=== PATIENT | female | born 1945 | race Caucasian/White ===

== ENCOUNTER 2016-10-21 12:34 | Outpatient (CLI) | payer MEDICARE, BC | END 2016-10-21 12:35 | disposition home or self-care (01) | DX: Z09 Encounter for follow-up examination after completed treatment for conditions other than malignant neoplasm (principal); E11.9 Type 2 diabetes mellitus without complications ==

== ENCOUNTER 2016-10-30 14:06 | Outpatient (CLI) | payer MEDICARE, BC | END 2016-10-30 14:07 | disposition home or self-care (01) | DX: J11.1 Influenza due to unidentified influenza virus with other respiratory manifestations (principal) ==

== ENCOUNTER 2017-06-11 12:51 | Outpatient (CLI) | payer MEDICARE, BC ==
[2017-06-11 13:12] LABS: CREATININE 1.7 mg/dL (0.4-1.0)
[2017-06-11] MEDS ORDERED: IOPAMIDOL-300 100 ML VIAL IVP ONE (15:05)
[2017-06-11] MEDS ORDERED: IOPAMIDOL-300 50 ML VIAL PO ONE (15:05)
--- NOTE | 2017-06-12 10:44 | CT Report ---
CT ABDOMEN AND PELVIS WITH CONTRAST: 06/11/2017 CLINICAL INDICATION: Bilateral labial swelling, question pelvic mass. TECHNIQUE: Axial CT images of the abdomen and pelvis were obtained with 100 mL Isovue-300 intravenou sly as well as oral contrast. In accordance with CT protocol optimization, one or more of the following dose reduction techniques w ere utilized for this exam: automated exposure control, adjustment of mA and/or KV based on patient size, or use of iterative reconstructive technique. COMPARISON: 08/29/2011 FINDINGS: IV contrast was administered inadvertently in this patient with renal dysfunction. The of fice and the patient were contacted regarding this. Limited evaluation of the lung bases demonstrates minimal atelectasis. Abdomen: The liver, kidneys, and pancreas appear unremarkable. There is a stable nodule in the left adrenal gland, likely representing an adenoma. The spleen demonstrates small hemangiomas. The gall bladder is not dilated. No bowel dilatation, free gas, or free fluid is present. There is a paraumb ilical hernia present, containing fat, with the neck measuring 1.5 cm. No free gas, free fluid, or a bdominal adenopathy is seen. Pelvis: Previously seen pelvic cyst has resolved. No pelvic mass, free fluid, or adenopathy is pres ent. Postoperative changes of hysterectomy are present. Osseous structures demonstrate degenerative changes. IMPRESSION: NO EVIDENCE OF A PELVIC MASS OR ADENOPATHY. JOB #: [id number] EXT JOB #:[id number]
== END 2017-06-11 12:52 | disposition home or self-care (01) ==
LOC: LAB 12:51
PROVIDERS: ATTEND Surgery
DX: K42.9 Umbilical hernia without obstruction or gangrene (principal); E27.9 Disorder of adrenal gland, unspecified; D18.09 Hemangioma of other sites
CPT/HCPCS: 36415; 74177; 82565; Q9967

== ENCOUNTER 2017-08-16 10:50 | Outpatient (CLI) | payer MEDICARE, BC ==
[2017-08-16 11:04] LABS: BASOPHILS # (AUTO) 0.1 10^3/uL (0.0-0.1); BASOPHILS % (AUTO) 1.4 %; EOSINOPHILS # (AUTO) 0.4 10^3/uL (0.0-0.7); EOSINOPHILS % (AUTO) 4.2 %; HCT - HEMATOCRIT 39.4 % (37.0-47.0); HGB - HEMOGLOBIN 13.1 g/dL (12.0-16.0); LYMPHOCYTES # (AUTO) 2.5 10^3/uL (1.5-3.5); MEAN CORPUSCULAR HEMOGLOBIN 28.8 pg (27.0-31.0); MEAN CORPUSCULAR HGB CONC 33.3 g/dL (32.0-36.0); MEAN CORPUSCULAR VOLUME 86.4 fL (81.0-99.0); MEAN PLATELET VOLUME 9.8 fL (7.9-10.8); MONOCYTES # (AUTO) 0.6 10^3/uL (0.0-1.0); MONOCYTES % (AUTO) 6.4 %; NEUTROPHILS # (AUTO) 5.6 10^3/uL (1.5-6.6); NUCLEATED RED BLOOD CELLS AUTO 0.1 /100WBC; RED BLOOD COUNT 4.56 10^6/uL (4.20-5.40); RED CELL DISTRIBUTION WIDTH 13.9 % (12.0-15.0); UNCORRECTED WHITE BLOOD COUNT 9.2 x10^3/uL; WHITE BLOOD COUNT 9.2 x10^3/uL (4.8-10.8)
[2017-08-16 11:13] LABS: BILIRUBIN,TOTAL 0.5 mg/dL (0.2-1.0); CALCIUM 9.2 mg/dL (8.5-10.3); CREATININE 1.2 mg/dL (0.4-1.0); POTASSIUM 4.6 mmol/L (3.5-5.0); TOTAL PROTEIN 7.5 g/dL (6.7-8.2)
--- NOTE | 2017-08-16 22:39 | XRAY Report ---
EXAM: CHEST RADIOGRAPHY EXAM DATE: 08/16/2017 11:06 AM. CLINICAL HISTORY: PREOPERATIVE EXAMINATION. COMPARISON: 07/14/2016. TECHNIQUE: 2 views. FINDINGS: Lungs/Pleura: No focal opacities evident with exception of minimal left midlung atelectasis. No pleur al effusion. No pneumothorax. Normal volumes. Mediastinum: Heart and mediastinal contours are unremarkable. Other: None. IMPRESSION: Negative 2-view chest radiography. [facility] Referring Provider Line: [phone] SITE ID: [id number]
[2017-08-18] MEDS ORDERED: INSULIN REGULAR HUMAN 100 UNIT/1 ML 10 ML MDV ONE (08:33)
== END 2017-08-16 11:05 ==
LOC: DI 10:50
PROVIDERS: ATTEND Physician Assistant Medical
DX: Z01.818 Encounter for other preprocedural examination (principal)
CPT/HCPCS: 36415; 71020; 80053; 85025

== ENCOUNTER 2017-08-18 06:03 | Day surgery (SDC) | payer MEDICARE, BC ==
[2017-08-18] MEDS ORDERED: LACTATED RINGERS 1,000 ML IV ONE ×2 (07:00→09:41)
[2017-08-18] MEDS ORDERED: SCOPOLAMINE PATCH TOP ONE (07:20)
[2017-08-18] MEDS ORDERED: INSULIN REGULAR HUMAN 100 UNIT/1 ML 10 ML MDV ONE (07:21)
[2017-08-18] MEDS ORDERED: NEOSTIGMINE 1 MG/1 ML 10 ML MDV IVP ONE (08:00)
[2017-08-18] MEDS ORDERED: GLYCOPYRROLATE 1 MG/5 ML VIAL IVP ONE (08:00)
[2017-08-18] MEDS ORDERED: CLINDAMYCIN IV 900 MG/50 ML IV ONE (08:00)
[2017-08-18] MEDS ORDERED: ONDANSETRON 4 MG/2 ML VIAL IVP ONE (08:00)
[2017-08-18] MEDS ORDERED: MIDAZOLAM 2 MG/2 ML VIAL IVP ONE (08:00)
[2017-08-18] MEDS ORDERED: LIDOCAINE-MPF 2% 5 ML VIAL IM ONE (08:00)
[2017-08-18] MEDS ORDERED: METOCLOPRAMIDE 10 MG/2 ML VIAL IVP ONE (08:00)
[2017-08-18] MEDS ORDERED: ROCURONIUM 50 MG/5 ML VIAL IVP ONE (08:00)
[2017-08-18] MEDS ORDERED: ePHEDrine 50 MG/ML VIAL IVP ONE (08:00)
[2017-08-18] MEDS ORDERED: fentaNYL 100 MCG/2 ML VIAL IVP ONE (08:00)
[2017-08-18] MEDS ORDERED: BUPIVACAINE 0.5% PF 30 ML VIAL INFIL ONE ×2 (08:12)
--- NOTE | 2017-08-18 09:09 | OPERATIVE REPORT ---
Operative Report - General Procedure Date: 08/18/17 Planned Procedure: Periumbilical/ventral herniorrhaphy with mesh Pre-Op Diagnosis: Periumbilical/ventral hernia Procedure Performed: Periumbilical/ventral herniorrhaphy with mesh Post Op Diagnosis: Periumbilical/ventral hernia - Procedure Note Primary Surgeon: Jermaine Ledbetter MD Anesthesia Provider: Yue Hancock Anesthesia Technique: General ET tube, Local (30 mL 1/2% Marcaine) IV Fluids (mL): 600 Estimated Blood Loss (mL): 5 Complications: None. - Other Other Information/Narrative: OPERATIVE DESCRIPTION/REPORT: After verbal and written informed consent was obtained detailing the risks of infection, bleeding requiring transfusion with its risks, nerve injury, and , and after I met with the patient confirming the surgery and the site of the surgery, the patient was brought to the operative suite and placed supine on the operating table. Great care was taken to avoid pressure points to prevent pressure necrosis or nerve injury. Monitoring devices were applied along with TEDs and pneumatic compressive stockings (to prevent DVT). The patient received preoperative antibiotics for surgical prophylaxis. Yue Hancock sedated and anethetized the patient for the entire procedure. The patient was prepped and draped in the usual sterile manner. With the patient draped my initials were clearly visible. A "time in" then confirmed that the patient was identified with 3 identifiers (name, date and medical record number), the history and physical was in the chart, the signed consent confirming the procedure was in the chart, the patient was in the correct position, the aforementioned prophylactic measures were in place or given, we had the correct personnel and equipment to complete the procedure and that anesthesia, surgery and nursing were given an opportunity to express any concerns. With the agreement of everyone in the room, we proceeded with the operation. A transverse incision was made overlying the mass and dissection was carried down to the hernia sac using a combination of Metzenbaum scissors, scalpel, and Bovie electrocautery. The sac was cleared of overlying adherent tissue, and the fascial defect was delineated. The fascia was cleared of any adherent tissue for a distance 1.5 cm from the defect. The sac was resected using primarily Bovie electrocautery. The defect was closed using a Ventralex ST hernia patch (Ref #[id number], Lot #[id number], used by date 2019-03-15). This 8 cm in diameter patch was selected even though it was slightly oversized for the fascial defect due to the patient's obesity, diabetes, and cigarette smoking all contributing to a higher than average chance of recurrence. This was inserted into the abdomen and deployed. The straps were cut to fit and used to secure the mesh superiorly and inferiorly using 2-0 PDS. The fascia was then closed over this again using 2-0 PDS in an interrupted fashion. The surrounding fascia was injected using half percent Marcaine for long-term pain control. The subcutaneous tissues were copiously irrigated, and then closed using an interrupted 2-0 Vicryl. Meticulous hemostasis was obtained using Bovie electrocautery. The skin incision was approximated with a running 4-0 Monocryl. The prep was washed off and benzoin and Steri-Strips were applied. At this point a time out was performed that confirmed that all the counts were correct, the procedure that was performed, the blood loss, the IV fluids administered, and the patients condition. Having tolerated the procedure well, the patient was subsequently extubated and taken to recovery room in good and stable condition.
[2017-08-18 10:19] VITALS: BP 136/72
== END 2017-08-18 06:04 | disposition home or self-care (01) ==
LOC: SDS 06:03
PROVIDERS: ATTEND Surgery
PROC: 0WUF0JZ Supplement Abdominal Wall with Synthetic Substitute, Open Approach (ICD-10-PCS; principal; 2017-08-18 07:30)
DX: K43.9 Ventral hernia without obstruction or gangrene (principal); E11.9 Type 2 diabetes mellitus without complications; F17.210 Nicotine dependence, cigarettes, uncomplicated; E78.5 Hyperlipidemia, unspecified; Z79.4 Long term (current) use of insulin; Z79.82 Long term (current) use of aspirin; E66.9 Obesity, unspecified; Z68.41 Body mass index [BMI] 40.0-44.9, adult
CPT/HCPCS: 49560; 49568; C1781; J1815; J3490; J7120

== ENCOUNTER 2017-11-20 11:23 | Outpatient (CLI) | payer MEDICARE, OTHER ==
[2017-11-20 17:48] LABS: BASOPHILS # (AUTO) 0.1 10^3/uL (0.0-0.1); BASOPHILS % (AUTO) 1.3 %; EOSINOPHILS # (AUTO) 0.4 10^3/uL (0.0-0.7); EOSINOPHILS % (AUTO) 4.6 %; LYMPHOCYTES # (AUTO) 1.9 10^3/uL (1.5-3.5); MEAN CORPUSCULAR HEMOGLOBIN 28.9 pg (27.0-31.0); MEAN CORPUSCULAR HGB CONC 32.5 g/dL (32.0-36.0); MEAN CORPUSCULAR VOLUME 88.9 fL (81.0-99.0); MEAN PLATELET VOLUME 10.7 fL (7.9-10.8); MONOCYTES # (AUTO) 0.6 10^3/uL (0.0-1.0); NEUTROPHILS # (AUTO) 5.4 10^3/uL (1.5-6.6); NEUTROPHILS % (AUTO) 64.1 %; PLT - PLATELET COUNT 301 10^3/uL (130-450); RED BLOOD COUNT 4.48 10^6/uL (4.20-5.40); RED CELL DISTRIBUTION WIDTH 14.1 % (12.0-15.0); WHITE BLOOD COUNT 8.4 x10^3/uL (4.8-10.8)
[2017-11-20 18:24] LABS: ALBUMIN 3.9 g/dL (3.2-5.5); ALBUMIN/GLOBULIN RATIO 1.1 (1.0-2.2); ALKALINE PHOSPHATASE 80 IU/L (42-121); ALT ALANINE AMINOTRANSFERASE 14 IU/L (10-60); AST ASPARTATE AMINOTRANSFERASE 17 IU/L (10-42); BILIRUBIN,TOTAL 0.5 mg/dL (0.2-1.0); BUN - BLOOD UREA NITROGEN 29 mg/dL (6-20); CALCIUM 9.1 mg/dL (8.5-10.3); CARBON DIOXIDE - CO2 24 mmol/L (21-32); CHLORIDE 100 mmol/L (101-111); CHOL/HDL RATIO 6.2 (<4.4); CHOLESTEROL 328 mg/dL; CREATININE 1.2 mg/dL (0.4-1.0); GFR - MDRD 44 (>89); GLUCOSE 293 mg/dL (70-100); HDL CHOLESTEROL 53 mg/dL; LDL CHOLESTEROL,CALCULATED 235 mg/dL; LDL/HDL RATIO 4.4 (<4.4); SODIUM 133 mmol/L (135-145); TOTAL PROTEIN 7.5 g/dL (6.7-8.2); VLDL CHOLESTEROL 40 mg/dL
[2017-11-20 19:32] LABS: HB2 TOTAL 13.8 g/dL; HEMOGLOBIN A1C 1.48 g/dL
== END 2017-11-20 11:24 | disposition home or self-care (01) ==
LOC: LAB.F 11:23
PROVIDERS: ATTEND Physician Assistant Medical
DX: E78.5 Hyperlipidemia, unspecified (principal); E11.51 Type 2 diabetes mellitus with diabetic peripheral angiopathy without gangrene; E03.9 Hypothyroidism, unspecified
CPT/HCPCS: 36415; 80053; 80061; 83036; 83721; 84443; 85025

== ENCOUNTER 2017-12-31 12:26 | Outpatient (CLI) | payer MEDICARE, OTHER | END 2017-12-31 12:27 | disposition EMS.NT | LOC: EMS 12:26 | PROVIDERS: ATTEND Surgery | DX: R55 Syncope and collapse (principal); R73.09 Other abnormal glucose ==

== ENCOUNTER 2018-02-01 11:28 | Outpatient (CLI) | payer MEDICARE, OTHER ==
[2018-02-01 19:40] LABS: HB2 TOTAL 12.9 g/dL; HEMOGLOBIN A1C 0.93 g/dL; HEMOGLOBIN A1C % 8.7 % (4.6-6.2)
== END 2018-02-01 11:29 | disposition home or self-care (01) ==
LOC: LAB.F 11:28
PROVIDERS: ATTEND Nurse Practitioner Family
DX: E11.9 Type 2 diabetes mellitus without complications (principal)
CPT/HCPCS: 36415; 83036

== ENCOUNTER 2018-08-19 09:46 | Outpatient (CLI) | payer MEDICARE, OTHER ==
[2018-08-19 17:49] LABS: BASOPHILS # (AUTO) 0.1 10^3/uL (0.0-0.1); BASOPHILS % (AUTO) 1.3 %; EOSINOPHILS # (AUTO) 0.5 10^3/uL (0.0-0.7); EOSINOPHILS % (AUTO) 5.7 %; HGB - HEMOGLOBIN 13.7 g/dL (12.0-16.0); LYMPHOCYTES # (AUTO) 2.5 10^3/uL (1.5-3.5); LYMPHOCYTES % (AUTO) 27.8 %; MEAN CORPUSCULAR HEMOGLOBIN 29.6 pg (27.0-31.0); MEAN CORPUSCULAR HGB CONC 32.8 g/dL (32.0-36.0); MEAN CORPUSCULAR VOLUME 90.2 fL (81.0-99.0); MEAN PLATELET VOLUME 10.7 fL (7.9-10.8); MONOCYTES # (AUTO) 0.6 10^3/uL (0.0-1.0); MONOCYTES % (AUTO) 6.6 %; NEUTROPHILS # (AUTO) 5.2 10^3/uL (1.5-6.6); NEUTROPHILS % (AUTO) 58.6 %; PLT - PLATELET COUNT 258 10^3/uL (130-450); RED BLOOD COUNT 4.62 10^6/uL (4.20-5.40); RED CELL DISTRIBUTION WIDTH 14.1 % (12.0-15.0); WHITE BLOOD COUNT 8.9 x10^3/uL (4.8-10.8)
[2018-08-19 18:29] LABS: ALBUMIN 3.6 g/dL (3.2-5.5); ALKALINE PHOSPHATASE 85 IU/L (42-121); ALT ALANINE AMINOTRANSFERASE 14 IU/L (10-60); AST ASPARTATE AMINOTRANSFERASE 15 IU/L (10-42); BILIRUBIN,TOTAL 0.7 mg/dL (0.2-1.0); BUN - BLOOD UREA NITROGEN 36 mg/dL (6-20); CALCIUM 9.1 mg/dL (8.5-10.3); CARBON DIOXIDE - CO2 28 mmol/L (21-32); CHLORIDE 99 mmol/L (101-111); CHOL/HDL RATIO 7.2 (<4.4); CHOLESTEROL 376 mg/dL; CREATININE 1.5 mg/dL (0.4-1.0); GFR - MDRD 34 (>89); GLUCOSE 317 mg/dL (70-100); HDL CHOLESTEROL 52 mg/dL; LDL CHOLESTEROL,CALCULATED 253 mg/dL; LDL/HDL RATIO 4.9 (<4.4); SODIUM 135 mmol/L (135-145); TOTAL PROTEIN 7.1 g/dL (6.7-8.2); VLDL CHOLESTEROL 71 mg/dL
[2018-08-19 19:28] LABS: HB2 TOTAL 14.1 g/dL; HEMOGLOBIN A1C 1.53 g/dL; HEMOGLOBIN A1C % 12.1 % (4.6-6.2)
== END 2018-08-19 09:47 | disposition home or self-care (01) ==
LOC: LAB.F 09:46
PROVIDERS: ATTEND Physician Assistant Medical
DX: I10 Essential (primary) hypertension (principal); E78.5 Hyperlipidemia, unspecified; E11.40 Type 2 diabetes mellitus with diabetic neuropathy, unspecified
CPT/HCPCS: 36415; 80053; 80061; 82043; 83036; 83721; 85025

== ENCOUNTER 2018-12-19 00:32 | Outpatient (CLI) | payer MEDICARE, OTHER | END 2018-12-19 00:33 | disposition critical access hospital (66) | LOC: EMS 00:32 | PROVIDERS: ATTEND Surgery | DX: R41.0 Disorientation, unspecified (principal) | CPT/HCPCS: A0425; A0429 ==

== ENCOUNTER 2018-12-19 01:02 | Emergency (ER) | payer MEDICARE, OTHER ==
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
[2018-12-19 02:22] LABS: BASOPHILS # (AUTO) 0.1 10^3/uL (0.0-0.1); BASOPHILS % (AUTO) 1.6 %; EOSINOPHILS # (AUTO) 0.3 10^3/uL (0.0-0.7); EOSINOPHILS % (AUTO) 3.7 %; LYMPHOCYTES # (AUTO) 2.3 10^3/uL (1.5-3.5); LYMPHOCYTES % (AUTO) 24.4 %; MEAN CORPUSCULAR HEMOGLOBIN 30.2 pg (27.0-31.0); MEAN CORPUSCULAR HGB CONC 33.8 g/dL (32.0-36.0); MEAN CORPUSCULAR VOLUME 89.4 fL (81.0-99.0); MEAN PLATELET VOLUME 10.2 fL (7.9-10.8); MONOCYTES # (AUTO) 0.7 10^3/uL (0.0-1.0); MONOCYTES % (AUTO) 7.3 %; NEUTROPHILS # (AUTO) 5.9 10^3/uL (1.5-6.6); PLT - PLATELET COUNT 265 10^3/uL (130-450); RED CELL DISTRIBUTION WIDTH 14.2 % (12.0-15.0); WHITE BLOOD COUNT 9.3 x10^3/uL (4.8-10.8)
[2018-12-19 02:44] LABS: BILIRUBIN,URINE NEGATIVE (NEGATIVE); GLUCOSE, URINE (UA) NEGATIVE (NEGATIVE); KETONES,URINE (UA) NEGATIVE (NEGATIVE); LEUKOCYTE ESTERASE, URINE NEGATIVE (NEGATIVE); NITRITE,URINE NEGATIVE (NEGATIVE); OCCULT BLOOD,URINE NEGATIVE (NEGATIVE); PROTEIN,URINE 100 mg/dL (NEGATIVE); UROBILINOGEN,URINE 0.2 (NORMAL) E.U./dL (NORMAL)
[2018-12-19 02:45] LABS: ALBUMIN 3.5 g/dL (3.2-5.5); ALBUMIN/GLOBULIN RATIO 0.9 (1.0-2.2); BILIRUBIN,TOTAL 0.6 mg/dL (0.2-1.0); CALCIUM 8.9 mg/dL (8.5-10.3); CREATININE 1.7 mg/dL (0.4-1.0); TOTAL PROTEIN 7.2 g/dL (6.7-8.2)
[2018-12-19 02:55] LABS: CLARITY,URINE CLEAR (CLEAR)
[2018-12-19 02:56] LABS: BACTERIA,URINE Few /HPF (None Seen); RBC,URINE 0-5 /HPF (0-5); SQUAMOUS EPITHELIAL CELL,UR MOD Squamous (<= Few)
--- NOTE | 2018-12-19 02:57 | CT Report ---
Reason: confusion short term memory loss Procedure Date: 12/19/2018 Accession Number: [id number] / [id number] Procedure: CT - HEAD WO CPT Code: FULL RESULT: EXAM: CT HEAD EXAM DATE: 12/19/2018 02:48 AM. CLINICAL HISTORY: Confusion, short term memory loss. COMPARISON: None. TECHNIQUE: Multiaxial CT images were obtained from the foramen magnum to the vertex. Reformats: Sagittal and coronal. IV contrast: None. In accordance with CT protocol optimization, one or more of the following dose reduction techniques were utilized for this exam: automated exposure control, adjustment of mA and/or KV based on patient size, or use of iterative reconstructive technique. FINDINGS: Parenchyma: No intraparenchymal hemorrhage. No evidence of mass, midline shift, or CT findings of infarction. Elkins-white differentiation is distinct. Moderate nonspecific white matter change, likely small vessel ischemia. Extraaxial Spaces: Normal for age. No subdural or epidural collections identified. Ventricles: Normal in size and position. Sinuses and Orbits: Imaged paranasal sinuses, orbits, and mastoids show no significant abnormality. Bilateral lens replacement surgery. Bones: No evidence of fracture or calvarial defect. Other: None. IMPRESSION: No acute or focal intracranial abnormality. [facility]
[2018-12-19] MEDS ORDERED: SODIUM CHLORIDE 0.9% 1,000 ML IV ONE (03:23)
[2018-12-19 05:13] LABS: BILIRUBIN,URINE NEGATIVE (NEGATIVE); GLUCOSE, URINE (UA) NEGATIVE (NEGATIVE); KETONES,URINE (UA) NEGATIVE (NEGATIVE); LEUKOCYTE ESTERASE, URINE TRACE (NEGATIVE); NITRITE,URINE NEGATIVE (NEGATIVE); OCCULT BLOOD,URINE NEGATIVE (NEGATIVE); PROTEIN,URINE 100 mg/dL (NEGATIVE); UROBILINOGEN,URINE 0.2 (NORMAL) E.U./dL (NORMAL)
[2018-12-19 05:22] LABS: CLARITY,URINE CLEAR (CLEAR)
[2018-12-19 05:23] LABS: BACTERIA,URINE Few /HPF (None Seen); RBC,URINE 0-5 /HPF (0-5); SQUAMOUS EPITHELIAL CELL,UR FEW Squamous (<= Few)
[2018-12-19] MEDS ORDERED: ACETAMINOPHEN 325 MG TABLET PO STA (05:37)
[2018-12-19] MEDS ORDERED: cefTRIAXone 1 GM in SODIUM CHLORIDE 0.9% MINIBAG 100 ML IV STA (06:54)
[2018-12-19 10:02] VITALS: BP 180/84
== END 2018-12-19 10:01 | disposition home or self-care (01) ==
LOC: EDUNIT# → ED 01:02
DX: E86.0 Dehydration (principal); N30.00 Acute cystitis without hematuria; F03.90 Unspecified dementia, unspecified severity, without behavioral disturbance, psychotic disturbance, mood disturbance, and anxiety; I11.0 Hypertensive heart disease with heart failure; I50.9 Heart failure, unspecified; E11.9 Type 2 diabetes mellitus without complications; Z79.4 Long term (current) use of insulin; Z79.82 Long term (current) use of aspirin
CPT/HCPCS: 36415; 70450; 80053; 81001; 83605; 83690; 84484; 85025; 87040; 87086; 96361; 96365; 99284; A9270; 81003

== ENCOUNTER 2018-12-24 09:31 | Outpatient (CLI) | payer MEDICARE, OTHER ==
[2018-12-24 18:30] LABS: CHOLESTEROL 315 mg/dL; HDL CHOLESTEROL 45 mg/dL; LDL CHOLESTEROL,CALCULATED 212 mg/dL; LDL/HDL RATIO 4.7 (<4.4); VLDL CHOLESTEROL 58 mg/dL
== END 2018-12-24 09:32 | disposition home or self-care (01) ==
LOC: LAB.F 09:31
PROVIDERS: ATTEND Psychiatry & Neurology Neurology
DX: I63.9 Cerebral infarction, unspecified (principal)
CPT/HCPCS: 36415; 80061; 83721

== ENCOUNTER 2018-12-25 12:30 | Outpatient (CLI) | payer MEDICARE, OTHER | END 2018-12-25 12:31 | disposition home or self-care (01) | LOC: DI 12:30 | PROVIDERS: ATTEND Psychiatry & Neurology Neurology | DX: I63.9 Cerebral infarction, unspecified (principal) | CPT/HCPCS: 93306 ==

== ENCOUNTER 2019-01-10 09:53 | Outpatient (CLI) | payer MEDICARE, OTHER | END 2019-01-10 09:54 | disposition home or self-care (01) | LOC: NS 09:53 | PROVIDERS: ATTEND Physician Assistant Medical | DX: Z71.3 Dietary counseling and surveillance (principal); E78.5 Hyperlipidemia, unspecified; I50.9 Heart failure, unspecified; E11.22 Type 2 diabetes mellitus with diabetic chronic kidney disease; N18.4 Chronic kidney disease, stage 4 (severe); E11.40 Type 2 diabetes mellitus with diabetic neuropathy, unspecified | CPT/HCPCS: 97802 ==

== ENCOUNTER 2019-01-24 11:05 | Outpatient (CLI) | payer MEDICARE, OTHER | END 2019-01-24 11:06 | disposition home or self-care (01) | LOC: NS 11:05 | PROVIDERS: ATTEND Physician Assistant Medical | DX: Z71.3 Dietary counseling and surveillance (principal); E11.22 Type 2 diabetes mellitus with diabetic chronic kidney disease; N18.4 Chronic kidney disease, stage 4 (severe); E78.2 Mixed hyperlipidemia; E66.01 Morbid (severe) obesity due to excess calories; I50.9 Heart failure, unspecified; E11.40 Type 2 diabetes mellitus with diabetic neuropathy, unspecified; Z68.41 Body mass index [BMI] 40.0-44.9, adult | CPT/HCPCS: 97803 ==

== ENCOUNTER 2019-02-16 08:59 | Outpatient (CLI) | payer MEDICARE, OTHER ==
[2019-02-16 10:30] LABS: HB2 TOTAL 13.2 g/dL
[2019-02-16 11:05] LABS: ALBUMIN 3.8 g/dL (3.2-5.5); ALBUMIN/GLOBULIN RATIO 1.2 (1.0-2.2); ALKALINE PHOSPHATASE 67 IU/L (42-121); ALT ALANINE AMINOTRANSFERASE 24 IU/L (10-60); AST ASPARTATE AMINOTRANSFERASE 25 IU/L (10-42); BILIRUBIN,TOTAL 0.5 mg/dL (0.2-1.0); BUN - BLOOD UREA NITROGEN 57 mg/dL (6-20); CALCIUM 9.3 mg/dL (8.5-10.3); CARBON DIOXIDE - CO2 22 mmol/L (21-32); CHLORIDE 107 mmol/L (101-111); CHOLESTEROL 245 mg/dL; CREATININE 1.5 mg/dL (0.4-1.0); GFR - MDRD 34 (>89); GLUCOSE 119 mg/dL (70-100); HDL CHOLESTEROL 35 mg/dL; LDL CHOLESTEROL,CALCULATED 171 mg/dL; LDL/HDL RATIO 4.9 (<4.4); SODIUM 138 mmol/L (135-145); VLDL CHOLESTEROL 39 mg/dL
[2019-02-16 15:50] LABS: HEMOGLOBIN A1C 0.78 g/dL; HEMOGLOBIN A1C % 7.6 % (4.6-6.2)
== END 2019-02-16 09:00 | disposition home or self-care (01) ==
LOC: LAB.F 08:59
PROVIDERS: ATTEND Internal Medicine
DX: E78.5 Hyperlipidemia, unspecified (principal); E11.40 Type 2 diabetes mellitus with diabetic neuropathy, unspecified; E03.9 Hypothyroidism, unspecified
CPT/HCPCS: 36415; 80053; 80061; 83036; 83721; 84443

== ENCOUNTER 2019-02-21 12:58 | Outpatient (CLI) | payer MEDICARE, OTHER | END 2019-02-21 12:59 | disposition home or self-care (01) | LOC: SC 12:58 | PROVIDERS: ATTEND Internal Medicine Pulmonary Disease | DX: G47.33 Obstructive sleep apnea (adult) (pediatric) (principal); E66.01 Morbid (severe) obesity due to excess calories; Z68.41 Body mass index [BMI] 40.0-44.9, adult | CPT/HCPCS: 99203; G0463; 99212 ==

== ENCOUNTER 2019-03-19 19:31 | Outpatient (CLI) | payer MEDICARE, OTHER | END 2019-03-19 19:32 | disposition home or self-care (01) | LOC: SC 19:31 | PROVIDERS: ATTEND Internal Medicine Pulmonary Disease | DX: G47.33 Obstructive sleep apnea (adult) (pediatric) (principal); G47.61 Periodic limb movement disorder | CPT/HCPCS: 95810 ==

== ENCOUNTER 2019-03-21 10:51 | Outpatient (CLI) | payer MEDICARE, OTHER | END 2019-03-21 10:52 | disposition home or self-care (01) | LOC: NS 10:51 | PROVIDERS: ATTEND Physician Assistant Medical | DX: Z71.3 Dietary counseling and surveillance (principal); E11.22 Type 2 diabetes mellitus with diabetic chronic kidney disease; N18.4 Chronic kidney disease, stage 4 (severe); E78.2 Mixed hyperlipidemia; E66.01 Morbid (severe) obesity due to excess calories; E11.40 Type 2 diabetes mellitus with diabetic neuropathy, unspecified; I50.9 Heart failure, unspecified; Z68.41 Body mass index [BMI] 40.0-44.9, adult | CPT/HCPCS: 97803 ==

== ENCOUNTER 2019-03-31 02:52 | Outpatient (CLI) | payer MEDICARE, OTHER, MEDICAID | END 2019-03-31 02:53 | disposition critical access hospital (66) | LOC: EMS 02:52 | PROVIDERS: ATTEND Surgery | DX: M25.532 Pain in left wrist (principal) | CPT/HCPCS: A0425; A0429 ==

== ENCOUNTER 2019-03-31 03:21 | Emergency (ER) | payer MEDICARE, OTHER, MEDICAID ==
--- NOTE | 2019-03-31 04:09 | ED Physician Documentation ---
PD HPI UPPER EXT INJURY - Stated complaint Stated Complaint: WRIST PAIN - Chief complaint Chief Complaint: Ext Problem - History obtained from History obtained from: Patient - History of Present Illness Location: Left, Wrist Type of injury: Blunt / blow Where injury occurred: Other (Pul) Timing - onset: How many days ago (2) Timing - duration: Days (2) Timing - details: Abrupt onset Pain level now: 10 Improved by: Nothing Worsened by: Moving Associated symptoms: Weakness, Swelling. No: Numbness, Tingling Similar symptoms before: Has not had sx before Recently seen: Not recently seen - Additonal information Additional information: This is a 73-year-old woman who hit her wrap left wrist on the railing getting out of the pool 2 days ago. The pain is been getting increasingly more severe in that wrist since then shooting stabbing type pain particularly if she moves the wrist. She says the pain is been so severe she has not been able to sleep. She is tried ibuprofen 400 mg last dose was approximately 7 hours prior to presentation. She tried wearing a splint and icing it but nothing seems to be helping. Patient had a stroke about a month ago and says that her right arm still hurts from falling at that time and now it has flared up even more because she is left-handed and is having to rely more on the right arm since she injured the left wrist. She is been a little bit nauseous but has not been vomiting. She lives at home with her . Review of Systems Musculoskeletal: reports: Extremity pain, Joint pain Neurologic: reports: Other (Poor memory from her stroke). denies: Numbness PD PAST MEDICAL HISTORY - Past Medical History Cardiovascular: Congestive heart failure, Hypertension, High cholesterol, Murmur Respiratory: Asthma, Pneumonia, Shortness of breath, Sleep apnea Neuro: Migraines, Other Endocrine/Autoimmune: Type 2 diabetes, HyPOthyroidism, Other GI: GERD, Hepatitis, Other : Incontinence, Frequency HEENT: Chronic vision loss, Chronic hearing loss Psych: None Musculoskeletal: Osteoarthritis, Chronic back pain, Other Derm: None - Past Surgical History Ortho: Hip replacement, Knee replacement, Carpal Tunnel surgery /FRUIT P[employer]ER: Dilation and currettage, Tubal ligation, Hysterectomy, Oophrectomy - Present Medications Home Medications: Ambulatory Orders Medication Instructions Recorded Confirmed Albuterol Sulf [Ventolin Hfa 1 - 2 puffs INH Q4HR PRN 08/14/17 05/03/18 Inhaler] Aspirin [Adult Low Dose Aspirin EC] 81 mg PO DAILY 08/14/17 05/03/18 EPINEPHrine [Epipen 2-Justin] 0.3 mg IM ONCE PRN 08/14/17 05/03/18 Fluticasone Propionate [Flovent 50 mcg IH DAILY 08/14/17 05/03/18 Diskus] Insulin Glargine [Lantus Solostar] 45 unit SQ DAILY 08/14/17 05/03/18 Insulin NPH Human Isophane 1 - 6 units SQ AC PRN 08/14/17 05/03/18 [Humulin N] Levothyroxine Sodium 150 mcg PO DAILY 08/14/17 05/03/18 Omeprazole 20 mg PO BID 08/14/17 05/03/18 Ropinirole HCl 0.75 mg PO DAILY PM 08/14/17 05/03/18 diphenhydrAMINE [Benadryl] 25 mg PO BID 08/14/17 05/03/18 Chlorthalidone 25 mg PO DAILY 02/26/18 05/03/18 Losartan Potassium 100 mg PO DAILY 02/26/18 05/03/18 Metoprolol Succinate [Toprol Xl] 50 mg PO BID 02/26/18 05/03/18 Sertraline HCl 25 mg PO DAILY 02/26/18 05/03/18 Ciprofloxacin HCl [Cipro] 500 mg PO BID #10 tablet 12/19/18 Oxycodone HCl/Acetaminophen 1 each PO Q6H PRN #10 tablet 03/31/19 [Percocet 5-325 mg Tablet] - Allergies Allergies/Adverse Reactions: Allergies Allergy/AdvReac Type Severity Reaction Status Date / Time atorvastatin Allergy Cramps Verified 03/31/19 04:19 bee venom protein (honey bee) Allergy Unknown Verified 03/31/19 04:19 cefuroxime [From Ceftin] Allergy Unknown Verified 03/31/19 04:19 codeine Allergy Nausea Verified 03/31/19 04:19 hydrocodone [From Vicodin] Allergy Nausea Verified 03/31/19 04:19 Influenza Virus Vaccines Allergy Unknown Verified 03/31/19 04:19 lisinopril Allergy Respiratory Verified 03/31/19 04:19 mushroom Allergy Anaphylaxis Verified 03/31/19 04:19 nitroglycerin Allergy Headache Verified 03/31/19 04:19 propoxyphene Allergy Unknown Verified 03/31/19 04:19 [From Rosemary-N] tramadol Allergy Headache Verified 03/31/19 04:19 - Social History Does the pt smoke?: No Smoking Status: Never smoker PD ED PE NORMAL - Vitals Vital signs reviewed: Yes - General General: Alert and oriented X 3, No acute distress, Well developed/nourished - HEENT HEENT: Atraumatic, Moist mucous membranes - Respiratory Respiratory: No respiratory distress - Derm Derm: Normal color, Warm and dry, No rash - Extremities Extremities: Other (The left wrist has edema just distal to the ulnar styloid. There is a mild amount of varus in this area and its exquisitely tender. I cannot tell if there is a joint effusion or not because of the pain. She has more pain with movement of the wrist as well as palpation into the dorsal aspect of the left forearm.Sensation is intact to light touch in her fingers. She is able to make a fist and open the hand but is very painful to extend the fingers and abduct the pinky. She is a 2+ radial pulse and sensation is intact light touch throughout the hand.) Results - Vitals Vitals: Vital Signs - 24 hr 03/31/19 03:30 Temperature 36.8 C Heart Rate 70 Respiratory 17 Rate Blood Pressure 210/85 H O2 Saturation 96 Oxygen O2 Source Room air - Rads (name of study) L wrist Radiology: EMP read contemporaneously (There is significant [place] degenerative changes and a calcific lucency proximal to the pisiform. Is well-corticated so does not appear to be a acute fracture however this is exactly where she is tender.), See rad report PD MEDICAL DECISION MAKING - ED course Complexity details: d/w patient ED course: The x-ray does not elucidate a clear acute fracture however she does have a lot of degenerative changes. Her physical exam is consistent with either tendinitis or reactive arthritis. She has been taking an anti-inflammatory at home without specific relief. Minute change her anti-inflammatory to naproxen and will provide a prescription for a few hydrocodone tablets In place her in a Velcro cock-up splint for comfort. She should follow-up with her primary care provider for further evaluation if the pain persists. Recommend ice. Departure - Departure Disposition: 01 Home, Self Care Clinical Impression: Tendinitis Condition: Good Instructions: ED Tendinitis Calcific Follow-Up: Genaro Espitia MD [Primary Care Provider] - Prescriptions: Oxycodone HCl/Acetaminophen [Percocet 5-325 mg Tablet] 1 each PO Q6H PRN #10 tablet PRN Reason: pain
[2019-03-31] MEDS ORDERED: HYDROcod/ACETAM 5/325 MG TABLET PO STA (04:12)
[2019-03-31] MEDS ORDERED: ONDANSETRON ODT 4 MG TABLET TL STA (04:13)
--- NOTE | 2019-03-31 04:28 | XRAY Report ---
Reason: injury Procedure Date: 03/31/2019 Accession Number: [id number] / [id number] Procedure: XR - Wrist 4 View LT CPT Code: FULL RESULT: EXAM: LEFT WRIST RADIOGRAPHY EXAM DATE: 03/31/2019 04:14 AM. CLINICAL HISTORY: Injury to the left wrist with pain. COMPARISON: None. TECHNIQUE: 4 views. FINDINGS: Bones: No definite acute wrist fracture seen. Small ossification distal to the ulnar styloid is questionable for an avulsion fracture off the triquetrum or pisiform. Small calcifications about the carpus may be related to degenerative changes. Joints: Advanced degenerative changes at the radial aspect of the carpus and first carpometacarpal joint. No subluxations. Soft Tissues: Normal. No soft tissue swelling. IMPRESSION: 1. No definite left wrist fracture or dislocation. Small ossification distal to the ulnar styloid is questionable for an avulsion fracture off the triquetrum or pisiform given history of point tenderness in the region. 2. Advanced degenerative changes about the radial aspect of the carpus and first carpometacarpal joint. RADIA
[2019-03-31] MEDS ORDERED: LOPERAMIDE 2 MG CAPSULE PO STA (04:49)
[2019-03-31] MEDS ORDERED: oxyCODONE 5 MG TABLET PO STA (04:50)
[2019-03-31 06:09] VITALS: BP 200/80
== END 2019-03-31 06:31 | disposition home or self-care (01) ==
LOC: EDUNIT# → ED 03:21
DX: M77.9 Enthesopathy, unspecified (principal); M19.032 Primary osteoarthritis, left wrist; I10 Essential (primary) hypertension; E11.42 Type 2 diabetes mellitus with diabetic polyneuropathy; Z79.4 Long term (current) use of insulin; Z79.82 Long term (current) use of aspirin; E03.9 Hypothyroidism, unspecified
CPT/HCPCS: 36415; 73110; 80053; 84443; 99283; A9270; Q0162; 81599; 83036

== ENCOUNTER 2019-03-31 14:18 | Outpatient (CLI) | payer MEDICARE, OTHER, MEDICAID ==
[2019-03-31 17:38] LABS: ALBUMIN 4.3 g/dL (3.2-5.5); ALBUMIN/GLOBULIN RATIO 1.2 (1.0-2.2); BILIRUBIN,TOTAL 0.5 mg/dL (0.2-1.0); CALCIUM 9.5 mg/dL (8.5-10.3); CREATININE 1.9 mg/dL (0.4-1.0)
[2019-04-01 19:16] LABS: HB2 TOTAL 13.3 g/dL; HEMOGLOBIN A1C 0.74 g/dL; HEMOGLOBIN A1C % 7.2 % (4.6-6.2)
== END 2019-03-31 14:19 | disposition home or self-care (01) ==
LOC: LAB.F 14:18
PROVIDERS: ATTEND Internal Medicine
DX: E11.42 Type 2 diabetes mellitus with diabetic polyneuropathy (principal); E03.9 Hypothyroidism, unspecified
CPT/HCPCS: 36415; 80053; 81599; 83036; 84443

== ENCOUNTER 2019-04-04 13:07 | Outpatient (CLI) | payer MEDICARE, OTHER | END 2019-04-04 13:08 | disposition home or self-care (01) | LOC: SC 13:07 | PROVIDERS: ATTEND Internal Medicine Pulmonary Disease | DX: G47.33 Obstructive sleep apnea (adult) (pediatric) (principal) | CPT/HCPCS: 99213; G0463; 99212 ==

== ENCOUNTER 2019-04-11 13:19 | Outpatient (CLI) | payer MEDICARE, OTHER | END 2019-04-11 13:20 | disposition critical access hospital (66) | LOC: EMS 13:19 | PROVIDERS: ATTEND Surgery | DX: R20.2 Paresthesia of skin (principal) | CPT/HCPCS: A0425; A0429 ==

== ENCOUNTER 2019-04-11 13:49 | Observation (INO) | payer MEDICARE, OTHER, MEDICAID ==
[2019-04-11 14:13] LABS: BILIRUBIN,URINE NEGATIVE (NEGATIVE); GLUCOSE, URINE (UA) NEGATIVE (NEGATIVE); KETONES,URINE (UA) NEGATIVE (NEGATIVE); LEUKOCYTE ESTERASE, URINE NEGATIVE (NEGATIVE); NITRITE,URINE NEGATIVE (NEGATIVE); OCCULT BLOOD,URINE NEGATIVE (NEGATIVE); PH,URINE 5.5 PH (5.0-7.5); PROTEIN,URINE 100 mg/dL (NEGATIVE); UROBILINOGEN,URINE 0.2 (NORMAL) E.U./dL (NORMAL)
[2019-04-11 14:14] LABS: CLARITY,URINE CLEAR (CLEAR)
[2019-04-11 14:26] LABS: RBC,URINE None Seen /HPF (0-5); SQUAMOUS EPITHELIAL CELL,UR MOD Squamous (<= Few)
[2019-04-11 14:27] LABS: BACTERIA,URINE Rare /HPF (None Seen)
--- NOTE | 2019-04-11 14:29 | CT Report ---
Reason: L arm and L leg numbness Procedure Date: 04/11/2019 Accession Number: [id number] / [id number] Procedure: CT - Head W/O Stroke Protocol CPT Code: FULL RESULT: EXAM: CT HEAD EXAM DATE: 04/11/2019 02:18 PM. CLINICAL HISTORY: L arm and L leg numbness. COMPARISON: HEAD W/O 12/19/2018 2:37 AM. TECHNIQUE: Multiaxial CT images were obtained from the foramen magnum to the vertex. Reformats: Sagittal and coronal. IV contrast: None. In accordance with CT protocol optimization, one or more of the following dose reduction techniques were utilized for this exam: automated exposure control, adjustment of mA and/or KV based on patient size, or use of iterative reconstructive technique. FINDINGS: Parenchyma: No intraparenchymal hemorrhage. No evidence of mass, midline shift, or CT findings of acute infarction. Elkins-white differentiation is distinct. Diffuse chronic microangiopathic white matter changes. Extraaxial Spaces: Normal for age. No subdural or epidural collections. Ventricles: The ventricles and cortical sulci are enlarged, consistent with age-related tissue loss. Sinuses and orbits: Imaged paranasal sinuses, orbits, and mastoids show no significant abnormality. Bones: Unremarkable. Other: None. IMPRESSION: Generalized age-related cortical atrophic changes without evidence of acute intracranial abnormality. RADIA The critical test notification system was initiated by Dr. Lew Everett at 02:24 PM on 04/11/2019. The above critical test findings were discussed with Serafin Covington by Dr. Lew Everett at 02:28 PM on 04/11/2019.
--- NOTE | 2019-04-11 14:34 | ED Physician Documentation ---
PD HPI FOCAL NEURO - Stated complaint Stated Complaint: TINGLING L ARM L LEG - Chief complaint Chief Complaint: Neuro - History obtained from History obtained from: Patient, Family, EMS - History of Present Illness Timing - onset: How many hours ago (2) Timing - duration: Hours (2) Timing - details: Gradual onset Severity of deficit: Mild Weakness: No: Face, Arm, Hand, Leg, Foot, Right, Left Numbness: Arm, Hand, Leg, Foot, Left. No: Face, Right Associated symptoms: No: Headache, Nausea / vomiting, Seizure, Syncope, Fall, Head injury, Chest pain, Neck pain, Back pain, Fever Baseline status: positive: A&OX3, ambulatory, indep - Additional information Additional information: 73-year-old female with a stroke 4 months ago with similar symptoms although she had weakness on the left side at that time as well. Symptoms occurred this morning approximately 2 hours prior to arrival. Has also had dysuria. No fevers. Does have low back pain. 2-3 out of 10. Symptoms seem to be improving now. Review of Systems Ten Systems: 10 systems reviewed and negative Constitutional: denies: Fever, Chills Ears: denies: Ear pain Nose: denies: Rhinorrhea / runny nose, Congestion Cardiac: denies: Chest pain / pressure Respiratory: denies: Cough GI: denies: Nausea, Vomiting, Diarrhea : denies: Dysuria Skin: denies: Rash Musculoskeletal: denies: Neck pain, Back pain Neurologic: denies: Confused, Altered mental status, Headache, Head injury PD PAST MEDICAL HISTORY - Past Medical History Cardiovascular: Congestive heart failure, Hypertension, High cholesterol, Murmur Respiratory: Asthma, Pneumonia, Shortness of breath, Sleep apnea Neuro: Migraines, Other Endocrine/Autoimmune: Type 2 diabetes, HyPOthyroidism, Other GI: GERD, Hepatitis, Other : Incontinence, Frequency HEENT: Chronic vision loss, Chronic hearing loss Psych: None Musculoskeletal: Osteoarthritis, Chronic back pain, Other Derm: None - Past Surgical History Ortho: Hip replacement, Knee replacement, Carpal Tunnel surgery /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, Tubal ligation, Hysterectomy, Oophrectomy - Present Medications Home Medications: Ambulatory Orders Medication Instructions Recorded Confirmed Albuterol Sulf [Ventolin Hfa 1 - 2 puffs INH Q4HR PRN 08/14/17 04/11/19 Inhaler] Aspirin [Adult Low Dose Aspirin EC] 81 mg PO DAILY 08/14/17 04/11/19 EPINEPHrine [Epipen 2-Justin] 0.3 mg IM ONCE PRN 08/14/17 04/11/19 Fluticasone Propionate [Flovent 50 mcg IH DAILY 08/14/17 04/11/19 Diskus] Insulin Glargine [Lantus Solostar] 45 unit SQ DAILY 08/14/17 04/11/19 Insulin NPH Human Isophane 1 - 6 units SQ AC PRN 08/14/17 04/11/19 [Humulin N] Omeprazole 20 mg PO BID 08/14/17 04/11/19 Ropinirole HCl 0.75 mg PO QPM 08/14/17 04/11/19 diphenhydrAMINE [Benadryl] 25 mg PO BID 08/14/17 04/11/19 Losartan Potassium 100 mg PO DAILY 02/26/18 04/11/19 Sertraline HCl 25 mg PO DAILY 02/26/18 04/11/19 Chlorthalidone 50 mg PO DAILY 04/11/19 04/11/19 Clopidogrel Bisulfate [Clopidogrel] 75 mg PO DAILY 04/11/19 04/11/19 Levothyroxine Sodium 175 mcg PO QDAC 04/11/19 04/11/19 Metoprolol Succinate 200 mg PO BID 04/11/19 04/11/19 cloNIDine HCl [Clonidine HCl] 0.1 mg PO BID 04/11/19 04/11/19 - Allergies Allergies/Adverse Reactions: Allergies Allergy/AdvReac Type Severity Reaction Status Date / Time atorvastatin Allergy Cramps Verified 04/11/19 13:55 bee venom protein (honey bee) Allergy Unknown Verified 04/11/19 13:55 cefuroxime [From Ceftin] Allergy Unknown Verified 04/11/19 13:55 codeine Allergy Nausea Verified 04/11/19 13:55 hydrocodone [From Vicodin] Allergy Nausea Verified 04/11/19 13:55 Influenza Virus Vaccines Allergy Unknown Verified 04/11/19 13:55 lisinopril Allergy Respiratory Verified 04/11/19 13:55 mushroom Allergy Anaphylaxis Verified 04/11/19 13:55 nitroglycerin Allergy Headache Verified 04/11/19 13:55 propoxyphene Allergy Unknown Verified 04/11/19 13:55 [From Darvocet-N] tramadol Allergy Headache Verified 04/11/19 13:55 - Social History Does the pt smoke?: No Smoking Status: Never smoker Does the pt drink ETOH?: No Does the pt have substance abuse?: No - Immunizations Immunizations are current?: Yes - POLST Patient has POLST: No PD ED PE NORMAL - Vitals Vital signs reviewed: Yes - General General: Alert and oriented X 3, No acute distress, Well developed/nourished - HEENT HEENT: Atraumatic, PERRL, Ears normal, Moist mucous membranes - Neck Neck: Supple, no meningeal sign - Cardiac Cardiac: RRR, Strong equal pulses - Respiratory Respiratory: No respiratory distress, Clear bilaterally - Abdomen Abdomen: Soft, Non tender, Non distended - Derm Derm: Warm and dry, No rash - Extremities Extremities: No calf tenderness / cord - Neuro Neuro: Alert and oriented X 3, personnel monitor 2-12 intact, No motor deficit, Normal speech, Other (Mild decreased sensation over the left arm and left leg.) Eye Opening: Spontaneous Motor: Obeys Commands Verbal: Oriented GCS Score: 15 - Psych Psych: Normal mood, Normal affect NIHSS - Time Time: 14:10 - Level of Consciousness Level of consciousness: (0) Alert, Keenly responsive LOC Questions: (0) Answers both Q's correct LOC Commands: (0) Performs both correctly - Gaze Best Gaze: (0) Normal - Visual Visual: (0) No loss - Facial Palsy Facial Palsy: (0) Normal, symmetrical movement - Motor Arms (both separate) Motor Arm (right): (0) No drift Motor Arm (left): (0) No drift - Motor Legs (both separate) Motor Leg (right): (0) No drift Motor Leg (left): (0) No drift - Limb Ataxia Limb Ataxia: (0) Absent - Sensory Sensory: (1) [id number] loss - Best Language Best Language: (0) No aphasia - Dysarthria Dysarthria: (0) Normal - Extinction and Inattention (formally neg Extinction and inattention: (0) No abnormality - Total Score/Results Total Score/Result: 1 Results - Vitals Vitals: Vital Signs - 24 hr 04/11/19 04/11/19 04/11/19 13:50 14:43 16:06 Temperature 36.7 C Heart Rate 50 L 48 L 49 L Respiratory 16 22 17 Rate Blood Pressure 189/68 H 173/64 H 162/58 H O2 Saturation 96 96 95 Oxygen O2 Source Room air - EKG (time done) 1422 Rate: Rate (enter#) (46) Rhythm: NSR [place]: Normal Intervals: Normal [place] QRS: Normal Ischemia: Normal ST segments, Q waves (III, aVF) - Labs Labs: Laboratory Tests 04/11/19 04/11/19 04/11/19 11:02 14:35 14:35 WBC 8.5 RBC 3.81 L Hgb 11.5 L Hct 36.2 L MCV 95.0 MCH 30.2 MCHC 31.8 L RDW 13.3 Plt Count 299 MPV 11.6 H Neut # (Auto) 5.9 Lymph # (Auto) 1.7 [place] # (Auto) 0.6 Eos # (Auto) 0.3 Baso # (Auto) 0.1 Absolute Nucleated RBC 0.00 Nucleated RBC % 0.0 PT INR APTT Sodium 142 Potassium 4.8 Chloride 109 Carbon Dioxide 23 Anion Gap 10.0 BUN 47 H Creatinine 1.5 H Estimated GFR (MDRD) 34 L Glucose 135 H Glycated Hemoglobin Estim Average Glucose Calcium 9.3 Phosphorus 3.3 Magnesium 1.8 Total Bilirubin 0.6 AST 19 ALT 19 Alkaline Phosphatase 68 Total Protein 7.3 Albumin 3.8 Globulin 3.5 Albumin/Globulin Ratio 1.1 Lipase 43 Urine Color YELLOW Urine Clarity CLEAR Urine pH 5.5 Ur Specific [place] 1.025 Urine Protein 100 H Urine Glucose (UA) NEGATIVE Urine Ketones NEGATIVE Urine Occult Blood NEGATIVE Urine Nitrite NEGATIVE Urine Bilirubin NEGATIVE Urine Urobilinogen 0.2 (NORMAL) Ur Leukocyte Esterase NEGATIVE Urine RBC None Seen Urine WBC 0-3 Ur Squamous Epith Cells MOD Squamous H Urine Bacteria Rare Ur Microscopic Review INDICATED Urine Culture Comments NOT INDICATED 04/11/19 04/11/19 14:35 14:35 WBC RBC Hgb Hct MCV MCH MCHC RDW Plt Count MPV Neut # (Auto) Lymph # (Auto) [place] # (Auto) Eos # (Auto) Baso # (Auto) Absolute Nucleated RBC Nucleated RBC % PT 11.4 INR 1.0 APTT 33.9 H Sodium Potassium Chloride Carbon Dioxide Anion Gap BUN Creatinine Estimated GFR (MDRD) Glucose Glycated Hemoglobin 7.3 H Estim Average Glucose 163 H Calcium Phosphorus Magnesium Total Bilirubin AST ALT Alkaline Phosphatase Total Protein Albumin Globulin Albumin/Globulin Ratio Lipase Urine Color Urine Clarity Urine pH Ur Specific [place] Urine Protein Urine Glucose (UA) Urine Ketones Urine Occult Blood Urine Nitrite Urine Bilirubin Urine Urobilinogen Ur Leukocyte Esterase Urine RBC Urine WBC Ur Squamous Epith Cells Urine Bacteria Ur Microscopic Review Urine Culture Comments - Rads (name of study) Head CT Radiology: Prelim report reviewed, EMP read contemporaneously, See rad report (No acute abnormality) PD MEDICAL DECISION MAKING - ED course Complexity details: reviewed results, re-evaluated patient, considered differential, d/w patient, d/w family, d/w 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 Her symptoms are improving but not yet fully resolved. This is the second such episode in 4 months. Did not have an MRI or any evaluation of her carotid arteries done at the last episode. Given her recurrent symptoms, will place in observation for further work-up. She will also need serial neurological exams. Not a TPA candidate at this time. Discussed the case with Dr. Recio, hospitalist who accepts. This document was made in part using voice recognition software. While efforts are made to proofread this document, sound alike and grammatical errors may occur. Patient also treated for UTI. Departure - Departure Disposition: ED Place in Observation Clinical Impression: Stroke-like symptoms UTI (urinary tract infection) Qualifiers: Urinary tract infection type: acute cystitis Hematuria presence: without hematuria Qualified Code(s): N30.00 - Acute cystitis without hematuria Condition: Stable Discharge Date/Time: 04/11/19 17:09
[2019-04-11 14:41] LABS: BASOPHILS # (AUTO) 0.1 10^3/uL (0.0-0.1); BASOPHILS % (AUTO) 1.1 %; EOSINOPHILS # (AUTO) 0.3 10^3/uL (0.0-0.7); EOSINOPHILS % (AUTO) 3.3 %; HGB - HEMOGLOBIN 11.5 g/dL (12.0-16.0); LYMPHOCYTES # (AUTO) 1.7 10^3/uL (1.5-3.5); LYMPHOCYTES % (AUTO) 20.3 %; MEAN CORPUSCULAR HEMOGLOBIN 30.2 pg (27.0-31.0); MEAN CORPUSCULAR HGB CONC 31.8 g/dL (32.0-36.0); MEAN PLATELET VOLUME 11.6 fL (7.9-10.8); MONOCYTES # (AUTO) 0.6 10^3/uL (0.0-1.0); MONOCYTES % (AUTO) 6.4 %; NEUTROPHILS # (AUTO) 5.9 10^3/uL (1.5-6.6); NEUTROPHILS % (AUTO) 68.7 %; PLT - PLATELET COUNT 299 10^3/uL (130-450); RED BLOOD COUNT 3.81 10^6/uL (4.20-5.40); RED CELL DISTRIBUTION WIDTH 13.3 % (12.0-15.0); WHITE BLOOD COUNT 8.5 x10^3/uL (4.8-10.8)
[2019-04-11 14:56] LABS: ALBUMIN 3.8 g/dL (3.2-5.5); ALBUMIN/GLOBULIN RATIO 1.1 (1.0-2.2); BILIRUBIN,TOTAL 0.6 mg/dL (0.2-1.0); CALCIUM 9.3 mg/dL (8.5-10.3); CREATININE 1.5 mg/dL (0.4-1.0); MAGNESIUM 1.8 mg/dL (1.7-2.8); PHOSPHORUS 3.3 mg/dL (2.5-4.6); TOTAL PROTEIN 7.3 g/dL (6.7-8.2)
[2019-04-11 14:58] LABS: PT - PROTHROMBIN TIME 11.4 secs (9.9-12.6)
[2019-04-11 15:05] LABS: PARTIAL THROMBOPLASTIN TIME 33.9 secs (24.9-33.3)
[2019-04-11] MEDS ORDERED: ASPIRIN CHEW 81 MG TABLET PO STA (15:46)
[2019-04-11] MEDS ORDERED: SULFAMETH/TRIMETH DS 800/160 MG TABLET PO STA (15:46)
[2019-04-11] MEDS ORDERED: ONDANSETRON ODT 4 MG TABLET TL PRN (16:26)
[2019-04-11] MEDS ORDERED: SODIUM CHLORIDE FLUSH 0.9% 10 ML SYRINGE IVP PRN (16:26)
[2019-04-11] MEDS ORDERED: ACETAMINOPHEN 325 MG TABLET PO PRN (16:26)
--- NOTE | 2019-04-11 20:28 | HISTORY & PHYSICAL EXAMINATION ---
Chief Complaint - Chief Complaint Chief Complaint: left lower extremity numbness and tingling History of Present Illness - Admitted From [facility]:: [facility] - History Obtained From Records Reviewed: yes History obtained from: patient - History of Present Illness HPI Comment/Other: Patient seen on 04/11/19 at 20:00pm Patient is a 73 y/o female who presented to the ED with complain of left lower extremity numbness and tingling . She noticed it when she woke up from sleep. She reports still experiencing some numbness on that side. She reports a history of a previous CVA 3 months ago with left sided weakness. The numbness she felt t hen has improve with only a slight residual left in her left hand. She denies vision change, slurred speech or facial droop. She reports headaches daily since previous stroke. She experiences dizziness if she moves her head too fast. There is no significant difficulty swallowing. She denies chest pain, VIVIAN, abd pain, nausea/vomiting, fever or chills. There is no lower extremity edema. The rest of her history is unremarkable. She is being admitted for a CVA vs TIA work up. History - Past Medical History Cardiovascular: reports: Congestive heart failure, Hypertension, High cholesterol, Murmur Respiratory: reports: Asthma, Pneumonia, Shortness of breath, Sleep apnea Neuro: reports: CVA, Migraines, Other Endocrine/Autoimmune: reports: Type 2 diabetes, HyPOthyroidism, Other GI: reports: GERD, Hepatitis, Other : reports: Incontinence, Frequency HEENT: reports: Chronic vision loss, Chronic hearing loss Psych: reports: None Musculoskeletal: reports: Osteoarthritis, Chronic back pain, Other Derm: reports: None MRSA Hx?: No - Past Surgical History Ortho: reports: Hip replacement, Knee replacement, Carpal Tunnel surgery /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 daughter 2: CVA at age 20. Thought to be due to control and smoking. sister 1: breast cancer, uetrine and ovarian cancer. sister 2: colon cancer Living arrangement: At home Social History Notes: Denies alcohol, tobacco or illicit drug use. - POLST Patient has POLST: No POLST Status: Full Code Meds/Allgy - Home Medications Home Medications: Ambulatory Orders Medication Instructions Recorded Confirmed Albuterol Sulf [Ventolin Hfa 1 - 2 puffs INH Q4HR PRN 08/14/17 04/11/19 Inhaler] Aspirin [Adult Low Dose Aspirin EC] 81 mg PO DAILY 08/14/17 04/11/19 EPINEPHrine [Epipen 2-Justin] 0.3 mg IM ONCE PRN 08/14/17 04/11/19 Fluticasone Propionate [Flovent 50 mcg IH DAILY 08/14/17 04/11/19 Diskus] Insulin Glargine [Lantus Solostar] 45 unit SQ DAILY 08/14/17 04/11/19 Insulin NPH Human Isophane 1 - 6 units SQ AC PRN 08/14/17 04/11/19 [Humulin N] Omeprazole 20 mg PO BID 08/14/17 04/11/19 Ropinirole HCl 0.75 mg PO QPM 08/14/17 04/11/19 diphenhydrAMINE [Benadryl] 25 mg PO BID 08/14/17 04/11/19 Losartan Potassium 100 mg PO DAILY 02/26/18 04/11/19 Sertraline HCl 25 mg PO DAILY 02/26/18 04/11/19 Chlorthalidone 50 mg PO DAILY 04/11/19 04/11/19 Clopidogrel Bisulfate [Clopidogrel] 75 mg PO DAILY 04/11/19 04/11/19 Levothyroxine Sodium 175 mcg PO QDAC 04/11/19 04/11/19 Metoprolol Succinate 200 mg PO BID 04/11/19 04/11/19 cloNIDine HCl [Clonidine HCl] 0.1 mg PO BID 04/11/19 04/11/19 - Allergies Allergies/Adverse Reactions: Allergies Allergy/AdvReac Type Severity Reaction Status Date / Time atorvastatin Allergy Cramps Verified 04/11/19 13:55 bee venom protein (honey bee) Allergy Unknown Verified 04/11/19 13:55 cefuroxime [From Ceftin] Allergy Unknown Verified 04/11/19 13:55 codeine Allergy Nausea Verified 04/11/19 13:55 hydrocodone [From Vicodin] Allergy Nausea Verified 04/11/19 13:55 Influenza Virus Vaccines Allergy Unknown Verified 04/11/19 13:55 lisinopril Allergy Respiratory Verified 04/11/19 13:55 mushroom Allergy Anaphylaxis Verified 04/11/19 13:55 nitroglycerin Allergy Headache Verified 04/11/19 13:55 propoxyphene Allergy Unknown Verified 04/11/19 13:55 [From Gabriel] tramadol Allergy Headache Verified 04/11/19 13:55 Review of Systems - Constitutional Constitutional: denies: Fatigue, Fever, Chills - Eyes Eyes: denies: Pain, Blurred vision, Vision loss, Dipolpia - Ears, Nose & Throat Ears, Nose & Throat: denies: Vertigo, Sore throat, Hoarseness - Cardiovascular Cariovascular: reports: Irregular heart rate, Exertional dyspnea. denies: Chest pain, Edema, Lightheadedness, Syncope - Respiratory Respiratory: denies: Cough, Wheezing, Hemoptysis, Orthopnea - Gastrointestinal Gastrointestinal: reports: Reflux/heartburn. denies: Abdominal pain, Abdominal distention, Constipation, Diarrhea, Black stools, Nausea, Vomiting, Coffee grounds emesis - Genitourinary Genitourinary: denies: Dysuria, Frequency, Urgency, Incontinence - Musculoskeletal Musculoskeletal: denies: Muscle pain, Back pain, Limited range of motion - Integumentary Integumentary: denies: Rash, Pruritis, Lesions, Lumps, Acne - Neurological Neurological: reports: Headache, Dizziness, Numbness, Pre-existing deficit (left hand numbness). denies: Incoordination, Slurred speech - Psychiatric Psychiatric: reports: Depression. denies: Anxiety - Endocrine Endocrine: denies: Polyuria, Polydypsia - Hematologic/Lymphatic Hematologic/Lymphatic: denies: Anemia, Bruising, Petechiae Prior Level of Functionality: Patient is independent of activities of daily living. 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 negative: No lid inflammation, Conjunctivae nml, No scleral icterus ENT: positive: ENT inspection nml, No signs of dehydration Neck: positive: Nml inspection, No JVD, Trachea midline Respiratory: positive: Chest non-tender, No respiratory distress, Breath sounds nml. negative: Wheezes, Rales, Rhonchi Cardiovascular: positive: Irregularly irregular, Bradycardia, Systolic murmur Abdomen: positive: Non-tender, No organomegaly, No distention. negative: Guarding, Rebound Back: positive: Nml inspection Skin: positive: Color nml, No rash, Warm, Dry Extremities: positive: Non-tender, Nml appearance, No pedal edema Neurologic/Psychiatric: positive: Oriented x3, CN's nml (2-12), Motor nml, Mood/affect nml. negative: Facial droop, Slurred/abnml speech Conclusion/Plan - Problem List (1) Stroke-like symptoms Conclusion/Plan: ? TIA vs CVA Neuro checks qshift MRI brain, 2D echo, carotid duplex ordered Lipid panel, HgA1C pending Patient of plavix and aspirin (2) Type II diabetes mellitus Conclusion/Plan: On lantus 40 units subq qnoon Low dose SSI Accu checks qACHS HgA1C pending Qualifiers: Diabetes mellitus medical terminologist insulin use: with medical terminologist use (3) Hyperlipidemia Conclusion/Plan: Patient has a rash with atorvastatin Just started taking ?red rice yeast extract (4) Hypertension Conclusion/Plan: On metoprolol, chlorthalidone, clonidine and losartan (5) Hypothyroidism Conclusion/Plan: On synthroid (6) CHF (congestive heart failure) Conclusion/Plan: Unclear diagnosis or stage Currently no clinical symptoms Not on lasix. Will verify ejection fraction with 2D echo. On metoprolol and losartan (7) Restless leg syndrome Conclusion/Plan: On ropinirole (8) Depression Conclusion/Plan: On zoloft (9) GERD (gastroesophageal reflux disease) Conclusion/Plan: Will order protonix - Lab Results Fish Bones: 04/11/19 14:35 04/11/19 14:35 Core Measures - Anticipated LOS I expect patient to be DC'd or transferred within 96 hours.: Yes - DVT/VTE - Prophylaxis VTE/DVT Device ordered at admit?: Yes - AMI - Statin at Admit Aspirin Prescribed on Admit: Yes
[2019-04-11 20:55] LABS: HB2 TOTAL 11.8 g/dL; HEMOGLOBIN A1C 0.67 g/dL; HEMOGLOBIN A1C % 7.3 % (4.6-6.2)
[2019-04-11] MEDS ORDERED: rOPINIRole 0.25 MG TABLET PO SCH (21:00)
[2019-04-11] MEDS: METOPROLOL SUCCINATE 50 MG TABLET PO SCH (21:01)
[2019-04-11] MEDS: cloNIDine 0.1 MG TABLET PO SCH (21:01)
[2019-04-11] MEDS: INSULIN ASPART 300 UNIT/3 ML PEN SUBQ SCH (21:02)
[2019-04-11] MEDS: diphenhydrAMINE 25 MG CAPSULE PO SCH (21:03)
[2019-04-11] MEDS: SODIUM CHLORIDE FLUSH 0.9% 10 ML SYRINGE IVP SCH (23:36)
--- NOTE | 2019-04-12 02:41 | Ultrasound Report ---
Reason: CVA work up Procedure Date: 04/12/2019 Accession Number: [id number] / [id number] Procedure: US - Carotid Doppler Complete CPT Code: FULL RESULT: EXAM: BILATERAL CAROTID AND VERTEBRAL ARTERY DUPLEX DOPPLER ULTRASOUND: EXAM DATE: 04/12/2019 12:29 AM CLINICAL HISTORY: CVA workup. COMPARISON: None. TECHNIQUE: Grayscale imaging, color Doppler, and duplex spectral Doppler were used to evaluate the carotid and vertebral arteries bilaterally. Static images were obtained. FINDINGS: Images are severely degraded due to body habitus, tortuous vessels, constant motion, short neck, and shadowing plaque. Irregular calcified carotid plaque is seen bilaterally, left worse than right. Normal antegrade flow is present in bilateral vertebral arteries. VELOCITIES (cm/sec): Right CCA mid: PSV 82 cm/sec CCA dist: PSV 58.1 cm/sec ICA prox: PSV 64.7 cm/sec, EDV 40.6 cm/sec ICA mid: PSV 70.2 cm/sec, EDV 16.9 cm/sec ICA dist: PSV 91.1 cm/sec, EDV 1.8 cm/sec ECA: PSV 48 cm/sec Vert: PSV 16.7 cm/sec ICA/CCA: 1.1 Left CCA mid: PSV 64.9 cm/sec CCA dist: PSV 49.6 cm/sec ICA prox: PSV 85 cm/sec, EDV 25 cm/sec ICA mid: PSV 62.6 cm/sec, EDV 13.7 cm/sec ICA dist: PSV 59.2 cm/sec, EDV 14.1 cm/sec ECA: PSV 89 cm/sec Vert: PSV 68 cm/sec ICA/CCA: 1.3 ICA diameter stenosis: Right: <50% by velocity and <70% by NASCET criteria. Left: <50% by velocity and <70% by NASCET criteria. IMPRESSION: 1. There is calcified bilateral carotid artery plaquing, left worse than right. 2. In the right carotid artery there are no elevated carotid artery velocities to suggest hemodynamically significant stenosis. 3. In the left carotid artery there are no elevated carotid artery velocities to suggest hemodynamically significant stenosis. 4. Normal antegrade flow is present in bilateral vertebral arteries. General Recommendations: Stenosis =50% ICA - Follow-up ultrasound 6-12 months Stenosis <50% ICA - High Risk Patient with plaque - Follow-up ultrasound 1-2 years Normal Study but High Risk Patient - Follow-up ultrasound 3-5 years Management recommendations and diagnostic criteria are based on current IAC endorsed standards in Carotid Artery Stenosis: Grayscale and Doppler Ultrasound Diagnosis. Validated velocity measurements with angiographic measurements and velocity criteria are extrapolated from diameter data as defined by the Society of Radiologists in Ultrasound Consensus Conference Radiology 2003; 229;340-346. RADIA
[2019-04-12 05:35] LABS: CHOLESTEROL 215 mg/dL; HDL CHOLESTEROL 43 mg/dL; LDL CHOLESTEROL,CALCULATED 137 mg/dL; LDL/HDL RATIO 3.2 (<4.4); VLDL CHOLESTEROL 35 mg/dL
[2019-04-12] MEDS ORDERED: LEVOTHYROXINE 75 MCG TABLET PO SCH (07:00)
[2019-04-12] MEDS ORDERED: PANTOPRAZOLE 40 MG TABLET PO SCH (07:00)
[2019-04-12] MEDS ORDERED: LEVOTHYROXINE 100 MCG TABLET PO SCH (07:00)
--- NOTE | 2019-04-12 08:49 | MRI Report ---
Reason: CVA w/o. left upper ext numbness and tingling Procedure Date: 04/12/2019 Accession Number: [id number] / [id number] Procedure: MRI - Brain W/O CPT Code: FULL RESULT: EXAM: MRI BRAIN WITHOUT CONTRAST EXAM DATE: 04/12/2019 07:47 AM. CLINICAL HISTORY: Left upper extremity numbness and paresthesias COMPARISON: CT head without contrast 04/11/2019,. TECHNIQUE: Multiplanar, multisequence T1-weighted and fluid-sensitive MR sequences of the brain were performed. Sequences optimized for routine evaluation. Other: None. IV Contrast: None. FINDINGS: Scattered T2 hyperintensities are seen in the subcortical frontal and parietal white matter. Symmetric ill-defined T2 hyperintensity seen in the peritrigonal periventricular white matter bilaterally. A focal area of cortical and subcortical T2 hyperintensities seen in the medial right occipital lobe (image 9 series 701). There is widening of the adjacent sulci, compatible with focal volume loss, most suspicious for chronic PEDIATRIC MEDICAL ASSISTANT infarct. Diffusion-weighted sequence demonstrates no evidence for acute infarct or focal abnormalities. There is moderate diffuse cerebral volume loss. Major intracranial flow voids appear preserved. Craniocervical junction and visualized upper cervical cord appear unremarkable. Gradient echo sequence demonstrates no focal abnormalities. Orbits, paranasal sinuses, mastoid air cells, pituitary and cavernous sinus appear unremarkable. IMPRESSION: 1. No acute infarct, intracranial hemorrhage, midline shift or hydrocephalus. 2. Focal encephalomalacia in the inferior right occipital lobe, most compatible with chronic right PEDIATRIC MEDICAL ASSISTANT distribution infarct. 3. Scattered T2 hyperintensities in the anterior subcortical and posterior periventricular white matter, nonspecific but most commonly represents chronic microvascular angiopathy. RADIA
[2019-04-12 08:59] VITALS: BP 154/77
[2019-04-12] MEDS: INSULIN ASPART 300 UNIT/3 ML PEN SUBQ SCH ×2 (08:59→11:34)
[2019-04-12] MEDS ORDERED: LOSARTAN 50 MG TABLET PO SCH (09:00)
[2019-04-12] MEDS ORDERED: CLOPIDOGREL 75 MG TABLET PO SCH (09:00)
[2019-04-12] MEDS ORDERED: SERTRALINE 25 MG TABLET PO SCH (09:00)
[2019-04-12] MEDS: METOPROLOL SUCCINATE 50 MG TABLET PO SCH (09:00)
[2019-04-12] MEDS ORDERED: CHLORTHALIDONE 25 MG TABLET PO SCH (09:00)
[2019-04-12] MEDS ORDERED: ASPIRIN EC 81 MG TABLET PO SCH (09:00)
[2019-04-12] MEDS ORDERED: POLYETHYLENE GLYCOL 3350 17 GM PACKET PO SCH (09:00)
[2019-04-12] MEDS ORDERED: INSULIN GLARGINE 300 UNIT/3 ML PEN SUBQ SCH ×2 (09:00→12:00)
[2019-04-12] MEDS: cloNIDine 0.1 MG TABLET PO SCH (09:01)
[2019-04-12] MEDS: SODIUM CHLORIDE FLUSH 0.9% 10 ML SYRINGE IVP SCH (09:02)
[2019-04-12] MEDS: diphenhydrAMINE 25 MG CAPSULE PO SCH (09:02)
--- NOTE | 2019-04-12 13:39 | Discharge Plan ---
Discharge Plan Problem Reviewed?: Yes Disposition: Home, Self Care Condition: Stable Prescriptions: Simvastatin 10 mg PO DAILY #30 tablet Diet: Diabetic Activity Restrictions: Activity as Tolerated Shower Restrictions: No Driving Restrictions: Yes Health Concerns: You have a chronic finding of a right brain stroke resulting in left body wea kness. This time you had worsening numbness and tingling of your arm and leg on the left side. You were worried about another stroke. Plan of Treatment: While here you had an echocardiogram to make sure you did not have aortic stenosis, a repeat scan of the head for another stroke, an MRI of the head for further evaluation of a stroke, and a carotid ultrasound to look for blockages in the arteries of your neck. All of these do not show any reversible treatable causes. You do have the old stroke in the right back of brain. You have been started on aspirin again. You are to take an aspirin and Plavix for the next 30 days until you see your neurologist. Your neurologist may call to change her medications. We have also started you on a cholesterol pill. Atorvastatin 10 causes you leg cramps. So we have started you on simvastatin. Please get blood work for lipid panel and liver enzymes in 4 weeks. Care Goals: Reduce your risk of stroke which means making sure your glycosylated hemoglobin is less than 7%, total cholesterol less than 140, and an LDL as close to 70 as possible. Blood pressure also needs to be managed so that it is below 140/90. Exercise 3-5 times a week.See your neurologist in the next 2 to 3 weeks. See your primary care provider in the next 1 to 2 weeks. Assessment: At this time no evidence of a new stroke. No Smoking: If you smoke, Please STOP! Call for help. Follow-up with: Genaro Espitia MD [Primary Care Provider] -
--- NOTE | 2019-04-18 04:05 | DISCHARGE SUMMARY ---
Physician: Tracy Recio MD DATE OF ADMISSION: 04/11/2019 DATE OF DISCHARGE: 04/12/2019 DISCHARGE DIAGNOSES 1. Stroke-like symptoms. 2. 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 3. Type 2 diabetes mellitus, with complications, with long-term use of insulin. 4. Hyperlipidemia. 5. Hypertension. 6. Hypothyroidism. 7. History of congestive heart failure. 8. Restless leg syndrome. 9. Major depressive disorder. 10. Gastroesophageal reflux disease. MEDICATIONS AT DISCHARGE 1. Albuterol inhaler. 2. EpiPen. 3. Flovent inhaler. 4. Aspirin 81 mg a day. 5. Chlorthalidone 50 mg a day. 6. Clonidine 0.1 mg b.i.d. 7. Plavix 75 mg a day for the next month. 8. Benadryl 25 mg p.o. b.i.d. 9. Lantus 45 units daily. 10. Levothyroxine 175 mcg daily. 11. Losartan 100 mg daily. 12. Metoprolol succinate 200 mg b.i.d. 13. Omeprazole 20 mg daily. 14. Ropinirole 0.75 mg daily. 15. Sertraline 25 mg daily. 16. Simvastatin 10 mg daily. 17. NPH insulin 1-6 units subcutaneous a.c. p.r.n. Unknown why she is on NPH on admission. Asking for request to change to regular insulin or NovoLog s hort-acting insulin. PRINCIPAL PROCEDURES 1. Echocardiogram with normal right ventricle and left ventricle. Ejection fraction on left side wa s 60% to 65%. Negative for atrial shunt. No valvular heart disease. No diastolic dysfunction. She does have moderate atrial enlargement. She has mild aortic stenosis with peak mean pressure gradien t of 19/11 mmHg and the aortic valve area by continuity equation is 1.71 cm2. RVSP at rest is [address] 2[address] Head [address] with generalized age-related cortical atrophic changes without acute evidence of intracra nial abnormality. 3. Carotid Doppler study negative. 4. Brain MRI with no acute infarct, intracranial hemorrhage or midline shift. Focal encephalomalaci a in the inferior right occipital lobe compatible with chronic right STORE ADMINISTRATOR distribution infarct. Scatt ered T2 hyperintensities in the anterior subcortical and posterior ventricular white matter, nonspeci fic, but most commonly representing chronic microvascular angiopathy. HOSPITAL COURSE: This 73-year-old female had a stroke 3 months ago and it affected the left side of her body with numbness, weakness, and residual of left face and hand. A lot of this has improved, an d she is left with mainly a residual on the left hand. She denies vision change, slurred speech, or facial droop. She has been having headaches since her previous stroke. Dizziness if she moves too f ast. She woke up from sleep today complaining of left lower extremity numbness and tingling. She wa s brought to the hospital by her daughter, where she was found to be afebrile, bradycardic in the 40s , and blood pressure 189/68. She had an irregularly irregular heart rate with a systolic murmur, popeye ar lungs, and a normal neurological exam. She was oriented, had normal motor function and no facial droop, no slurred speech Hospital course was that of possible TIA or another stroke. Those resolved. MRI, CT of head, 2D ech o as above, and she was identified as having mild aortic stenosis. Her type 2 diabetes mellitus was treated with Lantus and sliding scale short-acting insulin. It is unclear why she is on NPH, per her reconciliation. Glycosylated hemoglobin of 7.3%. She has chronic kidney insufficiency with a GFR o f 34 and creatinine of 1.5. Triglycerides and cholesterol were checked, fasting. She is 173 triglyc erides, 215 cholesterol, LDL 137, HDL 43. ALLERGIES: SHE STATES SHE IS ALLERGIC TO ATORVASTATIN, IT MAKES HER MUSCLES CRAMP. It is written that she has rashes, but she states that it was just mainly muscle cramps. I did talk her into doing aspirin and Plavix as combined therapy for the next 30 days. Then, needs to be seen t o see if Plavix should stop or aspirin should stop. This is in a woman who has already had a stroke. She is also amenable to doing simvastatin, since it is less lipophilic. She needed to be reassured that if she did not like the simvastatin, she could stop it at her discretion. She is discharged in stable condition. Her daughter is helping take care of her. PHYSICAL EXAMINATION VITAL SIGNS: Temperature is 36.6, pulse is 75, blood pressure 154/77, 18, and 97% on room air. GENERAL: She is an alert, slightly anxious, short statured, severely overweight, elderly female. Mi ldly deaf, but alert and oriented. Able to get up from the bed to her chair, and able to get up from her chair to the bathroom and ambulate without assistance. NEUROLOGIC: There is no facial droop and she is alert and oriented. LUNGS: Clear to auscultation and percussion. PMI is normally placed. She has a systolic ejection m urmur. ABDOMEN: Negative, other than a large pannus. EXTREMITIES: No edema. She is hard of hearing. I have asked her to follow up with her primary care provider, Dr. Espitia, in the next 1-2 weeks. Ag ain, double therapy with aspirin and Plavix, and to consider going off Plavix or aspirin in a month, to try and continue the statin to reduce her risk of recurrent stroke. TD: 04/17/2019 21:04
== END 2019-04-12 14:10 | disposition home or self-care (01) ==
LOC: ED 13:49 → OBS 16:26
PROVIDERS: ADMIT Internal Medicine; ATTEND Specialist
DX: R20.2 Paresthesia of skin (principal); R20.0 Anesthesia of skin; N30.00 Acute cystitis without hematuria; I69.334 Monoplegia of upper limb following cerebral infarction affecting left non-dominant side; I35.0 Nonrheumatic aortic (valve) stenosis; I13.0 Hypertensive heart and chronic kidney disease with heart failure and stage 1 through stage 4 chronic kidney disease, or unspecified chronic kidney disease; I50.9 Heart failure, unspecified; E11.22 Type 2 diabetes mellitus with diabetic chronic kidney disease; N18.9 Chronic kidney disease, unspecified; E78.5 Hyperlipidemia, unspecified; E03.9 Hypothyroidism, unspecified; G25.81 Restless legs syndrome; F32.9 Major depressive disorder, single episode, unspecified; K21.9 Gastro-esophageal reflux disease without esophagitis; J45.909 Unspecified asthma, uncomplicated; G47.30 Sleep apnea, unspecified; G43.909 Migraine, unspecified, not intractable, without status migrainosus; Z79.51 Long term (current) use of inhaled steroids; Z88.8 Allergy status to other drugs, medicaments and biological substances; Z79.4 Long term (current) use of insulin; Z79.899 Other long term (current) drug therapy; Z79.82 Long term (current) use of aspirin; Z79.02 Long term (current) use of antithrombotics/antiplatelets
CPT/HCPCS: 36415; 70450; 70551; 80053; 80061; 81001; 83036; 83690; 83735; 84100; 85025; 85610; 85730; 93005; 93306; 93880; 99285; A9270; G0378; J1815; Q0162; 81003; 83721; 87086

== ENCOUNTER 2019-06-21 11:31 | Outpatient (CLI) | payer MEDICARE, OTHER, MEDICAID ==
[2019-06-21 18:49] LABS: HGB - HEMOGLOBIN 11.2 g/dL (12.0-16.0); MEAN CORPUSCULAR HEMOGLOBIN 30.7 pg (27.0-31.0); MEAN CORPUSCULAR HGB CONC 31.9 g/dL (32.0-36.0); MEAN CORPUSCULAR VOLUME 96.2 fL (81.0-99.0); MEAN PLATELET VOLUME 11.9 fL (7.9-10.8); RED BLOOD COUNT 3.65 10^6/uL (4.20-5.40); RED CELL DISTRIBUTION WIDTH 13.2 % (12.0-15.0); WHITE BLOOD COUNT 9.7 x10^3/uL (4.8-10.8)
[2019-06-21 18:57] LABS: ALBUMIN 3.7 g/dL (3.2-5.5); ALKALINE PHOSPHATASE 76 IU/L (42-121); ALT ALANINE AMINOTRANSFERASE 16 IU/L (10-60); AST ASPARTATE AMINOTRANSFERASE 13 IU/L (10-42); BILIRUBIN,TOTAL 0.5 mg/dL (0.2-1.0); BUN - BLOOD UREA NITROGEN 54 mg/dL (6-20); CALCIUM 9.4 mg/dL (8.5-10.3); CARBON DIOXIDE - CO2 24 mmol/L (21-32); CHLORIDE 112 mmol/L (101-111); CHOL/HDL RATIO 4.8 (<4.4); CHOLESTEROL 221 mg/dL; CREATININE 1.5 mg/dL (0.4-1.0); GFR - MDRD 34 (>89); GLUCOSE 123 mg/dL (70-100); HDL CHOLESTEROL 46 mg/dL; LDL CHOLESTEROL,CALCULATED 153 mg/dL; LDL/HDL RATIO 3.3 (<4.4); SODIUM 141 mmol/L (135-145); TOTAL PROTEIN 7.5 g/dL (6.7-8.2); VLDL CHOLESTEROL 22 mg/dL
[2019-06-21 19:35] LABS: HB2 TOTAL 11.4 g/dL; HEMOGLOBIN A1C 0.62 g/dL; HEMOGLOBIN A1C % 7.1 % (4.6-6.2)
== END 2019-06-21 11:32 | disposition home or self-care (01) ==
LOC: LAB.S 11:31
PROVIDERS: ATTEND Internal Medicine
DX: E03.9 Hypothyroidism, unspecified (principal); E78.5 Hyperlipidemia, unspecified; E11.22 Type 2 diabetes mellitus with diabetic chronic kidney disease; N18.4 Chronic kidney disease, stage 4 (severe); E11.40 Type 2 diabetes mellitus with diabetic neuropathy, unspecified
CPT/HCPCS: 36415; 80053; 80061; 83036; 83721; 84443; 85027

== ENCOUNTER 2019-06-28 13:42 | Outpatient (CLI) | payer MEDICARE, OTHER, MEDICAID ==
[2019-06-28 15:06] VITALS: BP 156/70
--- NOTE | 2019-06-28 15:06 | SLEEP CARE CONSULTATION ---
Information from patient questionnaire entered by Yue Fernandes. I have reviewed and concur with the information entered by Yue Fernandes. This document represents the service I personally performed and the decisions made by me, Jennyfer Martinez, RN, MSN, CLIENT RELATION SPECIALIST. History of Present Illness Previous diagnosis: Mild, Obstructive Sleep Apnea-Hypopnea Syndrome, Complex Sleep Apnea-Hypopnea Syndrome AHI: 8.0 Reason for CPAP/BiPAP follow up: first compliance after device update Accompanied by: daughter in law Bruna Wang Equipment type: CPAP Equipment obtained from: [email or web address] Mask style: Full face Backup mask available: Yes (nasal mask) Last cushion change: not since set up CPAP Compliance Data - Data Reviewed with Patient Average duration of nightly device use: 6.7 Compliance rate %: 70 Current pressure setting (cmH2O): 5-10 Humidity setting: auto Heated hose setting: auto Average residual AHI: 3.2 Subjective Missed days of use due to: reports: illness Patient concerns: reports: mask leak noise (0-2 times a night and adjusts mask ), nasal congestion (chronic post nasal drainage), dry mouth, nose, throat (dry throat all the time with or without CPAP. ), epistaxis (scant amount of blood on tissue since blood thinner. ). denies: aerophagia, mask discomfort, air blowing in eyes, condensation in mask/hose Observed to snore while using device: No (but does wake to snorting. ) Current pressure setting perceived as: comfortable On therapy, patient: reports: more rested overall (however has insomnia and takes hours to get sleep and wakes at irregular hours. ) Initial [place] Sleepiness Scale score: 8 Current [place] Sleepiness Scale score: 6 Allergies and Home Medications Known drug allergies: Yes Home medication list reviewed: Yes Allergy and home medication list: Medication Name (generic/name brand) Strength & Dosage Levothyroxine 150mcg tab one daily Metoprolol 200mg tab one twice daily Losartan Potassium 100mg tab one daily Chlorthalidone 50mg tab one daily Sertraline HCL (Zoloft) 25mg tab one daily Clonodine 0.1mg tab two daily Ropinirole HCL (Requip) 0.25mg tab three daily at bedtime Clopidogrel (Plavix) 75mg tab one amaya Tylenol Tab two twice daily Red Yeast Rice 600mg cap two with every meal Allergy List Darvocet Vicodin Codeine Ceftin Nitroglycerin Lisinopril Tramadol HCL Mushrooms Bee Stings Flu Vaccine Review of Systems Review of systems same as previous: Yes Physical Exam Blood Pressure: 156/70 Cuff size: long Heart Rate: 50 O2 Saturation: 97 Height: 5 ft 2.25 in Weight (kg): 238 lb 9.6 oz Body Mass Index: 43.2 BMI Classification: Class 3 Impression and Plan 1. Obstructive Sleep Apnea-Hypopnea Syndrome, mild, with good treatment compliance and good apnea control. On CPAP therapy, the patient has better sleep quality and is more rested overall. However she has intermittent insomnia as addressed below. For her waking to snorting, I will adjust her autoCPAP pressure to median / 95th percentile range of [id number]. She is advised to contact me if it does not resolve snorting or if uncomfortable. She does not use humidity but has found the plate warm so I showed her how to turn off the humidity and adjust the heated hose for comfort of air. However, then she reported she has dry throat nightly with scant blood noted on morning tissue after blowing nose. Thus she was advised to resume using water in the humidity and how to adjust for comfort and relief of symptoms . I also gave her a sample of saline nasal spray to use prior to CPAP to clear nose and wash off adhering allergens to reduce her post nasal drainage. In addition, I gave her samples of [place] Ease nasal cream to use 4 times a day for 7-10 days to reduce incidence of nasal dryness and epitaxis. She is also advised to update her mask cushion regularly for mask fit and comfort. For her cramps and restless leg symptoms affecting her ability to sleep, she has had labs drawn and sees her doctor next week. Patient's apnea severity and rationale for treatment to reduce apnea, improve sleep quality and reduce cardiovascular and cerebrovascular events was reviewed. I also reviewed the benefit of consistent device use of CPAP for hypertension, cerebrovascular disease, depression/anxiety . Patient advised to use her CPAP with all sleep including naps which she was not doing, for maximum benefit of treatment. 2. Insomnia, with difficulty initiating sleep. 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 She was informed how her irregular wake time contributes to her inability to fall asleep at night. I also explained how the body needs to be awake about 15-16 hours before it is usuall ready to sleep. Thus she is advised to pick a regular wake time that works with her life schedule and keep it consistent. If unable to fall asleep at night she is to leave room until sleepy and then return to bed. A sleep diary can be done for further evaluation if continued insomnia. * * Change CPAP pressure to 9-20 cmH2O * update mask cushion * restart humidity * saline nasal spray * mil[place] ease nasal cream * regulate sleep wake time * use CPAP with naps and all sleep. * Follow up with PCP for leg cramps / lab work and adjustment of RLS medication. * Notify me if snoring with mask or feeling that the pressure is too much or too little * Attempt to lose weight * Return for follow up in 3 months, or sooner if concerns arise I spent 100% of this 45 minute visit face to face with the patient with greater than 50% of this was spent time counseling the patient and coordination of care. Extra time repeating questions and answers due to patient hearing deficit.
== END 2019-06-28 13:43 | disposition home or self-care (01) ==
LOC: SC 13:42
PROVIDERS: ATTEND Nurse Practitioner Family
DX: G47.33 Obstructive sleep apnea (adult) (pediatric) (principal); G47.00 Insomnia, unspecified
CPT/HCPCS: 99215; G0463; 99212

== ENCOUNTER 2019-08-26 13:56 | Outpatient (CLI) | payer MEDICARE, OTHER | END 2019-08-26 13:57 | disposition home or self-care (01) | LOC: LAB.S 13:56 | PROVIDERS: ATTEND Internal Medicine | DX: E03.9 Hypothyroidism, unspecified (principal) | CPT/HCPCS: 36415; 84443 ==

== ENCOUNTER 2019-12-13 14:57 | Outpatient (CLI) | payer MEDICARE, OTHER ==
[2019-12-13 15:45] VITALS: BP 120/60
--- NOTE | 2019-12-13 15:45 | SLEEP CARE CONSULTATION ---
Information from patient questionnaire entered by Magali Leblanc. I have reviewed and concur with the information entered by Magali Leblanc. This document represents the service I personally performed and the decisions made by me, Jennyfer Martinez, RN, MSN, ROBOTICS APPLICATION ENGINEER. History of Present Illness Previous diagnosis: Mild, Obstructive Sleep Apnea-Hypopnea Syndrome AHI: 8.0 Reason for follow up: other (5 month with pressure change) Accompanied by: daughter in law Ela Wang Equipment type: CPAP Equipment obtained from: [employer] Mask style: Full face Backup mask available: Yes Last cushion change: 1-2 months ago Prior sleep studies: Yes CPAP Compliance Data - Data Reviewed with Patient Average duration of nightly device use: 5 h 35 minutes Compliance rate %: 10 Current pressure setting (cmH2O): 9-10 Humidity setting: off Average residual AHI: 10.4 (2.8 AHI last 30 days) Central apnea: 0.6 Obstructive apnea: 0.5 Hypopnea: 8.5 Average large leak: 1.9 liters per minute Subjective Patient concerns: reports: nasal congestion (intermttently ), dry mouth, nose, throat (mild intermittently), other (headache daily in evening , sometimes afternoon, mild 2-3 of 10 pain scale and generally occipital ). denies: aerophagia, mask discomfort, air blowing in eyes, mask leak noise, condensation in mask/hose, epistaxis Observed to snore while using device: No (single sleeps alone) Current pressure setting perceived as: comfortable On therapy, patient: reports: more rested overall Initial [place] Sleepiness Scale score: 8 Current [place] Sleepiness Scale score: 8 Allergies and Home Medications Known drug allergies: Yes (see list ) Home medication list reviewed: Yes Allergy and home medication list: Medication Name (generic/name brand) Strength & Dosage Levothyroxine 150mcg tab one daily Metoprolol 200mg tab one twice daily Losartan Potassium 100mg tab one daily Chlorthalidone 50mg tab one daily Sertraline HCL (Zoloft) 25mg tab one daily Clonodine 0.1mg tab two daily Ropinirole HCL (Requip) 0.25mg tab three daily at bedtime Clopidogrel (Plavix) 75mg tab one amaya Tylenol Tab two twice daily Red Yeast Rice 600mg cap two with every meal Allergy List Darvocet Vicodin Codeine Ceftin Nitroglycerin Lisinopril Tramadol HCL Mushrooms Bee Stings Flu Vaccine Review of Systems Review of systems same as previous: Yes Physical Exam Blood Pressure: 120/60 Cuff size: long Heart Rate: 51 O2 Saturation: 95 Height: 5 ft 2 in Weight: 230 lb Weight change since last visit: lost 8 pounds Body Mass Index: 42.0 BMI Classification: Morbidly Obese Impression and Plan 1. Obstructive Sleep Apnea-Hypopnea Syndrome, mild, with poor treatment compliance and slightly elevated residual AHI noted when increase in mask leaks for the 90 day average but no elevation of residual AHI the past month. On CPAP therapy, the patient is more rested overall. Patient compliance has fallen since last seen. She states she forgets to put mask on. She was advised to put mask on her pillow to remind her as suggested by daughter in law. I also showed her how she could track her use on the sample CPAP. In addition, there is a phone santana which her daughter in law will check out to see if will assist patient as a reminder. For mild intermittent oral dryness, she wa advised how she could use an oral dryness product such as Biotene or Smart mouth oral rinse. She reports she prefers water tp drink. It was then noted that she is not using water in the reservoir and so advised to restart the humidity with rationale discussed. Patient is also encouraged to use CPAP with all sleep including naps to maximize benefit of treatment. Patient's apnea severity and rationale for treatment to reduce apnea, improve sleep quality and reduce cardiovascular and cerebrovascular events was reviewed. I also reviewed the benefit of consistent device use of CPAP for hypertension, cerebrovascular disease, depression/anxiety. I also praised her weight loss and informed her how significant weight loss could reduce her apnea risk and pressure requirements. Symptoms to report for CPAP pressure adjustment discussed. 2. Mild occipital headache, 2-3 range of 10 pain scale, daily. Mostly in evening and sometimes afternoon for past few months. Patient advised to follow up with PCP for further evaluation. 3. Insomnia, that appears to be due to her irregular sleep schedule. Patient counseled how her irregular sleep schedule contributes to insomnia. She is advised to pick the best time to wake up for her life schedule and set alarm. Naps should be restricted to one hour and before 3 pm. Patient will consider. * Continue CPAP pressure at 9-10 cmH2O * Use CPAP with all sleep. * Regulate sleep schedule * Notify me if snoring with mask or feeling that the pressure is too much or too little * Continue to lose weight * Call this office if any problems using CPAP * Return for follow up in 2 months , or sooner if concerns arise Time Spent with Patient (minutes): 32 I spent 100% of this visit face to face with the patient with greater than 50% of this was spent time counseling the patient and coordination of care.
== END 2019-12-13 14:58 | disposition home or self-care (01) ==
LOC: SC 14:57
PROVIDERS: ATTEND Nurse Practitioner Family
DX: G47.33 Obstructive sleep apnea (adult) (pediatric) (principal); E66.01 Morbid (severe) obesity due to excess calories; Z68.41 Body mass index [BMI] 40.0-44.9, adult; R51 Headache; G47.00 Insomnia, unspecified
CPT/HCPCS: 99214; G0463; 99212

== ENCOUNTER 2020-05-31 12:37 | Outpatient (CLI) | payer MEDICARE, OTHER ==
[2020-05-31] MEDS ORDERED: GADOBUTROL 7.5 MMOL/7.5 ML VIAL ONE (13:24)
--- NOTE | 2020-05-31 15:04 | MRI Report ---
PROCEDURE: Brain W/WO INDICATIONS: MIGRAINES, HX OF CVA CONTRAST: IV CONTRAST: Gadavist ml: 7.5 TECHNIQUE: Noncontrast axial T1 spin echo, axial T2 fast spin echo, sagittal and axial FLAIR, coronal T2 fast sp in echo, axial gradient echo, axial diffusion and ADC through the brain. After the administration of contrast, axial and coronal T1 spin echo with fat saturation through the brain. COMPARISON: Prior brain MRI 04/12/2019. Correlation is also made with prior head CT 04/11/2019 FINDINGS: Image quality: Diagnostic, with note made of motion artifact. CSF spaces: Basal cisterns are patent. No extra-axial fluid collections. Ventricles are normal in size and shape. Brain: No midline shift. No intracranial bleeds or masses. No abnormal intracranial enhancement. There is cerebral volume loss for age. There is periventricular white matter chronic small vessel is chemic change. The brainstem appears normal. Diffusion-weighted images demonstrate no definite acut e ischemic insults. Focal volume loss and encephalomalacia can again be seen involving the medial asp ect of the right occipital lobe inferiorly, as on series 601 image 10. Normal intravascular flow void s are present. Skull and face: Calvarial marrow is normal in signal. Orbits appear normal. Incidental note is ma de of bilateral lens replacements. Sinuses: Sinuses and mastoids appear clear. IMPRESSION: Remote right occipital lobe infarction again seen. A cause of headache cannot be seen on these images. No findings of acute or subacute infarction are seen. No masses or abnormal enhancement can be seen. Age-appropriate brain parenchymal volume loss and chronic small vessel ischemic change can be seen. Reviewed by: Bobby Caraballo MD on 05/31/2020 2:03 PM AKCHARLES Approved by: Bobby Caraballo MD on 05/31/2020 2:03 PM AKCHARLES Station ID: [id number]
== END 2020-05-31 12:38 | disposition home or self-care (01) ==
LOC: DI 12:37
PROVIDERS: ATTEND Nurse Practitioner Family
DX: G43.909 Migraine, unspecified, not intractable, without status migrainosus (principal); Z86.73 Personal history of transient ischemic attack (TIA), and cerebral infarction without residual deficits
CPT/HCPCS: 70553; A9585

== ENCOUNTER 2020-06-09 03:26 | Outpatient (CLI) | payer MEDICARE, OTHER | END 2020-06-09 03:27 | disposition critical access hospital (66) | LOC: EMS 03:26 | PROVIDERS: ATTEND Surgery | DX: R51 Headache (principal); R20.0 Anesthesia of skin; R03.0 Elevated blood-pressure reading, without diagnosis of hypertension; R73.09 Other abnormal glucose | CPT/HCPCS: A0425; A0427 ==

== ENCOUNTER 2020-06-09 03:57 | Emergency (ER) | payer MEDICARE, OTHER ==
--- NOTE | 2020-06-09 04:16 | ED Physician Documentation ---
History of Present Illness - Stated complaint Stated Complaint: HIGH BLOOD PRESSURE - Chief complaint Chief Complaint: Cardiac - History obtained from History obtained from: Patient, EMS - History of Present Illness Timing: Today Pain level max: 0 Pain level now: 0 - Additonal information Additional information: BIBA. patient says she had generalized, bilateral weakness earlier today that resolved. at that time she was worried her symptoms might be related to previous stroke, but subsequently she noted her blood pressure was significantly elevated and thus comes to ED for this concern. she says she recently received refill of her clonidine but despite having it has not yet resumed taking this medication. she denies any weakness, numbness, or other symptoms at this time Review of Systems Constitutional: reports: Reviewed and negative Eyes: reports: Loss of vision (lef eye, lateral field (chronic due to CVA)) Cardiac: reports: Reviewed and negative Respiratory: reports: Reviewed and negative GI: reports: Reviewed and negative : denies: Dysuria, Frequency Musculoskeletal: reports: Reviewed and negative Neurologic: reports: Reviewed and negative, Other (short-term memory loss due to previous CVA) PD PAST MEDICAL HISTORY - Past Medical History Past Medical History: Yes Cardiovascular: Congestive heart failure, Hypertension, High cholesterol, Murmur Respiratory: Asthma, Pneumonia, Shortness of breath, Sleep apnea Neuro: CVA, Migraines, Other Endocrine/Autoimmune: Type 2 diabetes, HyPOthyroidism, Other GI: GERD, Hepatitis, Other : Incontinence, Frequency HEENT: Chronic vision loss, Chronic hearing loss Psych: None Musculoskeletal: Osteoarthritis, Chronic back pain, Other Derm: None - Past Surgical History Past Surgical History: Yes Ortho: Hip replacement, Knee replacement, 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: Dilation and currettage, Tubal ligation, Hysterectomy, Oophrectomy - Present Medications Home Medications: Ambulatory Orders Medication Instructions Recorded Confirmed Albuterol Sulf [Ventolin Hfa 1 - 2 puffs INH Q4HR PRN 08/14/17 04/11/19 Inhaler] Aspirin [Adult Low Dose Aspirin EC] 81 mg PO DAILY 08/14/17 04/11/19 EPINEPHrine [Epipen 2-Justin] 0.3 mg IM ONCE PRN 08/14/17 04/11/19 Fluticasone Propionate [Flovent 50 mcg IH DAILY 08/14/17 04/11/19 Diskus] Insulin Glargine [Lantus Solostar] 45 unit SQ DAILY 08/14/17 04/11/19 Insulin NPH Human Isophane 1 - 6 units SQ AC PRN 08/14/17 04/11/19 [Humulin N] Omeprazole 20 mg PO BID 08/14/17 04/11/19 Ropinirole HCl 0.75 mg PO QPM 08/14/17 04/11/19 diphenhydrAMINE [Benadryl] 25 mg PO BID 08/14/17 04/11/19 Losartan Potassium 100 mg PO DAILY 02/26/18 04/11/19 Sertraline HCl 25 mg PO DAILY 02/26/18 04/11/19 Chlorthalidone 50 mg PO DAILY 04/11/19 04/11/19 Clopidogrel Bisulfate [Clopidogrel] 75 mg PO DAILY 04/11/19 04/11/19 Levothyroxine Sodium 175 mcg PO QDAC 04/11/19 04/11/19 Metoprolol Succinate 200 mg PO BID 04/11/19 04/11/19 cloNIDine HCL [Clonidine HCl] 0.1 mg PO BID 04/11/19 04/11/19 Simvastatin 10 mg PO DAILY #30 tablet 04/12/19 - Allergies Allergies/Adverse Reactions: Allergies Allergy/AdvReac Type Severity Reaction Status Date / Time atorvastatin Allergy Cramps Verified 06/09/20 04:03 bee venom protein (honey bee) Allergy Unknown Verified 06/09/20 04:03 cefuroxime [From Ceftin] Allergy Unknown Verified 06/09/20 04:03 codeine Allergy Nausea Verified 06/09/20 04:03 hydrocodone [From Vicodin] Allergy Nausea Verified 06/09/20 04:03 Influenza Virus Vaccines Allergy Unknown Verified 06/09/20 04:03 lisinopril Allergy Respiratory Verified 06/09/20 04:03 mushroom Allergy Anaphylaxis Verified 06/09/20 04:03 nitroglycerin Allergy Headache Verified 06/09/20 04:03 propoxyphene Allergy Unknown Verified 06/09/20 04:03 [From Darvocet-N] tramadol Allergy Headache Verified 06/09/20 04:03 - Social History Does the pt smoke?: No Smoking Status: Never smoker Does the pt drink ETOH?: No Does the pt have substance abuse?: No - Immunizations Immunizations are current?: Yes - POLST Patient has POLST: No POLST Status: Full Code PD ED PE NORMAL - Vitals Vital signs reviewed: Yes - General General: Alert and oriented X 3, No acute distress, Well developed/nourished - HEENT HEENT: PERRL, EOMI, Moist mucous membranes - Neck Neck: Supple, no meningeal sign - Cardiac Cardiac: RRR, No murmur, No gallop, No rub - Respiratory Respiratory: No respiratory distress, Clear bilaterally - Abdomen Abdomen: Soft, Non tender - Back Back: No CVA TTP - Extremities Extremities: No edema - Neuro Neuro: Alert and oriented X 3, informatics application analyst 2-12 intact, No motor deficit, No sensory deficit, Normal speech Results - Vitals Vitals: Vital Signs - 24 hr 06/09/20 06/09/20 06/09/20 04:03 04:08 05:51 Temperature 36.5 C 36.5 C Heart Rate 80 80 80 Respiratory 16 16 16 Rate Blood Pressure 232/86 H 232/86 H 172/97 H O2 Saturation 98 98 98 06/09/20 06/09/20 07:30 10:34 Temperature 36.4 C L Heart Rate 76 80 Respiratory 18 16 Rate Blood Pressure 136/65 H 132/74 H O2 Saturation 97 98 Oxygen O2 Source Room air - EKG (time done) No standard instances Rate: Rate (enter#) (76) Rhythm: NSR [place]: Normal Intervals: Normal [place] QRS: Normal Ischemia: Normal ST segments - Labs Labs: Laboratory Tests 06/09/20 06/09/20 06/09/20 04:23 04:45 04:45 WBC Cancelled RBC Cancelled Hgb Cancelled Hct Cancelled MCV Cancelled MCH Cancelled MCHC Cancelled RDW Cancelled Plt Count Cancelled MPV Cancelled Neut # (Auto) Cancelled Lymph # (Auto) Cancelled Haines # (Auto) Cancelled Eos # (Auto) Cancelled Baso # (Auto) Cancelled Absolute Nucleated RBC Cancelled Nucleated RBC % Cancelled Manual Slide Review Cancelled WBC Morphology Cancelled Platelet Estimate Cancelled Platelet Morphology Cancelled RBC Morph Micro Appear Cancelled Sodium 131 L Potassium 4.4 Chloride 99 L Carbon Dioxide 20 L Anion Gap 12.0 BUN 56 H Creatinine 2.2 H Estimated GFR (MDRD) 22 L Glucose 375 H Calcium 9.0 Total Bilirubin 0.5 AST 17 ALT 15 Alkaline Phosphatase 76 Troponin I High Sens 56.1 H* Total Protein 7.3 Albumin 3.8 Globulin 3.5 Albumin/Globulin Ratio 1.1 Lipase 127 H Urine Color Urine Clarity Urine pH Ur Specific [place] Urine Protein Urine Glucose (UA) Urine Ketones Urine Occult Blood Urine Nitrite Urine Bilirubin Urine Urobilinogen Ur Leukocyte Esterase Urine RBC Urine WBC Ur Squamous Epith Cells Urine Bacteria Urine Mucus Urine Culture Comments Slides for Path Review Cancelled 06/09/20 06/09/20 04:45 05:15 WBC 8.3 RBC 4.11 L Hgb 12.4 Hct 36.6 L MCV 89.1 MCH 30.2 MCHC 33.9 RDW 13.2 Plt Count 231 MPV 12.2 H Neut # (Auto) 5.3 Lymph # (Auto) 1.7 Haines # (Auto) 0.8 Eos # (Auto) 0.3 Baso # (Auto) 0.1 Absolute Nucleated RBC 0.00 Nucleated RBC % 0.0 Manual Slide Review WBC Morphology Platelet Estimate Platelet Morphology RBC Morph Micro Appear Sodium Potassium Chloride Carbon Dioxide Anion Gap BUN Creatinine Estimated GFR (MDRD) Glucose Calcium Total Bilirubin AST ALT Alkaline Phosphatase Troponin I High Sens Total Protein Albumin Globulin Albumin/Globulin Ratio Lipase Urine Color YELLOW Urine Clarity CLEAR Urine pH 5.0 Ur Specific [place] 1.025 Urine Protein 100 H Urine Glucose (UA) >=1000 H Urine Ketones NEGATIVE Urine Occult Blood TRACE-INTA Urine Nitrite NEGATIVE Urine Bilirubin NEGATIVE Urine Urobilinogen 0.2 (NORMAL) Ur Leukocyte Esterase NEGATIVE Urine RBC 0-5 Urine WBC 0-3 Ur Squamous Epith Cells MOD Squamous H Urine Bacteria Rare Urine Mucus Few Strands Urine Culture Comments NOT INDICATED Slides for Path Review - Rads (name of study) chest xray Radiology: Prelim report reviewed, See rad report PD MEDICAL DECISION MAKING - ED course Complexity details: reviewed results, re-evaluated patient, considered differential, d/w patient Departure - Departure Disposition: 01 Home, Self Care Clinical Impression: Hypertension, Hyperglycemia Condition: Good Instructions: ED Hyperglycemia Diabetic, ED HTN Established Follow-Up: Ady Smith MD [Primary Care Provider] - Within 1 week Discharge Date/Time: 06/09/20 10:37
[2020-06-09 04:50] LABS: BASOPHILS # (AUTO) 0.1 10^3/uL (0.0-0.1); BASOPHILS % (AUTO) 1.2 %; EOSINOPHILS # (AUTO) 0.3 10^3/uL (0.0-0.7); EOSINOPHILS % (AUTO) 4.1 %; HGB - HEMOGLOBIN 12.4 g/dL (12.0-16.0); LYMPHOCYTES # (AUTO) 1.7 10^3/uL (1.5-3.5); LYMPHOCYTES % (AUTO) 20.7 %; MEAN CORPUSCULAR HEMOGLOBIN 30.2 pg (27.0-31.0); MEAN CORPUSCULAR HGB CONC 33.9 g/dL (32.0-36.0); MEAN CORPUSCULAR VOLUME 89.1 fL (81.0-99.0); MEAN PLATELET VOLUME 12.2 fL (7.9-10.8); MONOCYTES # (AUTO) 0.8 10^3/uL (0.0-1.0); MONOCYTES % (AUTO) 9.1 %; NEUTROPHILS # (AUTO) 5.3 10^3/uL (1.5-6.6); NEUTROPHILS % (AUTO) 64.5 %; PLT - PLATELET COUNT 231 10^3/uL (130-450); RED BLOOD COUNT 4.11 10^6/uL (4.20-5.40); RED CELL DISTRIBUTION WIDTH 13.2 % (12.0-15.0); WHITE BLOOD COUNT 8.3 x10^3/uL (4.8-10.8)
[2020-06-09] MEDS ORDERED: cloNIDine 0.1 MG TABLET PO STA (04:51)
[2020-06-09 05:03] LABS: ALBUMIN 3.8 g/dL (3.2-5.5); ALBUMIN/GLOBULIN RATIO 1.1 (1.0-2.2); BILIRUBIN,TOTAL 0.5 mg/dL (0.2-1.0); CREATININE 2.2 mg/dL (0.4-1.0); TOTAL PROTEIN 7.3 g/dL (6.7-8.2)
[2020-06-09 05:22] LABS: BILIRUBIN,URINE NEGATIVE (NEGATIVE); GLUCOSE, URINE (UA) >=1000 mg/dL (NEGATIVE); KETONES,URINE (UA) NEGATIVE (NEGATIVE); LEUKOCYTE ESTERASE, URINE NEGATIVE (NEGATIVE); NITRITE,URINE NEGATIVE (NEGATIVE); OCCULT BLOOD,URINE TRACE-INTA (NEGATIVE); PROTEIN,URINE 100 mg/dL (NEGATIVE); UROBILINOGEN,URINE 0.2 (NORMAL) E.U./dL (NORMAL)
[2020-06-09 05:23] LABS: CLARITY,URINE CLEAR (CLEAR)
[2020-06-09 05:29] LABS: BACTERIA,URINE Rare /HPF (None Seen); MUCUS,URINE Few Strands; RBC,URINE 0-5 /HPF (0-5); SQUAMOUS EPITHELIAL CELL,UR MOD Squamous (<= Few)
[2020-06-09] MEDS ORDERED: INSULIN REGULAR HUMAN 100 UNIT/1 ML 10 ML MDV IVP STA (06:32)
[2020-06-09] MEDS ORDERED: SODIUM CHLORIDE 0.9% 500 ML IV STA (06:32)
[2020-06-09] MEDS ORDERED: rOPINIRole 0.25 MG TABLET PO STA (06:50)
--- NOTE | 2020-06-09 10:04 | XRAY Report ---
PROCEDURE: Chest 1 View X-Ray INDICATIONS: Chest pain TECHNIQUE: One view of the chest was acquired. COMPARISON: 09/16/2017, 07/14/2016 09/01/2014 FINDINGS: Surgical changes and devices: None. Lungs and pleura: No pleural effusions or pneumothorax. Lungs are clear. Mediastinum: Mediastinal contours appear normal. Heart size is at the upper limits of normal for po rtable technique. Bones and chest wall: No suspicious bony lesions. Age-appropriate degenerative changes are seen. Overlying soft tissues appear unremarkable. IMPRESSION: No significant portable chest abnormality is seen for age. Note: No significant discrepancy from the preliminary report. Reviewed by: Bobby Caraballo MD on 06/09/2020 9:03 AM VALENTIN Approved by: Bobby Caraballo MD on 06/09/2020 9:03 AM VALENTIN Station ID: [id number]
[2020-06-09 10:37] VITALS: BP 132/74
[2020-06-09] MEDS ORDERED: rOPINIRole 0.25 MG TABLET PO SCH (21:00)
== END 2020-06-09 10:37 | disposition home or self-care (01) ==
LOC: EDUNIT# → ED 03:57
DX: I10 Essential (primary) hypertension (principal); E11.65 Type 2 diabetes mellitus with hyperglycemia; Z79.4 Long term (current) use of insulin; I69.398 Other sequelae of cerebral infarction; I69.311 Memory deficit following cerebral infarction; H53.8 Other visual disturbances; Z79.82 Long term (current) use of aspirin
CPT/HCPCS: 36415; 71045; 80053; 81001; 83690; 84484; 85025; 93005; 96360; 96361; 99284; A9270; J1815; 87086

== ENCOUNTER 2020-10-24 10:58 | Outpatient (CLI) | payer MEDICARE, OTHER, MEDICAID ==
--- OUTSIDE RECORDS SUMMARY | 2020-10-31 00:54 | EXTERNAL MEDICAL SUMMARY RPT | Continuity of Care Document ---
: Demographics Phone Unavailable Preferred Language Nepali Marital Status Unknown Oriental Orthodox Affiliation Unknown Race Unknown Ethnic Group Unknown Author Organization [place] Address [address] [place] [address] Phone Care Team Providers Name Role Phone FLY, SRINIVASAN Unavailable Unavailable FACP, Genaro Espitia MD, A, Unavailable Unavaila ble Registrar, Camille Cleveland, Patient Unavailable Unav ailable Problems date description facility 2020-10-24 13:01 TYPE 2 DIABETES MELLITUS [facility] WITHOUT COMPLICATIONS 2020-10-24 13:01 OBESITY, UNSPECIFIED [facility] Med ical Center 2020-10-24 13:01 CERVICALGIA [facility] 2020-10-24 13:01 DISP FX OF SECOND METATARSAL [facility] BONE, LEFT FOOT, INIT 2020-10-24 13:01 FALL (ON) (FROM) UNSPECIFIED [facility] STAIRS AND STEPS, INI 2020-10-24 [address] IN UNSP NON-INSTITUT [facility] (PRIVATE) RESIDENC 2020-10-24 13:01 DETENTION (CURRENT) USE OF [facility] INSULIN 2020-10-24 13:01 DEPENDENCE ON WHEELCHAIR [facility] 2020-10-29 00:00:00 Health-related behavior [facility] [place] 2020-10-29 00:00:00 Tobacco use and exposure [facility] [place] 2020-10-29 00:00:00 Exercise [facility] 2020-10-29 00:00:00 Never smoker [facility] 2020-10-29 00:00:00 [facility] 2020-10-29 00:00:00 Tobacco smoking status NHIS [facility] 2020-10-29 00:00:00 Total score? [facility] [place] [facility] Allergies date description facility CODEINE [facility] Influenza Virus Vaccines [facility] lisinopril [facility] nitroglycerin [facility] codeine [facility] hydrocodone [facility] propoxyphene [facility] cefuroxime [facility] tramadol [facility] atorvastatin [facility] bee venom protein (honey bee) [facility] mushroom [facility] NO KNOWN ALLERGIES [facility] AMOXICILLIN [facility] ACETAMINOPHEN-CODEINE [facility] Influenza Virus Vaccines [facility] [place] lisinopril [facility] nitroglycerin [facility] codeine [facility] hydrocodone [facility] propoxyphene [facility] cefuroxime [facility] tramadol [facility] atorvastatin [facility] bee venom protein (honey bee) [facility] mushroom [facility] Social History date description facility 2020-10-29 00:00:00 [facility] Social History date description facility 2020-10-29 00:00:00 [facility] date description facility [phone]
== END 2020-10-24 10:59 ==
LOC: EMS 10:58
PROVIDERS: ATTEND Surgery
DX: M79.672 Pain in left foot (principal)

== ENCOUNTER 2020-10-24 13:01 | Emergency (ER) | payer MEDICARE, OTHER, MEDICAID ==
--- NOTE | 2020-10-24 13:28 | ED Physician Documentation ---
History of Present Illness - Stated complaint Stated Complaint: GLF-LT FOOT PX - Chief complaint Chief Complaint: Trauma Ext - History obtained from History obtained from: Patient - Additonal information Additional information: 74-year-old female presents the emergency department after ground-level fall this morning. She was descending 2 steps when her slippers caused her to lose footing she fell forward striking her head on a cabinet. She did not lose consciousness but reports that she saw stars. She reports distal left foot pain neck pain and a mild headache. She is not confused or altered. She does have a history of previous CVA 2 years ago for which she does have residual mild left- sided weakness. She is typically able to walk at this time without a walker however. She takes Plavix but is not on any novel anticoagulation or Coumadin. Review of Systems Constitutional: denies: Fever, Chills Eyes: reports: Reviewed and negative Ears: reports: Reviewed and negative Nose: reports: Reviewed and negative Throat: reports: Reviewed and negative Cardiac: denies: Chest pain / pressure, Palpitations Respiratory: denies: Dyspnea, Cough GI: denies: Abdominal Pain, Nausea, Vomiting : reports: Reviewed and negative Musculoskeletal: reports: Neck pain Neurologic: reports: Focal weakness (baselien left arm and left leg), Numbness (baseline left arm), Headache, Head injury (abrasion left forehead). denies: Syncope, Seizure, LOC Psychiatric: reports: Reviewed and negative PD PAST MEDICAL HISTORY - Past Medical History Cardiovascular: Congestive heart failure, Hypertension, High cholesterol, Murmur Respiratory: Asthma, Pneumonia, Shortness of breath, Sleep apnea Neuro: CVA, Migraines, Other Endocrine/Autoimmune: Type 2 diabetes, HyPOthyroidism, Other GI: GERD, Hepatitis, Other : Incontinence, Frequency HEENT: Chronic vision loss, Chronic hearing loss Psych: None Musculoskeletal: Osteoarthritis, Chronic back pain, Other Derm: None - Past Surgical History Past Surgical History: Yes Ortho: Hip replacement, Knee replacement, 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, Tubal ligation, Hysterectomy, Oophrectomy - Present Medications Home Medications: Ambulatory Orders Medication Instructions Recorded Confirmed Albuterol Sulf [Ventolin Hfa 1 - 2 puffs INH Q4HR PRN 08/14/17 10/24/20 Inhaler] Aspirin [Adult Low Dose Aspirin EC] 81 mg PO DAILY 08/14/17 10/24/20 EPINEPHrine [Epipen 2-Justin] 0.3 mg IM ONCE PRN 08/14/17 10/24/20 Fluticasone Propionate [Flovent 50 mcg IH DAILY 08/14/17 04/11/19 Diskus] Insulin Glargine [Lantus Solostar] 45 unit SQ DAILY 08/14/17 10/24/20 Insulin NPH Human Isophane 1 - 6 units SQ AC PRN 08/14/17 04/11/19 [Humulin N] Omeprazole 20 mg PO BID 08/14/17 10/24/20 Ropinirole HCl 0.75 mg PO QPM 08/14/17 10/24/20 diphenhydrAMINE [Benadryl] 25 mg PO BID 08/14/17 10/24/20 Losartan Potassium 100 mg PO DAILY 02/26/18 10/24/20 Sertraline HCl 25 mg PO DAILY PM 02/26/18 10/24/20 Chlorthalidone 50 mg PO DAILY 04/11/19 10/24/20 Clopidogrel Bisulfate [Clopidogrel] 75 mg PO DAILY PM 04/11/19 10/24/20 Levothyroxine Sodium 175 mcg PO QDAC 04/11/19 10/24/20 Metoprolol Succinate 200 mg PO BID 04/11/19 10/24/20 cloNIDine HCL [Clonidine HCl] 0.2 mg PO DAILY PM 04/11/19 04/11/19 Acetaminophen [Acetaminophen Extra 500 mg PO BID 10/24/20 10/24/20 Strength] Atorvastatin Calcium [Lipitor] 80 mg PO DAILY PM 10/24/20 10/24/20 Bethanechol [Urecholine] 25 mg PO DAILY PM 10/24/20 10/24/20 - Allergies Allergies/Adverse Reactions: Allergies Allergy/AdvReac Type Severity Reaction Status Date / Time atorvastatin Allergy Cramps Verified 10/24/20 13:04 bee venom protein (honey bee) Allergy Unknown Verified 10/24/20 13:04 cefuroxime [From Ceftin] Allergy Unknown Verified 10/24/20 13:04 codeine Allergy Nausea Verified 10/24/20 13:04 hydrocodone [From Vicodin] Allergy Nausea Verified 10/24/20 13:04 Influenza Virus Vaccines Allergy Unknown Verified 10/24/20 13:04 lisinopril Allergy Respiratory Verified 10/24/20 13:04 mushroom Allergy Anaphylaxis Verified 10/24/20 13:04 nitroglycerin Allergy Headache Verified 10/24/20 13:04 propoxyphene Allergy Unknown Verified 10/24/20 13:04 [From Darvocet-N] tramadol Allergy Headache Verified 10/24/20 13:04 - Social History Does the pt smoke?: No Smoking Status: Never smoker Does the pt drink ETOH?: No Does the pt have substance abuse?: No - Immunizations Immunizations are current?: Yes - POLST Patient has POLST: No POLST Status: Full Code PD ED PE EXPANDED - General General: Alert, No acute distress, Other (obese; in wheel chair) - Neck Neck: Supple w/out meningeal sx, Bony TTP (Lower midline cervical tenderness palpation. Mild pain with axial loading). No: Adenopathy, No tenderness - Cardiac Cardiac: Regular Rate, Regular Rhythm, Radial strong equal, Pedal strong equal, Cap refill < 2 sec - Respiratory Respiratory: Clear to ausultation rachael. No: Distress, Labored - Abdomen Abdomen: Normal Bowel sounds. No: Tender to palpation - Extremities Extremities: Tenderness, Left foot (tenderness dorsum left foot with ecchymosis. no deformity. 2+ DP pulse. dififculty bearing weight). No: Deformity - Neuro Neuro: Alert and Oriented X 3, Normal motor, Normal Speech, CNII-XII intact, Normal speech. No: Normal Sensation (baselien numbness left arm unchanged since stoke 2019) - GCS Eye Opening: Spontaneous Motor: Obeys Commands Verbal: Oriented Total: 15 Results - Vitals Vitals: Vital Signs - 24 hr 10/24/20 10/24/20 13:04 14:17 Temperature 36.4 C L 36.7 C Heart Rate 72 75 Respiratory 20 18 Rate Blood Pressure 250/91 H 226/104 H O2 Saturation 98 98 Oxygen O2 Source Room air - Rads (name of study) left fooot Radiology: Final report received, Other CT head Radiology: Final report received (Mild microvascular atherosclerotic change in the deep white matter of each hemisphere. No hemorrhage is found. No calvarial trauma is identified.) CT neck Radiology: Final report received (No fracture or traumatic subluxation is seen. Moderately severe mid cervical degenerative disc disease.) PD MEDICAL DECISION MAKING - ED course Complexity details: reviewed results, re-evaluated patient, considered diff erential, d/w patient ED course: 74-year-old female presents emergency department for evaluation of left foot pain headache and neck pain after ground-level fall this afternoon when her slippers caught under her and she fell down 2 steps. X-ray of the foot shows a fracture at the base of the second metatarsal. Does not appear to be a Lisfranc injury. However given her history of previous CVA with left-sided deficits crutches and nonweightbearing would likely be unsafe for her. She was placed in a walking boot and given a walker to aid in ADLs and ambulation at home but was advised to be as nonweightbearing as possible. Images were discussed with Dr. Goyal and stated okay to be in walking boot and walker. Will see in clinic in one week CT of the head and neck Show no acute fractures or worrisome findings. Patient is noted to be moderately hypertensive here in the emergency department. She admits to not taking her blood pressure medications this a.m. She denies any chest pain or dyspnea. Departure - Departure Disposition: 01 Home, Self Care Clinical Impression: Metatarsal fracture Qualifiers: Encounter type: initial encounter Metatarsal bone: second Fracture type: closed Fracture alignment: displaced Laterality: left Qualified Code(s): S92.322A - Displaced fracture of second metatarsal bone, left foot, initial encounter for closed fracture Fall Qualifiers: Encounter type: initial encounter Qualified Code(s): W19.XXXA - Unspecified fall, initial encounter Condition: Stable Record reviewed to determine appropriate education?: Yes Instructions: ED Fx Foot Ch Follow-Up: Jonah Goyal MD [Provider Admit Priv/Credential] - Within 1 week SRINIVASAN OLIVAREZ ARNP [Primary Care Provider] - Comments: Verónica I am so sorry hydrofall today. Unfortunately the x-ray does show that the second metatarsal, a bone in your foot, is broken. Ideally we would ask that you be nonweightbearing on this foot and use crutches. However as we discussed it is not safe for you to use crutches. Therefore we have placed you in a walking boot and given you a walker to use at home. I would like you to call the orthopedics department to be seen for follow-up next week. The CT of your head and neck do not show any new or worrisome findings. You have not broken any bones. There is no bleeding or bruising of your brain. I would like you to take Tylenol at home for pain. If at any point you have worsening symptoms, high fevers, develop chest pain or shortness of breath please return immediately to the ER. Your blood pressure was very elevated today in the emergency department. This is most likely because of pain and because you did not take your morning medications. Please always take your medications as prescribed.
--- NOTE | 2020-10-24 14:05 | XRAY Report ---
PROCEDURE: Foot 3 View LT INDICATIONS: fall; distal tenderness and ecchymosis TECHNIQUE: 3 views of the foot were acquired. COMPARISON: None FINDINGS: Bones: No fractures or dislocations. No suspicious bony lesions. Degenerative osteoarthritis at th e first MTP joint is moderately air. Soft tissues: No tibiotalar joint effusion. Achilles tendon appears normal. What appears to be a s mall but sharp foreign body, possibly metallic, within the soft tissues adjacent to the distal diaphy sis of the fourth metatarsal bone can be seen, without underlying osteomyelitis. IMPRESSION: Moderately severe to severe first MTP joint degenerative osteoarthritis. Small sharply marginated for eign body in the soft tissues immediately adjacent to the distal diaphysis of the fourth metatarsal b one, possibly metallic in origin. Reviewed by: Pedro Pablo Johnson MD on 10/24/2020 2:03 PM PST Approved by: Pedro Pablo Johnson MD on 10/24/2020 2:03 PM PST Station ID: [id number]
[2020-10-24] MEDS ORDERED: cloNIDine 0.1 MG TABLET PO STA (14:14)
--- NOTE | 2020-10-24 14:41 | CT Report ---
PROCEDURE: CERVICAL SPINE WO INDICATIONS: fall; midline neck pain TECHNIQUE: Noncontrast 3 mm thick sections acquired from the skull base to the T4 level. Sagittal and coronal r eformats were then constructed. For radiation dose reduction, the following was used: automated exp osure control, adjustment of mA and/or kV according to patient size. COMPARISON: None. FINDINGS: Image quality: Excellent. Bones: No fractures or dislocations. Visualized superior ribs are intact. Degenerative disc diseas e is moderately severe at C4-5 and C5-6 and mild to moderate immediately above and below. No traumati c subluxation. Soft tissues: Prevertebral soft tissues are normal in thickness. No paravertebral hematomas. No ap ical pneumothoraces. IMPRESSION: No fracture or traumatic subluxation seen. Moderately severe mid cervical degenerative disc disease a s discussed with moderate foraminal and spinal stenosis. Reviewed by: Pedro Pablo Johnson MD on 10/24/2020 2:39 PM PST Approved by: Pedro Pablo Johnson MD on 10/24/2020 2:39 PM PST Station ID: [id number]
--- NOTE | 2020-10-24 14:42 | CT Report ---
PROCEDURE: HEAD WO INDICATIONS: GLF TECHNIQUE: Noncontrast 4.5 mm thick angled axial sections acquired from the foramen magnum to the vertex. For r adiation dose reduction, the following was used: automated exposure control, adjustment of mA and/or kV according to patient size. COMPARISON: None. FINDINGS: Image quality: Excellent. CSF spaces: Basal cisterns are patent. No extra-axial fluid collections. Ventricles are normal in size and shape. Brain: No midline shift. No intracranial masses or hemorrhage. Elkins-white matter interface is norm al. Skull and face: Calvarium and visualized facial bones are intact, without suspicious lesions. Sinuses: Visualized sinuses and mastoids are clear. IMPRESSION: Mild microvascular atherosclerotic change in the deep white matter of each hemisphere. N o hemorrhage is found, no calvarial trauma is identified. The mastoid air cells are free of opacifica tion that would indicate presence of skull base fracture. Reviewed by: Pedro Pablo Johnson MD on 10/24/2020 2:41 PM PST Approved by: Pedro Pablo Johnson MD on 10/24/2020 2:41 PM PST Station ID: [id number]
[2020-10-24 15:07] VITALS: BP 221/94
--- OUTSIDE RECORDS SUMMARY | 2020-10-31 00:46 | EXTERNAL MEDICAL SUMMARY RPT | Continuity of Care Document ---
: Demographics Phone Unavailable Preferred Language Sinhala Marital Status Unknown Confucianism Affiliation Unknown Race Unknown Ethnic Group Unknown Author Organization [facility] Address [address] [place] [address] Phone Care Team Providers Name Role Phone FLY, SRINIVASAN Unavailable Unavailable FACP, Genaro Espitia MD, A, Unavailable Unavaila ble Registrar, Camille Cleveland, Patient Unavailable Unav ailable Problems date description facility 2020-10-24 13:01 TYPE 2 DIABETES MELLITUS [facility] WITHOUT COMPLICATIONS 2020-10-24 13:01 OBESITY, UNSPECIFIED [facility] Med ical Center 2020-10-24 13:01 CERVICALGIA [facility] 2020-10-24 13:01 DISP FX OF SECOND METATARSAL [facility] BONE, LEFT FOOT, INIT 2020-10-24 13:01 FALL (ON) (FROM) UNSPECIFIED [facility] STAIRS AND STEPS, INI 2020-10-24 13:[address] IN UNSP NON-INSTITUT [facility] (PRIVATE) RESIDENC 2020-10-24 13:01 RESIDENTIAL (CURRENT) USE OF [facility] INSULIN 2020-10-24 13:01 DEPENDENCE ON WHEELCHAIR [facility] 2020-10-29 00:00:00 Health-related behavior [facility] [place] 2020-10-29 00:00:00 Tobacco use and exposure [facility] [place] 2020-10-29 00:00:00 Exercise [facility] 2020-10-29 00:00:00 Never smoker [facility] 2020-10-29 00:00:00 [facility] 2020-10-29 00:00:00 Tobacco smoking status NHIS [facility] 2020-10-29 00:00:00 Total score? [facility] [place] [facility] Allergies date description facility CODEINE [facility] Influenza Virus Vaccines [facility] lisinopril [facility] nitroglycerin [facility] codeine [facility] hydrocodone [facility] propoxyphene [facility] cefuroxime [facility] tramadol [facility] atorvastatin [facility] bee venom protein (honey bee) [facility] mushroom [facility] NO KNOWN ALLERGIES [facility] AMOXICILLIN [facility] ACETAMINOPHEN-CODEINE [facility] Influenza Virus Vaccines [facility] [place] lisin[facility] nitroglycerin [facility] codeine [facility] hydrocodone [facility] propoxyphene [facility] cefuroxime [facility] tramadol [facility] atorvastatin [facility] bee venom protein (honey bee) [facility] mushroom [facility] Social History date description facility 2020-10-29 00:00:00 [facility] Social History date description facility 2020-10-29 00:00:00 [facility] date description facility [id number]
== END 2020-10-24 15:11 | disposition home or self-care (01) ==
LOC: ED 13:01
DX: S92.322A Displaced fracture of second metatarsal bone, left foot, initial encounter for closed fracture (principal); W10.9XXA Fall (on) (from) unspecified stairs and steps, initial encounter; Y92.009 Unspecified place in unspecified non-institutional (private) residence as the place of occurrence of the external cause; M54.2 Cervicalgia; E11.9 Type 2 diabetes mellitus without complications; Z79.4 Long term (current) use of insulin; E66.9 Obesity, unspecified; Z99.3 Dependence on wheelchair
CPT/HCPCS: 70450; 72125; 73630; 99284; A9270

== ENCOUNTER 2020-11-05 13:28 | Outpatient (CLI) | payer MEDICARE, OTHER, MEDICAID ==
--- NOTE | 2020-11-05 13:41 | XRAY Report ---
PROCEDURE: Foot 3 View BILAT INDICATIONS: R AND L FOOT PX TECHNIQUE: 6 views of the foot were acquired. COMPARISON: None FINDINGS: Bones: No fractures or dislocations. Moderate to severe bilateral first MTP joint osteophytic change s are seen with joint space narrowing and prominent marginal osteophyte formation concerning for brownlee ux limitus. Osteophytic changes also noted throughout interphalangeal joints and TMT joints. Well-def ined bilateral plantar calcaneal enthesophytes are seen. No suspicious bony lesions. Soft tissues: No tibiotalar joint effusion. Achilles tendon appears normal. IMPRESSION: No fracture or dislocation. 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 Well-defined bilateral plantar calcaneal enthesophytes. Reviewed by: Scott Julian MD on 11/05/2020 1:40 PM PST Approved by: Scott Julian MD on 11/05/2020 1:40 PM PST Station ID: [id number]
== END 2020-11-05 23:59 | disposition home or self-care (01) ==
LOC: DI.N 13:28
PROVIDERS: ATTEND Orthopaedic Surgery
DX: M19.072 Primary osteoarthritis, left ankle and foot (principal); M19.071 Primary osteoarthritis, right ankle and foot; M77.32 Calcaneal spur, left foot; M77.31 Calcaneal spur, right foot

== ENCOUNTER 2021-01-08 03:35 | Outpatient (CLI) | payer MEDICARE, OTHER, MEDICAID | END 2021-01-08 03:36 | disposition EMS.NT | LOC: EMS 03:35 | DX: E16.2 Hypoglycemia, unspecified (principal) ==

== ENCOUNTER 2021-04-03 13:31 | Outpatient (CLI) | payer MEDICARE, OTHER ==
[2021-04-03 20:12] LABS: CALCIUM 8.9 mg/dL (8.5-10.3); CREATININE 2.6 mg/dL (0.4-1.0); PHOSPHORUS 3.9 mg/dL (2.5-4.6); POTASSIUM 4.4 mmol/L (3.5-5.0)
== END 2021-04-03 13:32 | disposition home or self-care (01) ==
LOC: LAB.S 13:31
PROVIDERS: ATTEND Internal Medicine Nephrology
DX: N05.9 Unspecified nephritic syndrome with unspecified morphologic changes (principal); I50.32 Chronic diastolic (congestive) heart failure; E83.30 Disorder of phosphorus metabolism, unspecified; N25.81 Secondary hyperparathyroidism of renal origin
CPT/HCPCS: 36415; 80048; 83880; 83970; 84100

== ENCOUNTER 2021-04-29 10:25 | Outpatient (CLI) | payer MEDICARE, OTHER ==
--- NOTE | 2021-04-30 11:43 | Mammography Report ---
BILATERAL DIGITAL DIAGNOSTIC MAMMOGRAM 3D/2D: 04/29/2021 CLINICAL: Diffuse right breast pain. Palpable right breast lump. Comparison is made to exams dated: 01/02/2014 mammogram and 04/20/2012 mammogram - [facility]. There are scattered fibroglandular elements in both breasts. There is a new 0.8 cm round high density mass with a circumscribed margin in the left breast at 11 o' clock anterior depth 6 cm from the nipple. No other significant masses, calcifications, or other findings are seen in either breast. Specifical ly, no finding to correspond to the patient's 9:00 pain and palpable abnormality. IMPRESSION: INCOMPLETE: NEEDS ADDITIONAL IMAGING EVALUATION The new 0.8 cm round high density mass in the left breast is indeterminate. An ultrasound is recomme nded. There is no abnormality seen in the right breast to correspond with the palpable abnormality and pain at 9 o'clock. Ultrasound is recommended for full evaluation of this area. This was performed immedi ately following this exam. This exam was interpreted at Station ID: [id number]. NOTE: For mammograms, a report in lay terms will be sent to the patient. Approximately 15% of breast malignancies will not be visualized mammographically. In the management of a palpable breast mass, a negative mammogram must not discourage biopsy of a clinically suspicious lesion. Electronically Signed By: Mandy barnes/:04/29/2021 12:44:01 ACR BI-RADS Category 0: Incomplete 3340F PARENCHYMAL PATTERN: (A) - The breast(s) demonstrate(s) scattered fibroglandular densities. BI-RADS CATEGORY: (0) - 0 Ultrasound [id number] Immediate follow-up LATERALITY: (B)
--- NOTE | 2021-04-30 11:43 | Ultrasound Report ---
LIMITED ULTRASOUND OF RIGHT BREAST: 04/29/2021 CLINICAL: Palpable right breast lump. Comparison is made to exams dated: 04/29/2021 mammogram, 01/02/2014 mammogram, and 04/20/2012 mammogram - [facility]. Real-time ultrasound of the right breast 9 o'clock region was performed. Elkins scale images of the re al-time examination were reviewed. No significant abnormalities were seen sonographically in the right breast. Specifically, no finding to correspond to the patient's pain or palpable abnormality. IMPRESSION: NEGATIVE There is no sonographic evidence of malignancy in the right breast or suspicious finding at the area of palpable abnormality . Return to annual mammogram screening schedule is recommended for the right breast. Findings and recommendations were conveyed to the patient at time of exam. This exam was interpreted at Station ID: [id number]. Electronically Signed By: Mandy barnes/:04/29/2021 14:59:48 Ultrasound BI-RADS: 1 Negative BI-RADS CATEGORY: (1) - 1 RECOMMENDATION: (ANNUAL) - Recommend routine annual screening mammography. [id number] return to screening LATERALITY: (B)
--- NOTE | 2021-04-30 11:43 | Ultrasound Report ---
LIMITED ULTRASOUND OF LEFT BREAST: 04/29/2021 CLINICAL: Patient returns today to evaluate an asymmetry in the left breast. Comparison is made to exams dated: 04/29/2021 mammogram, 01/02/2014 mammogram, and 04/20/2012 mammogram - [facility]. Color flow and real-time ultrasound of the left breast 9-10 o'clock region were performed. Elkins sca le images of the real-time examination were reviewed. There is a 0.7 cm x 0.6 cm x 0.6 cm round mass with a spiculated margin in the left breast at 10 o'cl ock posterior depth 7 cm from the nipple. This round mass is hypoechoic. This correlates with mammo graphy findings. Color flow imaging demonstrates that there is increased vascularity. IMPRESSION: SUSPICIOUS OF MALIGNANCY The 0.7 cm x 0.6 cm x 0.6 cm round mass in the left breast is suspicious of malignancy. An ultrasoun d guided biopsy is recommended. Findings and recommendations were discussed with the patient by Dr. Reagan Cooper at the time of exam. This exam was interpreted at Station ID: [id number]. Electronically Signed By: Mandy barnes/:04/29/2021 14:58:13 Ultrasound BI-RADS: 4 Suspicious for malignancy BI-RADS CATEGORY: (4) - 4 None [id number] Immediate follow-up LATERALITY: ()
== END 2021-04-29 10:26 | disposition home or self-care (01) ==
LOC: DI 10:25
PROVIDERS: ATTEND Nurse Practitioner Family
DX: N63.22 Unspecified lump in the left breast, upper inner quadrant (principal); N64.4 Mastodynia

== ENCOUNTER 2021-09-09 15:52 | Outpatient (CLI) | payer MEDICARE, OTHER ==
--- NOTE | 2021-09-09 16:18 | XRAY Report ---
PROCEDURE: Chest 2 View X-Ray INDICATIONS: DYSPNEA ON EXERTION TECHNIQUE: 2 view(s) of the chest. COMPARISON: June 09, 2020. FINDINGS: SUPPORT DEVICES: None. LUNGS/PLEURA: No focal consolidation, pleural effusion or space-occupying pneumothorax. Redemonstrate d atelectasis/scarring in the left midlung zone. MEDIASTINUM: Enlargement of cardiac silhouette, suggesting cardiomegaly or pericardial effusion. BONES/SOFT TISSUES: No acute abnormality. IMPRESSION: 1.No acute cardiopulmonary abnormality. Reviewed by: Omar Brizuela MD on 09/09/2021 4:17 PM [facility] Approved by: Omar Brizuela MD on 09/09/2021 4:17 PM [facility] Station ID: [id number]
== END 2021-09-09 15:53 | disposition home or self-care (01) ==
LOC: DI.S 15:52
PROVIDERS: ATTEND Nurse Practitioner Family
DX: R06.09 Other forms of dyspnea (principal)

== ENCOUNTER 2021-09-26 08:56 | Outpatient (CLI) | payer MEDICARE, OTHER | END 2021-09-26 08:57 | disposition home or self-care (01) | LOC: DI 08:56 | PROVIDERS: ATTEND Nurse Practitioner Family | DX: I48.91 Unspecified atrial fibrillation (principal); I35.0 Nonrheumatic aortic (valve) stenosis; I05.0 Rheumatic mitral stenosis | CPT/HCPCS: 93306 ==

== ENCOUNTER 2021-10-09 09:30 | Outpatient (CLI) | payer MEDICARE, OTHER | END 2021-10-09 09:31 | disposition critical access hospital (66) | LOC: EMS 09:30 | DX: E16.2 Hypoglycemia, unspecified (principal) | CPT/HCPCS: A0425; A0427 ==

== ENCOUNTER 2021-10-09 10:01 | Emergency (ER) | payer MEDICARE, OTHER ==
--- NOTE | 2021-10-09 10:21 | ED Physician Documentation ---
History of Present Illness - Stated complaint Stated Complaint: LOW BLOOD SUGAR - Chief complaint Chief Complaint: General - History obtained from History obtained from: Patient, EMS - History of Present Illness Timing: Today - Additonal information Additional information: 75-year-old diabetic female who is on insulin went into see her doctor this morning about her Coumadin and when she got back home she became unresponsive and diaphoretic was found to have a low blood sugar medics were called they found her blood sugar to be 31 on arrival they were able to get her some sugar into her which did not bring it up adequately in the administered dextrose. The patient presents to the emergency department today confused. She states that she does not have a good memory and defers to her daughter in law. We will contact her [id number]. 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 : Incontinence, Frequency HEENT: Chronic vision loss, Chronic hearing loss Psych: None Musculoskeletal: Osteoarthritis, Chronic back pain, Other Derm: None - Past Surgical History Past Surgical History: Yes Ortho: Hip replacement, Knee replacement, Carpal Tunnel surgery /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 TEACHER: Dilation and currettage, Tubal ligation, Hysterectomy, Oophrectomy - Present Medications Home Medications: Ambulatory Orders Medication Instructions Recorded Confirmed Albuterol Sulf [Ventolin Hfa 1 - 2 puffs INH Q4HR PRN 08/14/17 02/28/21 Inhaler] Aspirin [Adult Low Dose Aspirin EC] 81 mg PO DAILY 08/14/17 02/28/21 EPINEPHrine [Epipen 2-Justin] 0.3 mg IM ONCE PRN 08/14/17 02/28/21 Fluticasone Propionate [Flovent 50 mcg IH DAILY 08/14/17 02/28/21 Diskus] Insulin Glargine [Lantus Solostar] 35 unit SQ DAILY 08/14/17 03/01/21 Omeprazole 20 mg PO BID 08/14/17 02/28/21 Ropinirole HCl 0.75 mg PO QPM 08/14/17 02/28/21 diphenhydrAMINE [Benadryl] 25 mg PO BID PRN 08/14/17 02/28/21 Losartan Potassium 100 mg PO DAILY 02/26/18 02/28/21 Sertraline HCl 25 mg PO DAILY PM 02/26/18 02/28/21 Chlorthalidone 50 mg PO DAILY 04/11/19 02/28/21 Clopidogrel Bisulfate [Clopidogrel] 75 mg PO DAILY PM 04/11/19 02/28/21 Levothyroxine Sodium 175 mcg PO QDAC 04/11/19 02/28/21 Metoprolol Succinate 200 mg PO BID 04/11/19 02/28/21 cloNIDine HCL [Clonidine HCl] 0.2 mg PO DAILY PM 04/11/19 02/28/21 Acetaminophen [Acetaminophen Extra 500 mg PO BID 10/24/20 02/28/21 Strength] Atorvastatin Calcium [Lipitor] 80 mg PO DAILY PM 10/24/20 02/28/21 Bethanechol [Urecholine] 25 mg PO BID 10/24/20 02/28/21 Furosemide [Lasix] 20 mg PO DAILY 02/28/21 02/28/21 Insulin Aspart [NovoLOG] 5 unit SUBQ TIDWM 02/28/21 02/28/21 - Allergies Allergies/Adverse Reactions: Allergies Allergy/AdvReac Type Severity Reaction Status Date / Time atorvastatin Allergy Cramps Verified 10/09/21 10:11 bee venom protein (honey bee) Allergy Unknown Verified 10/09/21 10:11 cefuroxime [From Ceftin] Allergy Unknown Verified 10/09/21 10:11 codeine Allergy Nausea Verified 10/09/21 10:11 hydrocodone [From Vicodin] Allergy Nausea Verified 10/09/21 10:11 Influenza Virus Vaccines Allergy Unknown Verified 10/09/21 10:11 lisinopril Allergy Respiratory Verified 10/09/21 10:11 mushroom Allergy Anaphylaxis Verified 10/09/21 10:11 nitroglycerin Allergy Headache Verified 10/09/21 10:11 propoxyphene Allergy Unknown Verified 10/09/21 10:11 [From Darvocet-N] tramadol Allergy Headache Verified 10/09/21 10:11 - Social History Does the pt smoke?: No Smoking Status: Never smoker Does the pt drink ETOH?: No Does the pt have substance abuse?: No - Immunizations Immunizations are current?: Yes - POLST Patient has POLST: No POLST Status: Full Code PD ED PE NORMAL - Vitals Vital signs reviewed: Yes (tachy and hypertensive ) - General General: No acute distress, Well developed/nourished, Other (oriented X2) - HEENT HEENT: Atraumatic, PERRL, EOMI - Neck Neck: Supple, no meningeal sign - Cardiac Cardiac: No murmur, Other (tachy to 100) - Respiratory Respiratory: No respiratory distress, Clear bilaterally - Abdomen Abdomen: Soft, Non tender - Back Back: No CVA TTP, No spinal TTP - Derm Derm: Normal color, Warm and dry, No rash - Extremities Extremities: No deformity, No edema - Neuro 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, No motor deficit, No sensory deficit, Normal speech Eye Opening: Spontaneous Motor: Obeys Commands Verbal: Confused GCS Score: 14 - Psych Psych: Normal mood, Normal affect Results - Vitals Vitals: Vital Signs - 24 hr 10/09/21 10/09/21 10/09/21 10:08 10:30 11:30 Temperature 36.1 C L Heart Rate 122 H 89 98 Respiratory 20 14 18 Rate Blood Pressure 132/86 H 113/88 H 118/74 O2 Saturation 93 93 97 10/09/21 10/09/21 12:00 13:00 Temperature Heart Rate 95 98 Respiratory 17 19 Rate Blood Pressure 109/91 H 114/77 O2 Saturation 96 96 Oxygen O2 Source Room air - EKG (time done) 1023 Rate: Rate (enter#) (106) Rhythm: Atrial fibrillation Intervals: Prolonged QT Ischemia: Non specific changes Compare to prior EKG: Changed from prior EKG (SPT 06-09-2020 the rhythm has changed to afib and the rate is faster. ) Computer interpretation: Agree with computer - Labs Labs: Laboratory Tests 10/09/21 10/09/21 10/09/21 10:21 10:21 10:21 WBC 13.3 H RBC 3.98 L Hgb 11.5 L Hct 36.2 L MCV 91.0 MCH 28.9 MCHC 31.8 L RDW 13.8 Plt Count 267 MPV 11.4 H Neut # (Auto) 10.3 H Lymph # (Auto) 1.6 [place] # (Auto) 0.8 Eos # (Auto) 0.4 Baso # (Auto) 0.2 H Absolute Nucleated RBC 0.00 Nucleated RBC % 0.0 PT INR Sodium 138 Potassium 3.5 Chloride 104 Carbon Dioxide 21 Anion Gap 13.0 BUN 53 H Creatinine 2.4 H Estimated GFR (MDRD) 20 L Glucose 170 H Calcium 9.1 Total Bilirubin 0.8 AST 24 ALT 25 Alkaline Phosphatase 97 Troponin I High Sens 17.5 H* Total Protein 7.3 Albumin 3.8 Globulin 3.5 Albumin/Globulin Ratio 1.1 Lipase 50 10/09/21 11:22 WBC RBC Hgb Hct MCV MCH MCHC RDW Plt Count MPV Neut # (Auto) Lymph # (Auto) [place] # (Auto) Eos # (Auto) Baso # (Auto) Absolute Nucleated RBC Nucleated RBC % PT 17.7 H INR 1.6 H Sodium Potassium Chloride Carbon Dioxide Anion Gap BUN Creatinine Estimated GFR (MDRD) Glucose Calcium Total Bilirubin AST ALT Alkaline Phosphatase Troponin I High Sens Total Protein Albumin Globulin Albumin/Globulin Ratio Lipase Procedures - IVC sono (time) 1106 Bedside IVC sono: IVC measures (cm) (1.71), Euvolemia PD MEDICAL DECISION MAKING - ED course Complexity details: reviewed results, re-evaluated patient, considered differential, d/w patient, d/w family ED course: 75 y/o female with an episode of LOC related to hyoglycemia is found to be euvolemic on interrogation of the IVC. Saline is not administered. Departure - Departure Disposition: 01 Home, Self Care Clinical Impression: Hypoglycemia Instructions: ED Diabetes Hypoglycemia Insulin React Follow-Up: SRINIVASAN OLIVAREZ ARNP [Primary Care Provider] - Discharge Date/Time: 10/09/21 13:27
[2021-10-09 10:26] LABS: BASOPHILS # (AUTO) 0.2 10^3/uL (0.0-0.1); BASOPHILS % (AUTO) 1.2 %; EOSINOPHILS # (AUTO) 0.4 10^3/uL (0.0-0.7); EOSINOPHILS % (AUTO) 3.3 %; HCT - HEMATOCRIT 36.2 % (37.0-47.0); HGB - HEMOGLOBIN 11.5 g/dL (12.0-16.0); LYMPHOCYTES # (AUTO) 1.6 10^3/uL (1.5-3.5); LYMPHOCYTES % (AUTO) 11.9 %; MEAN CORPUSCULAR HEMOGLOBIN 28.9 pg (27.0-31.0); MEAN CORPUSCULAR HGB CONC 31.8 g/dL (32.0-36.0); MEAN PLATELET VOLUME 11.4 fL (7.9-10.8); MONOCYTES # (AUTO) 0.8 10^3/uL (0.0-1.0); MONOCYTES % (AUTO) 5.8 %; NEUTROPHILS # (AUTO) 10.3 10^3/uL (1.5-6.6); NEUTROPHILS % (AUTO) 77.5 %; PLT - PLATELET COUNT 267 10^3/uL (130-450); RED BLOOD COUNT 3.98 10^6/uL (4.20-5.40); RED CELL DISTRIBUTION WIDTH 13.8 % (12.0-15.0); WHITE BLOOD COUNT 13.3 x10^3/uL (4.8-10.8)
[2021-10-09 10:39] LABS: ALBUMIN 3.8 g/dL (3.2-5.5); ALBUMIN/GLOBULIN RATIO 1.1 (1.0-2.2); BILIRUBIN,TOTAL 0.8 mg/dL (0.2-1.0); CALCIUM 9.1 mg/dL (8.5-10.3); CREATININE 2.4 mg/dL (0.4-1.0); POTASSIUM 3.5 mmol/L (3.5-5.0); TOTAL PROTEIN 7.3 g/dL (6.7-8.2)
[2021-10-09 11:33] LABS: INR 1.6 (0.8-1.2); PT - PROTHROMBIN TIME 17.7 secs (9.9-12.6)
[2021-10-09 13:28] VITALS: BP 114/77
== END 2021-10-09 13:27 | disposition home or self-care (01) ==
LOC: ED 10:01
DX: E11.649 Type 2 diabetes mellitus with hypoglycemia without coma (principal); Z79.4 Long term (current) use of insulin; I11.0 Hypertensive heart disease with heart failure; I50.9 Heart failure, unspecified; Z79.01 Long term (current) use of anticoagulants
CPT/HCPCS: 36415; 80053; 83690; 84484; 85025; 85610; 93005; 99284

== ENCOUNTER 2021-10-26 16:04 | Emergency (ER) | payer MEDICARE, OTHER, MEDICAID ==
[2021-10-26 16:18] VITALS: BP 126/76
[2021-10-26] MEDS ORDERED: FUROSEMIDE 40 MG/4 ML VIAL IVP STA (16:31)
[2021-10-26 16:49] LABS: BASOPHILS # (AUTO) 0.1 10^3/uL (0.0-0.1); BASOPHILS % (AUTO) 1.2 %; EOSINOPHILS # (AUTO) 0.3 10^3/uL (0.0-0.7); EOSINOPHILS % (AUTO) 2.8 %; HCT - HEMATOCRIT 35.5 % (37.0-47.0); HGB - HEMOGLOBIN 11.8 g/dL (12.0-16.0); LYMPHOCYTES # (AUTO) 1.3 10^3/uL (1.5-3.5); LYMPHOCYTES % (AUTO) 13.1 %; MEAN CORPUSCULAR HEMOGLOBIN 29.1 pg (27.0-31.0); MEAN CORPUSCULAR HGB CONC 33.2 g/dL (32.0-36.0); MEAN CORPUSCULAR VOLUME 87.4 fL (81.0-99.0); MONOCYTES # (AUTO) 0.6 10^3/uL (0.0-1.0); NEUTROPHILS # (AUTO) 7.8 10^3/uL (1.5-6.6); NEUTROPHILS % (AUTO) 76.4 %; PLT - PLATELET COUNT 263 10^3/uL (130-450); RED BLOOD COUNT 4.06 10^6/uL (4.20-5.40); WHITE BLOOD COUNT 10.2 x10^3/uL (4.8-10.8)
--- NOTE | 2021-10-26 16:56 | ED Physician Documentation ---
History of Present Illness - Stated complaint Stated Complaint: SOA,SWELLING IN LEGS - Chief complaint Chief Complaint: Resp - History obtained from History obtained from: Patient - History of Present Illness Pain level max: 0 Pain level now: 0 - Additonal information Additional information: 75-year-old female presents to the emergency department after being referred by the walk-in clinic. History of congestive heart failure. She states increased swelling to the bilateral lower extremities. Recently started on torsemide, 20 mg at night. No fevers. No chills. No coughing. Occasionally feels short of breath. She does feel more short of breath with walking than usual. No chest pain. Does not use oxygen at home. Review of Systems Constitutional: denies: Fever, Chills Nose: denies: Rhinorrhea / runny nose, Congestion Cardiac: denies: Chest pain / pressure, Palpitations GI: denies: Vomiting, Diarrhea : denies: Dysuria Skin: denies: Rash Musculoskeletal: denies: Neck pain, Back pain Neurologic: denies: Headache PD PAST MEDICAL HISTORY - Past Medical History Cardiovascular: Congestive heart failure, Hypertension, High cholesterol, Murmur Respiratory: Asthma, Pneumonia, Shortness of breath, Sleep apnea Neuro: CVA, Migraines, Other Endocrine/Autoimmune: Type 2 diabetes, HyPOthyroidism, Other GI: GERD, Hepatitis, Other 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 : Incontinence, Frequency HEENT: Chronic vision loss, Chronic hearing loss Psych: None Musculoskeletal: Osteoarthritis, Chronic back pain, Other Derm: None - Past Surgical History Past Surgical History: Yes Ortho: Hip replacement, Knee replacement, Carpal Tunnel surgery /INCINERATOR OPERATOR: Dilation and currettage, Tubal ligation, Hysterectomy, Oophrectomy - Present Medications Home Medications: Ambulatory Orders Medication Instructions Recorded Confirmed Albuterol Sulf [Ventolin Hfa 1 - 2 puffs INH Q4HR PRN 08/14/17 02/28/21 Inhaler] EPINEPHrine [Epipen 2-Justin] 0.3 mg IM ONCE PRN 08/14/17 10/26/21 Fluticasone Propionate [Flovent 50 mcg IH DAILY 08/14/17 10/26/21 Diskus] Insulin Glargine [Lantus Solostar] 45 unit SQ DAILY 08/14/17 10/26/21 Omeprazole 20 mg PO BID 08/14/17 10/26/21 Ropinirole HCl 0.75 mg PO QPM 08/14/17 10/26/21 diphenhydrAMINE [Benadryl] 25 mg PO BID PRN 08/14/17 10/26/21 Losartan Potassium 100 mg PO DAILY 02/26/18 10/26/21 Sertraline HCl 50 mg PO DAILY PM 02/26/18 10/26/21 Levothyroxine Sodium 150 mcg PO QDAC 04/11/19 10/26/21 cloNIDine HCL [Clonidine HCl] 0.2 mg PO DAILY PM 04/11/19 10/26/21 Acetaminophen [Acetaminophen Extra 500 mg PO BID 10/24/20 10/26/21 Strength] Atorvastatin Calcium [Lipitor] 80 mg PO DAILY PM 10/24/20 10/26/21 Bethanechol [Urecholine] 25 mg PO BID 10/24/20 10/26/21 Furosemide [Lasix] 20 mg PO DAILY #7 tablet 10/26/21 - Allergies Allergies/Adverse Reactions: Allergies Allergy/AdvReac Type Severity Reaction Status Date / Time atorvastatin Allergy Cramps Verified 10/26/21 16:19 bee venom protein (honey bee) Allergy Unknown Verified 10/26/21 16:19 cefuroxime [From Ceftin] Allergy Unknown Verified 10/26/21 16:19 codeine Allergy Nausea Verified 10/26/21 16:19 hydrocodone [From Vicodin] Allergy Nausea Verified 10/26/21 16:19 Influenza Virus Vaccines Allergy Unknown Verified 10/26/21 16:19 lisinopril Allergy Respiratory Verified 10/26/21 16:19 mushroom Allergy Anaphylaxis Verified 10/26/21 16:19 nitroglycerin Allergy Headache Verified 10/26/21 16:19 propoxyphene Allergy Unknown Verified 10/26/21 16:19 [From Darvocet-N] tramadol Allergy Headache Verified 10/26/21 16:19 - Social History Does the pt smoke?: No Smoking Status: Never smoker Does the pt drink ETOH?: No Does the pt have substance abuse?: No - Immunizations Immunizations are current?: Yes - POLST Patient has POLST: No POLST Status: Full Code PD ED PE NORMAL - Vitals Vital signs reviewed: Yes - General General: Alert and oriented X 3, No acute distress - HEENT HEENT: Moist mucous membranes - Neck Neck: Supple, no meningeal sign - Cardiac Cardiac: RRR, Strong equal pulses - Respiratory Respiratory: No respiratory distress, Clear bilaterally - Abdomen Abdomen: Soft, Non tender, Non distended - Derm Derm: Warm and dry - Extremities Extremities: Other (1+ bilateral lower extremity pitting edema.) - Neuro Neuro: Alert and oriented X 3 Results - Vitals Vitals: Vital Signs - 24 hr 10/26/21 16:14 Temperature 36.7 C Heart Rate 128 H Respiratory 22 Rate Blood Pressure 126/76 O2 Saturation 95 Oxygen O2 Source Room air - EKG (time done) 1637 Rate: Rate (enter#) (91) Rhythm: Atrial fibrillation Martin: Normal Intervals: Normal OH QRS: Normal Ischemia: Q waves (III), Non specific changes - Labs Labs: Laboratory Tests 10/26/21 10/26/21 10/26/21 16:41 16:41 16:41 WBC 10.2 RBC 4.06 L Hgb 11.8 L Hct 35.5 L MCV 87.4 MCH 29.1 MCHC 33.2 RDW 14.0 Plt Count 263 MPV 12.0 H Neut # (Auto) 7.8 H Lymph # (Auto) 1.3 L [place] # (Auto) 0.6 Eos # (Auto) 0.3 Baso # (Auto) 0.1 Absolute Nucleated RBC 0.00 Nucleated RBC % 0.0 Sodium 135 Potassium 4.3 Chloride 102 Carbon Dioxide 21 Anion Gap 12.0 BUN 67 H Creatinine 2.7 H Estimated GFR (MDRD) 17 L Glucose 263 H Calcium 9.3 Total Bilirubin 0.8 AST 18 ALT 20 Alkaline Phosphatase 104 B-Natriuretic Peptide 735 H Total Protein 7.8 Albumin 4.1 Globulin 3.7 Albumin/Globulin Ratio 1.1 - Rads (name of study) cxr Radiology: Final report received, EMP read contemporaneously, See rad report (Cardiomegaly with mild pulmonary vascular congestion. ) PD MEDICAL DECISION MAKING - ED course Complexity details: reviewed results, considered differential, d/w patient ED course: 75-year-old female with a history of congestive heart failure, increasing swel ling. We will place on Lasix for home. Given extra dose of IV Lasix here. No pulmonary edema. No hypoxia. No respiratory distress. Patient is well- appearing, nontoxic. Afebrile. Patient counseled regarding signs and symptoms for which I believe and urgent re-evaluation would be necessary. Patient with good understanding of and agreement to plan and is comfortable going home at this time This document was made in part using voice recognition software. While efforts are made to proofread this document, sound alike and grammatical errors may occur. Departure - Departure Disposition: 01 Home, Self Care Clinical Impression: Congestive heart failure Qualifiers: Heart failure type: unspecified Heart failure chronicity: acute on chronic Qualified Code(s): I50.9 - Heart failure, unspecified Condition: Good Instructions: ED CHF General Follow-Up: SRINIVASAN OLIVAREZ ARNP [Primary Care Provider] - Within 1 week Prescriptions: Furosemide [Lasix] 20 mg PO DAILY #7 tablet Comments: We will increase your Lasix by 20 mg daily for the next week. This should help to get the extra fluid off of your body. Please monitor your salt intake as well. Continue your current medications at home, though I would move the torsemide to the morning. I would also take the Lasix in the morning. Return if you worsen. Your prescription was sent to [facility] pharmacy. Discharge Date/Time: 10/26/21 17:53
[2021-10-26 17:02] LABS: ALBUMIN 4.1 g/dL (3.2-5.5); ALBUMIN/GLOBULIN RATIO 1.1 (1.0-2.2); BILIRUBIN,TOTAL 0.8 mg/dL (0.2-1.0); CALCIUM 9.3 mg/dL (8.5-10.3); CREATININE 2.7 mg/dL (0.4-1.0); POTASSIUM 4.3 mmol/L (3.5-5.0); TOTAL PROTEIN 7.8 g/dL (6.7-8.2)
--- NOTE | 2021-10-26 17:03 | XRAY Report ---
PROCEDURE: Chest 1 View X-Ray INDICATIONS: chest pain TECHNIQUE: One view of the chest was acquired. COMPARISON: 09/09/2020 oh FINDINGS: Surgical changes and devices: None. Lungs and pleura: No pleural effusions or pneumothorax. No focal consolidation. Pulmonary vasculatur e congestion. Mediastinum: Mediastinal contours appear normal. Heart size is enlarged, unchanged. Bones and chest wall: No suspicious bony lesions. Overlying soft tissues appear unremarkable. IMPRESSION: Cardiomegaly with mild pulmonary vascular congestion. Reviewed by: Mauricio Epperson DO on 10/26/2021 4:02 PM [facility] Approved by: Mauricio Epperson DO on 10/26/2021 4:02 PM [facility] Station ID: [id number]
== END 2021-10-26 17:53 | disposition home or self-care (01) ==
LOC: ED 16:04
DX: I11.0 Hypertensive heart disease with heart failure (principal); I50.9 Heart failure, unspecified; E11.9 Type 2 diabetes mellitus without complications; Z79.4 Long term (current) use of insulin; I48.91 Unspecified atrial fibrillation
CPT/HCPCS: 36415; 80053; 83880; 85025; 93005; 96374; 99284

== ENCOUNTER 2021-12-01 12:45 | Outpatient (CLI) | payer MEDICARE, OTHER, MEDICAID | END 2021-12-01 23:59 | disposition home or self-care (01) | LOC: LAB.S 12:45 | PROVIDERS: ATTEND Physician Assistant Medical | DX: L72.3 Sebaceous cyst (principal) | CPT/HCPCS: 87070; 87205 ==

== ENCOUNTER 2022-01-03 12:23 | Outpatient (CLI) | payer MEDICARE, OTHER, MEDICAID ==
[2022-01-03 15:24] LABS: BASOPHILS # (AUTO) 0.1 10^3/uL (0.0-0.1); BASOPHILS % (AUTO) 0.8 %; EOSINOPHILS # (AUTO) 0.3 10^3/uL (0.0-0.7); EOSINOPHILS % (AUTO) 3.1 %; HCT - HEMATOCRIT 35.1 % (37.0-47.0); HGB - HEMOGLOBIN 11.3 g/dL (12.0-16.0); LYMPHOCYTES # (AUTO) 1.8 10^3/uL (1.5-3.5); LYMPHOCYTES % (AUTO) 15.7 %; MEAN CORPUSCULAR HEMOGLOBIN 28.2 pg (27.0-31.0); MEAN CORPUSCULAR HGB CONC 32.2 g/dL (32.0-36.0); MEAN CORPUSCULAR VOLUME 87.5 fL (81.0-99.0); MEAN PLATELET VOLUME 12.3 fL (7.9-10.8); MONOCYTES # (AUTO) 0.7 10^3/uL (0.0-1.0); NEUTROPHILS # (AUTO) 8.2 10^3/uL (1.5-6.6); NEUTROPHILS % (AUTO) 73.9 %; PLT - PLATELET COUNT 243 10^3/uL (130-450); RED BLOOD COUNT 4.01 10^6/uL (4.20-5.40); RED CELL DISTRIBUTION WIDTH 15.9 % (12.0-15.0); WHITE BLOOD COUNT 11.1 x10^3/uL (4.8-10.8)
[2022-01-03 16:20] LABS: INR 1.4 (0.8-1.2); PT - PROTHROMBIN TIME 15.3 secs (9.9-12.6)
[2022-01-03 17:08] LABS: ALBUMIN 3.6 g/dL (3.2-5.5); ALBUMIN/GLOBULIN RATIO 1.1 (1.0-2.2); BILIRUBIN,TOTAL 0.5 mg/dL (0.2-1.0); CALCIUM 9.2 mg/dL (8.5-10.3); POTASSIUM 5.1 mmol/L (3.5-5.0)
== END 2022-01-03 12:24 | disposition home or self-care (01) ==
LOC: LAB.S 12:23
PROVIDERS: ATTEND Internal Medicine Cardiovascular Disease
DX: I10 Essential (primary) hypertension (principal)
CPT/HCPCS: 36415; 80053; 82728; 85025; 85610

== ENCOUNTER 2022-01-10 07:25 | Outpatient (CLI) | payer MEDICARE, OTHER, MEDICAID | END 2022-01-10 07:26 | disposition EMS.NT | LOC: EMS 07:25 | DX: R51.9 Headache, unspecified (principal) ==

== ENCOUNTER 2022-02-04 11:39 | Outpatient (CLI) | payer MEDICARE, OTHER, MEDICAID ==
[2022-02-04 14:37] LABS: CALCIUM 9.5 mg/dL (8.5-10.3); CREATININE 2.2 mg/dL (0.4-1.0); POTASSIUM 4.5 mmol/L (3.5-5.0)
[2022-02-04 14:46] LABS: BASOPHILS # (AUTO) 0.1 10^3/uL (0.0-0.1); BASOPHILS % (AUTO) 0.7 %; EOSINOPHILS # (AUTO) 0.5 10^3/uL (0.0-0.7); EOSINOPHILS % (AUTO) 3.7 %; HCT - HEMATOCRIT 35.2 % (37.0-47.0); HGB - HEMOGLOBIN 11.2 g/dL (12.0-16.0); LYMPHOCYTES # (AUTO) 1.9 10^3/uL (1.5-3.5); LYMPHOCYTES % (AUTO) 14.3 %; MEAN CORPUSCULAR HEMOGLOBIN 27.8 pg (27.0-31.0); MEAN CORPUSCULAR HGB CONC 31.8 g/dL (32.0-36.0); MEAN CORPUSCULAR VOLUME 87.3 fL (81.0-99.0); MEAN PLATELET VOLUME 11.3 fL (7.9-10.8); MONOCYTES # (AUTO) 0.8 10^3/uL (0.0-1.0); MONOCYTES % (AUTO) 5.7 %; NEUTROPHILS # (AUTO) 9.8 10^3/uL (1.5-6.6); NEUTROPHILS % (AUTO) 74.8 %; PLT - PLATELET COUNT 340 10^3/uL (130-450); RED BLOOD COUNT 4.03 10^6/uL (4.20-5.40); RED CELL DISTRIBUTION WIDTH 16.7 % (12.0-15.0); WHITE BLOOD COUNT 13.1 x10^3/uL (4.8-10.8)
== END 2022-02-04 11:40 | disposition home or self-care (01) ==
LOC: LAB.S 11:39
PROVIDERS: ATTEND Emergency Medicine
DX: I50.9 Heart failure, unspecified (principal); N18.4 Chronic kidney disease, stage 4 (severe)
CPT/HCPCS: 36415; 80048; 83880; 85025

== ENCOUNTER 2022-02-10 09:22 | Outpatient (CLI) | payer MEDICARE, OTHER, MEDICAID ==
--- NOTE | 2022-02-10 17:41 | XRAY Report ---
PROCEDURE: Ankle 3 View LT INDICATIONS: ANKLE FRACTURE TECHNIQUE: 3 views of the ankle were acquired. COMPARISON: Foot x-ray 11/05/2020. FINDINGS: Bones: There is a small cortical step-off in the lateral malleolus suspicious for a minimally displac ed fracture. Ankle mortise is normally aligned. No suspicious bony lesions. Soft tissues: There is periarticular soft tissue swelling. No tibiotalar joint effusion. Achilles t endon appears normal. IMPRESSION: 1. Suspected minimally displaced fracture of the lateral malleolus. A repeat study may be performed i n 7-10 days for further evaluation. Reviewed by: Damion Duong MD on 02/10/2022 5:40 PM PDT Approved by: Damion Duong MD on 02/10/2022 5:40 PM PDT Station ID: [id number]
== END 2022-02-10 23:59 | disposition home or self-care (01) ==
LOC: DI.WOS 09:22
PROVIDERS: ATTEND Physician Assistant
DX: M25.572 Pain in left ankle and joints of left foot (principal); R93.6 Abnormal findings on diagnostic imaging of limbs

== ENCOUNTER 2022-02-22 11:15 | Outpatient (CLI) | payer MEDICARE, OTHER, MEDICAID ==
[2022-02-22 16:55] LABS: BILIRUBIN,URINE NEGATIVE (NEGATIVE); CLARITY,URINE SL. CLOUDY (CLEAR); GLUCOSE, URINE (UA) NEGATIVE (NEGATIVE); KETONES,URINE (UA) NEGATIVE (NEGATIVE); LEUKOCYTE ESTERASE, URINE SMALL (NEGATIVE); NITRITE,URINE NEGATIVE (NEGATIVE); OCCULT BLOOD,URINE NEGATIVE (NEGATIVE); PROTEIN,URINE TRACE mg/dL (NEGATIVE); UROBILINOGEN,URINE 0.2 (NORMAL) E.U./dL (NORMAL)
[2022-02-22 17:39] LABS: AMORPHOUS SEDIMENT,UR Rare /LPF; BACTERIA,URINE Many /HPF (None Seen); RBC,URINE 0-5 /HPF (0-5); SQUAMOUS EPITHELIAL CELL,UR FEW Squamous (<= Few); WBC CLUMPS,URINE PRESENT
== END 2022-02-22 23:59 | disposition home or self-care (01) ==
LOC: LAB.S 11:15
PROVIDERS: ATTEND Physician Assistant Medical
DX: R30.0 Dysuria (principal)
CPT/HCPCS: 81001; 87077; 87086; 87181

== ENCOUNTER 2022-03-04 09:45 | Outpatient (CLI) | payer MEDICARE, OTHER, MEDICAID ==
--- NOTE | 2022-03-04 16:08 | XRAY Report ---
PROCEDURE: Ankle 3 View LT INDICATIONS: ANKLE FX TECHNIQUE: 3 views of the ankle were acquired. COMPARISON: 02/10/2022 FINDINGS: Bones: Redemonstration of small cortical step-off deformity involving the lateral malleolus. This is not significantly changed. No reactive changes of subacute fracture healing identified. Specifically, no significant decrease in conspicuity of this finding. No periosteal reaction. No callus formation. Remainder of the visualized osseous structures appear intact and of stable alignment. Ankle mortise is normally aligned. No suspicious bony lesions. Small plantar calcaneal enthesophyte. Soft tissues: No tibiotalar joint effusion. Achilles tendon appears normal. Mild persistent but de creased lateral malleolar soft tissue swelling. IMPRESSION: Stable radiographic appearance of small cortical step-off deformity overlying the latera l malleolus without reactive changes of subacute fracture healing. Findings may represent a chronic f inding. Recommend correlation with clinical exam for persistent symptoms in this region. No evidence for periosteal reaction or callus formation. Remainder of the visualized osseous structures appear intact. Small plantar calcaneal enthesophyte. If there is continued clinical concern for pathology or occult fracture, consider follow-up imaging w ith advanced imaging (CT, MRI, bone scan) if symptoms persist. Reviewed by: Rosales Guerrero MD on 03/04/2022 4:06 PM PDT Approved by: Rosales Guerrero MD on 03/04/2022 4:06 PM PDT Station ID: [id number]
== END 2022-03-04 23:59 | disposition home or self-care (01) ==
LOC: DI.WOS 09:45
PROVIDERS: ATTEND Physician Assistant
DX: S82.65XA Nondisplaced fracture of lateral malleolus of left fibula, initial encounter for closed fracture (principal); M77.32 Calcaneal spur, left foot

== ENCOUNTER 2022-05-20 10:44 | Outpatient (CLI) | payer MEDICARE, OTHER, MEDICAID ==
[2022-05-20 15:26] LABS: THYROID STIMULATING HORMONE 7.42 uIU/mL (0.34-5.60)
[2022-05-20 16:00] LABS: FREE T4 (FREE THYROXINE) 0.85 ng/dL (0.58-1.64)
== END 2022-05-20 10:45 | disposition home or self-care (01) ==
LOC: LAB.S 10:44
PROVIDERS: ATTEND Nurse Practitioner Family
DX: E03.9 Hypothyroidism, unspecified (principal)
CPT/HCPCS: 36415; 84439; 84443

== ENCOUNTER 2022-12-15 08:00 | Outpatient (CLI) | payer MEDICARE, OTHER, MEDICAID ==
--- NOTE | 2022-12-16 09:38 | XRAY Report ---
PROCEDURE: Foot 3 View RT INDICATIONS: Right foot pain TECHNIQUE: Three views of the foot were acquired. COMPARISON: 11/05/2020 FINDINGS: Severe 1st MTP osteoarthritis with complete loss of joint space along with flattening of the articula r surfaces as well as subchondral sclerosis and subchondral cystic change. Bulky marginal osteophytes on the medial and lateral aspects of joints. Less pronounced overall moderate degenerative changes a t the 1st TMT. Soft tissue swelling along the medial forefoot and midfoot centered on the 1st MTP. No fracture or dislocation identified. 3rd through 5th hammertoe deformities. IMPRESSION: Severe 1st MTP and moderate 1st CMC osteoarthritis. Reviewed by: Reagan Cooper MD on 12/16/2022 9:37 AM PST Approved by: Reagan Cooper MD on 12/16/2022 9:37 AM PST Station ID: [id number]
== END 2022-12-15 23:59 | disposition home or self-care (01) ==
LOC: DI.S 08:00
PROVIDERS: ATTEND Physician Assistant
DX: M19.071 Primary osteoarthritis, right ankle and foot (principal)

== ENCOUNTER 2023-01-01 10:07 | Outpatient (CLI) | payer MEDICARE, OTHER, MEDICAID | END 2023-01-01 23:59 | disposition critical access hospital (66) | LOC: EMS 10:07 | DX: R06.02 Shortness of breath (principal); R11.2 Nausea with vomiting, unspecified; R50.9 Fever, unspecified; R10.9 Unspecified abdominal pain; M79.10 Myalgia, unspecified site; Z20.822 Contact with and (suspected) exposure to COVID-19 | CPT/HCPCS: A0425; A0427 ==

== ENCOUNTER 2023-01-01 10:37 | Emergency (ER) | payer MEDICARE, OTHER, MEDICAID ==
--- OUTSIDE RECORDS SUMMARY | 2023-01-01 11:09 | EXTERNAL MEDICAL SUMMARY RPT | Continuity of Care Document ---
:1945 Author Organization [facility] Address [address] [place] [address] Phone Care Team Providers Name Role Phone Unavailable Unavailable Unavailable Jasper Fajardo Pa-C Unavailable Unavailable Allergies No information. Encounters No information. Functional Status No information. Immunizations No information. Medications date description facility 2022-12-15 00:00 apixaban [facility] 2022-12-16 00:00 apixaban [facility] 2022-12-15 00:00 apixaban [facility] 2022-12-16 00:00 apixaban [facility] 2022-12-15 00:00 bethanechol chloride [facility] 2022-12-16 00:00 bethanechol chloride [facility] 2022-12-15 00:00 apixaban [facility] 2022-12-16 00:00 apixaban [facility] 2022-12-15 00:00 apixaban [facility] 2022-12-16 00:00 apixaban [facility] 2022-12-15 00:00 apixaban [facility] 2022-12-16 00:00 apixaban [facility] 2022-12-15 00:00 apixaban [facility] 2022-12-16 00:00 apixaban [facility] 2022-12-15 00:00 digoxin [facility] 2022-12-16 00:00 digoxin [facility] 2022-12-15 00:00 atorvastatin [facility] 2022-12-16 00:00 atorvastatin [facility] 2022-12-15 00:00 bethanechol chloride [facility] 2022-12-16 00:00 bethanechol chloride [facility] 2022-12-15 00:00 digoxin [facility] 2022-12-16 00:00 digoxin [facility] 2022-12-15 00:00 [facility]an [facility]inate [facility] 2022-12-16 00:00 sum[facility]riptan succinate [facility] 2022-12-15 00:00 diltiazem hcl [facility] 2022-12-16 00:00 diltiazem hcl [facility] 2022-12-15 00:00 atorvastatin [facility] 2022-12-16 00:00 atorvastatin [facility] 2022-12-15 00:00 atorvastatin [facility] 2022-12-16 00:00 atorvastatin [facility] 2022-12-15 00:00 sum[facility]riptan succinate [facility] 2022-12-16 00:00 sumatriptan succinate [facility] 2022-12-15 00:00 diltiazem hcl [facility] 2022-12-16 00:00 diltiazem hcl [facility] 2022-12-15 00:00 atorvastatin [facility] 2022-12-16 00:00 atorvastatin [facility] 2022-12-15 00:00 bethanechol chloride [facility] 2022-12-16 00:00 bethanechol chloride [facility] 2022-12-15 00:00 digoxin [facility] 2022-12-16 00:00 digoxin [facility] 2022-12-15 00:00 atorvastatin [facility] 2022-12-16 00:00 atorvastatin [facility] 2022-12-15 00:00 sumatriptan succinate [facility] 2022-12-16 00:00 sumatriptan succinate [facility] 2022-12-15 00:00 atorvastatin [facility] 2022-12-16 00:00 atorvastatin [facility] 2022-12-15 00:00 atorvastatin [facility] 2022-12-16 00:00 atorvastatin [facility] 2022-12-15 00:00 digoxin [facility] 2022-12-16 00:00 digoxin [facility] [place] 2022-12-15 00:00 atorvastatin [facility] 2022-12-16 00:00 atorvastatin [facility] 2022-12-15 00:00 sumatriptan succinate [facility] 2022-12-16 00:00 sumatriptan succinate [facility] 2022-12-15 00:00 diltiazem hcl [facility] 2022-12-16 00:00 diltiazem hcl [facility] [place] 2022-12-15 00:00 diltiazem hcl [facility] [place] 2022-12-16 00:00 diltiazem hcl [facility] [place] 2022-12-15 00:00 apixaban [facility] [place] 2022-12-16 00:00 apixaban [facility] [place] 2022-12-15 00:00 apixaban [facility] [place] 2022-12-16 00:00 apixaban [facility] [place] 2022-12-15 00:00 bethanechol chloride [facility] [place] 2022-12-16 00:00 bethanechol chloride [facility] [place] Problems date description facility 2022-12-15 00:00 Asthma [facility] [place] 2022-12-15 00:00 Multinodular goiter [facility] [place] [place] 2022-12-15 00:00 Unspecified hypothyroidism [facility] [place] 2022-12-15 00:00 Diabetes mellitus without mention of [facility]k-[facility] & complication, type II or unspecified [facility] type, not stated as uncontrolled 2022-12-15 00:00 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, type II or Ancillary Ser vices [facility] unspecified type, not stated as uncontrolled 2022-12-15 00:00 Diabetes mellitus with peripheral [facility] & circulatory disorders, type II or [facility] unspecified type, not stated as uncontrolled 2022-12-15 00:00 Diabetes mellitus with other Walk-In Cl [facility] Care & specified manifestations, type II or Anc [facility] unspecified type, not stated as uncontrolled 2022-12-15 00:00 Other and unspecified [facility] hyperlipidemia [facility] [place] 2022-12-15 00:00 Restless legs [facility] [place] 2022-12-15 00:00 Restless legs syndrome (RLS) Walk-In [facility] 2022-12-15 00:00 Migraine, unspecified, without [facility] & mention of intractable migraine, Ancilla [facility] [place] without mention of status migrainosus 2022-12-15 00:00 Seasonal allergic rhinitis Walk-In [facility] 2022-12-15 00:00 Migraine [facility] 2022-12-15 00:00 Hypertensive disorder [facility] [place] 2022-12-15 00:00 Benign essential hypertension [facility] 2022-12-15 00:00 Hypothyroidism [facility] [place] 2022-12-15 00:00 Obesity [facility] 2022-12-15 00:00 Diabetic peripheral neuropathy [facility] [place] 2022-12-15 00:00 Type II diabetes mellitus [facility] Clin [facility] & uncontrolled [facility] [place] [facility] 2022-12-15 00:00 Type 2 diabetes mellitus well [facility] & controlled [facility] [place] 2022-12-15 00:00 Allergic rhinitis due to pollen Walk-I n [facility] [place] 2022-12-15 00:00 Foot pain [facility] [place] 2022-12-15 00:00 Asthma, unspecified Walk-In Clinic [facility] [place] 2022-12-15 00:00 Hyperlipidemia [facility] [place] 2022-12-15 00:00 Pain in limb [facility] [place] 2022-12-15 00:00 Hypothyroidism, unspecified [facility] 2022-12-15 00:00 Nontoxic multinodular goiter Walk-In [facility] 2022-12-15 00:00 Type 2 diabetes mellitus with Walk-In Clinic [facility] Care & diabetic neuropathy, unspecified [facility]illa [facility] [place] 2022-12-15 00:00 Type 2 diabetes mellitus with [facility]In [facility] & diabetic peripheral angiopathy [facility] without gangrene 2022-12-15 00:00 Type 2 diabetes mellitus with [facility]In [facility] Care & hyperglycemia [facility] 2022-12-15 00:00 Type 2 diabetes mellitus without Walk- In [facility] & complications [facility] 2022-12-15 00:00 Obesity, unspecified [facility]In [facility] 2022-12-15 00:00 Restless legs syndrome [facility] 2022-12-15 00:00 Migraine, unspecified, not [facility] & intractable, without status Ancillary Se rvices [facility] migrainosus 2022-12-15 00:00 Essential (primary) hypertension [facility]- [facility] 2022-12-15 00:00 Other seasonal allergic rhinitis [facility] [place] 2022-12-15 00:00 Unspecified asthma, uncomplicated [facility] 2022-12-15 00:00 Pain in right foot [facility] [place] 2022-12-16 00:00 Asthma [facility] 2022-12-16 00:00 Multinodular goiter [facility] 2022-12-16 00:00 Unspecified hypothyroidism [facility] 2022-12-16 00:00 Diabetes mellitus without mention of [facility]k-In Clinic Primary Care & complication, type II or unspecified [facility] type, not stated as uncontrolled 2022-12-16 00:00 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, type II or Ancillary Ser vices [facility] unspecified type, not stated as uncontrolled 2022-12-16 00:00 Diabetes mellitus with peripheral [facility] Care & circulatory disorders, type II or [facility] unspecified type, not stated as uncontrolled 2022-12-16 00:00 Diabetes mellitus with other Walk-In Cl in Primary Care & specified manifestations, type II or Anc [facility] unspecified type, not stated as uncontrolled 2022-12-16 00:00 Other and unspecified Walk-In [facility] & hyperlipidemia [facility] [place] 2022-12-16 00:00 Restless legs [facility] [place] 2022-12-16 00:00 Restless legs syndrome (RLS) Walk-In [facility] [place] 2022-12-16 00:00 Migraine, unspecified, without [facility] Care & mention of intractable migraine, Ancilla [facility] Services [facility] without mention of status migrainosus 2022-12-16 00:00 Seasonal allergic rhinitis Walk-In [facility] [place] [facility] 2022-12-16 00:00 Migraine [facility] [place] 2022-12-16 00:00 Hypertensive disorder [facility] [place] [facility] 2022-12-16 00:00 Benign essential hypertension [facility] [place] [facility] 2022-12-16 00:00 Hypothyroidism [facility] [place] 2022-12-16 00:00 Obesity [facility] [place] [facility] 2022-12-16 00:00 Diabetic peripheral neuropathy [facility] [place] 2022-12-16 00:00 Type II diabetes mellitus [facility] Clin [facility] Care & uncontrolled [facility] [facility] 2022-12-16 00:00 Type 2 diabetes mellitus well [facility] & controlled [facility] [place] [facility] 2022-12-16 00:00 Allergic rhinitis due to pollen [facility] 2022-12-16 00:00 Asthma, unspecified Walk-In Clinic [facility] [place] [facility] 2022-12-16 00:00 Hyperlipidemia [facility] [place] [facility] 2022-12-16 00:00 Hypothyroidism, unspecified [facility] [place] 2022-12-16 00:00 Nontoxic multinodular goiter Walk-In [facility] [place] 2022-12-16 00:00 Type 2 diabetes mellitus with Walk-In [facility] Primary Care & diabetic neuropathy, unspecified Ancilla [facility] 2022-12-16 00:00 Type 2 diabetes mellitus with [facility]In [facility] Primary Care & diabetic peripheral angiopathy [facility] without gangrene 2022-12-16 00:00 Type 2 diabetes mellitus with [facility] & hyperglycemia [facility] [place] 2022-12-16 00:00 Type 2 diabetes mellitus without [facility]- [facility] & complications [facility] [place] 2022-12-16 00:00 Obesity, unspecified [facility] [place] [facility] 2022-12-16 00:00 Restless legs syndrome [facility] [facility] 2022-12-16 00:00 Migraine, unspecified, not [facility] Care & intractable, without status Ancillary Se rvices [facility] migrainosus 2022-12-16 00:00 Essential (primary) hypertension [facility] [place] 2022-12-16 00:00 Other seasonal allergic rhinitis [facility] [place] 2022-12-16 00:00 Unspecified asthma, uncomplicated [facility] Procedures date description facility 2022-12-15 00:00 Visit Code Hold [facility] [place] 2022-12-15 00:00 XR FOOT COMPLETE MIN 3 VIEW [facility] Results/Labs No information. Social History date description facility 2022-12-15 00:00 Never smoker [facility] Vital Signs date measurement value units 2022-12-15 00:00 BMI 40.75 kg/m2 2022-12-15 00:00 BP_diastolic 102 mmHg 2022-12-15 00:00 BP_systolic 152 mmHg 2022-12-15 00:00 heart_rate 61 /min 2022-12-15 00:00 height_metric 157.48 cm 2022-12-15 00:00 height_standard 62 in 2022-12-15 00:00 respiration_rate 20 /min 2022-12-15 00:00 temperature_metric 36.39 C 2022-12-15 00:00 temperature_standard 97.5 F 2022-12-15 00:00 weight_metric 100.7 kg 2022-12-15 00:00 weight_standard 222 lb
--- NOTE | 2023-01-01 11:39 | XRAY Report ---
PROCEDURE: Chest 1 View X-Ray INDICATIONS: chest pain TECHNIQUE: One view of the chest was acquired. COMPARISON: 10/26/2021 FINDINGS: Surgical changes and devices: None. Lungs and pleura: Mild diffuse lung disease, without dense consolidation or pleural effusion. Mediastinum: Moderate cardiomegaly. Bones and chest wall: No suspicious bony lesions. Overlying soft tissues appear unremarkable. IMPRESSION: Moderate cardiomegaly. Mild diffuse interstitial lung disease and perihilar opacities, possibly relat ed to edema. No dense consolidation or drainable effusion. Consider future imaging surveillance to as sess for resolution. Reviewed by: Arnaud Burnette MD on 01/01/2023 11:38 AM PDT Approved by: Arnaud Burnette MD on 01/01/2023 11:38 AM PDT Station ID: [id number]
[2023-01-01 11:49] LABS: BILIRUBIN,URINE NEGATIVE (NEGATIVE); GLUCOSE, URINE (UA) 100 mg/dL (NEGATIVE); KETONES,URINE (UA) NEGATIVE (NEGATIVE); LEUKOCYTE ESTERASE, URINE NEGATIVE (NEGATIVE); NITRITE,URINE NEGATIVE (NEGATIVE); OCCULT BLOOD,URINE TRACE-INTA (NEGATIVE); PROTEIN,URINE >=300 mg/dL (NEGATIVE); UROBILINOGEN,URINE 0.2 (NORMAL) E.U./dL (NORMAL)
--- NOTE | 2023-01-01 11:50 | ED Physician Documentation ---
History of Present Illness - Stated complaint Stated Complaint: SOA - Chief complaint Chief Complaint: Resp - History obtained from History obtained from: Patient - Additonal information Additional information: Patient is a 77-year-old female with a history of atrial fibrillation, on Eliquis presenting for evaluation of nausea and vomiting since last night. Patient reports eating a frozen shrimp cocktail and approximately an hour later started feeling sick to her stomach and having episodes of dry heaving. She reported feeling chills overnight. During the time she felt associated shortness of breath. She reports having a chronic cough related to chronic postnasal drainage which is unchanged.She was still feeling unwell this morning so called 911. EMS administered 4 mg of IV Zofran and patient reports that symptoms have significantly improved and she no longer feels nauseous. She also reports her breathing feels normal. She has not taken her morning medications. Her daughter has recently been ill with COVID but has had minimal contact with patient including only dropping off things at her doorstep. Patient reports having a televisit with her PCP yesterday to go over her medications. She is normally compliant with her medications. She denies chest pain, diarrhea, blood in stools or emesis, abdominal pain, dysuria, headache. Review of Systems Constitutional: reports: Chills Cardiac: denies: Chest pain / pressure Respiratory: denies: Dyspnea GI: reports: Nausea, Vomiting. denies: Abdominal Pain, Diarrhea : denies: Dysuria Musculoskeletal: denies: Back pain Neurologic: denies: Headache PD PAST MEDICAL HISTORY - Past Medical History Cardiovascular: Congestive heart failure, Hypertension, High cholesterol, Murmur Respiratory: Asthma, Pneumonia, Shortness of breath, Sleep apnea Neuro: CVA, Migraines, Other Endocrine/Autoimmune: Type 2 diabetes, HyPOthyroidism, Other GI: GERD, Hepatitis, Other WIND TECHNICIAN: None : Incontinence, Frequency HEENT: Chronic vision loss, Chronic hearing loss Psych: None Musculoskeletal: Osteoarthritis, Chronic back pain, Other Derm: None - Past Surgical History Past Surgical History: Yes Ortho: Hip replacement, Knee replacement, Carpal Tunnel surgery /WIND TECHNICIAN: Dilation and currettage, Tubal ligation, Hysterectomy, Oophrectomy - Present Medications Home Medications: Ambulatory Orders Medication Instructions Recorded Confirmed Albuterol Sulf [Ventolin Hfa 1 - 2 puffs INH Q4HR PRN 08/14/17 02/28/21 Inhaler] EPINEPHrine [Epipen 2-Justin] 0.3 mg IM ONCE PRN 08/14/17 10/26/21 Fluticasone Propionate [Flovent 50 mcg IH DAILY 08/14/17 10/26/21 Diskus] Insulin Glargine [Lantus Solostar] 45 unit SQ DAILY 08/14/17 10/26/21 Omeprazole 20 mg PO BID 08/14/17 10/26/21 Ropinirole HCl 0.75 mg PO QPM 08/14/17 10/26/21 diphenhydrAMINE [Benadryl] 25 mg PO BID PRN 08/14/17 10/26/21 Losartan Potassium 100 mg PO DAILY 02/26/18 10/26/21 Sertraline HCl 50 mg PO DAILY PM 02/26/18 10/26/21 Levothyroxine Sodium 150 mcg PO QDAC 04/11/19 10/26/21 cloNIDine HCL [Clonidine HCl] 0.2 mg PO DAILY PM 04/11/19 10/26/21 Acetaminophen [Acetaminophen Extra 500 mg PO BID 10/24/20 10/26/21 Strength] Atorvastatin Calcium [Lipitor] 80 mg PO DAILY PM 10/24/20 10/26/21 Bethanechol [Urecholine] 25 mg PO BID 10/24/20 10/26/21 Furosemide [Lasix] 20 mg PO DAILY #7 tablet 10/26/21 - Allergies Allergies/Adverse Reactions: Allergies Allergy/AdvReac Type Severity Reaction Status Date / Time atorvastatin Allergy Cramps Verified 10/26/21 16:19 bee venom protein (honey bee) Allergy Unknown Verified 10/26/21 16:19 cefuroxime [From Ceftin] Allergy Unknown Verified 10/26/21 16:19 codeine Allergy Nausea Verified 10/26/21 16:19 hydrocodone [From Vicodin] Allergy Nausea Verified 10/26/21 16:19 Influenza Virus Vaccines Allergy Unknown Verified 10/26/21 16:19 lisinopril Allergy Respiratory Verified 10/26/21 16:19 mushroom Allergy Anaphylaxis Verified 10/26/21 16:19 nitroglycerin Allergy Headache Verified 10/26/21 16:19 propoxyphene Allergy Unknown Verified 10/26/21 16:19 [From Darvocet-N] tramadol Allergy Headache Verified 10/26/21 16:19 - Social History Does the pt smoke?: No Smoking Status: Never smoker Does the pt drink ETOH?: No Does the pt have substance abuse?: No - Immunizations Immunizations are current?: Yes - POLST Patient has POLST: No POLST Status: Full Code PD ED PE NORMAL - General General: Alert and oriented X 3, No acute distress, Well developed/nourished - HEENT HEENT: Atraumatic - Neck Neck: Supple, no meningeal sign - Cardiac Cardiac: Other (Irregularly irregular, slightly tachycardic in the low 100s) - Respiratory Respiratory: No respiratory distress, Clear bilaterally - Abdomen Abdomen: Normal bowel sounds, Soft, Non distended, Other (Epigastric and right upper quadrant tenderness to palpation, No mass, no hernia) - Derm Derm: Warm and dry - Extremities Extremities: Other (Mild pitting lower extremity edema bilaterally). No: No calf tenderness / cord - Neuro Neuro: Alert and oriented X 3, No motor deficit, Normal speech Results - Vitals Vitals: Vital Signs - 24 hr 01/01/23 01/01/23 01/01/23 11:11 13:19 15:00 Temperature 36.9 C Heart Rate 101 H 117 H 105 H Respiratory 25 H 18 20 Rate Blood Pressure 157/106 H 107/89 H 147/62 H O2 Saturation 96 99 90 L If not protocol : Oxygen Flow, liters/minute 01/01/23 01/01/23 01/01/23 17:00 19:00 21:00 Temperature Heart Rate 106 H 101 H 100 Respiratory 20 16 20 Rate Blood Pressure 111/88 H 157/99 H 143/96 H O2 Saturation 98 97 90 L If not protocol 8 8 4 : Oxygen Flow, liters/minute 01/01/23 23:00 Temperature Heart Rate 97 Respiratory 20 Rate Blood Pressure 138/97 H O2 Saturation 92 If not protocol 4 : Oxygen Flow, liters/minute Oxygen O2 Source Patient supplied BIPAP - EKG (time done) 1145 EKG releavant findings:: EKG personally interpreted by author of this note. Relevant findings are: Rate 108, atrial fibrillation, no STEMI, No ST depressions Rhythm: Atrial fibrillation Intervals: No: Prolonged QT Ischemia: No: ST elevation c/w ischemia, ST depression - Labs Labs: Laboratory Tests 01/01/23 01/01/23 01/01/23 11:09 11:53 11:53 WBC 20.5 H RBC 4.20 Hgb 11.8 L Hct 37.8 MCV 90.0 MCH 28.1 MCHC 31.2 L RDW 16.2 H Plt Count 248 MPV 11.7 H Neut # (Auto) 19.7 H Lymph # (Auto) 0.2 L Dougherty # (Auto) 0.5 Eos # (Auto) 0.0 Baso # (Auto) 0.1 Absolute Nucleated RBC 0.00 Nucleated RBC % 0.0 Manual Slide Review Indicated Platelet Estimate NORMAL (130-450,000) Platelet Morphology NORMAL APPEARANCE RBC Morph Micro Appear NORMAL APPEARANCE Sodium 143 Potassium 4.2 Chloride 113 H Carbon Dioxide 22 Anion Gap 8.0 BUN 46 H Creatinine 2.2 H Estimated GFR (MDRD) 22 L Glucose 174 H Lactic Acid Calcium 9.1 Total Bilirubin 3.0 H AST 425 H ALT 180 H Alkaline Phosphatase 304 H B-Natriuretic Peptide Total Protein 6.8 Albumin 3.2 Globulin 3.6 Albumin/Globulin Ratio 0.9 L Lipase 50 Urine Color YELLOW Urine Clarity CLEAR Urine pH 6.0 Ur Specific [place] 1.025 Urine Protein >=300 H Urine Glucose (UA) 100 H Urine Ketones NEGATIVE Urine Occult Blood TRACE-INTA Urine Nitrite NEGATIVE Urine Bilirubin NEGATIVE Urine Urobilinogen 0.2 (NORMAL) Ur Leukocyte Esterase NEGATIVE Urine RBC 0-5 Urine WBC 0-3 Ur Squamous Epith Cells FEW Squamous Urine Bacteria Rare Ur Microscopic Review INDICATED Urine Culture Comments NOT INDICATED SARS-CoV-2 (PCR) 01/01/23 01/01/23 01/01/23 11:53 11:53 13:14 WBC RBC Hgb Hct MCV MCH MCHC RDW Plt Count MPV Neut # (Auto) Lymph # (Auto) Dougherty # (Auto) Eos # (Auto) Baso # (Auto) Absolute Nucleated RBC Nucleated RBC % Manual Slide Review Platelet Estimate Platelet Morphology RBC Morph Micro Appear Sodium Potassium Chloride Carbon Dioxide Anion Gap BUN Creatinine Estimated GFR (MDRD) Glucose Lactic Acid 1.1 Calcium Total Bilirubin AST ALT Alkaline Phosphatase B-Natriuretic Peptide 898 H Total Protein Albumin Globulin Albumin/Globulin Ratio Lipase Urine Color Urine Clarity Urine pH Ur Specific [place] Urine Protein Urine Glucose (UA) Urine Ketones Urine Occult Blood Urine Nitrite Urine Bilirubin Urine Urobilinogen Ur Leukocyte Esterase Urine RBC Urine WBC Ur Squamous Epith Cells Urine Bacteria Ur Microscopic Review Urine Culture Comments SARS-CoV-2 (PCR) NOT DETECTED PD Medical Decision Making - ED course Complexity details: reviewed results, re-evaluated patient, d/w patient ED course: Patient is a 77-year-old female presenting for evaluation of nausea and vomiting and upper abdominal pain since last night. She initially had reported feeling some shortness of breath while she was feeling nauseous but that has since res olved.EMS had reported that she was hypoxic but she has been stable on room air here and is actually laying mostly reclined in the stretcher without any labored breathing or hypoxia. Labs reviewed and significant for leukocytosis with WBC of 20,000. She additionally has elevated bilirubin of 3.0 and elevated LFTs. Patient has baseline CKD with usual creatinine of 2.0 and is mildly elevated today. Her chest x-ray which I reviewed demonstrates cardiomegaly, Focal consolidation or large pleural effusion. CT scan is reviewed which I also evaluated - There is mild to moderate bilateral perinephric stranding And small bilateral pleural effusions. An ultrasound was also obtained Of the right upper quadrant With focal gallbladder wall thickening and small stones versus sludge concerning for acute cholecystitis.Given her elevated bilirubin and LFTs I am concerned if there is an obstruction. We do not have capabilities for an ERCP. I have discussed this with the patient and will initiate transfer process.Patient has an allergy to cephalosporins, therefore I have ordered Cipro and Flagyl. I have updated the patient's daughter.[facility] contacted and patient has been placed on available wait list. We have also reached out to [facility] to help arrange for transfer as there is no accepting facility yet at this time.Scheduled antibiotics have been ordered. Patient is on a small amount of maintenance fluids.She will be boarding overnight in the emergency department pending transfer. Pt will be signed out to oncoming physician. Departure - Departure Disposition: 02 Transfer Acute Care Hosp Clinical Impression: Calculous cholecystitis with obstruction
[2023-01-01 11:51] LABS: CLARITY,URINE CLEAR (CLEAR)
[2023-01-01 11:55] LABS: BACTERIA,URINE Rare /HPF (None Seen); RBC,URINE 0-5 /HPF (0-5); SQUAMOUS EPITHELIAL CELL,UR FEW Squamous (<= Few); WBC,URINE 0-3 /HPF (0-5)
[2023-01-01 11:57] LABS: BASOPHILS # (AUTO) 0.1 10^3/uL (0.0-0.1); BASOPHILS % (AUTO) 0.3 %; HCT - HEMATOCRIT 37.8 % (37.0-47.0); HGB - HEMOGLOBIN 11.8 g/dL (12.0-16.0); LYMPHOCYTES # (AUTO) 0.2 10^3/uL (1.5-3.5); LYMPHOCYTES % (AUTO) 0.9 %; MEAN CORPUSCULAR HEMOGLOBIN 28.1 pg (27.0-31.0); MEAN CORPUSCULAR HGB CONC 31.2 g/dL (32.0-36.0); MEAN PLATELET VOLUME 11.7 fL (7.9-10.8); MONOCYTES # (AUTO) 0.5 10^3/uL (0.0-1.0); MONOCYTES % (AUTO) 2.2 %; NEUTROPHILS # (AUTO) 19.7 10^3/uL (1.5-6.6); NEUTROPHILS % (AUTO) 96.3 %; PLT - PLATELET COUNT 248 10^3/uL (130-450); RED CELL DISTRIBUTION WIDTH 16.2 % (12.0-15.0); WHITE BLOOD COUNT 20.5 x10^3/uL (4.8-10.8)
[2023-01-01 11:58] LABS: SLIDE REVIEW? Indicated
[2023-01-01 12:15] LABS: ALBUMIN 3.2 g/dL (3.2-5.5); ALBUMIN/GLOBULIN RATIO 0.9 (1.0-2.2); CALCIUM 9.1 mg/dL (8.5-10.3); CREATININE 2.2 mg/dL (0.4-1.0); POTASSIUM 4.2 mmol/L (3.5-5.0); TOTAL PROTEIN 6.8 g/dL (6.7-8.2)
[2023-01-01 12:30] LABS: PLATELET ESTIMATE, MANUAL NORMAL (130-450,000) (NORMAL); PLATELET MORPHOLOGY NORMAL APPEARANCE (NORMAL); RBC MORPHOLOGY (MULTIPLE) NORMAL APPEARANCE (NORMAL)
--- NOTE | 2023-01-01 12:46 | CT Report ---
PROCEDURE: ABDOMEN/PELVIS WO INDICATIONS: upper abd pain/vomiting TECHNIQUE: Noncontrast 5 mm thick sections acquired from the diaphragms to the symphysis. 5 mm coronal and sagi ttal reformats were then performed. For radiation dose reduction, the following was used: automated exposure control, adjustment of mA and/or kV according to patient size. COMPARISON: None FINDINGS: Image quality: Good Lower chest: Partially seen small bilateral pleural effusions and bibasilar opacities and atelectasis . Cardiomegaly, mitral annular and coronary calcifications. Solid organs: Not well evaluated without intravenous contrast. The liver is unremarkable. There is ch olelithiasis. No pathologic dilation of the biliary tree or pancreatic duct. There is more focal atro phy of the pancreatic head, with some calcifications, which may be due to prior inflammation. There a re also small duodenal diverticula. No splenomegaly. Multiple adrenal nodules, compatible with myelol ipoma and lipid rich adenomas. Bilateral mild to moderate perinephric fat stranding. No hydronephrosis. Vessels and lymph nodes: No abdominal aortic aneurysm. There are atherosclerotic calcifications of th e aorta and its branches. No pathologic adenopathy by size criteria. Prominent upper abdominal lymph nodes, for example around the portacaval region, are present, indeterminate and possibly reactive. Bowel and peritoneum: No evidence of small bowel obstruction. No drainable ascites is identified. Body wall: Ill-defined fat stranding and edema in the anterior body wall. Pelvis: Not well evaluated due to metallic artifact. Bones: Bilateral hip arthroplasties, causing extensive metallic artifact in the pelvis. Degenerative changes. No acute or suspicious osseous abnormality. IMPRESSION: Bibasilar atelectasis and pulmonary consolidation with small bilateral pleural effusions. Consider fu ture imaging surveillance to assess for resolution. These could be infectious/inflammatory. Mild to moderate bilateral perinephric stranding without hydronephrosis. Please correlate with urinal ysis. Multiple other nonspecific findings as above. No small bowel obstruction. Please note the pelvis is not well evaluated due to metallic artifact. This is a limited noncontrast CT. Reviewed by: Arnaud Burnette MD on 01/01/2023 12:45 PM PDT Approved by: Arnaud Burnette MD on 01/01/2023 12:45 PM PDT Station ID: [id number]
[2023-01-01] MEDS ORDERED: MORPHINE 2 MG/ML CARPUJECT IVP STA (13:08)
[2023-01-01] MEDS ORDERED: SODIUM CHLORIDE 0.9% 500 ML IV STA (13:09)
[2023-01-01] MEDS ORDERED: ONDANSETRON 4 MG/2 ML VIAL IVP STA (13:59)
--- NOTE | 2023-01-01 14:25 | Ultrasound Report ---
PROCEDURE: Abdomen Limited INDICATIONS: RUQ/ elevated bili and LFTs TECHNIQUE: Real-time scanning was performed of the abdominal and retroperitoneal organs, with image documentatio n. COMPARISON: None. FINDINGS: Liver: Liver is normal in size and homogeneous in echotexture. Gallbladder: Focal gallbladder wall thickening, with wall striation. Gallbladder sludge versus small stones. Biliary ducts: Intrahepatic bile ducts are non-dilated. Extrahepatic bile duct caliber measures 4 m m. Normal is 6-7 mm or less in diameter, or 10 mm or less post-cholecystectomy. Pancreas: Visualized portions of the pancreas are sonographically normal. Right kidney: Increased cortical echogenicity. Right kidney measures 10.5 cm cm long. No hydronephro sis or nephrolithiasis. No solid masses. Aorta: Visualized aorta is normal in caliber at less than 3 cm. IVC: Intrahepatic inferior vena cava is patent. Miscellaneous: No free abdominal fluid. IMPRESSION: 1.Focal gallbladder wall thickening with wall striation. There are small stones versus sludge. Findin gs are suggestive of acute cholecystitis. 2.Increased right renal parenchymal echogenicity, suggestive of chronic parenchymal disease. Reviewed by: Henry Dasilva on 01/01/2023 2:23 PM PDT Approved by: Henry Dasilva on 01/01/2023 2:23 PM PDT Station ID: [id number]
[2023-01-01] MEDS: metroNIDAZOLE 500 MG/100 ML 500 MG/100 ML BAG IV SCH ×2 (14:35→22:59)
[2023-01-01] MEDS: CIPROFLOXACIN 400 MG/200 ML 400 MG/200 ML BAG IV SCH ×2 (14:36→21:25)
[2023-01-01] MEDS ORDERED: SODIUM CHLORIDE 0.9% 1,000 ML IV STA ×2 (21:36)
[2023-01-02] MEDS: diltiaZEM INJ 5 MG/ML VIAL IVP PRN ×3 (03:19→16:23)
--- NOTE | 2023-01-02 03:38 | ED Physician Documentation ---
ED Addendum - Addendum Addendum: 01/02/23 03:36 Patient received a signout from outgoing physician, please see their do cumentation for further detail. In short patient 77-year-old female with cholecystitis with concern for choledocholithiasis. RemainOvernight in atrial fibrillation with some worsening of tachycardia was given dose of Cardizem.Additionally had some brief episodes of hypoxia consistent with her known history of sleep apnea. Overall continues to maintain adequate oxygen saturations on her home CPAP. Additionally a day ordered for ondansetron for nausea control. Her blood cultures are positive for gram- negativeBacilli. She is currently on ciprofloxacin and Flagyl. MRCP has been ordered for the a.m. She continues to board here pending bed availability at a facility with the appropriate capabilities for ERCP. 01/02/23 03:38 01/02/23 03:39
[2023-01-02 05:19] LABS: BASOPHILS % (AUTO) 0.2 %; EOSINOPHILS % (AUTO) 0.1 %; HCT - HEMATOCRIT 34.9 % (37.0-47.0); HGB - HEMOGLOBIN 10.7 g/dL (12.0-16.0); LYMPHOCYTES # (AUTO) 0.4 10^3/uL (1.5-3.5); LYMPHOCYTES % (AUTO) 2.2 %; MEAN CORPUSCULAR HEMOGLOBIN 28.2 pg (27.0-31.0); MEAN CORPUSCULAR HGB CONC 30.7 g/dL (32.0-36.0); MEAN CORPUSCULAR VOLUME 92.1 fL (81.0-99.0); MEAN PLATELET VOLUME 11.6 fL (7.9-10.8); MONOCYTES # (AUTO) 0.6 10^3/uL (0.0-1.0); MONOCYTES % (AUTO) 3.2 %; NEUTROPHILS # (AUTO) 17.2 10^3/uL (1.5-6.6); NEUTROPHILS % (AUTO) 93.9 %; PLT - PLATELET COUNT 204 10^3/uL (130-450); RED BLOOD COUNT 3.79 10^6/uL (4.20-5.40); RED CELL DISTRIBUTION WIDTH 16.6 % (12.0-15.0); WHITE BLOOD COUNT 18.3 x10^3/uL (4.8-10.8)
[2023-01-02 05:35] LABS: ALBUMIN 2.9 g/dL (3.2-5.5); BILIRUBIN,DIRECT 2.7 mg/dL (0.1-0.5); BILIRUBIN,TOTAL 3.7 mg/dL (0.2-1.0); CALCIUM 8.5 mg/dL (8.5-10.3); CREATININE 2.4 mg/dL (0.4-1.0); POTASSIUM 4.3 mmol/L (3.5-5.0); TOTAL PROTEIN 6.3 g/dL (6.7-8.2)
[2023-01-02] MEDS: metroNIDAZOLE 500 MG/100 ML 500 MG/100 ML BAG IV SCH ×3 (07:21→22:41)
[2023-01-02] MEDS ORDERED: MORPHINE 2 MG/ML CARPUJECT IVP STA ×4 (09:02→21:47)
[2023-01-02] MEDS: CIPROFLOXACIN 400 MG/200 ML 400 MG/200 ML BAG IV SCH ×2 (09:26→20:42)
--- NOTE | 2023-01-02 11:48 | ED Physician Documentation ---
ED Addendum - Addendum Addendum: 01/02/23 11:47 I checked in with the patient. She says she was having some mild abdominal cramping pain and did request some mild more medicine. She appears well otherwise. No fever or vomiting. We are hoping to get an MRCP for her today. emergency veterinary technician says likely around noon. At that point would be able to decide if she has a ductal obstruction. If not then looks like cholecystitis with cholangitis. We would likely be able to take care of that here at our facility. Would need to check with surgery. If she does have a ductal obstruction then obviously would need to still work on the transfer idea.
--- NOTE | 2023-01-02 12:27 | MRI Report ---
PROCEDURE: MRCP WO INDICATIONS: biliary obstruction CONTRAST: None TECHNIQUE: Coronal ultra fast SE through the abdomen, axial 2-D spoiled GE in- and [id number], and breath-hold T2 FSE with fat saturation through the biliary system and pancreas. Oblique coronal and axial thin- slice ultra fast SE, radial thick-slab ultra fast SE centered on the extrahepatic bile ducts. COMPARISON: CT 01/01/2023 FINDINGS: Image quality: Suboptimal due to motion artifact. Pancreas and biliary system: Cholelithiasis. Diffuse thickening of the gallbladder wall. No dilation of the biliary tree. Other solid organs: Clinically significant hepatic steatosis (16% calculated). Approximately 10 T2 in termediate splenic lesions, largest measuring 3.2 cm (5/15). 2.2 cm left adrenal nodule with signal d ropout on the out of phase sequence, most consistent with a benign adrenal adenoma. 2.1 cm right adre nal adenoma based on Hounsfield units criteria on comparison CT. No complex renal cystic lesions whic h require follow-up. Nodes and vessels: No retroperitoneal or mesenteric adenopathy by size criteria. Aorta and inferior vena cava are normal in size. Bowel and peritoneum: Unenhanced bowel loops are normal in caliber. Trace free fluid. Lung bases: Small right and trace left pleural effusions. Bones and soft tissues: No ventral hernias. Bone marrow is of normal overall signal. Anasarca. IMPRESSION: 1.Suboptimal evaluation due to motion artifact. 2.Cholelithiasis without evidence of biliary obstruction or acute cholecystitis. 3.Evidence of third spacing of fluids, with diffuse gallbladder wall thickening, trace ascites, anasa rca and effusions. 4.Approximately 10 splenic lesions, largest measuring 3.2 cm. Findings may indicate metastatic diseas e, lymphoma, sarcoidosis, granulomatous disease or less likely multiple hemangiomas. Reviewed by: Henry Dasilva on 01/02/2023 12:26 PM PDT Approved by: Henry Dasilva on 01/02/2023 12:26 PM PDT Station ID: [id number]
[2023-01-02] MEDS: ONDANSETRON 4 MG/2 ML VIAL IVP PRN ×2 (14:27→20:42)
[2023-01-02 18:22] LABS: BASOPHILS # (AUTO) 0.1 10^3/uL (0.0-0.1); BASOPHILS % (AUTO) 0.4 %; EOSINOPHILS # (AUTO) 0.1 10^3/uL (0.0-0.7); EOSINOPHILS % (AUTO) 0.4 %; LYMPHOCYTES # (AUTO) 0.4 10^3/uL (1.5-3.5); MEAN CORPUSCULAR HEMOGLOBIN 28.2 pg (27.0-31.0); MEAN CORPUSCULAR HGB CONC 29.7 g/dL (32.0-36.0); MEAN CORPUSCULAR VOLUME 94.9 fL (81.0-99.0); MEAN PLATELET VOLUME 11.9 fL (7.9-10.8); MONOCYTES # (AUTO) 0.4 10^3/uL (0.0-1.0); MONOCYTES % (AUTO) 3.2 %; NEUTROPHILS # (AUTO) 12.7 10^3/uL (1.5-6.6); NEUTROPHILS % (AUTO) 92.7 %; PLT - PLATELET COUNT 185 10^3/uL (130-450); RED CELL DISTRIBUTION WIDTH 16.9 % (12.0-15.0); WHITE BLOOD COUNT 13.7 x10^3/uL (4.8-10.8)
[2023-01-02 18:28] LABS: INR 1.5 (0.8-1.2); PT - PROTHROMBIN TIME 16.3 secs (9.9-12.6)
[2023-01-02 18:36] LABS: PARTIAL THROMBOPLASTIN TIME 45.9 secs (24.9-33.3)
--- NOTE | 2023-01-02 18:39 | CONSULTATION NOTE ---
Referring Provider Name of Referring Provider:: Dr. Jermaine Snow Consult Date: 01/02/23 Chief Complaint - Chief Complaint Chief Complaint: Abdominal pain History of Present Illness - History Obtained From Records Reviewed: Yes History obtained from: Chart and Dr. Snow Exam Limitations: Patient's somnolence - History of Present Illness HPI Comment/Other: This 77 year old female is known to me as I repaired her ventral hernia with an oversized piece of mesh due to concerns that I had regarding her obesity, diabetes and continued smoking back in 2017. I used an 8 cm piece of mesh. She now presented to our ED with abdominal pain but primarily nausea and vomiting after eating shrimp. She has noted persistent symptoms despite some antiemetics. When I see her now she is quite somnolent in Room 9 at [facility] ED. History - Past Medical History Cardiovascular: reports: Congestive heart failure, Hypertension, High cholesterol, Atrial fibrillation, Murmur Respiratory: reports: Asthma, Pneumonia, Shortness of breath, Sleep apnea Neuro: reports: CVA, Migraines, Other Endocrine/Autoimmune: reports: Type 2 diabetes, HyPOthyroidism, Other GI: reports: GERD, Hepatitis, Other NITRIC ACID PLANT OPERATOR: reports: None : reports: Incontinence, Frequency HEENT: reports: Chronic vision loss, Chronic hearing loss Psych: reports: None Musculoskeletal: reports: Osteoarthritis, Chronic back pain, Other Derm: reports: None MRSA Hx?: No - Past Surgical History Ortho: reports: Hip replacement, Knee replacement, Carpal Tunnel surgery /NITRIC ACID PLANT OPERATOR: reports: Dilation and currettage, Tubal ligation, Hysterectomy, Oophrectomy - Family & Social History Family History Comment/Other: father: CVA, [place], [place]. daughter 2: CVA at age 20. Thought to be due to control and smoking. sister 1: breast cancer, uetrine and ovarian cancer. sister 2: colon cancer Social History Notes: Denies alcohol, tobacco or illicit drug use. - POLST Patient has POLST: No POLST Status: Full Code Meds/Allgy - Home Medications Home Medications: Ambulatory Orders Medication Instructions Recorded Confirmed EPINEPHrine [Epipen 2-Justin] 0.3 mg IM ONCE PRN 08/14/17 10/26/21 Insulin Glargine [Lantus Solostar] 45 unit SQ DAILY 08/14/17 01/02/23 Sertraline HCl 50 mg PO QPM 02/26/18 01/02/23 Levothyroxine Sodium 125 mcg PO QDAC 04/11/19 01/02/23 cloNIDine HCL [Clonidine HCl] 0.2 mg PO QPM 04/11/19 01/02/23 Bethanechol [Urecholine] 25 mg PO BID 10/24/20 01/02/23 Apixaban [Eliquis] 2.5 mg PO BID 01/02/23 01/02/23 Atorvastatin [Lipitor] 20 mg PO QPM 01/02/23 01/02/23 Digoxin [Lanoxin] 125 mcg 01/02/23 Metoprolol Succinate [Toprol Xl] 200 mg PO BID 01/02/23 01/02/23 dilTIAZem HCL [Diltiazem 24Hr ER 120 mg PO BID 01/02/23 01/02/23 (Xr)] glipiZIDE [Glipizide] 10 mg PO BID 01/02/23 01/02/23 - Allergies Allergies/Adverse Reactions: Allergies Allergy/AdvReac Type Severity Reaction Status Date / Time atorvastatin Allergy Cramps Verified 10/26/21 16:19 bee venom protein (honey bee) Allergy Unknown Verified 10/26/21 16:19 cefuroxime [From Ceftin] Allergy Unknown Verified 10/26/21 16:19 codeine Allergy Nausea Verified 10/26/21 16:19 hydrocodone [From Vicodin] Allergy Nausea Verified 10/26/21 16:19 Influenza Virus Vaccines Allergy Unknown Verified 10/26/21 16:19 lisinopril Allergy Respiratory Verified 10/26/21 16:19 mushroom Allergy Anaphylaxis Verified 10/26/21 16:19 nitroglycerin Allergy Headache Verified 10/26/21 16:19 propoxyphene Allergy Unknown Verified 10/26/21 16:19 [From Darvocet-N] tramadol Allergy Headache Verified 10/26/21 16:19 Review of Systems - Other Findings Other Findings: I did not perform a ROS due to her somnolence. Exam - Vital Signs Reviewed Vital Signs: Yes Vital Signs: Vital Signs x48h Pulse Resp BP Pulse Ox O2 Flow Rate 01/02/23 18:00 109 H 16 149/101 H 99 2 01/02/23 16:38 97 12 130/100 H 95 2 01/02/23 15:00 108 H 16 134/96 H 96 2 01/02/23 12:00 113 H 16 145/111 H 100 2 - Physical Exam General Appearance: positive: No acute distress, Other (Primarily sleeping.) Respiratory: positive: Chest non-tender, No respiratory distress, Breath sounds nml Cardiovascular: positive: Regular rate & rhythm, Systolic murmur, Other Abdomen: positive: Nml bowel sounds, Tenderness Neurologic/Psychiatric: positive: Oriented x3, Motor nml, Sensation nml, Mood/affect nml (Poor memory.) Conclusion/Plan - Lab Results Lab results reviewed: Yes Fish Bones: 01/02/23 18:15 01/02/23 18:15 - Other Other Results/Comments: This patient likely need to have a cholecystectomy but review of her chart shows that she is diabetic, hypertensive, obese, renal insufficiency, dyspnea with moderate exertion, with a history of CHF (last ECHO EF=35%) and afib with occasional tachycardia, and with her previous surgeries it makes the likelihood of an open cholecystectomy much higher. She is taking Eliquis and optimally should be off Eliquis for 60 hours prior to surgery. Running her information through [facility] her surgical risk is 43.5% of a serious complication with a 54.9% risk of any complication. There is a 9.4% risk of return to OR with a 30.7% risk of and 85.7% risk of discharge to nursing or rehab facility. Additionally her average hospitalization days exceeds 28 (mindful of the fact that we are a [facility]) I have run this information by our anesthetists who do not believe that it is appropriate to perform this operation at this hospital with our lack of resourc es. I do not disagree - I believe that this operation at a tertiary care center has the very real ability to improve the outcome (although, in all honesty, not radically). In short it is inappropriate to perform this surgery at our institution - the way the referral system is set up is for these more complex, risky cases to be transferred to centers of excellence who have the diagnostic and therapeutic resources to better handle them. I appreciate the opportunity to be involved in this patient's care.
[2023-01-02 18:41] LABS: ALBUMIN 3.1 g/dL (3.2-5.5); ALBUMIN/GLOBULIN RATIO 0.9 (1.0-2.2); ALKALINE PHOSPHATASE 244 IU/L (42-121); ALT ALANINE AMINOTRANSFERASE 148 IU/L (10-60); AST ASPARTATE AMINOTRANSFERASE 141 IU/L (10-42); BILIRUBIN,TOTAL 3.6 mg/dL (0.2-1.0); BUN - BLOOD UREA NITROGEN 49 mg/dL (6-20); CALCIUM 8.4 mg/dL (8.5-10.3); CARBON DIOXIDE - CO2 22 mmol/L (21-32); CHLORIDE 112 mmol/L (101-111); CREATININE 2.6 mg/dL (0.4-1.0); GFR - MDRD 18 (>89); GLUCOSE 114 mg/dL (70-100); LIPASE 28 U/L (22-51); POTASSIUM 4.4 mmol/L (3.5-5.0); SODIUM 141 mmol/L (135-145); TOTAL PROTEIN 6.7 g/dL (6.7-8.2)
[2023-01-02 18:53] LABS: DIGOXIN < 0.2 ng/mL
[2023-01-02] MEDS ORDERED: diltiaZEM INJ 5 MG/ML VIAL IVP STA (20:20)
--- NOTE | 2023-01-02 20:22 | ED Physician Documentation ---
ED Addendum - Addendum Addendum: 01/02/23 20:21 Patient has been evaluated by her surgeon, Dr. Ledbetter. Patient has a complex medical history and He feels would be too complicated For our [facility] and better served at a tertiary care center. We will continue to work on transfer to an outside hospital. Patient was accepted for transfer to [facility] Departure - Departure Disposition: 02 Transfer Acute Care Hosp Clinical Impression: Calculous cholecystitis with obstruction, Bacteremia, Atrial fibrillation Condition: Serious Discharge Date/Time: 01/02/23 22:58
[2023-01-02] MEDS ORDERED: ONDANSETRON 4 MG/2 ML VIAL IVP STA (21:47)
[2023-01-02 22:24] VITALS: BP 133/71
== END 2023-01-02 22:58 | disposition short-term general hospital (02) ==
LOC: EDUNIT# → ED 10:37
DX: K80.01 Calculus of gallbladder with acute cholecystitis with obstruction (principal); N28.9 Disorder of kidney and ureter, unspecified; R78.81 Bacteremia; I48.91 Unspecified atrial fibrillation; E11.9 Type 2 diabetes mellitus without complications; Z79.4 Long term (current) use of insulin; R00.0 Tachycardia, unspecified; I11.0 Hypertensive heart disease with heart failure; I50.9 Heart failure, unspecified; Z79.01 Long term (current) use of anticoagulants; Z20.822 Contact with and (suspected) exposure to COVID-19
CPT/HCPCS: 36415; 80048; 80053; 80076; 80162; 81001; 81003; 83605; 83690; 83880; 85025; 85610; 85730; 87040; 87086; 87150; 87181; 93005; 96365; 96366; 96375; 96376; 99285

== ENCOUNTER 2023-01-02 22:54 | Outpatient (CLI) | payer MEDICARE, OTHER, MEDICAID | END 2023-01-02 22:55 | disposition short-term general hospital (02) | LOC: EMS 22:54 | PROVIDERS: ATTEND Emergency Medicine | DX: K81.9 Cholecystitis, unspecified (principal); R78.81 Bacteremia; I48.91 Unspecified atrial fibrillation; Z79.01 Long term (current) use of anticoagulants | CPT/HCPCS: A0425; A0428 ==

== ENCOUNTER 2023-01-18 11:00 | Outpatient (CLI) | payer MEDICARE, OTHER, MEDICAID | END 2023-01-18 21:31 | disposition critical access hospital (66) | LOC: EMS 11:00 | DX: R53.1 Weakness (principal); E11.65 Type 2 diabetes mellitus with hyperglycemia | CPT/HCPCS: A0425; A0429 ==

== ENCOUNTER 2023-01-18 11:30 | Emergency (ER) | payer MEDICARE, OTHER, MEDICAID ==
[2023-01-18] MEDS ORDERED: SODIUM CHLORIDE 0.9% 500 ML IV STA (11:35)
--- NOTE | 2023-01-18 11:40 | ED Physician Documentation ---
History of Present Illness - Stated complaint Stated Complaint: FALL - Additonal information Additional information: This is a 77-year-old female with an extensive past medical history As listed below including atrial fibrillation, CHF with EF of 35%, hypertension, obesity who presents via EMS after several sitdown falls at home today. Patient states that her right knee gave way because of her arthritis and she sat down on the floor and this occurred a few different times. Patient has not sustained any injuries in these falls and simply has been sat down on the ground, has not hit her head or sustain any extremity or pelvis/hip injuries. She Denies any dizziness, chest pain or dyspnea prior to the falls, no focal weakness, she states that her legs simply gives out from under her and that is not an uncommon occurrence. According to EMS, they checked her blood sugar and it was in the 500s and a review of her home glucometer reveals it has been in the 500s for several days. The patient is on antibiotics as well as steroids for cholecystitis and gout respectively, And it sounds as though the steroids will be completed today. Notably, Patient was recently transferred from our hospital to [facility] due to acute cholecystitis. She also reportedly developed moe teremia. She was monitored there on antibiotics for several days and she states that she subsequently passed some gallstones and her symptoms rapidly improved therefore they are treating only with antibiotics and given her surgical risks are not planning to undergo surgery at this time. She did not require a cholecystostomy tube. She was also placed on some pancreatic enzymes according to his son. She feels substantially better than before, is tolerating some p.o., only has mild right upper quadrant tenderness And nauseaat times but not as substantial as before. She does have some Soft stools, no vomiting. She has not had a fever or chills, no chest pain or difficulty breathing, no other abdominal pain, no urinary symptoms. Review of Systems Constitutional: reports: Reviewed and negative Eyes: reports: Reviewed and negative Ears: reports: Reviewed and negative Nose: reports: Reviewed and negative Throat: reports: Reviewed and negative Cardiac: reports: Reviewed and negative Respiratory: reports: Reviewed and negative GI: reports: Reviewed and negative : reports: Reviewed and negative Skin: reports: Reviewed and negative Musculoskeletal: reports: Reviewed and negative Neurologic: reports: Other (Recurrent falls) Psychiatric: reports: Reviewed and negative Endocrine: reports: Reviewed and negative PD PAST MEDICAL HISTORY - Past Medical History Past Medical History: Yes Cardiovascular: Congestive heart failure, Hypertension, High cholesterol, Atrial fibrillation, Murmur Respiratory: Asthma, Pneumonia, Shortness of breath, Sleep apnea Neuro: CVA, Migraines, Other Endocrine/Autoimmune: Type 2 diabetes, HyPOthyroidism, Other GI: GERD, Hepatitis, Other BONDING EQUIPMENT OPERATOR: None : Incontinence, Frequency HEENT: Chronic vision loss, Chronic hearing loss Psych: None Musculoskeletal: Osteoarthritis, Chronic back pain, Other Derm: None - Past Surgical History Past Surgical History: Yes Ortho: Hip replacement, Knee replacement, Carpal Tunnel surgery /BONDING EQUIPMENT OPERATOR: Dilation and currettage, Tubal ligation, Hysterectomy, Oophrectomy - Present Medications Home Medications: Ambulatory Orders Medication Instructions Recorded Confirmed EPINEPHrine [Epipen 2-Justin] 0.3 mg IM ONCE PRN 08/14/17 10/26/21 Insulin Glargine [Lantus Solostar] 45 unit SQ DAILY 08/14/17 01/02/23 Sertraline HCl 50 mg PO QPM 02/26/18 01/02/23 Levothyroxine Sodium 125 mcg PO QDAC 04/11/19 01/02/23 cloNIDine HCL [Clonidine HCl] 0.2 mg PO QPM 04/11/19 01/02/23 Bethanechol [Urecholine] 25 mg PO BID 10/24/20 01/02/23 Apixaban [Eliquis] 2.5 mg PO BID 01/02/23 01/02/23 Atorvastatin [Lipitor] 20 mg PO QPM 01/02/23 01/02/23 Digoxin [Lanoxin] 125 mcg 01/02/23 Metoprolol Succinate [Toprol Xl] 200 mg PO BID 01/02/23 01/02/23 dilTIAZem HCL [Diltiazem 24Hr ER 120 mg PO BID 01/02/23 01/02/23 (Xr)] glipiZIDE [Glipizide] 10 mg PO BID 01/02/23 01/02/23 - Allergies Allergies/Adverse Reactions: Allergies Allergy/AdvReac Type Severity Reaction Status Date / Time atorvastatin Allergy Cramps Verified 10/26/21 16:19 bee venom protein (honey bee) Allergy Unknown Verified 10/26/21 16:19 cefuroxime [From Ceftin] Allergy Unknown Verified 10/26/21 16:19 codeine Allergy Nausea Verified 10/26/21 16:19 hydrocodone [From Vicodin] Allergy Nausea Verified 10/26/21 16:19 Influenza Virus Vaccines Allergy Unknown Verified 10/26/21 16:19 lisinopril Allergy Respiratory Verified 10/26/21 16:19 mushroom Allergy Anaphylaxis Verified 10/26/21 16:19 nitroglycerin Allergy Headache Verified 10/26/21 16:19 propoxyphene Allergy Unknown Verified 10/26/21 16:19 [From Darvocet-N] tramadol Allergy Headache Verified 10/26/21 16:19 - Social History Does the pt smoke?: No Smoking Status: Never smoker Does the pt drink ETOH?: No Does the pt have substance abuse?: No - Immunizations Immunizations are current?: Yes - POLST Patient has POLST: No POLST Status: Full Code PD ED PE NORMAL - Vitals Vital signs reviewed: Yes - General General: Alert and oriented X 3, No acute distress, Well developed/nourished - HEENT HEENT: Atraumatic, PERRL, EOMI, Moist mucous membranes, Pharynx benign - Neck Neck: Supple, no meningeal sign, No JVD - Cardiac Cardiac: No murmur, No gallop, No rub, Other (Irregularly irregular) - Respiratory Respiratory: No respiratory distress, Clear bilaterally - Abdomen Abdomen: Normal bowel sounds, Soft, Non tender, Non distended, Other (No right upper quadrant tenderness or guarding) - Back Back: No CVA TTP, No spinal TTP - Derm Derm: Normal color, Warm and dry, No rash - Extremities Extremities: No deformity, No tenderness to palpate, Normal ROM s pain, No edema, No calf tenderness / cord - Neuro Neuro: Alert and oriented X 3, acoustic warfare analyst 2-12 intact, No motor deficit, No sensory deficit, Normal speech Eye Opening: Spontaneous Motor: Obeys Commands Verbal: Oriented GCS Score: 15 - Psych Psych: Normal mood, Normal affect Results - Vitals Vitals: Vital Signs - 24 hr 01/18/23 01/18/23 01/18/23 11:31 12:57 15:26 Temperature 36.6 C 36.5 C Heart Rate 84 73 80 Respiratory 16 16 17 Rate Blood Pressure 152/100 H 141/104 H 136/98 H O2 Saturation 98 96 94 Oxygen O2 Source Room air - Labs Labs: Laboratory Tests 01/18/23 01/18/2301/18/23 11:53 11:53 11:53 WBC 9.0 RBC 3.96 L Hgb 11.0 L Hct 33.7 L MCV 85.1 MCH 27.8 MCHC 32.6 RDW 14.7 Plt Count 301 MPV 12.0 H Neut # (Auto) 6.9 H Lymph # (Auto) 1.3 L Stark # (Auto) 0.6 Eos # (Auto) 0.0 Baso # (Auto) 0.1 Absolute Nucleated RBC 0.00 Nucleated RBC % 0.0 PT 15.2 H INR 1.4 H VBG pH VBG pCO2 VBG pO2 VBG HCO3 VBG Total CO2 VBG O2 Saturation VBG Base Excess Sodium 132 L Potassium 4.3 Chloride 99 L Carbon Dioxide 23 Anion Gap 10.0 BUN 82 H* Creatinine 2.8 H Estimated GFR (MDRD) 16 L Glucose 463 H Lactic Acid Calcium 8.9 Total Bilirubin 0.7 AST 24 ALT 37 Alkaline Phosphatase 221 H Total Protein 6.8 Albumin 3.1 L Globulin 3.7 Albumin/Globulin Ratio 0.8 L Lipase 194 H Urine Color Urine Clarity Urine pH Ur Specific [place] Urine Protein Urine Glucose (UA) Urine Ketones Urine Occult Blood Urine Nitrite Urine Bilirubin Urine Urobilinogen Ur Leukocyte Esterase Urine RBC Urine WBC Ur Epithelial Cells Ur Squamous Epith Cells Urine Bacteria Ur Microscopic Review Urine Culture Comments Serum Ketones NEGATIVE 01/18/23 01/18/23 01/18/23 11:53 11:53 12:54 WBC RBC Hgb Hct MCV MCH MCHC RDW Plt Count MPV Neut # (Auto) Lymph # (Auto) Stark # (Auto) Eos # (Auto) Baso # (Auto) Absolute Nucleated RBC Nucleated RBC % PT INR VBG pH 7.308 L VBG pCO2 42.6 VBG pO2 33.3 VBG HCO3 20.9 L VBG Total CO2 22.2 L VBG O2 Saturation 60.9 VBG Base Excess -5.2 L Sodium Potassium Chloride Carbon Dioxide Anion Gap BUN Creatinine Estimated GFR (MDRD) Glucose Lactic Acid 1.2 Calcium Total Bilirubin AST ALT Alkaline Phosphatase Total Protein Albumin Globulin Albumin/Globulin Ratio Lipase Urine Color LIGHT YELLOW Urine Clarity CLEAR Urine pH 5.5 Ur Specific [place] 1.020 Urine Protein 100 H Urine Glucose (UA) 500 H Urine Ketones NEGATIVE Urine Occult Blood NEGATIVE Urine Nitrite NEGATIVE Urine Bilirubin NEGATIVE Urine Urobilinogen 0.2 (NORMAL) Ur Leukocyte Esterase NEGATIVE Urine RBC None Seen Urine WBC 0-3 Ur Epithelial Cells RARE Transitional Ur Squamous Epith Cells FEW Squamous Urine Bacteria Few Ur Microscopic Review INDICATED Urine Culture Comments NOT INDICATED Serum Ketones - Rads (name of study) No standard instances Relevant Findings:: Final report received, Other (Reviewed prior CT abdomen pelvis as well as MRCP) PD Medical Decision Making - ED course Complexity details: reviewed old records, reviewed results, re-evaluated patient, considered differential, d/w patient ED course: This is a 77-year-old female who presents after a couple of falls that occurred today when patient's knees gave out on her and she sat on the floor. She denies any injuries in his falls, did not hit her head and no loss of consciousness. She is on Eliquis but given lack of injury, and not hitting her head, CT head was not done. She denies any dizziness or prodromal symptoms prior to the fall. On arrival here her blood sugar was elevated therefore we did obtain labs for her hyperglycemia. She is not in DKA but is noted to be dehydrated with a BUN up to 82 and her creatinine is slightly above her baseline at 2.8. Her GFR is down slightly to 16. She was Given a total of 1 L of IV fluids. Her glucose was 436. She received 4 units of IV insulin with improvement to the 300s. Her lipase is also mildly elevated in the 194. Her LFTs had improved from prior. Her CBC is stable, she has no leukocytosis. Given her recent gallbladder issues and her mildly elevated lipase, I did elect to get a CT abdomen pelvis today, noncontrast given patient's renal function, and it does show ongoing possible stones or sludge in the gallbladder with possible acute cholecystitis. Patient had similar evaluation recently and was transferred To [facility] and is currently on antibiotics and no plans to undergo cholecystectomy or cholecystostomy according to patient and her son who states that they were told at [facility] that she does not have acute cholecystitis despite our findings on evaluation here. As the patient does not have new GI symptoms, I do think it stable for discharge home at this time but will need close outpatient follow-up given her gallbladder findings on exam today and mild elevation in her lipase. She was advised that if she were to develop increasing right Upper quadrant pain, vomiting, fever or other new concerns to return to the ER. Encouraged her to monitor her blood glucose closely and to stay well-hydrated, primarily with water, especially over the next few days. I did also discussed these instructions with her son who is power of divorce attorney and discussed return precautions in detail. Departure - Departure Disposition: 01 Home, Self Care Clinical Impression: Ground-level fall, Hyperglycemia, Dehydration, mild Condition: Good Instructions: ED Dehydration Comments: Verónica presented after a fall at home. She did not sustain any injuries in the fall and states that her arthritic knees gave out on her. We did notice however that her blood sugar was elevated and she appeared dehydrated on her lab work. She has been given IV fluids and a small dose of insulin here as well as some nausea medication. I did repeat her abdominal CT given her recent gallbladder issues. Her gallbladder does still show irritation on our CT scan however she has had this on the last couple of images and it does not appear changed. She does not have other signs of acute gallbladder issue however if she continues to have right upper quadrant pain, or she develops a fever, vomiting or other new concerns, please return to the ER. She should be encouraged to drink plenty of oral fluids, primarily water, to stay well- hydrated. Please schedule a follow-up with her primary doctor in the next week for a follow-up on her recent hospitalization Discharge Date/Time: 01/18/23 16:29
[2023-01-18 12:00] LABS: BASOPHILS # (AUTO) 0.1 10^3/uL (0.0-0.1); BASOPHILS % (AUTO) 0.6 %; EOSINOPHILS % (AUTO) 0.3 %; HCT - HEMATOCRIT 33.7 % (37.0-47.0); LYMPHOCYTES # (AUTO) 1.3 10^3/uL (1.5-3.5); LYMPHOCYTES % (AUTO) 14.6 %; MEAN CORPUSCULAR HEMOGLOBIN 27.8 pg (27.0-31.0); MEAN CORPUSCULAR HGB CONC 32.6 g/dL (32.0-36.0); MEAN CORPUSCULAR VOLUME 85.1 fL (81.0-99.0); MONOCYTES # (AUTO) 0.6 10^3/uL (0.0-1.0); MONOCYTES % (AUTO) 7.1 %; NEUTROPHILS # (AUTO) 6.9 10^3/uL (1.5-6.6); NEUTROPHILS % (AUTO) 77.1 %; PLT - PLATELET COUNT 301 10^3/uL (130-450); RED BLOOD COUNT 3.96 10^6/uL (4.20-5.40); RED CELL DISTRIBUTION WIDTH 14.7 % (12.0-15.0)
[2023-01-18 12:06] LABS: INR 1.4 (0.8-1.2); PT - PROTHROMBIN TIME 15.2 secs (9.9-12.6); VBG BASE EXCESS -5.2 mmol/L (-2 - +2); VBG HCO3 20.9 mmol/L (23-28); VBG OXYGEN SATURATION 60.9 % (60-80); VBG PCO2 42.6 mmHg (41-51); VBG PH 7.308 (7.31-7.41); VBG PO2 33.3 mmHg (25-47); VBG TOTAL CO2 22.2 mmol/L (24-29)
[2023-01-18 12:07] LABS: KETONES, SERUM (ACETEST) NEGATIVE (NEGATIVE)
--- OUTSIDE RECORDS SUMMARY | 2023-01-18 12:15 | EXTERNAL MEDICAL SUMMARY RPT | Continuity of Care Document ---
:1945 Author Organization [facility] Address [address] [place] [address] Phone Care Team Providers Name Role Phone Unavailable Unavailable Unavailable Lauro Loyd, Oscar Unavailable Unavailable Scotty Salmon, Japser Unavailable Unavailable Allergies No information. Encounters No information. Functional Status No information. Immunizations No information. Medications date description facility 2022-12-15 00:00 apixaban [facility] 2022-12-16 00:00 apixaban [facility] 2023-01-14 00:00 apixaban [facility] 2022-12-15 00:00 apixaban [facility] 2022-12-16 00:00 apixaban [facility] 2023-01-14 00:00 apixaban [facility] 2023-01-13 00:00 prednisone [facility] 2022-12-15 00:00 bethanechol chloride [facility] 2022-12-16 00:00 bethanechol chloride [facility] 2023-01-14 00:00 bethanechol chloride [facility] 2023-01-14 00:00 aspirin [facility] 2023-01-14 00:00 hydralazine [facility] 2023-01-14 00:00 isosorbide dinitrate [facility] 2022-12-15 00:00 apixaban [facility] 2022-12-16 00:00 apixaban [facility] 2023-01-14 00:00 apixaban [facility] 2022-12-15 00:00 apixaban [facility] 2022-12-16 00:00 apixaban [facility] 2023-01-14 00:00 apixaban [facility] 2023-01-14 00:00 [id number] [facility] 2022-12-15 00:00 apixaban [facility] 2022-12-16 00:00 apixaban [facility] 2023-01-14 00:00 apixaban [facility] 2023-01-13 00:00 prednisone [facility] 2022-12-15 00:00 apixaban [facility] 2022-12-16 00:00 apixaban [facility] 2023-01-14 00:00 apixaban [facility] 2023-01-14 00:00 [id number] [facility] 2022-12-15 00:00 digoxin [facility] 2022-12-16 00:00 digoxin [facility] 2023-01-14 00:00 digoxin [facility] 2023-01-14 00:00 aspirin [facility] 2023-01-13 00:00 prednisone [facility] 2022-12-15 00:00 atorvastatin Walk[facility] 2022-12-16 00:00 atorvastatin Walk[facility] 2023-01-14 00:00 atorvastatin Walk[facility] 2022-12-15 00:00 bethanechol chloride Walk[facility]In [facility] 2022-12-16 00:00 bethanechol chloride Walk[facility] 2023-01-14 00:00 bethanechol chloride [facility] 2022-12-15 00:00 digoxin [facility] 2022-12-16 00:00 [facility]-14 00:00 [facility]oxin [facility] 2023-01-13 00:00 prednisone Walk-In Clinic [facility] 2022-12-15 00:00 sumatriptan succinate [facility] 2022-12-16 00:00 sumatriptan succinate Walk-In Clinic [facility] 2023-01-14 00:00 sumatriptan succinate Walk[facility]In [facility] 2023-01-14 00:00 isosorbide dinitrate Walk-In Clinic [facility] 2022-12-15 00:00 diltiazem hcl [facility] 2022-12-16 00:00 diltiazem hcl [facility] 2023-01-14 00:00 diltiazem hcl Walk[facility] 2023-01-14 00:00 hydralazine [facility] 2023-01-14 00:00 isosorbide dinitrate Walk-In Clinic [facility] 2022-12-15 00:00 atorvastatin Walk-In Clinic [facility] 2022-12-16 00:00 atorvastatin Walk-In Clinic [facility] 2023-01-14 00:00 atorvastatin Walk-In Clinic [facility] 2022-12-15 00:00 atorvastatin Walk-In Clinic [facility] 2022-12-16 00:00 atorvastatin Walk-In Clinic [facility] 2023-01-14 00:00 atorvastatin Walk-In Clinic [facility] 2022-12-15 00:00 sumatriptan succinate Walk-In Clinic [facility] 2022-12-16 00:00 sumatriptan succinate Walk[facility]In Clinic [facility] 2023-01-14 00:00 sumatriptan succinate Walk[facility]In [facility] 2022-12-15 00:00 diltiazem hcl Walk-In Clinic [facility] 2022-12-16 00:00 diltiazem hcl Walk-In Clinic [facility] 2023-01-14 00:00 diltiazem hcl Walk-In Clinic [facility] 2022-12-15 00:00 atorvastatin Walk-In Clinic [facility] 2022-12-16 00:00 atorvastatin Walk-In Clinic [facility] 2023-01-14 00:00 atorvastatin Walk-In Clinic [facility] 2023-01-14 00:00 isosorbide dinitrate Walk-In Clinic [facility] 2023-01-14 00:00 hydralazine Walk-In Clinic [facility] 2023-01-14 00:00 [id number] Walk[facility]In [facility] 2022-12-15 00:00 bethanechol chloride Walk-In [facility] 2022-12-16 00:00 bethanechol chloride Walk[facility] 2023-01-14 00:00 bethanechol chloride Walk-In [facility] 2022-12-15 00:00 digoxin Walk-In Clinic [facility] 2022-12-16 00:00 digoxin Walk[facility] 2023-01-14 00:00 digoxin [facility] 2022-12-15 00:00 atorvastatin Walk-In [facility] 2022-12-16 00:00 atorvastatin Walk-[facility] 2023-01-14 00:00 atorvastatin Walk[facility] 2023-01-14 00:00 [id number] Walk[facility]In [facility] 2022-12-15 00:00 sumatriptan succinate [facility] 2022-12-16 00:00 sumatriptan succinate [facility] 2023-01-14 00:00 sumatriptan succinate [facility] 2022-12-15 00:00 atorvastatin Walk[facility] 2022-12-16 00:00 atorvastatin Walk[facility] 2023-01-14 00:00 atorvastatin Walk-[facility] 2022-12-15 00:00 atorvastatin Walk-[facility] 2022-12-16 00:00 atorvastatin Walk[facility] 2023-01-14 00:00 atorvastatin Walk[facility] 2023-01-14 00:00 aspirin Walk[facility] 2022-12-15 00:00 digoxin [facility] 2022-12-16 00:00 digoxin [facility] 2023-01-14 00:00 digoxin [facility] 2022-12-15 00:00 atorvastatin Walk-In [facility] 2022-12-16 00:00 atorvastatin Walk-In [facility] 2023-01-14 00:00 atorvastatin Walk-In [facility] 2022-12-15 00:00 sumatriptan succinate Walk-In [facility] 2022-12-16 00:00 sumatriptan succinate Walk[facility] 2023-01-14 00:00 sumatriptan succinate Walk-In [facility] 2022-12-15 00:00 diltiazem hcl Walk[facility] 2022-12-16 00:00 diltiazem hcl Walk[facility] 2023-01-14 00:00 diltiazem hcl Walk[facility] 2022-12-15 00:00 diltiazem hcl Walk[facility] 2022-12-16 00:00 diltiazem hcl Walk[facility] 2023-01-14 00:00 diltiazem hcl Walk[facility] 2022-12-15 00:00 apixaban Walk[facility]In [facility] 2022-12-16 00:00 apixaban Walk[facility] 2023-01-14 00:00 apixaban Walk[facility] 2022-12-15 00:00 apixaban Walk-In [facility] 2022-12-16 00:00 apixaban Walk[facility] 2023-01-14 00:00 apixaban Walk-In [facility] 2022-12-15 00:00 bethanechol chloride Walk-In Clinic Pr [facility] 2022-12-16 00:00 bethanechol chloride Walk-In [facility] 2023-01-14 00:00 bethanechol chloride Walk-In [facility] 2023-01-14 00:00 hydralazine Walk[facility] Problems date description facility 2022-12-15 00:00 Asthma Walk[facility] 2022-12-15 00:00 Multinodular goiter [facility] [place] 2022-12-15 00:00 Unspecified hypothyroidism Walk-In Cli [facility] 2022-12-15 00:00 Diabetes mellitus without mention of [...] rim[facility] Care & hyperlipidemia [facility] [place] 2022-12-15 00:00 Restless legs Walk-In [facility] [place] 2022-12-15 00:00 Restless legs syndrome (RLS) Walk-In [facility] Primary Care & Ancillary Services [facility] 2022-12-15 00:00 Migraine, unspecified, without Walk-In Clinic Primary Care & mention of intractable migraine, Ancilla ry Services [facility] without mention of status migrainosus 2022-12-15 00:00 Seasonal allergic rhinitis Walk-In [facility] 2022-12-15 00:00 Migraine Walk-In [facility] 2022-12-15 00:00 Hypertensive disorder Walk-In Clinic P [facility] 2022-12-15 00:00 Benign essential hypertension Walk[facility] [place] 2022-12-15 00:00 Hypothyroidism Walk[facility]In [facility] 2022-12-15 00:00 Obesity Walk-In [facility] 2022-12-15 00:00 Diabetic peripheral neuropathy Walk[facility]In [facility] 2022-12-15 00:00 Type II diabetes mellitus Walk-In Clin ic Primary Care & uncontrolled [facility] Services [facility] [...] lin 2022-12-15 00:00 Asthma, unspecified [facility] 2022-12-15 [...] lin 2022-12-15 00:00 Nontoxic multinodular goiter Walk-In [facility] 2022-12-15 00:00 Type 2 diabetes mellitus with Walk-In Clinic Primary Care & diabetic neuropathy, unspecified Ancilla [facility] 2022-12-15 00:00 Type 2 diabetes mellitus with Walk-In Clinic Primary Care & diabetic peripheral angiopathy [facility] without gangrene 2022-12-15 00:00 Type 2 diabetes mellitus with Walk-In Clinic [facility] & hyperglycemia [facility] 2022-12-15 00:00 Type 2 diabetes mellitus without Walk- In Clinic [facility] & complications [facility] 2022-12-15 00:00 Obesity, unspecified Walk-In Clinic Pr [facility] 2022-12-15 00:00 Restless legs syndrome Walk-In [facility] 2022-12-15 00:00 Migraine, unspecified, not Walk-In Cli [facility] Care & intractable, without status Ancillary Se rvices [facility] migrainosus 2022-12-15 00:00 Essential (primary) hypertension Walk- In [facility] 2022-12-15 00:00 Other seasonal allergic rhinitis Walk- In [facility] 2022-12-15 00:00 Unspecified asthma, uncomplicated Walk -[facility] 2022-12-15 00:00 Pain in right foot Walk-In [facility] 2022-12-15 00:00 Pain in right foot Walk-In [facility] 2022-12-16 00:00 Asthma Walk-In [facility] 2022-12-16 00:00 Multinodular goiter [facility] 2022-12-16 00:00 Unspecified hypothyroidism Walk-[facility] 2022-12-16 00:00 Diabetes mellitus without mention of [...] 2022-12-16 00:00 Restless legs syndrome (RLS) Walk-In [facility] 2022-12-16 00:00 Migraine, unspecified, without Walk-In Clinic Primary Care & mention of intractable migraine, Ancilla ry Services [facility] without mention of status migrainosus 2022-12-16 00:00 Seasonal allergic rhinitis [facility] 2022-12-16 00:00 Migraine Walk-In [facility] 2022-12-16 00:00 Hypertensive disorder Walk-In Clinic P [facility] 2022-12-16 00:00 Benign essential hypertension Walk-In [facility] 2022-12-16 00:00 Hypothyroidism Walk-In [facility] 2022-12-16 00:00 Obesity Walk-In Clinic Prim [...] lin 2022-12-16 00:00 Asthma, unspecified Walk-In Clinic [facility] Care & [facility] 2022-12-16 00:00 Hyperlipidemia Walk-In [facility] 2022-12-16 00:00 Hypothyroidism, unspecified Walk-In Cl in [facility] 2022-12-16 00:00 Nontoxic multinodular goiter Walk-In [facility] Primary [facility] 2022-12-16 00:00 Type 2 diabetes mellitus with Walk-In Clinic Primary Care & diabetic neuropathy, unspecified Ancilla [facility] Services [facility] 2022-12-16 00:00 Type 2 diabetes mellitus with Walk-In Clinic Primary Care & diabetic peripheral angiopathy [facility] without gangrene 2022-12-16 00:00 Type 2 diabetes mellitus with Walk-In Clinic Primary Care & hyperglycemia [facility] 2022-12-16 00:00 Type 2 diabetes mellitus without Walk- In Clinic Primary Care & complications Ancillary Services [facility] 2022-12-16 00:00 Obesity, unspecified Walk-In Clinic Pr [facility] Care & Ancillary Services [facility] 2022-12-16 00:00 Restless legs syndrome Walk-In Clinic Primary Care & Ancillary Services [facility] 2022-12-16 00:00 Migraine, unspecified, not Walk-In Cli [facility] Primary Care & intractable, without status Ancillary Se rvajay [place] migrainosus 2022-12-16 00:00 Essential (primary) hypertension Walk- In Clinic Primary Care & Ancillary Services [facility] 2022-12-16 00:00 Other seasonal allergic rhinitis Walk- In Clinic Primary Care & Anc[facility] Services [facility] 2022-12-16 00:00 Unspecified asthma, uncomplicated Walk -In Clinic Primary [facility] Services [facility] 2023-01-13 00:00 Clostridium difficile diarrhea Walk-In Clinic Primary Care & Ancillary Services [facility] 2023-01-13 00:00 Diarrhea Walk-In Clinic [facility] 2023-01-13 00:00 Gout Walk-In Clinic [facility] 2023-01-13 00:00 Enterocolitis due to Clostridium Walk- In Clinic Primary Care & difficile, not specified as Ancillary Se rvices [facility] recurrent 2023-01-13 00:00 Gout, unspecified Walk-In Clinic [facility] 2023-01-13 00:00 Diarrhea, unspecified Walk-In Clinic P [facility] 2023-01-14 00:00 Asthma Walk-In Clinic [facility] 2023-01-14 00:00 Multinodular goiter Walk-In [facility] 2023-01-14 00:00 Unspecified hypothyroidism Walk-In Cli [facility] & [facility] Services [facility] 2023-01-14 00:00 Diabetes mellitus without mention of Wa lk-In Clinic Primary Care & complication, type II or unspecified Anc illary Services [facility] type, not stated as uncontrolled 2023-01-14 00:00 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, type II or Ancillary Ser vices [facility] unspecified type, not stated as uncontrolled 2023-01-14 00:00 Diabetes mellitus with peripheral Walk- In Clinic Primary Care & circulatory disorders, type II or Ancill [facility] Services [facility] unspecified type, not stated as uncontrolled 2023-01-14 00:00 Diabetes mellitus with other Walk-In Cl inic Primary Care & specified manifestations, type II or Anc illary Services [facility] unspecified type, not stated as uncontrolled 2023-01-14 00:00 Other and unspecified Walk-In Clinic P [facility] Care & hyperlipidemia [facility] 2023-01-14 00:00 Restless legs Walk-In [facility] 2023-01-14 00:00 Restless legs syndrome (RLS) Walk-In [facility] Primary Care & [facility] 2023-01-14 00:00 Migraine, unspecified, without Walk-In Clinic Primary Care & mention of intractable migraine, Ancilla ry Services [facility] without mention of status migrainosus 2023-01-14 00:00 Seasonal allergic rhinitis Walk-In [facility] 2023-01-14 00:00 Migraine Walk-In [facility] 2023-01-14 00:00 Hypertensive disorder Walk-In Clinic P [facility] 2023-01-14 00:00 Benign essential hypertension Walk-In [facility] 2023-01-14 00:00 Hypothyroidism Walk-In [facility] 2023-01-14 00:00 Obesity Walk-In Clinic [facility] 2023-01-14 00:00 Diabetic peripheral neuropathy Walk-In [facility] 2023-01-14 00:00 Type II diabetes mellitus Walk-In Clin ic Primary Care & uncontrolled [facility] 2023-01-14 00:00 Type 2 diabetes mellitus well Walk-In Clinic Primary Care & controlled [facility] 2023-01-14 00:00 Allergic rhinitis due to pollen Walk-I n Clinic [facility] 2023-01-14 00:00 Asthma, unspecified Walk-In Clinic [facility] Care & [facility] Services [facility] 2023-01-14 00:00 Hyperlipidemia Walk-In Clinic [facility] Services [facility] 2023-01-14 00:00 Hypothyroidism, unspecified Walk-In Cl in Primary Care & Ancillary Services [facility] 2023-01-14 00:00 Nontoxic multinodular goiter Walk-In [facility] Primary Care & Ancillary Services [facility] 2023-01-14 00:00 Type 2 diabetes mellitus with Walk-In Clinic Primary Care & diabetic neuropathy, unspecified Ancilla ry Services [facility] 2023-01-14 00:00 Type 2 diabetes mellitus with Walk-In Clinic Primary Care & diabetic peripheral angiopathy Ancillary Services [facility] without gangrene 2023-01-14 00:00 Type 2 diabetes mellitus with Walk-In Clinic Primary Care & hyperglycemia Ancillary Services [facility] 2023-01-14 00:00 Type 2 diabetes mellitus without Walk- In Clinic Primary Care & complications Ancillary Services [facility] 2023-01-14 00:00 Obesity, unspecified Walk-In Clinic Pr imary Care & Ancillary Services [facility] 2023-01-14 00:00 Restless legs syndrome Walk-In Clinic Primary Care & Ancillary Services [facility] 2023-01-14 00:00 Migraine, unspecified, not Walk-In Cli [facility] Primary Care & intractable, without status Ancillary Se rvices [facility] migrainosus 2023-01-14 00:00 Essential (primary) hypertension Walk- In Clinic Primary Care & Ancillary Services [facility] 2023-01-14 00:00 Other seasonal allergic rhinitis Walk- In Clinic Primary Care & Ancillary Services [facility] 2023-01-14 00:00 Unspecified asthma, uncomplicated Walk -In [facility] Procedures date description facility 2022-12-15 00:00 Visit Code Hold Walk-In [facility] 2022-12-15 00:00 Visit Code Hold Walk-In [facility] [place] 2023-01-13 00:00 Visit Code Hold Walk-In [facility] 2022-12-15 00:00 XR FOOT COMPLETE MIN 3 VIEW Walk-In Cl in Primary Care & Ancillary Services [facility] 2022-12-15 00:00 XR FOOT COMPLETE MIN 3 VIEW Walk-In Cl in Primary Care & Ancillary Services [facility] Results/Labs No information. Social History date description facility 2022-12-15 00:00 Never smoker Walk-In Clinic [facility] 2022-12-15 00:00 Never smoker Walk-In [facility] Services [facility] 2023-01-13 00:00 Never smoker Walk-In [facility] & [facility] Vital Signs date measurement value units 2022-12-15 00:00 BMI 40.75 kg/m2 2022-12-15 00:00 BP_diastolic 102 mmHg 2022-12-15 00:00 BP_systolic 152 mmHg 2022-12-15 00:00 heart_rate 61 /min 2022-12-15 00:00 height_metric 157.48 cm 2022-12-15 00:00 height_standard 62 in 2022-12-15 00:00 respiration_rate 20 /min 2022-12-15 00:00 temperature_metric 36.39 C 2022-12-15 00:00 temperature_standard 97.5 F 2022-12-15 00:00 weight_metric 100.7 kg 2022-12-15 00:00 weight_standard 222 lb 2023-01-13 00:00 BMI 40.75 kg/m2 2023-01-13 00:00 BP_diastolic 64 mmHg 2023-01-13 00:00 BP_systolic 114 mmHg 2023-01-13 00:00 heart_rate 102 /min 2023-01-13 00:00 height_metric 157.48 cm 2023-01-13 00:00 height_standard 62 in 2023-01-13 00:00 respiration_rate 16 /min 2023-01-13 00:00 weight_metric 100.7 kg 2023-01-13 00:00 weight_standard 222 lb
[2023-01-18 12:18] LABS: ALBUMIN 3.1 g/dL (3.2-5.5); ALBUMIN/GLOBULIN RATIO 0.8 (1.0-2.2); ALKALINE PHOSPHATASE 221 IU/L (42-121); ALT ALANINE AMINOTRANSFERASE 37 IU/L (10-60); AST ASPARTATE AMINOTRANSFERASE 24 IU/L (10-42); BILIRUBIN,TOTAL 0.7 mg/dL (0.2-1.0); CALCIUM 8.9 mg/dL (8.5-10.3); CARBON DIOXIDE - CO2 23 mmol/L (21-32); CHLORIDE 99 mmol/L (101-111); CREATININE 2.8 mg/dL (0.4-1.0); GFR - MDRD 16 (>89); GLUCOSE 463 mg/dL (70-100); LIPASE 194 U/L (22-51); POTASSIUM 4.3 mmol/L (3.5-5.0); SODIUM 132 mmol/L (135-145); TOTAL PROTEIN 6.8 g/dL (6.7-8.2)
[2023-01-18 12:21] LABS: BUN - BLOOD UREA NITROGEN 82 mg/dL (6-20)
[2023-01-18] MEDS ORDERED: INSULIN REGULAR HUMAN 100 UNIT/1 ML 10 ML MDV IVP STA (12:24)
[2023-01-18 13:03] LABS: BILIRUBIN,URINE NEGATIVE (NEGATIVE); GLUCOSE, URINE (UA) 500 mg/dL (NEGATIVE); KETONES,URINE (UA) NEGATIVE (NEGATIVE); LEUKOCYTE ESTERASE, URINE NEGATIVE (NEGATIVE); NITRITE,URINE NEGATIVE (NEGATIVE); OCCULT BLOOD,URINE NEGATIVE (NEGATIVE); PH,URINE 5.5 PH (5.0-7.5); PROTEIN,URINE 100 mg/dL (NEGATIVE); UROBILINOGEN,URINE 0.2 (NORMAL) E.U./dL (NORMAL)
[2023-01-18 13:04] LABS: CLARITY,URINE CLEAR (CLEAR)
[2023-01-18 13:16] LABS: BACTERIA,URINE Few /HPF (None Seen); EPITHELIAL CELLS,UR RARE Transitional /HPF (<= Few); RBC,URINE None Seen /HPF (0-5); SQUAMOUS EPITHELIAL CELL,UR FEW Squamous (<= Few); WBC,URINE 0-3 /HPF (0-5)
--- NOTE | 2023-01-18 14:31 | CT Report ---
PROCEDURE: ABDOMEN/PELVIS WO INDICATIONS: RUQ pain, elevated lipase TECHNIQUE: Noncontrast 5 mm thick sections acquired from the diaphragms to the symphysis. 5 mm coronal and sagi ttal reformats were then performed. For radiation dose reduction, the following was used: automated exposure control, adjustment of mA and/or kV according to patient size. COMPARISON: 01/01/2023. Correlation is also made with MRCP, 01/02/2023. Correlation is also made with ultrasound, 01/01/2023. FINDINGS: Image quality: There is artifact associated with the metallic hardware. Lung bases and heart: Unremarkable. Liver: Unremarkable. Gallbladder and biliary tree: There are likely layering gallstones. Mild pericholecystic fluid can be seen. Spleen: Unremarkable. Pancreas: Unremarkable. Adrenals: Unremarkable. Kidneys and ureters: Unremarkable. Bowel and peritoneum: No bowel distension. Mild right upper quadrant free fluid can be seen. Lymph no evan: No central or retroperitoneal adenopathy. Vessels: Unremarkable. PELVIS Reproductive organs: This patient is status post hysterectomy. No adnexal masses can be seen. Bladder: Unremarkable. Lymph nodes: Unremarkable. Bones: No aggressive osseous abnormality. Bilateral hip arthroplasty hardware is seen. Age-appropriat e degenerative changes are seen. Other: There is a fat-containing right inguinal hernia present. IMPRESSION: Abnormal gallbladder, with layering stones and pericholecystic fluid. A mild degree of free fluid can be seen within the right upper quadrant of the abdomen. Concern is raised for cholecystitis. Additional findings: Hysterectomy Right fat-containing inguinal hernia Bilateral hip arthroplasty hardware. Reviewed by: Bobby Caraballo MD on 01/18/2023 1:30 PM AKDT Approved by: Bobby Caraballo MD on 01/18/2023 1:30 PM AKDT Station ID: [id number]
[2023-01-18] MEDS ORDERED: ONDANSETRON 4 MG/2 ML VIAL IVP STA (14:47)
[2023-01-18 15:26] VITALS: BP 136/98
== END 2023-01-18 16:29 | disposition home or self-care (01) ==
LOC: EDUNIT# → ED 11:30
DX: Z04.3 Encounter for examination and observation following other accident (principal); W19.XXXA Unspecified fall, initial encounter; Z91.81 History of falling; E11.65 Type 2 diabetes mellitus with hyperglycemia; I11.0 Hypertensive heart disease with heart failure; I50.9 Heart failure, unspecified; E78.00 Pure hypercholesterolemia, unspecified; I48.91 Unspecified atrial fibrillation; E03.9 Hypothyroidism, unspecified; Z79.01 Long term (current) use of anticoagulants; Z79.84 Long term (current) use of oral hypoglycemic drugs; Z86.73 Personal history of transient ischemic attack (TIA), and cerebral infarction without residual deficits; Z79.4 Long term (current) use of insulin
CPT/HCPCS: 36415; 74176; 80053; 81001; 82009; 82803; 83605; 83690; 85025; 85610; 96361; 96374; 99284; J1815; 81003; 87086

== ENCOUNTER 2023-02-03 13:40 | Outpatient (CLI) | payer MEDICARE, OTHER, MEDICAID ==
--- NOTE | 2023-02-03 15:33 | MRI Report ---
PROCEDURE: MRCP WO INDICATIONS: LESION OF SPLEEN CONTRAST: None TECHNIQUE: Coronal ultra fast SE through the abdomen, axial 2-D spoiled GE in- and [id number], and breath-hold T2 FSE with fat saturation through the biliary system and pancreas. Oblique coronal and axial thin- slice ultra fast SE, radial thick-slab ultra fast SE centered on the extrahepatic bile ducts. COMPARISON: MR 01/02/2023 FINDINGS: Image quality: Excellent. Pancreas and biliary system: Cholelithiasis. Decreased thickening of the gallbladder wall, now nondis tended. Stable pancreatic cystic lesion in the head measuring 8 mm. Other solid organs: Clinically significant hepatic steatosis. Stable size and appearance of the great er than 10 T2 intermediate lesions throughout the spleen. Examples include: -Stable 2.7 cm mass, lateral (09/01). -Stable 2.5 cm mass, anterior (08/30). Nodes and vessels: No retroperitoneal or mesenteric adenopathy by size criteria. Aorta and inferior vena cava are normal in size. Bowel and peritoneum: Unenhanced bowel loops are normal in caliber. No free fluid. Lung bases: Small right effusion. Bones and soft tissues: No ventral hernias. Bone marrow is of normal overall signal. IMPRESSION: Stable splenic lesions. Six-month follow-up with contrast is indicated. Cholelithiasis. Resolved gallbladder wall thickening. Reviewed by: Henry Dasilva on 02/03/2023 3:32 PM PDT Approved by: Henry Dasilva on 02/03/2023 3:32 PM PDT Station ID: [id number]
== END 2023-02-03 13:41 | disposition home or self-care (01) ==
LOC: DI 13:40
PROVIDERS: ATTEND Nurse Practitioner Family
DX: D73.89 Other diseases of spleen (principal); K80.20 Calculus of gallbladder without cholecystitis without obstruction

== ENCOUNTER 2023-02-09 08:00 | Outpatient (CLI) | payer MEDICARE, OTHER, MEDICAID ==
[2023-02-09 19:58] LABS: BASOPHILS # (AUTO) 0.1 10^3/uL (0.0-0.1); BASOPHILS % (AUTO) 0.5 %; EOSINOPHILS # (AUTO) 2.2 10^3/uL (0.0-0.7); EOSINOPHILS % (AUTO) 22.5 %; HCT - HEMATOCRIT 35.8 % (37.0-47.0); HGB - HEMOGLOBIN 11.4 g/dL (12.0-16.0); LYMPHOCYTES # (AUTO) 1.2 10^3/uL (1.5-3.5); MEAN CORPUSCULAR HEMOGLOBIN 28.2 pg (27.0-31.0); MEAN CORPUSCULAR HGB CONC 31.8 g/dL (32.0-36.0); MEAN CORPUSCULAR VOLUME 88.6 fL (81.0-99.0); MEAN PLATELET VOLUME 12.1 fL (7.9-10.8); MONOCYTES # (AUTO) 0.7 10^3/uL (0.0-1.0); MONOCYTES % (AUTO) 7.7 %; NEUTROPHILS # (AUTO) 5.5 10^3/uL (1.5-6.6); NEUTROPHILS % (AUTO) 56.7 %; PLT - PLATELET COUNT 214 10^3/uL (130-450); RED BLOOD COUNT 4.04 10^6/uL (4.20-5.40); RED CELL DISTRIBUTION WIDTH 16.2 % (12.0-15.0); WHITE BLOOD COUNT 9.7 x10^3/uL (4.8-10.8)
[2023-02-09 20:01] LABS: SLIDE REVIEW? Indicated
[2023-02-09 20:03] LABS: ALBUMIN 3.1 g/dL (3.2-5.5); ALBUMIN/GLOBULIN RATIO 0.9 (1.0-2.2); BILIRUBIN,TOTAL 0.8 mg/dL (0.2-1.0); CALCIUM 8.9 mg/dL (8.5-10.3); CREATININE 2.2 mg/dL (0.4-1.0); POTASSIUM 3.5 mmol/L (3.5-5.0); TOTAL PROTEIN 6.7 g/dL (6.7-8.2)
[2023-02-09 20:58] LABS: PLATELET MORPHOLOGY NORMAL APPEARANCE (NORMAL); RBC MORPHOLOGY (MULTIPLE) NORMAL APPEARANCE (NORMAL)
[2023-02-09 20:59] LABS: DIFFERENTIAL COMMENT MANUAL=AUTO DIFF; PLATELET ESTIMATE, MANUAL NORMAL (130-450,000) (NORMAL)
== END 2023-02-09 23:59 | disposition home or self-care (01) ==
LOC: LAB.S 08:00
PROVIDERS: ATTEND Registered Nurse
DX: R19.7 Diarrhea, unspecified (principal)
CPT/HCPCS: 36415; 80053; 85025

== ENCOUNTER 2023-02-10 12:39 | Emergency (ER) | payer MEDICARE, OTHER, MEDICAID ==
[2023-02-10 13:16] LABS: BILIRUBIN,URINE NEGATIVE (NEGATIVE); CLARITY,URINE CLEAR (CLEAR); GLUCOSE, URINE (UA) NEGATIVE (NEGATIVE); KETONES,URINE (UA) NEGATIVE (NEGATIVE); LEUKOCYTE ESTERASE, URINE NEGATIVE (NEGATIVE); NITRITE,URINE NEGATIVE (NEGATIVE); OCCULT BLOOD,URINE NEGATIVE (NEGATIVE); PROTEIN,URINE >=300 mg/dL (NEGATIVE); UROBILINOGEN,URINE 0.2 (NORMAL) E.U./dL (NORMAL)
[2023-02-10 13:20] LABS: BACTERIA,URINE Few /HPF (None Seen); RBC,URINE 0-5 /HPF (0-5); SQUAMOUS EPITHELIAL CELL,UR MOD Squamous (<= Few); WBC,URINE 0-3 /HPF (0-5)
[2023-02-10 13:36] LABS: BASOPHILS % (AUTO) 0.7 %; EOSINOPHILS % (AUTO) 21.5 %; HCT - HEMATOCRIT 36.6 % (37.0-47.0); HGB - HEMOGLOBIN 11.7 g/dL (12.0-16.0); LYMPHOCYTES % (AUTO) 11.1 %; MEAN CORPUSCULAR VOLUME 87.6 fL (81.0-99.0); MEAN PLATELET VOLUME 11.7 fL (7.9-10.8); MONOCYTES % (AUTO) 6.1 %; NEUTROPHILS % (AUTO) 60.2 %; PLT - PLATELET COUNT 229 10^3/uL (130-450); RED BLOOD COUNT 4.18 10^6/uL (4.20-5.40); RED CELL DISTRIBUTION WIDTH 16.1 % (12.0-15.0); WHITE BLOOD COUNT 9.9 x10^3/uL (4.8-10.8)
[2023-02-10 13:38] LABS: SLIDE REVIEW? Indicated
[2023-02-10 13:40] LABS: ABNORMAL LYMPHS % (MANUAL) 0 %
[2023-02-10 13:48] LABS: ALBUMIN 3.2 g/dL (3.2-5.5); ALBUMIN/GLOBULIN RATIO 0.9 (1.0-2.2); BILIRUBIN,TOTAL 0.7 mg/dL (0.2-1.0); CALCIUM 8.7 mg/dL (8.5-10.3); CREATININE 2.2 mg/dL (0.4-1.0); POTASSIUM 3.5 mmol/L (3.5-5.0); TOTAL PROTEIN 6.8 g/dL (6.7-8.2)
--- NOTE | 2023-02-10 13:50 | ED Physician Documentation ---
PD HPI ABD PAIN - Stated complaint Stated Complaint: LOWER ABD PX,DIARRHEA - Chief complaint Chief Complaint: Abd Pain - History obtained from History obtained from: Patient - History of Present Illness Timing - onset: How many weeks ago (6) Timing - duration: Weeks (6) Timing - details: Intermittant (several times daily with attempted PO intkae.) Quality: Cramping, Aching, Pain Location: RUQ Radiation: No: Chest, Lower back Improved by: No: Eating, Position Worsened by: Eating Associated symptoms: Nausea, Diarrhea (for past 2-3 weeks). No: Fever, Vomiting Similar symptoms before: Diagnosis (had biliary obstruction and cholecystitis 6 weeks ago and xferred to [facility]. Caregiver states the patient "passed a stone" and things improved, and surgery was deferred due to comorbidities.) Recently seen: Admitted Review of Systems Constitutional: denies: Fever Cardiac: reports: Pedal edema. denies: Chest pain / pressure, Calf pain Respiratory: reports: Dyspnea (chronic with mild activity due to CHF.). denies: Cough GI: reports: Abdominal Pain, Nausea, Diarrhea. denies: Abdominal Swelling, Vomiting, Constipation, Bloody / black stool PD PAST MEDICAL HISTORY - Past Medical History Cardiovascular: Congestive heart failure, Hypertension, High cholesterol, Atrial fibrillation, Murmur Respiratory: Asthma, Pneumonia, Shortness of breath, Sleep apnea Neuro: CVA, Migraines, Other Endocrine/Autoimmune: Type 2 diabetes, HyPOthyroidism, Other GI: GERD, Hepatitis, Other COMMODITIES REQUIREMENTS ANALYST: None : Incontinence, Frequency HEENT: Chronic vision loss, Chronic hearing loss Psych: None Musculoskeletal: Osteoarthritis, Chronic back pain, Other Derm: None - Past Surgical History Past Surgical History: Yes Ortho: Hip replacement, Knee replacement, Carpal Tunnel surgery /COMMODITIES REQUIREMENTS ANALYST: Dilation and currettage, Tubal ligation, Hysterectomy, Oophrectomy - Present Medications Home Medications: Ambulatory Orders Medication Instructions Recorded Confirmed EPINEPHrine [Epipen 2-Justin] 0.3 mg IM ONCE PRN 08/14/17 10/26/21 Insulin Glargine [Lantus Solostar] 45 unit SQ DAILY 08/14/17 01/02/23 Sertraline HCl 50 mg PO QPM 02/26/18 01/02/23 Levothyroxine Sodium 125 mcg PO QDAC 04/11/19 01/02/23 cloNIDine HCL [Clonidine HCl] 0.2 mg PO QPM 04/11/19 01/02/23 Bethanechol [Urecholine] 25 mg PO BID 10/24/20 01/02/23 Apixaban [Eliquis] 2.5 mg PO BID 01/02/23 01/02/23 Atorvastatin [Lipitor] 20 mg PO QPM 01/02/23 01/02/23 Digoxin [Lanoxin] 125 mcg 01/02/23 Metoprolol Succinate [Toprol Xl] 200 mg PO BID 01/02/23 01/02/23 dilTIAZem HCL [Diltiazem 24Hr ER 120 mg PO BID 01/02/23 01/02/23 (Xr)] glipiZIDE [Glipizide] 10 mg PO BID 01/02/23 01/02/23 Hyoscyamine [Levsin] 0.125 mg SL AC PRN #20 tablet 02/10/23 Ondansetron Odt [Zofran] 4 mg TL Q6H PRN #10 tablet 02/10/23 Sucralfate [Carafate] 1 gm PO ACHS #28 tablet 02/10/23 Vancomycin [Vancocin] 125 mg PO QID 10 Days #40 cap 02/10/23 - Allergies Allergies/Adverse Reactions: Allergies Allergy/AdvReac Type Severity Reaction Status Date / Time atorvastatin Allergy Cramps Verified 02/10/23 12:52 bee venom protein (honey bee) Allergy Unknown Verified 02/10/23 12:52 cefuroxime [From Ceftin] Allergy Unknown Verified 02/10/23 12:52 codeine Allergy Nausea Verified 02/10/23 12:52 hydrocodone [From Vicodin] Allergy Nausea Verified 02/10/23 12:52 Influenza Virus Vaccines Allergy Unknown Verified 02/10/23 12:52 lisinopril Allergy Respiratory Verified 02/10/23 12:52 mushroom Allergy Anaphylaxis Verified 02/10/23 12:52 nitroglycerin Allergy Headache Verified 02/10/23 12:52 propoxyphene Allergy Unknown Verified 02/10/23 12:52 [From Darvocet-N] tramadol Allergy Headache Verified 02/10/23 12:52 - Social History Does the pt smoke?: No Smoking Status: Never smoker Does the pt drink ETOH?: No Does the pt have substance abuse?: No - Immunizations Immunizations are current?: Yes - POLST Patient has POLST: No POLST Status: Full Code PD ED PE NORMAL - Vitals Vital signs reviewed: Yes - General General: Alert and oriented X 3, Well developed/nourished - HEENT HEENT: Atraumatic, PERRL (nonicteric) - Neck Neck: Supple, no meningeal sign, No adenopathy - Cardiac Cardiac: No: RRR (irregular but rate controlled at just over 100.) - Respiratory Respiratory: No respiratory distress. No: Clear bilaterally (mostly clear with just mild basilar fine crackles both sides. ) - Abdomen Abdomen: Normal bowel sounds, Soft, No organomegaly, Other (RUQ tender to palpation and mildly to percussion. No rebound. No referred tenderness. Lower abd not tender. ) - Female Female : Deferred - Rectal Rectal: Deferred - Back Back: No CVA TTP - Derm Derm: Normal color, Warm and dry - Extremities Extremities: No calf tenderness / cord, Other (1+ edema both lower legs. ) Results - Vitals Vitals: Vital Signs - 24 hr 02/10/23 02/10/23 02/10/23 12:45 14:05 16:30 Temperature 36.5 C Heart Rate 109 H 94 81 Respiratory 16 12 Rate Blood Pressure 118/68 112/85 H 109/73 O2 Saturation 98 95 92 Oxygen O2 Source Room air - Labs Labs: Laboratory Tests 02/10/23 02/10/23 02/10/23 13:04 13:06 13:30 WBC 9.9 RBC 4.18 L Hgb 11.7 L Hct 36.6 L MCV 87.6 MCH 28.0 MCHC 32.0 RDW 16.1 H Plt Count 229 MPV 11.7 H Neut # (Auto) Not Reportable Lymph # (Auto) Not Reportable [place] # (Auto) Not Reportable Eos # (Auto) Not Reportable Baso # (Auto) Not Reportable Absolute Nucleated RBC Not Reportable Total Counted 100 Band Neuts % (Manual) 1 Reactive Lymphs % (Man) 7 Abnorm Lymph % (Manual) 0 Nucleated RBC % Not Reportable Neutrophils # (Manual) 5.7 Lymphocytes # (Manual) 1.5 Monocytes # (Manual) 0.6 Eosinophils # (Manual) 2.1 H Basophils # (Manual) 0.0 Differential Comment MANUAL DIFFERENTIAL Manual Slide Review Indicated Sodium Potassium Chloride Carbon Dioxide Anion Gap BUN Creatinine Estimated GFR (MDRD) Glucose Calcium Magnesium Total Bilirubin AST ALT Alkaline Phosphatase B-Natriuretic Peptide Total Protein Albumin Globulin Albumin/Globulin Ratio Lipase Urine Color YELLOW Urine Clarity CLEAR Urine pH 6.0 Ur Specific [place] 1.025 Urine Protein >=300 H Urine Glucose (UA) NEGATIVE Urine Ketones NEGATIVE Urine Occult Blood NEGATIVE Urine Nitrite NEGATIVE Urine Bilirubin NEGATIVE Urine Urobilinogen 0.2 (NORMAL) Ur Leukocyte Esterase NEGATIVE Urine RBC 0-5 Urine WBC 0-3 Ur Squamous Epith Cells MOD Squamous H Urine Bacteria Few Ur Microscopic Review INDICATED Urine Culture Comments NOT INDICATED Stl C. diff Tox B Gene POSITIVE A* 02/10/23 02/10/23 02/10/23 13:30 13:30 13:30 WBC RBC Hgb Hct MCV MCH MCHC RDW Plt Count MPV Neut # (Auto) Lymph # (Auto) [place] # (Auto) Eos # (Auto) Baso # (Auto) Absolute Nucleated RBC Total Counted Band Neuts % (Manual) Reactive Lymphs % (Man) Abnorm Lymph % (Manual) Nucleated RBC % Neutrophils # (Manual) Lymphocytes # (Manual) Monocytes # (Manual) Eosinophils # (Manual) Basophils # (Manual) Differential Comment Manual Slide Review Sodium 142 Potassium 3.5 Chloride 109 Carbon Dioxide 23 Anion Gap 10.0 BUN 40 H Creatinine 2.2 H Estimated GFR (MDRD) 22 L Glucose 124 H Calcium 8.7 Magnesium 1.5 L Total Bilirubin 0.7 AST 16 ALT 14 Alkaline Phosphatase 145 H B-Natriuretic Peptide 1388 H Total Protein 6.8 Albumin 3.2 Globulin 3.6 Albumin/Globulin Ratio 0.9 L Lipase 52 H Urine Color Urine Clarity Urine pH Ur Specific [place] Urine Protein Urine Glucose (UA) Urine Ketones Urine Occult Blood Urine Nitrite Urine Bilirubin Urine Urobilinogen Ur Leukocyte Esterase Urine RBC Urine WBC Ur Squamous Epith Cells Urine Bacteria Ur Microscopic Review Urine Culture Comments Stl C. diff Tox B Gene - Rads (name of study) right upper abd U/S Relevant Findings:: Prelim report reviewed, See rad report, Other (discussed with U/S tech, who states some gallstones and sludge. Wall 2 mm and CBD 5 mm, so not enlarged. No ductal objects seen. Pancreas poorly seen due to gas. ) PD Medical Decision Making - ED course Complexity details: reviewed results, considered differential (has had ongoing RUQ pain with eating. Most likely gallbladder as that was the problem 6 weeks ago, along with ductal blockage. Xfer to and was there with improvement without surgery. Concern by surgery that pt higher risk with her CHF/heart disease. Has had pains several times daily since.), d/w patient, d/w family (caregiver with her who knows patient well. ) ED course: The patient states daily pain and poor intake due to pain with oral intake. Able to do fluids though still hurts moderately. Presumed gallbladder problem. But could also consider gastritis/duodenitis. Patient is on omperazole per her med list brought with her by caregiver. Has also had now couple weeks of soft to water diarrhea without blood/melena. Some cramping lower pains at times. Here in ED, we obtained the discharge summary from (after couple of hours time) and got LFTs/lipase to eval for function of those, and U/S upper abd to eval if acute cholecystitis. U/S showed gallstones and sludge but no wall thickening and 5 cm CBD (so normal range). I also reviewed an MRCP she had a week ago that showed gallstones, stable liver lesions. She did give stool sample to test for c diff/culture. Her labs show chronic renal failure with creatinine 2.2 and is in chronic range/baseline for her. BNP is elevated c/w CHF but her lung sounds are actuallly fairly clear and mild leg edema only. I talked with Srinivasan Fox, her PCP and discussed findings/symptoms. Providers issue has been getting patient and family decision makers/POA to meet together for clear determination of extent of treatment wanted. IE whether to advocate surgery in lieu of her CHF/CRF/etc. Will add Carafate and levsin for possible gastritis and also more likely biliary spasm. After talking with PCP, I then also got the stool study back positive for C.Diff. Will add oral Vanco and I don't think this changes other plans. It would be nice though if some of her upper abd symptoms relate to the C.Diff, but is more likely gallbladder as was the case 6 weeks ago. Departure - Departure Disposition: 01 Home, Self Care Clinical Impression: Upper abdominal pain, Dyspepsia, Gallstones, C. difficile diarrhea Condition: Stable Record reviewed to determine appropriate education?: Yes Instructions: ED Gallstone W Biliary Colic Follow-Up: SRINIVASAN FOX ARNP [Primary Care Provider] - Prescriptions: Sucralfate [Carafate] 1 gm PO ACHS #28 tablet Hyoscyamine [Levsin] 0.125 mg SL AC PRN #20 tablet PRN Reason: Abdominal Pain Vancomycin [Vancocin] 125 mg PO QID 10 Days #40 cap Ondansetron Odt [Zofran] 4 mg TL Q6H PRN #10 tablet PRN Reason: Nausea / Vomiting Comments: For your upper abdominal pain, it likely is gallbladder spasms related to gallstones and sludge. That had been the cause with the previous episode and admission at [facility]. We can go with an antispasmodic medicine called Levsin and see if that helps reduce the pain episodes with eating. It is possible there may be some element of gastritis or duodenitis. I would continue with your omeprazole and also your pancreatic enzymes and add sacral fate 3-4 times daily to help coat the stomach. This would be mainly Before meals and bedtime. Your diarrhea is being triggered or caused by a infection called C. difficile. I prescribed vancomycin orally 4 times daily for 10 days. This route of it is not absorbed from the intestines or works only on the infection in the air and will not have an effect on kidney function etc. I sent these prescriptions to [facility] in [place]. I talked with the baltazar fox your primary care provider. She would like you to make an appointment where you and your POA/decision-makers can all be present to decide subsequent course of care with regard to consideration of gallbladder surgery etc. Discharge Date/Time: 02/10/23 17:13
--- OUTSIDE RECORDS SUMMARY | 2023-02-10 13:59 | EXTERNAL MEDICAL SUMMARY RPT | Continuity of Care Document ---
:1945 Author Organization [facility] Address [address] [place] [address] Phone Care Team Providers Name Role Phone Unavailable Unavailable Unavailable Oscar Restrepo Md Unavailable Unavailable Lili Aguilera Robert Unavailable Unavailable Jasper Fajardo Pa-C Unavailable Unavailable Jake Patient Registrar, Iona Unavailable Unava ilable Emily, Provider Unavailable Unavailable Allergies No information. Encounters No information. Functional Status No information. Immunizations No information. Medications date description facility 2022-12-15 00:00 apixaban [facility] 2022-12-16 00:00 apixaban [facility] 2023-01-14 00:00 apixaban [facility] 2023-01-18 00:00 apixaban [facility] 2023-01-26 00:00 apixaban [facility] 2023-01-27 00:00 apixaban [facility] 2023-02-09 00:00 apixaban [facility] 2023-02-10 00:00 apixaban [facility] 2022-12-15 00:00 apixaban [facility] 2022-12-16 00:00 apixaban [facility] 2023-01-14 00:00 apixaban [facility] 2023-01-18 00:00 apixaban [facility] 2023-01-26 00:00 apixaban [facility] 2023-01-27 00:00 apixaban [facility] 2023-02-09 00:00 apixaban [facility] 2023-02-10 00:00 apixaban [facility] 2023-02-09 00:00 oxycodone [facility] 2023-01-18 00:00 bethanechol chloride [facility] 2023-01-26 00:00 bethanechol chloride [facility] 2023-01-27 00:00 bethanechol chloride [facility] 2023-02-09 00:00 bethanechol chloride [facility] 2023-02-10 00:00 bethanechol chloride [facility] 2023-01-14 00:00 aspirin [facility] 2023-01-18 00:00 aspirin [facility] 2023-01-26 00:00 aspirin [facility] 2023-01-27 00:00 aspirin [facility] 2023-02-09 00:00 aspirin [facility] 2023-02-10 00:00 aspirin [facility] 2023-01-14 00:00 hydralazine [facility] 2023-01-18 00:00 hydralazine [facility] 2023-01-26 00:00 hydralazine [facility] 2023-01-27 00:00 hydralazine [facility] 2023-02-09 00:00 hydralazine [facility] 2023-02-10 00:00 hydralazine [facility] 2023-02-09 00:00 oxycodone [facility] 2023-01-14 00:00 isosorbide dinitrate [facility] 2023-01-18 00:00 isosorbide dinitrate [facility] 2023-01-26 00:00 isosorbide dinitrate [facility] 2023-01-27 00:00 isosorbide dinitrate [facility] 2023-02-09 00:00 isosorbide dinitrate [facility] 2023-02-10 00:00 isosorbide dinitrate [facility] 2022-12-15 00:00 apixaban [facility] 2022-12-16 00:00 apixaban [facility] 2023-01-14 00:00 apixaban [facility] 2023-01-18 00:00 apixaban [facility] 2023-01-26 00:00 apixaban [facility] 2023-01-27 00:00 apixaban [facility] 2023-02-09 00:00 apixaban [facility] 2023-02-10 00:00 apixaban [facility] 2022-12-15 00:00 apixaban [facility] 2022-12-16 00:00 apixaban [facility] 2023-01-14 00:00 apixaban [facility] 2023-01-18 00:00 apixaban [facility] 2023-01-26 00:00 apixaban [facility] 2023-01-27 00:00 apixaban [facility] 2023-02-09 00:00 apixaban [facility] 2023-02-10 00:00 apixaban [facility] 2023-01-14 00:00 hynvcx-jvrllnsx-qivgfjw [facility] 2023-01-18 00:00 gnxeva-ecwmachg-yjoagsw [facility] 2023-01-26 00:00 zsofvz-vdsncrqc-kbdiqpp [facility] 2023-01-27 00:00 rxtmdd-lcphfhzf-zobpljf [facility] 2023-02-09 00:00 vuiczy-lubgrukk-inbrmeq [facility] 2023-02-10 00:00 yqrdsb-dkqspmie-ekwfkiv [facility] 2022-12-15 00:00 apixaban [facility] 2022-12-16 00:00 apixaban [facility] 2023-01-14 00:00 apixaban [facility] 2023-01-18 00:00 apixaban [facility] 2023-01-26 00:00 apixaban [facility] 2023-01-27 00:00 apixaban [facility] 2023-02-09 00:00 apixaban [facility] 2023-02-10 00:00 apixaban [facility] 2023-01-18 00:00 apixaban [facility] 2023-01-26 00:00 apixaban [facility] 2023-01-27 00:00 apixaban [facility] 2023-02-09 00:00 apixaban [facility] 2023-02-10 00:00 apixaban [facility] 2023-01-14 00:00 untbih-orupqbpe-jphdtic [facility] 2023-01-18 00:00 dbpqgl-ikccwdsl-bslsmya [facility] 2023-01-26 00:00 gvbpzt-mcscwjiq-zrtlyth [facility] 2023-01-27 00:00 jtwwqz-ippbuwau-ybfbujb [facility] 2023-02-09 00:00 fjhwuj-muvtrryq-fwbdaeu [facility] 2023-02-10 00:00 utmapf-xidjegti-qnzpuss [facility] 2022-12-15 00:00 digoxin [facility] 2022-12-16 00:00 digoxin [facility] 2023-01-14 00:00 digoxin [facility] 2023-01-18 00:00 digoxin [facility] 2023-01-26 00:00 digoxin [facility] 2023-01-27 00:00 digoxin [facility] 2023-02-09 00:00 digoxin [facility] 2023-02-10 00:00 digoxin [facility] 2023-01-14 00:00 aspirin [facility] 2023-01-18 00:00 aspirin [facility] 2023-01-26 00:00 aspirin [facility] 2023-01-27 00:00 aspirin [facility] 2023-02-09 00:00 aspirin [facility] 2023-02-10 00:00 aspirin [facility] 2023-01-18 00:00 atorvastatin [facility] 2023-01-26 00:00 atorvastatin [facility] 2023-01-27 00:00 atorvastatin [facility] 2023-02-09 00:00 atorvastatin [facility] 2023-02-10 00:00 atorvastatin [facility] 2022-12-15 00:00 bethanechol chloride [facility] 2022-12-16 00:00 bethanechol chloride [facility] 2023-01-14 00:00 bethanechol chloride [facility] 2023-01-18 00:00 bethanechol chloride [facility] 2023-01-26 00:00 bethanechol chloride [facility] 2023-01-27 00:00 bethanechol chloride [facility] 2023-02-09 00:00 bethanechol chloride [facility] 2023-02-10 00:00 bethanechol chloride [facility] 2023-02-09 00:00 oxycodone [facility] 2022-12-15 00:00 digoxin [facility] 2022-12-16 00:00 digoxin [facility] 2023-01-14 00:00 digoxin [facility] 2023-01-18 00:00 digoxin [facility] 2023-01-26 00:00 digoxin [facility] 2023-01-27 00:00 digoxin [facility] 2023-02-09 00:00 digoxin [facility] 2023-02-10 00:00 digoxin [facility] [...] 2022-12-16 00:00 sumatriptan succinate [facility] 2023-01-14 00:00 sumatriptan succinate [facility] 2023-01-18 00:00 sumatriptan succinate [facility] 2023-01-26 00:00 sumatriptan succinate [facility] 2023-01-27 00:00 sumatriptan succinate [facility] 2023-02-09 00:00 sumatriptan succinate [facility] 2023-02-10 00:00 sumatriptan succinate [facility] 2023-01-14 00:00 isosorbide dinitrate [facility] 2023-01-18 00:00 isosorbide dinitrate [facility] 2023-01-26 00:00 isosorbide dinitrate [facility] 2023-01-27 00:00 isosorbide dinitrate [facility] 2023-02-09 00:00 isosorbide dinitrate [facility] 2023-02-10 00:00 isosorbide dinitrate [facility] 2022-12-15 00:00 diltiazem hcl [facility] 2022-12-16 00:00 diltiazem hcl [facility] 2023-01-14 00:00 diltiazem hcl [facility] 2023-01-18 00:00 diltiazem hcl [facility] 2023-01-26 00:00 diltiazem hcl [facility] 2023-01-27 00:00 diltiazem hcl [facility] 2023-02-09 00:00 diltiazem hcl [facility] 2023-02-10 00:00 diltiazem hcl [facility] 2023-01-14 00:00 hydralazine [facility] 2023-01-18 00:00 hydralazine [facility] 2023-01-26 00:00 hydralazine [facility] 2023-01-27 00:00 hydralazine [facility] 2023-02-09 00:00 hydralazine [facility] 2023-02-10 00:00 hydralazine [facility] 2023-01-14 00:00 isosorbide dinitrate [facility] 2023-01-18 00:00 isosorbide dinitrate [facility] 2023-01-26 00:00 isosorbide dinitrate [facility] 2023-01-27 00:00 isosorbide dinitrate [facility] 2023-02-09 00:00 isosorbide dinitrate [facility] 2023-02-10 00:00 isosorbide dinitrate [facility] 2022-12-15 00:00 atorvastatin [facility] 2022-12-16 00:00 atorvastatin [facility] 2023-01-14 00:00 atorvastatin [facility] 2023-01-18 00:00 atorvastatin [facility] 2023-01-26 00:00 atorvastatin [facility] 2023-01-27 00:00 atorvastatin [facility] 2023-02-09 00:00 atorvastatin [facility] 2023-02-10 00:00 atorvastatin [facility] 2022-12-15 00:00 atorvastatin [facility] 2022-12-16 00:00 atorvastatin [facility] 2023-01-14 00:00 atorvastatin [facility] 2023-01-18 00:00 atorvastatin [facility] 2023-01-26 00:00 atorvastatin [facility] 2023-01-27 00:00 atorvastatin [facility] 2023-02-09 00:00 atorvastatin [facility] 2023-02-10 00:00 atorvastatin [facility] 2022-12-15 00:00 sumatriptan succinate [facility] 2022-12-16 00:00 sumatriptan succinate [facility] 2023-01-14 00:00 sumatriptan succinate [facility] 2023-01-18 00:00 sumatriptan succinate [facility] 2023-01-26 00:00 sumatriptan succinate [facility] 2023-01-27 00:00 sumatriptan succinate [facility] 2023-02-09 00:00 sumatriptan succinate [facility] 2023-02-10 00:00 sumatriptan succinate [facility] 2022-12-15 00:00 diltiazem hcl [facility] 2022-12-16 00:00 diltiazem hcl [facility] 2023-01-14 00:00 diltiazem hcl [facility] 2023-01-18 00:00 diltiazem hcl [facility] 2023-01-26 00:00 diltiazem hcl [facility] 2023-01-27 00:00 diltiazem hcl [facility] 2023-02-09 00:00 diltiazem hcl [facility] 2023-02-10 00:00 diltiazem hcl [facility] 2022-12-15 00:00 atorvastatin [facility] 2022-12-16 00:00 atorvastatin [facility] 2023-01-14 00:00 atorvastatin [facility] 2023-01-18 00:00 atorvastatin [facility] 2023-01-26 00:00 atorvastatin [facility] 2023-01-27 00:00 atorvastatin [facility] 2023-02-09 00:00 atorvastatin [facility] 2023-02-10 00:00 atorvastatin [facility] 2023-01-14 00:00 isosorbide dinitrate [facility] 2023-01-18 00:00 isosorbide dinitrate [facility] 2023-01-26 00:00 isosorbide dinitrate [facility] 2023-01-27 00:00 isosorbide dinitrate [facility] 2023-02-09 00:00 isosorbide dinitrate [facility] 2023-02-10 00:00 isosorbide dinitrate [facility] 2023-01-14 00:00 hydralazine [facility] 2023-01-18 00:00 hydralazine [facility] 2023-01-26 00:00 hydralazine [facility] 2023-01-27 00:00 hydralazine [facility] 2023-02-09 00:00 hydralazine [facility] 2023-02-10 00:00 hydralazine [facility] 2023-01-14 00:00 lylagu-nutpfnod-pztwpel [facility] 2023-01-18 00:00 jjvxoe-rpjwesni-ghulqjt [facility] 2023-01-26 00:00 dxtbdr-hjcxvzjh-rgcooho [facility] 2023-01-27 00:00 nyupgk-ycnsoocp-zocpplr [facility] 2023-02-09 00:00 sicyye-lrixdrlj-nbprrib [facility] 2023-02-10 00:00 ubphvs-swcqwech-yldyobs [facility] 2022-12-15 00:00 bethanechol chloride [facility] 2022-12-16 00:00 bethanechol chloride [facility] 2023-01-14 00:00 bethanechol chloride [facility] 2023-01-18 00:00 bethanechol chloride [facility] 2023-01-26 00:00 bethanechol chloride [facility] 2023-01-27 00:00 bethanechol chloride [facility] 2023-02-09 00:00 bethanechol chloride [facility] [place] 2023-02-10 00:00 bethanechol chloride [facility] 2022-12-15 00:00 digoxin [facility] 2022-12-16 00:00 digoxin [facility] 2023-01-14 00:00 digoxin [facility] 2023-01-18 00:00 digoxin [facility] 2023-01-26 00:00 digoxin [facility] 2023-01-27 00:00 digoxin [facility] 2023-02-09 00:00 digoxin [facility] 2023-02-10 00:00 digoxin [facility] 2022-12-15 00:00 atorvastatin [facility] 2022-12-16 00:00 [facility]14 [facility]:00 [facility]-01-18 00:00 [facility] 2023-01-26 00:00 [facility]atin [facility] 2023-01-27 00:00 atorvastatin [facility] 2023-02-09 00:00 [facility]atin [facility] 2023-02-10 00:00 [facility]atin [facility] 2023-01-14 00:00 quvbfl-eqanhhiu-ifkmijv [facility] 2023-01-18 00:00 wkgeub-eoxgoimu-znivrln [facility] 2023-01-26 00:00 xcspbc-dobhupcb-ostbgno [facility] 2023-01-27 00:00 ftjurx-ezxqpixc-swryioo [facility] 2023-02-09 00:00 ebxzii-jssvbifu-szpadtn [facility] 2023-02-10 00:00 inizga-cfekofvb-cafrmcq [facility] 2022-12-15 00:00 sumatriptan succinate [facility] 2022-12-16 00:00 sumatriptan succinate [facility] 2023-01-14 00:00 sumatriptan succinate [facility] 2023-01-18 00:00 sumatriptan succinate [facility] 2023-01-26 00:00 sumatriptan succinate [facility] 2023-01-27 00:00 sumatriptan succinate [facility] 2023-02-09 00:00 sumatriptan succinate [facility] 2023-02-10 00:00 sumatriptan succinate [facility] 2022-12-15 00:00 atorvastatin [facility] 2022-12-16 00:00 atorvastatin [facility] 2023-01-14 00:00 atorvastatin [facility] 2023-01-18 00:00 atorvastatin [facility] 2023-01-26 00:00 atorvastatin [facility] 2023-01-27 00:00 atorvastatin [facility] [facility] 2023-02-09 00:00 atorvastatin [facility] 2023-02-10 00:00 atorvastatin [facility] 2022-12-15 00:00 atorvastatin [facility] 2022-12-16 00:00 atorvastatin [facility] 2023-01-14 00:00 atorvastatin [facility] 2023-01-18 00:00 atorvastatin [facility] 2023-01-26 00:00 atorvastatin [facility] 2023-01-27 00:00 atorvastatin [facility] 2023-02-09 00:00 atorvastatin [facility] 2023-02-10 00:00 atorvastatin [facility] 2023-01-14 00:00 aspirin [facility] 2023-01-18 00:00 aspirin [facility] 2023-01-26 00:00 aspirin [facility] 2023-01-27 00:00 aspirin [facility] 2023-02-09 00:00 aspirin [facility] 2023-02-10 00:00 aspirin [facility] 2023-02-09 00:00 oxycodone [facility] 2022-12-15 00:00 digoxin [facility] 2022-12-16 00:00 digoxin [facility] 2023-01-14 00:00 digoxin [facility] [place] 2023-01-18 00:00 digoxin [facility] 2023-01-26 00:00 digoxin [facility] 2023-01-27 00:00 digoxin [facility] 2023-02-09 00:00 digoxin [facility] 2023-02-10 00:00 digoxin [facility] 2022-12-15 00:00 atorvastatin Walk[facility] 2022-12-16 00:00 atorvastatin [facility] 2023-01-14 00:00 atorvastatin [facility] 2023-01-18 00:00 atorvastatin [facility] 2023-01-26 00:00 atorvastatin [facility] 2023-01-27 00:00 atorvastatin [facility] 2023-02-09 00:00 atorvastatin [facility] 2023-02-10 00:00 atorvastatin Walk[facility] 2022-12-15 00:00 sumatriptan succinate Walk[facility] 2022-12-16 00:00 sumatriptan succinate Walk[facility] 2023-01-14 00:00 sumatriptan succinate Walk-In Clinic P [facility] & Anc[facility] 2023-01-18 00:00 sumatriptan succinate Walk[facility]In Clinic P [facility] 2023-01-26 00:00 sumatriptan succinate Walk-In Clinic [facility] 2023-01-27 00:00 sumatriptan succinate Walk[facility]In Clinic [facility] 2023-02-09 00:00 sumatriptan succinate Walk[facility]In Clinic [facility] 2023-02-10 00:00 sumatriptan succinate Walk[facility]In Clinic [facility] 2022-12-15 00:00 diltiazem hcl Walk[facility] 2022-12-16 00:00 diltiazem hcl [facility] 2023-01-14 00:00 diltiazem hcl Walk[facility] 2023-01-18 00:00 diltiazem hcl [facility] 2023-01-26 00:00 diltiazem hcl [facility] 2023-01-27 00:00 diltiazem hcl [facility] 2023-02-09 00:00 diltiazem hcl [facility] 2023-02-10 00:00 diltiazem hcl [facility] 2022-12-15 00:00 diltiazem hcl [facility] 2022-12-16 00:00 diltiazem hcl [facility] 2023-01-14 00:00 diltiazem hcl Walk[facility] 2023-01-18 00:00 diltiazem hcl [facility] 2023-01-26 00:00 diltiazem hcl [facility] 2023-01-27 00:00 diltiazem hcl [facility] 2023-02-09 00:00 diltiazem hcl [facility] 2023-02-10 00:00 diltiazem hcl [facility] 2022-12-15 00:00 apixaban [facility] 2022-12-16 00:00 apixaban [facility] 2023-01-14 00:00 apixaban Walk[facility] 2023-01-18 00:00 apixaban [facility] 2023-01-26 00:00 apixaban [facility] 2023-01-27 00:00 apixaban [facility] 2023-02-09 00:00 apixaban [facility] 2023-02-10 00:00 apixaban Walk[facility] 2022-12-15 00:00 apixaban [facility] 2022-12-16 00:00 apixaban [facility] 2023-01-14 00:00 apixaban [facility] 2023-01-18 00:00 apixaban [facility] 2023-01-26 00:00 apixaban [facility] 2023-01-27 00:00 apixaban [facility] 2023-02-09 00:00 apixaban [facility] 2023-02-10 00:00 apixaban [facility] 2022-12-15 00:00 bethanechol chloride Walk[facility]In [facility] 2022-12-16 00:00 bethanechol chloride Walk[facility] 2023-01-14 00:00 bethanechol chloride Walk[facility]In [facility] 2023-01-18 00:00 bethanechol chloride Walk[facility] 2023-01-26 00:00 bethanechol chloride Walk[facility]In [facility] 2023-01-27 00:00 bethanechol chloride Walk[facility] [place] 2023-02-09 00:00 bethanechol chloride Walk[facility]In [facility] 2023-02-10 00:00 bethanechol chloride [facility] [place] 2023-01-14 00:00 hydralazine Walk[facility] [place] 2023-01-18 00:00 hydralazine [facility] [place] 2023-01-26 00:00 hydralazine [facility] [place] 2023-01-27 00:00 hydralazine [facility] [place] 2023-02-09 00:00 hydralazine [facility] [place] 2023-02-10 00:00 hydralazine [facility] Problems date description facility 2022-12-15 00:00 Asthma [facility] [place] 2022-12-15 00:00 Multinodular goiter [facility] [place] 2022-12-15 00:00 Unspecified hypothyroidism [facility] [place] 2022-12-15 00:00 Diabetes mellitus without mention of [facility]k-In Clinic [facility] & complication, type II or [facility] type, not stated as uncontrolled [...] [facility] [place] 2022-12-15 00:00 Restless legs syndrome (RLS) Walk-In [facility] Primary Care & Anc[facility] Services [facility] 2022-12-15 00:00 Migraine, unspecified, without Walk-In Clinic Primary Care & mention of intractable migraine, Ancilla ry Services [facility] without mention of status migrainosus 2022-12-15 00:00 Seasonal allergic rhinitis Walk-In [facility] Primary Care & [facility] 2022-12-15 00:00 Migraine Walk[facility]In [facility] 2022-12-15 00:00 Hypertensive disorder Walk-In Clinic P [facility] 2022-12-15 00:00 Benign essential hypertension Walk-In Clinic [facility] 2022-12-15 00:00 Hypothyroidism Walk-In Clinic Prim [facility] [...] [facility] [place] 2022-12-15 00:00 Foot pain Walk-In Clinic Prim [...] lin 2022-12-15 00:00 Nontoxic multinodular goiter Walk-In [facility] Primary Care & Ancillary Services [...] & Ancillary Services [facility] 2022-12-15 00:00 Migraine, unspecified, not Walk-In Cli [facility] Primary Care & intractable, without status Ancillary Se rvices [facility] migrainosus 2022-12-15 00:00 Essential (primary) hypertension Walk- In Clinic [facility] 2022-12-15 00:00 Other seasonal allergic rhinitis Walk- [...] & [facility] 2022-12-16 00:00 Asthma Walk-In [facility] [place] 2022-12-16 00:00 Multinodular goiter Walk[facility]In [facility] 2022-12-16 00:00 Unspecified hypothyroidism Walk-In Cli [facility] 2022-12-16 00:00 Diabetes mellitus without mention of [...] P [facility] Care & hyperlipidemia Ancillary Services [facility] 2022-12-16 00:00 Restless legs Walk-In [facility] 2022-12-16 00:00 Restless legs syndrome (RLS) Walk-In [facility] Primary Care & Ancillary Services [facility] 2022-12-16 00:00 Migraine, unspecified, without Walk-In Clinic Primary Care & mention of intractable migraine, Ancilla ry Services [place] without mention of status migrainosus 2022-12-16 00:00 Seasonal allergic rhinitis Walk-In i [facility] & [facility] Services [facility] 2022-12-16 00:00 Migraine Walk-In [facility] 2022-12-16 00:00 Hypertensive disorder Walk-In Clinic P [facility] & [facility] Services [facility] 2022-12-16 00:00 Benign essential hypertension Walk-In Clinic [facility] 2022-12-16 00:00 Hypothyroidism Walk-In [facility] 2022-12-16 00:00 Obesity Walk[facility]In [facility] 2022-12-16 00:00 Diabetic peripheral neuropathy Walk-In Clinic [facility] [place] 2022-12-16 00:00 Type II diabetes mellitus Walk-In Clin Primary Care & uncontrolled [facility] 2022-12-16 00:00 Type 2 diabetes mellitus well Walk-In Clinic Primary Care & controlled Anc[facility] 2022-12-16 00:00 Allergic rhinitis due to pollen Walk-I n [facility] Primary Care & Ancillary Services [facility] 2022-12-16 00:00 Asthma, unspecified Walk-In Clinic [facility] Care & Ancillary Services [facility] 2022-12-16 00:00 Hyperlipidemia Walk-In Clinic [facility] 2022-12-16 00:00 Hypothyroidism, unspecified Walk-In Cl in Primary Care & [facility] Services [facility] 2022-12-16 00:00 Nontoxic multinodular goiter Walk-In [facility] Primary Care & Ancillary Services [...] Care & complications Ancillary Services [facility] 2022-12-16 00:00 Obesity, unspecified Walk-In Clinic Pr [...] & Ancillary Services [facility] 2022-12-16 00:00 Other seasonal allergic rhinitis Walk- In Clinic [facility] 2022-12-16 00:00 Unspecified asthma, uncomplicated Walk -In [facility] 2023-01-13 00:00 Clostridium difficile diarrhea Walk-In [facility] 2023-01-13 00:00 Clostridium difficile diarrhea Walk-In [facility] 2023-01-13 00:00 Clostridium difficile diarrhea Walk[facility]In [facility] 2023-01-13 00:00 Clostridium difficile diarrhea Walk[facility]In [facility] 2023-01-13 00:00 Diarrhea Walk[facility]In [facility] 2023-01-13 00:00 Diarrhea Walk[facility]In [facility] 2023-01-13 00:00 Diarrhea Walk-In [facility] 2023-01-13 00:00 Diarrhea Walk[facility]In [facility] 2023-01-13 00:00 Gout Walk-In [facility] 2023-01-13 00:00 Gout Walk-In [facility] Services [place] [facility] 2023-01-13 00:00 Gout Walk-In [facility] C [place] 2023-01-13 00:00 Gout Walk[facility] [place] 2023-01-13 00:00 Enterocolitis due to Clostridium Walk- In Clinic Primary Care & difficile, not specified as Ancillary Se rvices [facility] recurrent 2023-01-13 00:00 Enterocolitis due to Clostridium Walk- In Clinic Primary Care & difficile, not specified as Ancillary Se rvices [facility] recurrent 2023-01-13 00:00 Enterocolitis due to Clostridium Walk- In Clinic Primary Care & difficile, not specified as Ancillary Se rvices [facility] recurrent 2023-01-13 00:00 Enterocolitis due to Clostridium Walk- In Clinic Primary Care & difficile, not specified as Ancillary Se rvices [facility] recurrent 2023-01-13 00:00 Gout, unspecified Walk-In [facility] 2023-01-13 00:00 Gout, unspecified Walk-In [facility] 2023-01-13 00:00 Gout, unspecified Walk-In [facility] 2023-01-13 00:00 Gout, unspecified Walk-In [facility] 2023-01-13 00:00 Diarrhea, unspecified Walk-In Clinic P [facility] 2023-01-13 00:00 Diarrhea, unspecified Walk-In [facility] 2023-01-13 00:00 Diarrhea, unspecified Walk-In Clinic [facility] 2023-01-13 00:00 Diarrhea, unspecified Walk-In [facility] 2023-01-14 00:00 Asthma Walk-In [facility] [place] 2023-01-14 00:00 Multinodular goiter Walk-In [facility] 2023-01-14 00:00 Unspecified hypothyroidism Walk-In Cli [facility] 2023-01-14 00:00 Diabetes mellitus without mention of [...] 2023-01-14 00:00 Restless legs syndrome (RLS) Walk-In [facility] Primary Care & Ancillary Services [facility] 2023-01-14 00:00 Migraine, unspecified, without Walk-In Clinic Primary Care & mention of intractable migraine, Ancilla ry Services [facility] without mention of status migrainosus 2023-01-14 00:00 Seasonal allergic rhinitis Walk-In Cli [facility] Primary Care & Ancillary [...] & Ancillary Services [facility] 2023-01-14 00:00 Diabetic peripheral neuropathy Walk-In Clinic Primary Care & [facility] 2023-01-14 00:00 Type II diabetes mellitus Walk-In Clin ic Primary Care & uncontrolled Ancillary Services [facility] 2023-01-14 00:00 Type 2 diabetes mellitus well Walk-In Clinic Primary Care & controlled Anc[facility] Services [facility] 2023-01-14 00:00 Allergic rhinitis due to pollen Walk-I n Clinic Primary Care & Ancillary Services [facility] 2023-01-14 00:00 Asthma, unspecified Walk-In Clinic [facility] Care & Ancillary Services [facility] 2023-01-14 00:00 Hyperlipidemia Walk-In Clinic [facility] Anc[facility] Services [facility] 2023-01-14 00:00 Hypothyroidism, unspecified Walk-In Cl in Primary Care & Ancillary Services [facility] 2023-01-14 00:00 Nontoxic multinodular goiter Walk-In [facility] Primary Care & Ancillary Services [facility] 2023-01-14 00:00 Type 2 diabetes mellitus with Walk-In Clinic Primary Care & diabetic neuropathy, unspecified Ancilla ry Services [place] 2023-01-14 00:00 Type 2 diabetes mellitus with Walk-In Clinic Primary Care & diabetic peripheral angiopathy Ancillary Services [place] without gangrene 2023-01-14 00:00 Type 2 diabetes mellitus with Walk-In Clinic Primary Care & hyperglycemia Ancillary Services [facility] 2023-01-14 00:00 Type 2 diabetes mellitus without Walk- In Clinic Primary Care & complications Ancillary Services [facility] 2023-01-14 00:00 Obesity, unspecified Walk-In Clinic Pr [facility] Care & Ancillary Services [facility] 2023-01-14 00:00 Restless legs syndrome Walk-In Clinic Primary Care & Ancillary Services [facility] 2023-01-14 00:00 Migraine, unspecified, not Walk-In Cli [facility] Primary Care & intractable, without status Ancillary Se rvices [facility] migrainosus 2023-01-14 00:00 Essential (primary) hypertension Walk- In Clinic Primary Care & Ancillary Services [facility] 2023-01-14 00:00 Other seasonal allergic rhinitis Walk- In Clinic Primary Care & Ancillary Services [facility] 2023-01-14 00:00 Unspecified asthma, uncomplicated Walk -In Clinic Primary Care & Ancillary Services [facility] 2023-01-18 00:00 Asthma Walk-In Clinic [facility] & Anc[facility] Services [facility] 2023-01-18 00:00 Multinodular goiter Walk-In Clinic [facility] Care & Ancillary Services [facility] 2023-01-18 00:00 Unspecified hypothyroidism Walk-In Cli [facility] & Ancillary Services [place] 2023-01-18 00:00 Diabetes mellitus without mention of Wa lk-In Clinic Primary Care & complication, type II or unspecified Anc illary Services [facility] type, not stated as uncontrolled 2023-01-18 00:00 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, type II or Ancillary Ser vices [facility] unspecified type, not stated as uncontrolled 2023-01-18 00:00 Diabetes mellitus with peripheral Walk- In Clinic Primary Care & circulatory disorders, type II or Ancill [facility] unspecified type, not stated as uncontrolled 2023-01-18 00:00 Diabetes mellitus with other Walk-In Cl in Primary Care & specified manifestations, type II or Anc illary Services [facility] unspecified type, not stated as uncontrolled 2023-01-18 00:00 Other and unspecified Walk-In Clinic P [facility] Care & hyperlipidemia Anc[facility] Services [facility] 2023-01-18 00:00 Restless legs Walk-In Clinic [facility] [place] 2023-01-18 00:00 Restless legs syndrome (RLS) Walk-In [facility] Primary Care & Ancillary Services [facility] 2023-01-18 00:00 Migraine, unspecified, without Walk-In Clinic Primary Care & mention of intractable migraine, Ancilla ry Services [facility] without mention of status migrainosus 2023-01-18 00:00 Seasonal allergic rhinitis Walk-In [facility] Primary Care & Ancillary Services [facility] 2023-01-18 00:00 Migraine Walk-In Clinic [facility] 2023-01-18 00:00 Hypertensive disorder Walk-In Clinic [facility] Care & Anc[facility] Services [facility] 2023-01-18 00:00 Benign essential hypertension Walk-In Clinic Primary Care & [facility] Services [facility] 2023-01-18 00:00 Hypothyroidism Walk-In Clinic [facility] 2023-01-18 00:00 Obesity Walk-In Clinic [facility] [place] 2023-01-18 00:00 Diabetic peripheral neuropathy Walk-In Clinic Primary [facility] 2023-01-18 00:00 Type II diabetes mellitus Walk-In Clin ic Primary Care & uncontrolled Anc[facility] Services [facility] 2023-01-18 00:00 Type 2 diabetes mellitus well Walk-In Clinic Primary Care & controlled [facility] 2023-01-18 00:00 Allergic rhinitis due to pollen Walk-I n Clinic Primary Care & [facility] Services [place] 2023-01-18 00:00 Asthma, unspecified Walk-In Clinic [facility] Care & Ancillary Services [place] 2023-01-18 00:00 Hyperlipidemia Walk-In Clinic [facility] & Ancillary Services [place] 2023-01-18 00:00 Hypothyroidism, unspecified Walk-In Cl in Primary Care & [facility] Services [facility] 2023-01-18 00:00 Nontoxic multinodular goiter Walk-In [facility] Primary Care & Ancillary Services [place] 2023-01-18 00:00 Type 2 diabetes mellitus with Walk-In Clinic Primary Care & diabetic neuropathy, unspecified Ancilla ry Services [facility] 2023-01-18 00:00 Type 2 diabetes mellitus with Walk-In Clinic Primary Care & diabetic peripheral angiopathy Ancillary Services [facility] without gangrene 2023-01-18 00:00 Type 2 diabetes mellitus with Walk-In Clinic Primary Care & hyperglycemia [facility] 2023-01-18 00:00 Type 2 diabetes mellitus without Walk- In Clinic Primary Care & complications [facility] 2023-01-18 00:00 Obesity, unspecified Walk-In Clinic Pr [facility] Care & Anc[facility] Services [place] 2023-01-18 00:00 Restless legs syndrome Walk-In Clinic Primary Care & [facility] Services [facility] 2023-01-18 00:00 Migraine, unspecified, not Walk-In Cli [facility] Primary Care & intractable, without status Ancillary Se rvices [place] migrainosus 2023-01-18 00:00 Essential (primary) hypertension Walk- In Clinic Primary Care & [facility] Services [facility] 2023-01-18 00:00 Other seasonal allergic rhinitis Walk- In Clinic Primary Care & [facility] Services [facility] 2023-01-18 00:00 Unspecified asthma, uncomplicated Walk -In Clinic Primary Care & [facility] Services [facility] 2023-01-26 00:00 Asthma Walk-In Clinic [facility] & [facility] 2023-01-26 00:00 Multinodular goiter Walk-In Clinic [facility] Care & Ancillary Services [place] 2023-01-26 00:00 Unspecified hypothyroidism Walk-In [facility] & [facility] Services [facility] 2023-01-26 00:00 Diabetes mellitus without mention of Wa lk-In Clinic Primary Care & complication, type II or unspecified Anc illary Services [facility] type, not stated as uncontrolled 2023-01-26 00:00 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, type II or Ancillary Ser vices [facility] unspecified type, not stated as uncontrolled 2023-01-26 00:00 Diabetes mellitus with peripheral Walk- In Clinic Primary Care & circulatory disorders, type II or Ancill [facility] unspecified type, not stated as uncontrolled 2023-01-26 00:00 Diabetes mellitus with other Walk-In Cl in Primary Care & specified manifestations, type II or Anc illary Services [facility] unspecified type, not stated as uncontrolled 2023-01-26 00:00 Other and unspecified Walk-In Clinic P [facility] Care & hyperlipidemia [facility] Services [facility] 2023-01-26 00:00 Restless legs Walk-In Clinic [facility] & [facility] Services [facility] 2023-01-26 00:00 Restless legs syndrome (RLS) Walk-In [facility] Primary Care & Ancillary Services [facility] 2023-01-26 00:00 Migraine, unspecified, without Walk-In Clinic Primary Care & mention of intractable migraine, Ancilla ry Services [facility] without mention of status migrainosus 2023-01-26 00:00 Seasonal allergic rhinitis Walk-In i [facility] Primary Care & [facility] Services [facility] 2023-01-26 00:00 Migraine Walk-In Clinic Prim [facility] Care [facility] 2023-01-26 00:00 Hypertensive disorder [facility] 2023-01-26 00:00 Benign essential hypertension [facility] 2023-01-26 00:00 Hypothyroidism [facility] 2023-01-26 00:00 Obesity [facility] 2023-01-26 00:00 Diabetic peripheral neuropathy [facility] 2023-01-26 00:00 Type II diabetes mellitus Walk-In Clin ic Primary Care & uncontrolled [facility] 2023-01-26 00:00 Type 2 diabetes mellitus well [facility] Care & controlled [facility] 2023-01-26 00:00 Allergic rhinitis due to pollen [facility] 2023-01-26 00:00 Asthma, unspecified Walk-In Clinic [facility] 2023-01-26 00:00 Hyperlipidemia [facility] 2023-01-26 00:00 Hypothyroidism, unspecified [facility] & [facility] 2023-01-26 00:00 Nontoxic multinodular goiter Walk-In [facility] Primary Care & Ancillary Services [facility] 2023-01-26 00:00 Type 2 diabetes mellitus with Walk-In Clinic Primary Care & diabetic neuropathy, unspecified Ancilla ry Services [facility] 2023-01-26 00:00 Type 2 diabetes mellitus with [facility]In [facility] Primary Care & diabetic peripheral angiopathy Anc[facility] without gangrene 2023-01-26 00:00 Type 2 diabetes mellitus with [facility] Primary Care & hyperglycemia [facility] 2023-01-26 00:00 Type 2 diabetes mellitus without [facility]- In [facility] Primary Care & complications [facility] 2023-01-26 00:00 Obesity, unspecified [facility] 2023-01-26 00:00 Restless legs syndrome [facility] 2023-01-26 00:00 Migraine, unspecified, not [facility] Primary Care & intractable, without status Ancillary Se rvices [facility] migrainosus 2023-01-26 00:00 Essential (primary) hypertension [facility] 2023-01-26 00:00 Other seasonal allergic rhinitis [facility] 2023-01-26 00:00 Unspecified asthma, uncomplicated [facility] 2023-01-27 00:00 Asthma [facility] 2023-01-27 00:00 Multinodular goiter Walk-In Clinic [facility] 2023-01-27 00:00 Unspecified hypothyroidism [facility] 2023-01-27 00:00 Diabetes mellitus without mention of [facility] Primary Care & complication, type II or unspecified Anc illary Services [facility] type, not stated as uncontrolled 2023-01-27 00:00 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, type II or Ancillary Ser vices [facility] unspecified type, not stated as uncontrolled 2023-01-27 00:00 Diabetes mellitus with peripheral [facility]- [facility] Primary Care & circulatory disorders, type II or Ancill [facility] unspecified type, not stated as uncontrolled 2023-01-27 00:00 Diabetes mellitus with other [facility]In Cl in[facility] Primary Care & specified manifestations, type II or Anc illary Services [facility] unspecified type, not stated as uncontrolled 2023-01-27 00:00 Other and unspecified [facility] & hyperlipidemia [facility] 2023-01-27 00:00 Restless legs [facility] 2023-01-27 00:00 Restless legs syndrome (RLS) Walk-In [facility] Primary Care [facility] 2023-01-27 00:00 Migraine, unspecified, without [facility] Primary Care & mention of intractable migraine, Ancilla ry Services [facility] without mention of status migrainosus 2023-01-27 00:00 Seasonal allergic rhinitis [facility] 2023-01-27 00:00 Migraine [facility] 2023-01-27 00:00 Hypertensive disorder [facility] 2023-01-27 00:00 Benign essential hypertension [facility] 2023-01-27 00:00 Hypothyroidism [facility] 2023-01-27 00:00 Obesity [facility] 2023-01-27 00:00 Diabetic peripheral neuropathy [facility] 2023-01-27 00:00 Type II diabetes mellitus Walk[facility]In Clin ic Primary Care & uncontrolled [facility] 2023-01-27 00:00 Type 2 diabetes mellitus well [facility] Primary Care & controlled [facility] Services [facility] 2023-01-27 00:00 Allergic rhinitis due to pollen [facility] 2023-01-27 00:00 Asthma, unspecified Walk-In Clinic [facility] Care [facility] 2023-01-27 00:00 Hyperlipidemia [facility] 2023-01-27 00:00 Hypothyroidism, unspecified [facility] 2023-01-27 00:00 Nontoxic multinodular goiter Walk-In [facility] Primary Care & Ancillary Services [facility] 2023-01-27 00:00 Type 2 diabetes mellitus with [facility]In Clinic Primary Care & diabetic neuropathy, unspecified Ancilla [facility] Services [facility] 2023-01-27 00:00 Type 2 diabetes mellitus with [facility] Primary Care & diabetic peripheral angiopathy Ancillary Services [facility] without gangrene 2023-01-27 00:00 Type 2 diabetes mellitus with [facility] Primary Care & hyperglycemia [facility] 2023-01-27 00:00 Type 2 diabetes mellitus without [facility]- [facility] Primary Care & complications [facility] 2023-01-27 00:00 Obesity, unspecified [facility] 2023-01-27 00:00 Restless legs syndrome [facility] 2023-01-27 00:00 Migraine, unspecified, not [facility] Primary Care & intractable, without status Ancillary Se rvices [facility] migrainosus 2023-01-27 00:00 Essential (primary) hypertension Walk- In [facility] Primary Care & Anc[facility] Services [facility] 2023-01-27 00:00 Other seasonal allergic rhinitis [facility] Unspecified asthma, uncomplicated [facility] 2023-02-09 00:00 Asthma [facility] 2023-02-09 00:00 Multinodular goiter Walk-In Clinic [facility] Care & [facility] 2023-02-09 00:00 Unspecified hypothyroidism [facility] 2023-02-09 00:00 Diabetes mellitus without mention of [facility] Primary Care & complication, type II or unspecified Anc illary Services [facility] type, not stated as uncontrolled 2023-02-09 00:00 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, type II or Ancillary Ser vices [facility] unspecified type, not stated as uncontrolled 2023-02-09 00:00 Diabetes mellitus with peripheral [facility]- [facility] Primary Care & circulatory disorders, type II or Ancill [facility] unspecified type, not stated as uncontrolled 2023-02-09 00:00 Diabetes mellitus with other [facility]In Cl [facility] Primary Care & specified manifestations, type II or Anc illary Services [facility] unspecified type, not stated as uncontrolled 2023-02-09 00:00 Other and unspecified [facility] & hyperlipidemia [facility] 2023-02-09 00:00 Restless legs [facility] 2023-02-09 00:00 Restless legs syndrome (RLS) Walk-In [facility] Primary Care & [facility] 2023-02-09 00:00 Migraine, unspecified, without [facility] Primary Care & mention of intractable migraine, Ancilla ry Services [facility] without mention of status migrainosus 2023-02-09 00:00 Seasonal allergic rhinitis [facility] 2023-02-09 00:00 Migraine [facility] 2023-02-09 00:00 Hypertensive disorder [facility] 2023-02-09 00:00 Benign essential hypertension [facility] 2023-02-09 00:00 Hypothyroidism [facility] 2023-02-09 00:00 Obesity [facility] 2023-02-09 00:00 Diabetic peripheral neuropathy [facility] 2023-02-09 00:00 Type II diabetes mellitus [facility]In Clin ic Primary Care & uncontrolled [facility] 2023-02-09 00:00 Type 2 diabetes mellitus well [facility]:00 Allergic rhinitis due to pollen [facility] n [facility] Primary Care & [facility] 2023-02-09 00:00 Asthma, unspecified Walk-In Clinic [facility] Care & Ancillary Services [facility] 2023-02-09 00:00 Hyperlipidemia [facility] 2023-02-09 00:00 Abdominal pain, right upper Walk-In Cl in Primary Care & quadrant [facility] Services [facility] 2023-02-09 00:00 Hypothyroidism, unspecified [facility] in Primary Care & [facility] Services [facility] 2023-02-09 00:00 Nontoxic multinodular goiter Walk-In [facility] Primary Care & Ancillary Services [facility] 2023-02-09 00:00 Type 2 diabetes mellitus with [facility]In Clinic Primary Care & diabetic neuropathy, unspecified Ancilla ry Services [facility] 2023-02-09 00:00 Type 2 diabetes mellitus with [facility]In [facility] Primary Care & diabetic peripheral angiopathy Anc[facility] [place] without gangrene 2023-02-09 00:00 Type 2 diabetes mellitus with [facility] Primary Care & hyperglycemia [facility] 2023-02-09 00:00 Type 2 diabetes mellitus without [facility]- [facility] Primary Care & complications [facility] 2023-02-09 00:00 Obesity, unspecified [facility] 2023-02-09 00:00 Restless legs syndrome [facility] Primary [facility] 2023-02-09 00:00 Migraine, unspecified, not [facility] Primary Care & intractable, without status Ancillary Se rvices [facility] migrainosus 2023-02-09 00:00 Essential (primary) hypertension [facility]:00 Other seasonal allergic rhinitis [facility]:00 Unspecified asthma, uncomplicated [facility] 2023-02-09 00:00 Right upper quadrant pain [facility] Clin ic Primary [facility] 2023-02-10 00:00 Asthma [facility] 2023-02-10 00:00 Multinodular goiter [facility] 2023-02-10 00:00 Unspecified hypothyroidism [facility] 2023-02-10 00:00 Diabetes mellitus without mention of [facility] Primary Care & complication, type II or unspecified Anc illary Services [facility] type, not stated as uncontrolled 2023-02-10 00:00 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, type II or Ancillary Ser vices [facility] unspecified type, not stated as uncontrolled 2023-02-10 00:00 Diabetes mellitus with peripheral [facility]- [facility] Primary Care & circulatory disorders, type II or Ancill [facility] unspecified type, not stated as uncontrolled 2023-02-10 00:00 Diabetes mellitus with other [facility]In Cl in[facility] Primary Care & specified manifestations, type II or Anc illary Services [facility] unspecified type, not stated as uncontrolled 2023-02-10 00:00 Other and unspecified [facility] Care & hyperlipidemia [facility] 2023-02-10 00:00 Restless legs [facility] 2023-02-10 00:00 Restless legs syndrome (RLS) Walk-In [facility] Primary Care & [facility] Services [facility] 2023-02-10 00:00 Migraine, unspecified, without [facility] Primary Care & mention of intractable migraine, Ancilla ry Services [facility] without mention of status migrainosus 2023-02-10 00:00 Seasonal allergic rhinitis [facility] 2023-02-10 00:00 Migraine [facility] 2023-02-10 00:00 Hypertensive disorder [facility] 2023-02-10 00:00 Benign essential hypertension [facility] 2023-02-10 00:00 Hypothyroidism [facility] 2023-02-10 00:00 Obesity [facility] 2023-02-10 00:00 Diabetic peripheral neuropathy [facility] 2023-02-10 00:00 Type II diabetes mellitus [facility]In Clin ic Primary Care & uncontrolled [facility] 2023-02-10 00:00 Type 2 diabetes mellitus well [facility] Primary Care & controlled [facility] 2023-02-10 00:00 Allergic rhinitis due to pollen [facility] 2023-02-10 00:00 Asthma, unspecified [facility] 2023-02-10 00:00 Hyperlipidemia [facility] 2023-02-10 00:00 Hypothyroidism, unspecified [facility] in Primary Care [facility] 2023-02-10 00:00 Nontoxic multinodular goiter Walk-In [facility] Primary Care & [facility] Services [facility] 2023-02-10 00:00 Type 2 diabetes mellitus with [facility]In [facility] Primary Care & diabetic neuropathy, unspecified Ancilla [facility] Services [facility] 2023-02-10 00:00 Type 2 diabetes mellitus with [facility]In [facility] Primary Care & diabetic peripheral angiopathy [facility] without gangrene 2023-02-10 00:00 Type 2 diabetes mellitus with [facility] Primary Care & hyperglycemia [facility] 2023-02-10 00:00 Type 2 diabetes mellitus without [facility]- [facility] Primary Care & complications [facility] 2023-02-10 00:00 Obesity, unspecified [facility] 2023-02-10 00:00 Restless legs syndrome [facility] 2023-02-10 00:00 Migraine, unspecified, not [facility] Primary Care & intractable, without status Ancillary Se rvices [facility] migrainosus 2023-02-10 00:00 Essential (primary) hypertension [facility] 2023-02-10 00:00 Other seasonal allergic rhinitis [facility] 2023-02-10 00:00 Unspecified asthma, uncomplicated [facility] Procedures date description facility 2022-12-15 00:00 Visit Code Hold [facility] 2022-12-15 00:00 Visit Code Hold [facility] 2022-12-15 00:00 Visit Code Hold [facility] 2022-12-15 00:00 Visit Code Hold [facility] 2022-12-15 00:00 Visit Code Hold [facility] 2023-01-13 00:00 Visit Code Hold [facility] 2023-01-13 00:00 Visit Code Hold [facility] 2023-01-13 00:00 Visit Code Hold [facility] 2023-01-13 00:00 Visit Code Hold [facility] 2023-02-09 00:00 Visit Code Hold [facility] 2022-12-15 00:00 XR FOOT COMPLETE MIN 3 VIEW [facility] in [facility] 2022-12-15 00:00 XR FOOT COMPLETE MIN 3 VIEW [facility] 2022-12-15 00:00 XR FOOT COMPLETE MIN 3 VIEW [facility] Services [facility] 2022-12-15 00:00 XR FOOT COMPLETE MIN 3 VIEW [facility] 2022-12-15 00:00 XR FOOT COMPLETE MIN 3 VIEW [facility] 2023-02-09 00:00 COMPREHENSIVE METABOLIC PANEL [facility] 2023-02-09 00:00 POC URINALYSIS DIP [facility] 2023-02-09 00:00 CBC W/Diff/Plt [facility] Results/Labs test date author facility value unit interpret ation Result panel 1 (unknown) (no date) (unknown) Walk-In (no value) (units (unk nown) Clinic Primary unknown) Care & [facility] Services [facility] Result panel 2 (unknown) (no date) (unknown) Walk-In (no value) (units (unk nown) Clinic Primary unknown) Care [facility] Result panel 3 (unknown) (no date) (unknown) Walk-In (no value) (units (unk nown) Clinic Primary unknown) Care [facility] Result panel 4 (unknown) (no date) (unknown) Walk-In (no value) (units (unk nown) Clinic Primary unknown) Care [facility] Result panel 5 (unknown) (no date) (unknown) Walk-In (no value) (units (unk nown) Clinic Primary unknown) Care [facility] Result panel 6 (unknown) (no date) (unknown) Walk-In (no value) (units (unk nown) Clinic Primary unknown) Care [facility] Result panel 7 (unknown) (no date) (unknown) Walk-In (no value) (units (unk nown) Clinic Primary unknown) Care [facility] Result panel 8 (unknown) (no date) (unknown) Walk-In (no value) (units (unk nown) Clinic Primary unknown) Care [facility] Result panel 9 (unknown) (no date) (unknown) Walk-In (no value) (units (unk nown) Clinic Primary unknown) Care [facility] Result panel 10 (unknown) (no date) (unknown) Walk-In (no value) (units (unk nown) Clinic Primary unknown) Care [facility] Result panel 11 (unknown) (no date) (unknown) Walk-In (no value) (units (unk nown) Clinic Primary unknown) Care [facility] Result panel 12 (unknown) (no date) (unknown) Walk-In (no value) (units (unk nown) Clinic Primary unknown) Care [facility] Result panel 13 (unknown) (no date) (unknown) Walk-In (no value) (units (unk nown) Clinic Primary unknown) Care [facility] Result panel 14 (unknown) (no date) (unknown) Walk-In (no value) (units (unk nown) Clinic Primary unknown) Care [facility] Result panel 15 (unknown) (no date) (unknown) Walk-In (no value) (units (unk nown) Clinic Primary unknown) Care & [facility] Result panel 16 (unknown) (no date) (unknown) Walk-In (no value) (units (unk nown) Clinic Primary unknown) Care [facility] Result panel 17 (unknown) (no date) (unknown) Walk-In (no value) (units (unk nown) Clinic Primary unknown) Care [facility] Result panel 18 (unknown) (no date) (unknown) Walk-In (no value) (units (unk nown) Clinic Primary unknown) Care [facility] Result panel 19 (unknown) (no date) (unknown) Walk-In (no value) (units (unk nown) Clinic Primary unknown) Care [facility] Result panel 20 (unknown) (no date) (unknown) Walk-In (no value) (units (unk nown) Clinic Primary unknown) Care [facility] Result panel 21 (unknown) (no date) (unknown) Walk-In (no value) (units (unk nown) Clinic Primary unknown) Care & [facility] Services [facility] Result panel 22 (unknown) (no date) (unknown) Walk-In (no value) (units (unk nown) Clinic Primary unknown) Care [facility] Result panel 23 (unknown) (no date) (unknown) Walk-In (no value) (units (unk nown) Clinic Primary unknown) Care [facility] Result panel 24 (unknown) (no date) (unknown) Walk-In (no value) (units (unk nown) Clinic Primary unknown) Care [facility] Result panel 25 (unknown) (no date) (unknown) Walk-In (no value) (units (unk nown) Clinic Primary unknown) Care [facility] Result panel 26 (unknown) (no date) (unknown) Walk-In (no value) (units (unk nown) Clinic Primary unknown) Care [facility] Result panel 27 (unknown) (no date) (unknown) Walk-In (no value) (units (unk nown) Clinic Primary unknown) Care [facility] Result panel 28 (unknown) (no date) (unknown) Walk-In (no value) (units (unk nown) Clinic Primary unknown) Care [facility] Result panel 29 (unknown) (no date) (unknown) Walk-In (no value) (units (unk nown) Clinic Primary unknown) Care [facility] Result panel 30 (unknown) (no date) (unknown) Walk-In (no value) (units (unk nown) Clinic Primary unknown) Care [facility] Result panel 31 (unknown) (no date) (unknown) Walk-In (no value) (units (unk nown) Clinic Primary unknown) Care [facility] Result panel 32 (unknown) (no date) (unknown) Walk-In (no value) (units (unk nown) Clinic Primary unknown) Care [facility] Result panel 33 (unknown) (no date) (unknown) Walk-In (no value) (units (unk nown) Clinic Primary unknown) Care [facility] Result panel 34 (unknown) (no date) (unknown) Walk-In (no value) (units (unk nown) Clinic Primary unknown) Care [facility] Result panel 35 (unknown) (no date) (unknown) Walk-In (no value) (units (unk nown) Clinic Primary unknown) Care [facility] Result panel 36 (unknown) (no date) (unknown) Walk-In (no value) (units (unk nown) Clinic Primary unknown) Care [facility] Result panel 37 (unknown) (no date) (unknown) Walk-In (no value) (units (unk nown) Clinic Primary unknown) Care [facility] Result panel 38 (unknown) (no date) (unknown) Walk-In (no value) (units (unk nown) Clinic Primary unknown) Care [facility] Result panel 39 (unknown) (no date) (unknown) Walk-In (no value) (units (unk nown) Clinic Primary unknown) Care [facility] Result panel 40 (unknown) (no date) (unknown) Walk-In (no value) (units (unk nown) Clinic Primary unknown) Care [facility] Result panel 41 (unknown) (no date) (unknown) Walk-In (no value) (units (unk nown) Clinic Primary unknown) Care [facility] Result panel 42 (unknown) (no date) (unknown) Walk-In (no value) (units (unk nown) Clinic Primary unknown) Care [facility] Result panel 43 (unknown) (no date) (unknown) Walk-In (no value) (units (unk nown) Clinic Primary unknown) Care [facility] Result panel 44 (unknown) (no date) (unknown) Walk-In (no value) (units (unk nown) Clinic Primary unknown) Care [facility] Result panel 45 (unknown) (no date) (unknown) Walk-In (no value) (units (unk nown) Clinic Primary unknown) Care [facility] Result panel 46 (unknown) (no date) (unknown) Walk-In (no value) (units (unk nown) Clinic Primary unknown) Care & [facility] Result panel 47 (unknown) (no date) (unknown) [facility] (no value) [facility] Result panel 48 (unknown) (no date) (unknown) [facility] (no value) [facility] Result panel 49 (unknown) (no date) (unknown) [facility] (no value) [facility] Result panel 50 (unknown) (no date) (unknown) [facility] (no value) [facility] Result panel 51 (unknown) (no date) (unknown) [facility] (no value) [facility] Result panel 52 (unknown) (no date) (unknown) [facility] (no value) [facility] Result panel 53 (unknown) (no date) (unknown) [facility] (no value) [facility] Result panel 54 (unknown) (no date) (unknown) [facility] (no value) [facility] Result panel 55 (unknown) (no date) (unknown) [facility] (no value) [facility] Result panel 56 (unknown) (no date) (unknown) [facility] (no value) [facility] Result panel 57 (unknown) (no date) (unknown) [facility] (no value) [facility] Result panel 58 (unknown) (no date) (unknown) [facility] (no value) [facility] Result panel 59 (unknown) (no date) (unknown) [facility] (no value) [facility] Result panel 60 (unknown) (no date) (unknown) [facility] (no value) [facility] Result panel 61 (unknown) (no date) (unknown) [facility] (no value) [facility] Result panel 62 (unknown) (no date) (unknown) [facility] (no value) [facility] Result panel 63 (unknown) (no date) (unknown) [facility] (no value) [facility] Result panel 64 (unknown) (no date) (unknown) [facility] (no value) [facility] Result panel 65 (unknown) (no date) (unknown) [facility] (no value) [facility] Result panel 66 (unknown) (no date) (unknown) [facility] (no value) [facility] Result panel 67 (unknown) (no date) (unknown) [facility] (no value) [facility] Result panel 68 (unknown) (no date) (unknown) [facility] (no value) [facility] Result panel 69 (unknown) (no date) (unknown) [facility] (no value) [facility] Result panel 70 (unknown) (no date) (unknown) [facility] (no value) [facility] Result panel 71 (unknown) (no date) (unknown) [facility] (no value) [facility] Result panel 72 (unknown) (no date) (unknown) [facility] (no value) [facility] Result panel 73 (unknown) (no date) (unknown) [facility] (no value) [facility] Result panel 74 (unknown) (no date) (unknown) [facility] (no value) [facility] Result panel 75 (unknown) (no date) (unknown) [facility] (no value) [facility] Result panel 76 (unknown) (no date) (unknown) [facility] (no value) [facility] Result panel 77 (unknown) (no date) (unknown) [facility] (no value) [facility] Result panel 78 (unknown) (no date) (unknown) [facility] (no value) [facility] Result panel 79 (unknown) (no date) (unknown) [facility] (no value) [facility] Result panel 80 (unknown) (no date) (unknown) [facility] (no value) [facility] Result panel 81 (unknown) (no date) (unknown) [facility] (no value) [facility] Result panel 82 (unknown) (no date) (unknown) [facility] (no value) [facility] Result panel 83 (unknown) (no date) (unknown) [facility] (no value) [facility] Result panel 84 (unknown) (no date) (unknown) [facility] (no value) [facility] Result panel 85 (unknown) (no date) (unknown) [facility] (no value) [facility] Result panel 86 (unknown) (no date) (unknown) [facility] (no value) [facility] Result panel 87 (unknown) (no date) (unknown) [facility] (no value) [facility] Result panel 88 (unknown) (no date) (unknown) [facility] (no value) [facility] Result panel 89 (unknown) (no date) (unknown) [facility] (no value) [facility] Result panel 90 (unknown) (no date) (unknown) [facility] (no value) [facility] Result panel 91 (unknown) (no date) (unknown) [facility] (no value) [facility] Result panel 92 (unknown) (no date) (unknown) [facility] (no value) [facility] Result panel 93 (unknown) (no date) (unknown) [facility] (no value) [facility] Result panel 94 (unknown) (no date) (unknown) [facility] (no value) [facility] Result panel 95 (unknown) (no date) (unknown) [facility] (no value) [facility] Result panel 96 (unknown) (no date) (unknown) [facility] (no value) [facility] Result panel 97 (unknown) (no date) (unknown) [facility] (no value) [facility] Result panel 98 (unknown) (no date) (unknown) [facility] (no value) [facility] Result panel 99 (unknown) (no date) (unknown) [facility] (no value) [facility] Result panel 100 (unknown) (no date) (unknown) [facility] (no value) [facility] Result panel 101 (unknown) (no date) (unknown) [facility] (no value) [facility] Result panel 102 (unknown) (no date) (unknown) [facility] (no value) [facility] Result panel 103 (unknown) (no date) (unknown) [facility] (no value) [facility] Result panel 104 (unknown) (no date) (unknown) [facility] (no value) [facility] Result panel 105 (unknown) (no date) (unknown) [facility] (no value) [facility] Result panel 106 (unknown) (no date) (unknown) [facility] (no value) [facility] Result panel 107 (unknown) (no date) (unknown) [facility] (no value) [facility] Result panel 108 (unknown) (no date) (unknown) [facility] (no value) [facility] Result panel 109 (unknown) (no date) (unknown) [facility] (no value) [facility] Result panel 110 (unknown) (no date) (unknown) [facility] (no value) [facility] Result panel 111 (unknown) (no date) (unknown) [facility] (no value) [facility] Result panel 112 (unknown) (no date) (unknown) [facility] (no value) [facility] Result panel 113 (unknown) (no date) (unknown) [facility] (no value) [facility] Result panel 114 (unknown) (no date) (unknown) [facility] (no value) [facility] Result panel 115 (unknown) (no date) (unknown) [facility] (no value) [facility] Result panel 116 (unknown) (no date) (unknown) [facility] (no value) [facility] Result panel 117 (unknown) (no date) (unknown) [facility] (no value) [facility] Result panel 118 (unknown) (no date) (unknown) [facility] (no value) [facility] Result panel 119 (unknown) (no date) (unknown) [facility] (no value) [facility] Result panel 120 (unknown) (no date) (unknown) [facility] (no value) [facility] Result panel 121 (unknown) (no date) (unknown) [facility] (no value) [facility] Result panel 122 (unknown) (no date) (unknown) [facility] (no value) [facility] Result panel 123 (unknown) (no date) (unknown) [facility] (no value) [facility] Result panel 124 (unknown) (no date) (unknown) [facility] (no value) [facility] Result panel 125 (unknown) (no date) (unknown) [facility] (no value) [facility] Result panel 126 (unknown) (no date) (unknown) [facility] (no value) [facility] Result panel 127 (unknown) (no date) (unknown) [facility] (no value) [facility] Result panel 128 (unknown) (no date) (unknown) [facility] (no value) [facility] Result panel 129 (unknown) (no date) (unknown) [facility] (no value) [facility] Result panel 130 (unknown) (no date) (unknown) [facility] (no value) [facility] Result panel 131 (unknown) (no date) (unknown) [facility] (no value) [facility] Result panel 132 (unknown) (no date) (unknown) [facility] (no value) [facility] Result panel 133 (unknown) (no date) (unknown) [facility] (no value) [facility] Result panel 134 (unknown) (no date) (unknown) [facility] (no value) [facility] Result panel 135 (unknown) (no date) (unknown) [facility] (no value) [facility] Result panel 136 (unknown) (no date) (unknown) [facility] (no value) [facility] Result panel 137 (unknown) (no date) (unknown) [facility] (no value) [facility] Result panel 138 (unknown) (no date) (unknown) [facility] (no value) [facility] Result panel 139 (unknown) (no date) (unknown) [facility] (no value) [facility] Result panel 140 (unknown) (no date) (unknown) [facility] (no value) [facility] Result panel 141 (unknown) (no date) (unknown) [facility] (no value) [facility] Result panel 142 (unknown) (no date) (unknown) [facility] (no value) [facility] Result panel 143 (unknown) (no date) (unknown) [facility] (no value) [facility] Result panel 144 (unknown) (no date) (unknown) [facility] (no value) [facility] Result panel 145 (unknown) (no date) (unknown) [facility] (no value) [facility] Result panel 146 (unknown) (no date) (unknown) [facility] (no value) [facility] Result panel 147 (unknown) (no date) (unknown) [facility] (no value) [facility] Result panel 148 (unknown) (no date) (unknown) [facility] (no value) [facility] Result panel 149 (unknown) (no date) (unknown) [facility] (no value) [facility] Result panel 150 (unknown) (no date) (unknown) [facility] (no value) [facility] Result panel 151 (unknown) (no date) (unknown) [facility] (no value) [facility] Result panel 152 (unknown) (no date) (unknown) [facility] (no value) [facility] Result panel 153 (unknown) (no date) (unknown) [facility] (no value) [facility] Result panel 154 (unknown) (no date) (unknown) [facility] (no value) [facility] Result panel 155 (unknown) (no date) (unknown) [facility] (no value) [facility] Result panel 156 (unknown) (no date) (unknown) [facility] (no value) [facility] Result panel 157 (unknown) (no date) (unknown) [facility] (no value) [facility] Result panel 158 (unknown) (no date) (unknown) [facility] (no value) [facility] Result panel 159 (unknown) (no date) (unknown) [facility] (no value) [facility] Result panel 160 (unknown) (no date) (unknown) [facility] (no value) [facility] Result panel 161 (unknown) (no date) (unknown) [facility] (no value) [facility] Result panel 162 (unknown) (no date) (unknown) [facility] (no value) [facility] Result panel 163 (unknown) (no date) (unknown) [facility] (no value) [facility] Result panel 164 (unknown) (no date) (unknown) [facility] (no value) [facility] Result panel 165 (unknown) (no date) (unknown) [facility] (no value) [facility] Result panel 166 (unknown) (no date) (unknown) [facility] (no value) [facility] Result panel 167 (unknown) (no date) (unknown) [facility] (no value) [facility] Result panel 168 (unknown) (no date) (unknown) [facility] (no value) [facility] Result panel 169 (unknown) (no date) (unknown) [facility] (no value) [facility] Result panel 170 (unknown) (no date) (unknown) [facility] (no value) [facility] Result panel 171 (unknown) (no date) (unknown) [facility] (no value) [facility] Result panel 172 (unknown) (no date) (unknown) [facility] (no value) [facility] Result panel 173 (unknown) (no date) (unknown) [facility] (no value) [facility] Result panel 174 (unknown) (no date) (unknown) [facility] (no value) [facility] Result panel 175 (unknown) (no date) (unknown) [facility] (no value) [facility] Result panel 176 (unknown) (no date) (unknown) [facility] (no value) [facility] Result panel 177 (unknown) (no date) (unknown) [facility] (no value) [facility] Result panel 178 (unknown) (no date) (unknown) [facility] (no value) [facility] Result panel 179 (unknown) (no date) (unknown) [facility] (no value) [facility] Result panel 180 (unknown) (no date) (unknown) [facility] (no value) [facility] Result panel 181 (unknown) (no date) (unknown) [facility] (no value) [facility] Result panel 182 (unknown) (no date) (unknown) [facility] (no value) [facility] Result panel 183 (unknown) (no date) (unknown) [facility] (no value) [facility] Result panel 184 (unknown) (no date) (unknown) [facility] (no value) [facility] Result panel 185 (unknown) (no date) (unknown) [facility] (no value) [facility] Result panel 186 (unknown) (no date) (unknown) [facility] (no value) [facility] Result panel 187 (unknown) (no date) (unknown) [facility] (no value) [facility] Result panel 188 (unknown) (no date) (unknown) [facility] (no value) [facility] Result panel 189 (unknown) (no date) (unknown) [facility] (no value) [facility] Result panel 190 (unknown) (no date) (unknown) [facility] (no value) [facility] Result panel 191 (unknown) (no date) (unknown) [facility] (no value) [facility] Result panel 192 (unknown) (no date) (unknown) [facility] (no value) [facility] Result panel 193 (unknown) (no date) (unknown) [facility] (no value) [facility] Result panel 194 (unknown) (no date) (unknown) [facility] (no value) [facility] Result panel 195 (unknown) (no date) (unknown) [facility] (no value) [facility] Result panel 196 (unknown) (no date) (unknown) [facility] (no value) [facility] Result panel 197 (unknown) (no date) (unknown) [facility] (no value) [facility] Result panel 198 (unknown) (no date) (unknown) [facility] (no value) [facility] Result panel 199 (unknown) (no date) (unknown) [facility] (no value) [facility] Result panel 200 (unknown) (no date) (unknown) [facility] (no value) [facility] Result panel 201 (unknown) (no date) (unknown) [facility] (no value) [facility] Result panel 202 (unknown) (no date) (unknown) [facility] (no value) [facility] Result panel 203 (unknown) (no date) (unknown) [facility] (no value) [facility] Result panel 204 (unknown) (no date) (unknown) [facility] (no value) [facility] Result panel 205 (unknown) (no date) (unknown) [facility] (no value) [facility] Result panel 206 (unknown) (no date) (unknown) [facility] (no value) [facility] Result panel 207 (unknown) (no date) (unknown) [facility] (no value) [facility] Result panel 208 (unknown) (no date) (unknown) [facility] (no value) [facility] Result panel 209 (unknown) (no date) (unknown) [facility] (no value) [facility] Result panel 210 (unknown) (no date) (unknown) [facility] (no value) [facility] Result panel 211 (unknown) (no date) (unknown) [facility] (no value) [facility] Result panel 212 (unknown) (no date) (unknown) [facility] (no value) [facility] Result panel 213 (unknown) (no date) (unknown) [facility] (no value) [facility] Result panel 214 (unknown) (no date) (unknown) [facility] (no value) [facility] Result panel 215 (unknown) (no date) (unknown) [facility] (no value) [facility] Result panel 216 (unknown) (no date) (unknown) [facility] (no value) [facility] Result panel 217 (unknown) (no date) (unknown) [facility] (no value) [facility] Result panel 218 (unknown) (no date) (unknown) [facility] (no value) [facility] [facility] Result panel 219 (unknown) (no date) (unknown) [facility] (no value[facility] Result panel 220 (unknown) (no date) (unknown) [facility] (no value) [facility] Result panel 221 (unknown) (no date) (unknown) [facility] (no value) [facility] Result panel 222 (unknown) (no date) (unknown) [facility] (no value) [facility] Result panel 223 (unknown) (no date) (unknown) [facility] (no value) [facility] Result panel 224 (unknown) (no date) (unknown) [facility] (no value) [facility] Result panel 225 (unknown) (no date) (unknown) [facility] (no value) [facility] Result panel 226 (unknown) (no date) (unknown) [facility] (no value) [facility] Result panel 227 (unknown) (no date) (unknown) [facility] (no value) [facility] Result panel 228 (unknown) (no date) (unknown) [facility] (no value) [facility] Result panel 229 (unknown) (no date) (unknown) [facility] (no value) [facility] Result panel 230 (unknown) (no date) (unknown) [facility] (no value) [facility] Result panel 231 (unknown) (no date) (unknown) [facility] (no value) [facility] Result panel 232 (unknown) (no date) (unknown) [facility] (no value) [facility] Result panel 233 (unknown) (no date) (unknown) [facility] (no value) [facility] Result panel 234 (unknown) (no date) (unknown) [facility] (no value) [facility] Result panel 235 (unknown) (no date) (unknown) [facility] (no value) [facility] Result panel 236 (unknown) (no date) (unknown) [facility] (no value) [facility] Result panel 237 (unknown) (no date) (unknown) [facility] (no value) [facility] Result panel 238 (unknown) (no date) (unknown) [facility] (no value) [facility] Result panel 239 (unknown) (no date) (unknown) [facility] (no value) [facility] Result panel 240 (unknown) (no date) (unknown) [facility] (no value) [facility] Result panel 241 (unknown) (no date) (unknown) [facility] (no value) [facility] Result panel 242 (unknown) (no date) (unknown) [facility] (no value) [facility] Result panel 243 (unknown) (no date) (unknown) [facility] (no value) [facility] Result panel 244 (unknown) (no date) (unknown) [facility] (no value) [facility] Result panel 245 (unknown) (no date) (unknown) [facility] (no value) [facility] Result panel 246 (unknown) (no date) (unknown) [facility] (no value) [facility] Result panel 247 (unknown) (no date) (unknown) [facility] (no value) [facility] Result panel 248 (unknown) (no date) (unknown) [facility] (no value) [facility] Result panel 249 (unknown) (no date) (unknown) [facility] (no value) [facility] Result panel 250 (unknown) (no date) (unknown) [facility] (no value) [facility] Result panel 251 (unknown) (no date) (unknown) [facility] (no value) [facility] Result panel 252 (unknown) (no date) (unknown) [facility] (no value) [facility] Result panel 253 (unknown) (no date) (unknown) [facility] (no value) [facility] Result panel 254 (unknown) (no date) (unknown) [facility] (no value) [facility] Result panel 255 (unknown) (no date) (unknown) [facility] (no value) [facility] Result panel 256 (unknown) (no date) (unknown) [facility] (no value) [facility] Result panel 257 (unknown) (no date) (unknown) [facility] (no value) [facility] Result panel 258 (unknown) (no date) (unknown) [facility] (no value) [facility] Result panel 259 (unknown) (no date) (unknown) [facility] (no value) [facility] Result panel 260 (unknown) (no date) (unknown) [facility] (no value) [facility] Result panel 261 (unknown) (no date) (unknown) [facility] (no value) [facility] Result panel 262 (unknown) (no date) (unknown) [facility] (no value) [facility] Result panel 263 (unknown) (no date) (unknown) [facility] (no value) [facility] Result panel 264 (unknown) (no date) (unknown) [facility] (no value) [facility] Result panel 265 (unknown) (no date) (unknown) [facility] (no value) [facility] Result panel 266 (unknown) (no date) (unknown) [facility] (no value) [facility] Result panel 267 (unknown) (no date) (unknown) [facility] (no value) [facility] Result panel 268 (unknown) (no date) (unknown) [facility] (no value) [facility] Result panel 269 (unknown) (no date) (unknown) [facility] (no value) [facility] Result panel 270 (unknown) (no date) (unknown) [facility] (no value) [facility] Result panel 271 (unknown) (no date) (unknown) [facility] (no value) [facility] Result panel 272 (unknown) (no date) (unknown) [facility] (no value) [facility] Result panel 273 (unknown) (no date) (unknown) [facility] (no value) [facility] Result panel 274 (unknown) (no date) (unknown) [facility] (no value) [facility] Result panel 275 (unknown) (no date) (unknown) [facility] (no value) [facility] Result panel 276 (unknown) (no date) (unknown) [facility] (no value) [facility] Result panel 277 (unknown) (no date) (unknown) [facility] (no value) [facility] Result panel 278 (unknown) (no date) (unknown) [facility] (no value) [facility] Result panel 279 (unknown) (no date) (unknown) [facility] (no value) [facility] Result panel 280 (unknown) (no date) (unknown) [facility] (no value) [facility] Result panel 281 (unknown) (no date) (unknown) [facility] (no value) [facility] Result panel 282 (unknown) (no date) (unknown) [facility] (no value) [facility] Result panel 283 (unknown) (no date) (unknown) [facility] (no value) [facility] Result panel 284 (unknown) (no date) (unknown) [facility] (no value) [facility] Result panel 285 (unknown) (no date) (unknown) [facility] (no value) [facility] Result panel 286 (unknown) (no date) (unknown) [facility] (no value) [facility] Result panel 287 (unknown) (no date) (unknown) [facility] (no value) [facility] Result panel 288 (unknown) (no date) (unknown) [facility] (no value) [facility] Result panel 289 (unknown) (no date) (unknown) [facility] (no value) [facility] Result panel 290 (unknown) (no date) (unknown) [facility] (no value) [facility] Result panel 291 (unknown) (no date) (unknown) [facility] (no value) [facility] Result panel 292 (unknown) (no date) (unknown) [facility] (no value) [facility] Result panel 293 (unknown) (no date) (unknown) [facility] (no value) [facility] Result panel 294 (unknown) (no date) (unknown) [facility] (no value) [facility] Result panel 295 (unknown) (no date) (unknown) [facility] (no value) [facility] Result panel 296 (unknown) (no date) (unknown) [facility] (no value) [facility] Result panel 297 (unknown) (no date) (unknown) [facility] (no value) [facility] Result panel 298 (unknown) (no date) (unknown) [facility] (no value) [facility] Result panel 299 (unknown) (no date) (unknown) [facility] (no value) [facility] Result panel 300 (unknown) (no date) (unknown) [facility] (no value) [facility] Result panel 301 (unknown) (no date) (unknown) [facility] (no value) [facility] Result panel 302 (unknown) (no date) (unknown) [facility] (no value) [facility] Result panel 303 (unknown) (no date) (unknown) [facility] (no value) [facility] Result panel 304 (unknown) (no date) (unknown) [facility] (no value) [facility] Result panel 305 (unknown) (no date) (unknown) [facility] (no value) [facility] Result panel 306 (unknown) (no date) (unknown) [facility] (no value) [facility] Result panel 307 (unknown) (no date) (unknown) [facility] (no value) [facility] Result panel 308 (unknown) (no date) (unknown) [facility] (no value) [facility] Result panel 309 (unknown) (no date) (unknown) [facility] (no value) [facility] Result panel 310 (unknown) (no date) (unknown) [facility] (no value) [facility] Result panel 311 (unknown) (no date) (unknown) [facility] (no value) [facility] Result panel 312 (unknown) (no date) (unknown) [facility] (no value) [facility] Result panel 313 (unknown) (no date) (unknown) [facility] (no value) [facility] Result panel 314 (unknown) (no date) (unknown) [facility] (no value) [facility] Result panel 315 (unknown) (no date) (unknown) [facility] (no value) [facility] Result panel 316 (unknown) (no date) (unknown) [facility] (no value) [facility] Result panel 317 (unknown) (no date) (unknown) [facility] (no value) [facility] Result panel 318 (unknown) (no date) (unknown) [facility] (no value) [facility] Result panel 319 (unknown) (no date) (unknown) [facility] (no value) [facility] Result panel 320 (unknown) (no date) (unknown) [facility] (no value) [facility] Result panel 321 (unknown) (no date) (unknown) [facility] (no value) [facility] Result panel 322 (unknown) (no date) (unknown) [facility] (no value) [facility] Result panel 323 (unknown) (no date) (unknown) [facility] (no value) [facility] Result panel 324 (unknown) (no date) (unknown) [facility] (no value) [facility] Result panel 325 (unknown) (no date) (unknown) [facility] (no value) [facility] Result panel 326 (unknown) (no date) (unknown) [facility] (no value) [facility] Result panel 327 (unknown) (no date) (unknown) [facility] (no value) [facility] Result panel 328 (unknown) (no date) (unknown) [facility] (no value) [facility] Result panel 329 (unknown) (no date) (unknown) [facility] (no value) [facility] Result panel 330 (unknown) (no date) (unknown) [facility] (no value) [facility] Result panel 331 (unknown) (no date) (unknown) [facility] (no value) [facility] Result panel 332 (unknown) (no date) (unknown) [facility] (no value) [facility] Result panel 333 (unknown) (no date) (unknown) [facility] (no value) [facility] Result panel 334 (unknown) (no date) (unknown) [facility] (no value) [facility] Result panel 335 (unknown) (no date) (unknown) [facility] (no value) [facility] Result panel 336 (unknown) (no date) (unknown) [facility] (no value) [facility] Result panel 337 (unknown) (no date) (unknown) [facility] (no value) [facility] Result panel 338 (unknown) (no date) (unknown) [facility] (no value) [facility] Result panel 339 (unknown) (no date) (unknown) [facility] (no value) [facility] Result panel 340 (unknown) (no date) (unknown) [facility] (no value) [facility] Result panel 341 (unknown) (no date) (unknown) [facility] (no value) [facility] Result panel 342 (unknown) (no date) (unknown) [facility] (no value) [facility] Result panel 343 (unknown) (no date) (unknown) [facility] (no value) [facility] Result panel 344 (unknown) (no date) (unknown) [facility] (no value) [facility] Result panel 345 (unknown) (no date) (unknown) [facility] (no value) [facility] Result panel 346 (unknown) (no date) (unknown) [facility] (no value) [facility] Result panel 347 (unknown) (no date) (unknown) [facility] (no value) [facility] Result panel 348 (unknown) (no date) (unknown) [facility] (no value) [facility] Result panel 349 (unknown) (no date) (unknown) [facility] (no value) [facility] Result panel 350 (unknown) (no date) (unknown) [facility] (no value) [facility] Result panel 351 (unknown) (no date) (unknown) [facility] (no value) [facility] Result panel 352 (unknown) (no date) (unknown) [facility] (no value) [facility] Result panel 353 (unknown) (no date) (unknown) [facility] (no value) [facility] Result panel 354 (unknown) (no date) (unknown) [facility] (no value) [facility] Result panel 355 (unknown) (no date) (unknown) [facility] (no value) [facility] Result panel 356 (unknown) (no date) (unknown) [facility] (no value) [facility] Result panel 357 (unknown) (no date) (unknown) [facility] (no value) [facility] Result panel 358 (unknown) (no date) (unknown) [facility] (no value) [facility] Result panel 359 (unknown) (no date) (unknown) [facility] (no value) [facility] Result panel 360 (unknown) (no date) (unknown) [facility] (no value) [facility] Result panel 361 (unknown) (no date) (unknown) [facility] (no value) [facility] Result panel 362 (unknown) (no date) (unknown) [facility] (no value) [facility] Result panel 363 (unknown) (no date) (unknown) [facility] (no value) [facility] Result panel 364 (unknown) (no date) (unknown) [facility] (no value) [facility] Result panel 365 (unknown) (no date) (unknown) [facility] (no value) [facility] Result panel 366 (unknown) (no date) (unknown) [facility] (no value) [facility] Result panel 367 (unknown) (no date) (unknown) [facility] (no value) [facility] Result panel 368 (unknown) (no date) (unknown) [facility] (no value) [facility] Result panel 369 (unknown) (no date) (unknown) [facility] (no value) [facility] Result panel 370 (unknown) (no date) (unknown) [facility] (no value) [facility] Result panel 371 (unknown) (no date) (unknown) [facility] (no value) [facility] Result panel 372 (unknown) (no date) (unknown) [facility] (no value) [facility] Result panel 373 (unknown) (no date) (unknown) [facility] (no value) [facility] Result panel 374 (unknown) (no date) (unknown) [facility] (no value) [facility] Result panel 375 (unknown) (no date) (unknown) [facility] (no value) [facility] Result panel 376 (unknown) (no date) (unknown) [facility] (no value) [facility] Result panel 377 (unknown) (no date) (unknown) [facility] (no value) [facility] Result panel 378 (unknown) (no date) (unknown) [facility] (no value) [facility] Result panel 379 (unknown) (no date) (unknown) [facility] (no value) [facility] Result panel 380 (unknown) (no date) (unknown) [facility] (no value) [facility] Result panel 381 (unknown) (no date) (unknown) [facility] (no value) [facility] Result panel 382 (unknown) (no date) (unknown) [facility] (no value) [facility] Result panel 383 (unknown) (no date) (unknown) [facility] (no value) [facility] Result panel 384 (unknown) (no date) (unknown) [facility] (no value) [facility] Result panel 385 (unknown) (no date) (unknown) [facility] (no value) [facility] Result panel 386 (unknown) (no date) (unknown) [facility] (no value) [facility] Result panel 387 (unknown) (no date) (unknown) [facility] (no value) [facility] Result panel 388 (unknown) (no date) (unknown) [facility] (no value) [facility] Result panel 389 (unknown) (no date) (unknown) [facility] (no value) [facility] Result panel 390 (unknown) (no date) (unknown) [facility] (no value) (units ([facility] nown[facility] Primary unknown) [facility] Result panel 391 (unknown) (no date) (unknown) Walk-In (no value) (units ([facility] nown) [facility] Primary unknown) [facility] Result panel 392 (unknown) (no date) (unknown) Walk-In (no value) (units ([facility] nown) Clinic Primary unknown) [facility] Result panel 393 (unknown) (no date) (unknown) Walk-In (no value) (units ([facility] nown) Clinic Primary unknown) [facility] Result panel 394 (unknown) (no date) (unknown) Walk-In (no value) (units ([facility] nown) Clinic Primary unknown) [facility] Result panel 395 (unknown) (no date) (unknown) Walk-In (no value) (units ([facility] nown) [facility] Primary unknown) [facility] Result panel 396 (unknown) (no date) (unknown) Walk-In (no value) (units ([facility] nown) [facility] Primary unknown) [facility] Result panel 397 (unknown) (no date) (unknown) Walk-In (no value) (units ([facility] nown) [facility] Primary unknown) [facility] Result panel 398 (unknown) (no date) (unknown) Walk-In (no value) (units ([facility] nown) [facility] Primary unknown) [facility] Result panel 399 (unknown) (no date) (unknown) Walk-In (no value) (units ([facility] nown) [facility] Primary unknown) [facility] Result panel 400 (unknown) (no date) (unknown) Walk-In (no value) (units ([facility] nown) [facility] Primary unknown) [facility] Result panel 401 (unknown) (no date) (unknown) Walk-In (no value) (units ([facility] nown) [facility] Primary unknown) [facility] Result panel 402 (unknown) (no date) (unknown) Walk-In (no value) (units ([facility] nown) [facility] Primary unknown) [facility] Result panel 403 (unknown) (no date) (unknown) Walk-In (no value) (units ([facility] nown) [facility] Primary unknown) [facility] Result panel 404 (unknown) (no date) (unknown) Walk-In (no value) (units ([facility] nown) Clinic Primary unknown) [facility] Result panel 405 (unknown) (no date) (unknown) Walk-In (no value) (units ([facility] nown) Clinic Primary unknown) [facility] Result panel 406 (unknown) (no date) (unknown) Walk-In (no value) (units ([facility] nown) Clinic Primary unknown) [facility] Result panel 407 (unknown) (no date) (unknown) Walk-In (no value) (units ([facility] nown) Clinic Primary unknown) [facility] Result panel 408 (unknown) (no date) (unknown) Walk-In (no value) (units ([facility] nown) Clinic Primary unknown) [facility] Social History date description facility 2022-12-15 00:00 Never smoker Walk-In Clinic [facility] 2022-12-15 00:00 Never smoker Walk-In Clinic [facility] 2022-12-15 00:00 Never smoker Walk-In Clinic [facility] 2022-12-15 00:00 Never smoker Walk[facility] Clinic [facility] 2022-12-15 00:00 Never smoker Walk-In Clinic [facility] 2023-01-13 00:00 Never smoker Walk[facility]In [facility] 2023-01-13 00:00 Never smoker Walk-In Clinic [facility] 2023-01-13 00:00 Never smoker Walk-In Clinic [facility] 2023-01-13 00:00 Never smoker Walk-In Clinic [facility] 2023-02-09 00:00 Never smoker Walk-In Clinic [facility] Vital Signs date measurement value units 2022-12-15 [...] 100.7 kg 2023-01-13 00:00 weight_standard 222 lb 2023-02-09 00:00 BMI 40.75 kg/m2 2023-02-09 00:00 BP_diastolic 88 mmHg 2023-02-09 00:00 BP_systolic 135 mmHg 2023-02-09 00:00 heart_rate 81 /min 2023-02-09 00:00 height_metric 157.48 cm 2023-02-09 00:00 height_standard 62 in 2023-02-09 00:00 respiration_rate 16 /min 2023-02-09 00:00 temperature_metric 36.72 C 2023-02-09 00:00 temperature_standard 98.1 F 2023-02-09 00:00 weight_metric 100.7 kg 2023-02-09 00:00 weight_standard 222 lb
[2023-02-10 14:10] LABS: BAND NEUTROPHILS % (MANUAL) 1 %; DIFFERENTIAL COMMENT MANUAL DIFFERENTIAL; EOSINOPHILS # (MANUAL) 2.1 10^3/uL (0-0.7); LYMPHOCYTES # (MANUAL) 1.5 10^3/uL (1.5-3.5); LYMPHOCYTES % (MANUAL) 8 %; MONOCYTES # (MANUAL) 0.6 10^3/uL (0.0-1.0); NEUTROPHILS # (MANUAL) 5.7 10^3/uL (1.5-6.6); REACTIVE LYMPHS % (MANUAL) 7 %
[2023-02-10] MEDS ORDERED: FAMOTIDINE 20 MG/2 ML VIAL IVP STA (14:24)
[2023-02-10] MEDS ORDERED: HYDROmorphone 1 MG/ML CARPUJECT IVP STA (14:24)
[2023-02-10] MEDS ORDERED: KETOROLAC 15 MG/ML VIAL IVP STA (14:26)
--- NOTE | 2023-02-10 15:05 | XRAY Report ---
PROCEDURE: Chest 1 View X-Ray INDICATIONS: dyspnea with activity TECHNIQUE: One view of the chest was acquired. COMPARISON: 01/01/2023 FINDINGS: Surgical changes and devices: None. Lungs and pleura: No pleural effusions or pneumothorax. Lungs are clear. Mediastinum: Mediastinal contours appear normal. Cardiomegaly, possibly decreased compared to the pr evious study. Bones and chest wall: No suspicious bony lesions. Overlying soft tissues appear unremarkable. IMPRESSION: Cardiomegaly may be slightly decreased compared to the previous study. No evidence acute pulmonary pr ocess. Reviewed by: Ata Leonard MD on 02/10/2023 3:04 PM PDT Approved by: Ata Leonard MD on 02/10/2023 3:04 PM PDT Station ID: [id number]
[2023-02-10] MEDS ORDERED: MAGNESIUM SULFATE 2 GRAM 2 GM/50 ML BAG IV ONE (15:18)
--- NOTE | 2023-02-10 16:40 | Ultrasound Report ---
PROCEDURE: Abdomen Limited INDICATIONS: right upper abd pain 6 weeks, worse few days TECHNIQUE: Real-time focused scanning was performed of the abdomen, with image documentation. COMPARISONS: None. FINDINGS: Liver: Unremarkable Gallbladder: Biliary sludge and calculi noted in the gallbladder without evidence of pericholecystic fluid or gallbladder wall thickening Biliary ducts: Intrahepatic bile ducts are non-dilated. Extrahepatic bile duct caliber measures 5.2 mm. Normal is 6-7 mm or less in diameter, or 10 mm or less post-cholecystectomy. Pancreas: Visualized portions of the pancreas are sonographically normal. Right kidney: Normal in size and echotexture. Right kidney measures 10 cm long. No hydronephrosis or nephrolithiasis. No solid masses. No complex renal cystic lesions which require follow-up. Aorta: Visualized aorta is normal in caliber at less than 3 cm. IVC: Intrahepatic inferior vena cava is patent. Miscellaneous: No free abdominal fluid. IMPRESSION: Biliary sludge and calculi in the gallbladder without ultrasound evidence of acute cholecystitis Reviewed by: Luis Vizcaino MD on 02/10/2023 3:39 PM [facility] Approved by: Luis Vizcaino MD on 02/10/2023 3:39 PM AKCHARLES Station ID: [id number]
[2023-02-10 16:50] VITALS: BP 109/73
== END 2023-02-10 17:13 | disposition home or self-care (01) ==
LOC: ED 12:39
DX: A04.72 Enterocolitis due to Clostridium difficile, not specified as recurrent (principal); R10.13 Epigastric pain; R10.11 Right upper quadrant pain; I10 Essential (primary) hypertension; E11.9 Type 2 diabetes mellitus without complications; Z79.4 Long term (current) use of insulin; I48.91 Unspecified atrial fibrillation; Z79.01 Long term (current) use of anticoagulants
CPT/HCPCS: 36415; 71045; 76705; 80053; 81001; 83690; 83735; 83880; 85025; 87045; 87046; 87427; 87493; 96365; 96375; 99284; 99285; J1170; 81003; 87086

== ENCOUNTER 2023-02-16 17:27 | Outpatient (CLI) | payer MEDICARE, OTHER, MEDICAID ==
--- NOTE | 2023-02-16 15:22 | XRAY Report ---
PROCEDURE: Foot 3 View BILAT INDICATIONS: BILAT FOOT PAIN TECHNIQUE: 3 views of the foot were acquired. COMPARISON: None. FINDINGS: Bones: No fractures or dislocations. Bilateral pes planus with weightbearing is seen. Moderate to se phi bilateral feet osteoarthritic changes are noted most notably at bilateral first MTP joints with prominent dorsal marginal osteophyte formation concerning for hallux limitus. Well-defined of bilater al plantar and dorsal calcaneal enthesophytes are seen. No suspicious bony lesions. Soft tissues: No suspicious soft tissue calcifications or masses. IMPRESSION: Bilateral pes planus with weightbearing. Moderate to severe bilateral feet osteoarthritis most notabl y at bilateral first MTP joints with suggestion of hallux limitus. No fracture or dislocation. Calcan eal enthesophytes. Reviewed by: Scott Julian MD on 02/16/2023 3:20 PM PDT Approved by: Scott Julian MD on 02/16/2023 3:20 PM PDT Station ID: [id number]
== END 2023-02-16 17:28 | disposition home or self-care (01) ==
LOC: DI.WOS 17:27
PROVIDERS: ATTEND Physician Assistant Surgical
DX: M21.42 Flat foot [pes planus] (acquired), left foot (principal); M21.41 Flat foot [pes planus] (acquired), right foot; M19.072 Primary osteoarthritis, left ankle and foot; M19.071 Primary osteoarthritis, right ankle and foot; M20.22 Hallux rigidus, left foot; M20.21 Hallux rigidus, right foot; M25.775 Osteophyte, left foot; M25.774 Osteophyte, right foot

== ENCOUNTER 2023-02-23 11:32 | Outpatient (CLI) | payer MEDICARE, OTHER, MEDICAID | END 2023-02-23 11:33 | disposition critical access hospital (66) | LOC: EMS 11:32 | DX: R06.02 Shortness of breath (principal); R00.2 Palpitations | CPT/HCPCS: A0425; A0427 ==

== ENCOUNTER 2023-02-23 12:06 | Emergency (ER) | payer MEDICARE, OTHER, MEDICAID ==
[2023-02-23] MEDS ORDERED: METOPROLOL 5 MG/5 ML VIAL IVP STA (12:10)
--- NOTE | 2023-02-23 12:12 | ED Physician Documentation ---
PD HPI DYSPNEA - Stated complaint Stated Complaint: SOA - History obtained from History obtained from: Patient, EMS - Additional information Additional information: She has a history of CHF, A-fib, type 2 diabetes. She woke up this morning with palpitations, multiple skipped beats and a feeling of shortness of breath. EMS was summoned and she was found to be in rapid A-fib with rates in the 1 teens to 130s with otherwise unremarkable vital signs. She was administered albuterol and supplemental oxygen (although she was not hypoxic) and she now feels better. She did not take her morning meds. She denies chest pain or pedal edema. PD PAST MEDICAL HISTORY - Past Medical History Cardiovascular: Congestive heart failure, Hypertension, High cholesterol, Atrial fibrillation, Murmur Respiratory: Asthma, Pneumonia, Shortness of breath, Sleep apnea Neuro: CVA, Migraines, Other Endocrine/Autoimmune: Type 2 diabetes, HyPOthyroidism, Other GI: GERD, Hepatitis, Other PANTOGRAPH TRANSFERRER: None : Incontinence, Frequency HEENT: Chronic vision loss, Chronic hearing loss Psych: None Musculoskeletal: Osteoarthritis, Chronic back pain, Other Derm: None - Past Surgical History Past Surgical History: Yes Ortho: Hip replacement, Knee replacement, Carpal Tunnel surgery /PANTOGRAPH TRANSFERRER: Dilation and currettage, Tubal ligation, Hysterectomy, Oophrectomy - Present Medications Home Medications: Ambulatory Orders Medication Instructions Recorded Confirmed EPINEPHrine [Epipen 2-Justin] 0.3 mg IM ONCE PRN 08/14/17 10/26/21 Insulin Glargine [Lantus Solostar] 45 unit SQ DAILY 08/14/17 01/02/23 Sertraline HCl 50 mg PO QPM 02/26/18 01/02/23 Levothyroxine Sodium 125 mcg PO QDAC 04/11/19 01/02/23 cloNIDine HCL [Clonidine HCl] 0.2 mg PO QPM 04/11/19 01/02/23 Bethanechol [Urecholine] 25 mg PO BID 10/24/20 01/02/23 Apixaban [Eliquis] 2.5 mg PO BID 01/02/23 01/02/23 Atorvastatin [Lipitor] 20 mg PO QPM 01/02/23 01/02/23 Digoxin [Lanoxin] 125 mcg 01/02/23 Metoprolol Succinate [Toprol Xl] 200 mg PO BID 01/02/23 01/02/23 dilTIAZem HCL [Diltiazem 24Hr ER 120 mg PO BID 01/02/23 01/02/23 (Xr)] glipiZIDE [Glipizide] 10 mg PO BID 01/02/23 01/02/23 Hyoscyamine [Levsin] 0.125 mg SL AC PRN #20 tablet 02/10/23 Ondansetron Odt [Zofran] 4 mg TL Q6H PRN #10 tablet 02/10/23 Sucralfate [Carafate] 1 gm PO ACHS #28 tablet 02/10/23 Vancomycin [Vancocin] 125 mg PO QID 10 Days #40 cap 02/10/23 Furosemide [Lasix] 40 mg PO DAILY #3 tablet 02/23/23 - Allergies Allergies/Adverse Reactions: Allergies Allergy/AdvReac Type Severity Reaction Status Date / Time atorvastatin Allergy Cramps Verified 02/10/23 12:52 bee venom protein (honey bee) Allergy Unknown Verified 02/10/23 12:52 cefuroxime [From Ceftin] Allergy Unknown Verified 02/10/23 12:52 codeine Allergy Nausea Verified 02/10/23 12:52 hydrocodone [From Vicodin] Allergy Nausea Verified 02/10/23 12:52 Influenza Virus Vaccines Allergy Unknown Verified 02/10/23 12:52 lisinopril Allergy Respiratory Verified 02/10/23 12:52 mushroom Allergy Anaphylaxis Verified 02/10/23 12:52 nitroglycerin Allergy Headache Verified 02/10/23 12:52 propoxyphene Allergy Unknown Verified 02/10/23 12:52 [From Darvocet-N] tramadol Allergy Headache Verified 02/10/23 12:52 - Social History Does the pt smoke?: No Smoking Status: Never smoker Does the pt drink ETOH?: No Does the pt have substance abuse?: No - Immunizations Immunizations are current?: Yes - POLST Patient has POLST: No POLST Status: Full Code PD ED PE NORMAL - Vitals Vital signs reviewed: Yes - General General: Alert and oriented X 3, No acute distress - HEENT HEENT: PERRL, EOMI - Neck Neck: Supple, no meningeal sign, No bony TTP - Cardiac Cardiac: Other (Rapid and irregular without murmur) - Respiratory Respiratory: No respiratory distress, Other (Diminished both bases) - Abdomen Abdomen: Non tender - Extremities Extremities: No edema, No calf tenderness / cord - Neuro Neuro: Alert and oriented X 3, Normal speech Results - Vitals Vitals: Vital Signs - 24 hr 02/23/23 02/23/23 12:11 13:00 Temperature 36.6 C Heart Rate 108 H 111 H Respiratory 32 H 22 Rate Blood Pressure 139/54 H 138/97 H O2 Saturation 96 97 Oxygen O2 Source Room air - EKG (time done) 1233 EKG releavant findings:: EKG personally interpreted by author of this note. Relevant findings are: Rate: Rate (enter#) Rhythm: Atrial fibrillation [place]: Normal Intervals: Prolonged QT QRS: Normal Ischemia: Normal ST segments - Labs Labs: Laboratory Tests 02/23/23 02/23/23 02/23/23 12:19 12:19 12:19 WBC 9.9 RBC 4.12 L Hgb 11.4 L Hct 35.9 L MCV 87.1 MCH 27.7 MCHC 31.8 L RDW 16.6 H Plt Count 254 MPV 12.0 H Neut # (Auto) 7.6 H Lymph # (Auto) 1.2 L [place] # (Auto) 0.4 Eos # (Auto) 0.5 Baso # (Auto) 0.1 Absolute Nucleated RBC 0.00 Nucleated RBC % 0.0 Sodium 139 Potassium 4.6 Chloride 106 Carbon Dioxide 21 Anion Gap 12.0 BUN 59 H Creatinine 2.3 H Estimated GFR (MDRD) 21 L Glucose 285 H Calcium 9.0 Total Bilirubin 0.8 AST 24 ALT 29 Alkaline Phosphatase 193 H B-Natriuretic Peptide 1543 H Total Protein 7.1 Albumin 3.4 Globulin 3.7 Albumin/Globulin Ratio 0.9 L Lipase 69 H PD Medical Decision Making - ED course ED course: 77-year-old woman presents with rapid A-fib and shortness of breath. She has diminished breath sounds in the bases. Work-up demonstrates a hemoglobin of 11.4, a stable anemia on her CBC. CMP shows stable poor renal function and hyperglycemia. BNP elevated. After the administration of 5 mg of IV metoprolol she was rate controlled. Her chest x-ray did demonstrate some fluid overload and she will be started on diuresis with close follow-up with her primary care physician. I pondered whether or not to put her on potassium supplementation while she was being diuresed, but with her high normal baseline potassium and poor renal function elected not to and encouraged her to follow-up closely with her primary instead. Subsequent to discharge her daughter returned and stated that her mom was already on Lasix. This was not on the medication list I had access to. I advised that instead of filling the new prescription they could simply double what ever Lasix dose she was taking for the next few days. Departure - Departure Disposition: 01 Home, Self Care Clinical Impression: Atrial fibrillation Qualifiers: Atrial fibrillation type: permanent Qualified Code(s): I48.21 - Permanent atrial fibrillation CHF (congestive heart failure) Qualifiers: Heart failure type: unspecified Heart failure chronicity: acute on chronic Qualified Code(s): I50.9 - Heart failure, unspecified Condition: Good Record reviewed to determine appropriate education?: Yes Instructions: ED Paroxysmal Atrial Flutter, ED CHF General Prescriptions: Furosemide [Lasix] 40 mg PO DAILY #3 tablet Comments: You were seen today for symptoms related to rapid atrial fibrillation and some congestive heart failure. I am starting you on a diuretic. We gave you a first dose today so no needed to take anymore until tomorrow. You should follow-up with your primary care physician within the next few days for further evaluation and treatment. Can please take your regular morning meds on return home. Return if worse. Discharge Date/Time: 02/23/23 13:30
[2023-02-23 12:28] LABS: BASOPHILS # (AUTO) 0.1 10^3/uL (0.0-0.1); BASOPHILS % (AUTO) 1.3 %; EOSINOPHILS # (AUTO) 0.5 10^3/uL (0.0-0.7); EOSINOPHILS % (AUTO) 5.3 %; HCT - HEMATOCRIT 35.9 % (37.0-47.0); HGB - HEMOGLOBIN 11.4 g/dL (12.0-16.0); LYMPHOCYTES # (AUTO) 1.2 10^3/uL (1.5-3.5); LYMPHOCYTES % (AUTO) 12.3 %; MEAN CORPUSCULAR HEMOGLOBIN 27.7 pg (27.0-31.0); MEAN CORPUSCULAR HGB CONC 31.8 g/dL (32.0-36.0); MEAN CORPUSCULAR VOLUME 87.1 fL (81.0-99.0); MONOCYTES # (AUTO) 0.4 10^3/uL (0.0-1.0); MONOCYTES % (AUTO) 4.4 %; NEUTROPHILS # (AUTO) 7.6 10^3/uL (1.5-6.6); NEUTROPHILS % (AUTO) 76.4 %; PLT - PLATELET COUNT 254 10^3/uL (130-450); RED BLOOD COUNT 4.12 10^6/uL (4.20-5.40); RED CELL DISTRIBUTION WIDTH 16.6 % (12.0-15.0); WHITE BLOOD COUNT 9.9 x10^3/uL (4.8-10.8)
--- NOTE | 2023-02-23 12:30 | XRAY Report ---
PROCEDURE: Chest 1 View X-Ray INDICATIONS: dyspnea TECHNIQUE: One view of the chest was acquired. COMPARISON: None. FINDINGS: Surgical changes and devices: None. Lungs and pleura: No pleural effusions or pneumothorax. Pulmonary vascular congestion is seen, no de finite focal infiltrate. Mediastinum: Mediastinal contours appear normal. Heart size is enlarged. Bones and chest wall: No suspicious bony lesions. Overlying soft tissues appear unremarkable. IMPRESSION: Cardiomegaly and mild congestion. No definite focal infiltrate. No pleural effusion or pneumothorax. Reviewed by: Scott Julian MD on 02/23/2023 12:28 PM PDT Approved by: Scott Julian MD on 02/23/2023 12:28 PM PDT Station ID: [id number]
--- OUTSIDE RECORDS SUMMARY | 2023-02-23 12:37 | EXTERNAL MEDICAL SUMMARY RPT | Continuity of Care Document ---
Author Name Unknown Address [address] [place] [address] Phone Organization [facility] [address] [place] [address] Phone Care Team Providers Care [employer] Drawing Operator Name Role Phone Unavailable Unavailable Unavailable Raymond Salmon, Cassandra Unavailable Unavailable Lauro Loyd, Oscar Unavailable Unavailable Lili Aguilera, Oscar Unavailable Unavailbrian Fajardo Pa-C, Jasper Unavailable Unavailable Wilmer Patient Registrar, Magui Unavailable U navailable Donald Rivers,Rot, Odette Unavailable Unavaila ble Pulu Patient Registrar, Brenna Unavailable Un available Wilmer Patient Registrar, Magui Unavailable U navcarmelable Jake Patient Registrar, Iona Unavailable Unavailable Emily, Provider Unavailable Unavailable Medications date description facility 2022-12-15 00:00 [facility] 2022-12-16 00:00 [facility] 2023-01-14 00:00 [facility] 2023-01-18 00[facility]00 [facility] 2023-01-26 00:00 [facility] 2023-01-27 00[facility]00 [facility] 2023-02-09 00:00 [facility] 2023-02-10 00:00 [facility] 2023-02-12 00[facility]00 [facility] 2023-02-12 00:00 [facility] 2023-02-16 00[facility]00 [facility] 2023-02-16 00:00 [facility] 2023-02-20 00:00 [facility] 2022-12-15 00:00 [facility] 2022-12-16 00:00 [facility] 2023-01-14 00:00 [facility] 2023-01-18 00:00 [facility] 2023-01-26 00:00 [facility] 2023-01-27 00:00 [facility] 2023-02-09 00:00 [facility] 2023-02-10 00:00 [facility] 2023-02-12 00:00 [facility] 2023-02-12 00:00 [facility] 2023-02-16 00:00 [facility] 2023-02-16 00:00 [facility] 2023-02-20 00:00 [facility] 2023-02-09 00:00 [facility]ycodone [facility] 2023-02-09 00:00 oxycodone [facility] 2023-02-09 00:00 oxycodone [facility] 2023-02-09 00:00 oxycodone [facility] 2023-02-09 00:00 oxycodone [facility] 2023-02-09 00:00 [facility]ycodone [facility] 2023-01-13 00:00 prednisone [facility] 2023-01-13 00:00 [facility]nisone [facility] [place] 2023-01-13 00:00 prednisone [facility] 2023-01-13 00:00 prednisone [facility] [place] 2023-01-13 00:00 prednisone [facility] [place] 2023-01-13 00:00 prednisone [facility] 2023-01-13 00:00 prednisone [facility] [place] 2023-01-13 00:00 prednisone [facility] [place] 2023-01-13 00:00 prednisone [facility] [place] 2022-12-15 00:00 bethanechol chloride [facility] [place] 2022-12-16 00:00 bethanechol chloride [facility] [place] 2023-01-14 00:00 bethanechol chloride [facility] [place] 2023-01-18 00:00 bethanechol chloride [facility] [place] 2023-01-26 00:00 bethanechol chloride [facility] 2023-01-27 00:00 bethanechol chloride [facility] 2023-02-09 00:00 bethanechol chloride [facility] 2023-02-10 00:00 bethanechol chloride [facility] 2023-02-12 00:00 bethanechol chloride [facility] 2023-02-12 00:00 bethanechol chloride [facility] 2023-02-16 00:00 bethanechol chloride [facility] 2023-02-16 00:00 bethanechol chloride [facility] 2023-02-20 00:00 bethanechol chloride [facility] 2023-01-14 00:00 aspirin [facility] 2023-01-18 00:00 aspirin [facility] 2023-01-26 00:00 aspirin [facility] 2023-01-27 00:00 aspirin [facility] 2023-02-09 00:00 aspirin [facility] 2023-02-10 00:00 aspirin [facility] 2023-02-12 00:00 aspirin [facility] 2023-02-12 00:00 aspirin [facility] 2023-02-16 00:00 aspirin [facility] 2023-02-16 00:00 aspirin [facility] 2023-02-20 00:00 aspirin [facility] 2023-01-14 00:00 hydralazine [facility] 2023-01-18 00:00 hydralazine [facility] 2023-01-26 00:00 hydralazine [facility] 2023-01-27 00:00 hydralazine [facility] 2023-02-09 00:00 hydralazine [facility] 2023-02-10 00:00 hydralazine [facility] 2023-02-12 00:00 hydralazine [facility] 2023-02-12 00:00 hydralazine [facility] 2023-02-16 00:00 hydralazine [facility] 2023-02-16 00:00 hydralazine [facility] 2023-02-20 00:00 hydralazine [facility] [place] 2023-02-09 00:00 oxycodone [facility] [place] 2023-02-09 00:00 oxycodone [facility] [place] 2023-02-09 00:00 oxycodone [facility] [place] 2023-02-09 00:00 oxycodone [facility] [place] 2023-02-09 00:00 oxycodone [facility] [place] 2023-02-09 00:00 oxycodone [facility] [place] 2023-01-14 00:00 isosorbide dinitrate [facility] [place] 2023-01-18 00:00 isosorbide dinitrate [facility] [place] 2023-01-26 00:00 isosorbide dinitrate [facility] [place] 2023-01-27 00:00 isosorbide dinitrate [facility] [place] 2023-02-09 00:00 isosorbide dinitrate [facility] [place] 2023-02-10 00:00 isosorbide dinitrate [facility] [place] 2023-02-12 00:00 isosorbide dinitrate [facility] 2023-02-12 00:00 isosorbide dinitrate [facility] 2023-02-16 00:00 isosorbide dinitrate [facility] 2023-02-16 00:00 isosorbide dinitrate [facility] 2023-02-20 00:00 isosorbide dinitrate [facility] 2022-12-15 00:00 apixaban [facility] 2022-12-16 00:00 [facility] 2023-01-14 00:00 [facility] 2023-01-18 00:00 [facility] 2023-01-26 00:00 [facility] 2023-01-27 00:00 [facility] 2023-02-09 00:00 [facility] 2023-02-10 00:00 [facility] 2023-02-12 00:00 [facility] 2023-02-12 00:00 [facility] 2023-02-16 00:00 [facility] 2023-02-16 00:00 [facility] 2023-02-20 00:00 [facility] 2022-12-15 00:00 [facility] 2022-12-16 00:00 [facility] 2023-01-14 00:00 [facility] 2023-01-18 00:00 [facility] 2023-01-26 00:00 [facility] 2023-01-27 00:00 [facility] 2023-02-09 00:00 [facility] 2023-02-10 00:00 [facility] 2023-02-12 00:00 [facility] 2023-02-12 00:00 [facility]aban [facility] 2023-02-16 00[facility]00 [facility]aban [facility] [place] 2023-02-16 00:00 [facility]aban [facility] [place] 2023-02-20 00:00 [facility] [place] 2023-01-14 00:00 zwjgnm-zzcrxydr-bjysaac [facility] [place] 2023-01-18 00:00 oqdzpe-gqaulutg-bwbybwu [facility] [place] 2023-01-26 00:00 rzarxs-opdisktu-kovazmx [facility] [place] 2023-01-27 00:00 neuvmg-bcwvgmgz-mphexdk [facility] [place] 2023-02-09 00:00 cmkxln-byhahfju-flmlwac [facility] [place] 2023-02-10 00:00 acqdax-vrkipikp-asnelht [facility] [place] 2023-02-12 00:00 pafuun-yuujgjqs-rphxwyk [facility] [place] 2023-02-12 00:00 wsbpel-gbhxifkq-svkbsio [facility] [place] 2023-02-16 00:00 trvkql-aqcvmlko-idwuyyj [facility] [place] 2023-02-16 00:00 wpvfgf-othjggvi-brjczvs [facility] [place] 2023-02-20 00:00 qyxsdj-rqmgmqyn-gmnpnnn [facility] [place] 2022-12-15 00:00 apixaban [facility] [place] 2022-12-16 00:00 apixaban [facility] [place] 2023-01-14 00:00 apixaban [facility] [place] 2023-01-18 00:00 apixaban [facility] [place] 2023-01-26 00:00 apixaban [facility] [place] 2023-01-27 00:00 apixaban [facility] [place] 2023-02-09 00[facility]00 [facility] 2023-02-10 00:00 [facility]aban [facility] 2023-02-12 00:00 [facility]aban [facility] 2023-02-12 00:00 [facility]ixaban [facility] 2023-02-16 00:00 [facility]aban [facility] 2023-02-16 00:00 [facility]aban [facility] 2023-02-20 00:00 [facility]aban [facility] 2023-01-13 00[facility]00 prednisone [facility] 2023-01-13 00:00 prednisone [facility] 2023-01-13 00:00 prednisone [facility] 2023-01-13 00:00 prednisone [facility] 2023-01-13 00:00 prednisone [facility] 2023-01-13 00:00 prednisone [facility] 2023-01-13 00:00 prednisone [facility] 2023-01-13 00:00 prednisone [facility] 2023-01-13 00:00 prednisone [facility] 2022-12-15 00:00 [facility]ixaban [facility] 2022-12-16 00:00 [facility]aban [facility] 2023-01-14 00:00 [facility]aban [facility] 2023-01-18 00:00 [facility]aban [facility] 2023-01-26 00:00 [facility]aban [facility] 2023-01-27 00:00 [facility] 2023-02-09 00:00 [facility] 2023-02-10 00[facility]00 [facility]aban [facility] [place] 2023-02-12 00:00 apixaban [facility] [place] 2023-02-12 00:00 apixaban [facility] [place] 2023-02-16 00:00 [facility]ixaban [facility] [place] 2023-02-16 00:00 apixaban [facility] [place] 2023-02-20 00:00 [facility] [place] 2023-01-14 00:00 tsseiv-tcyqobfb-uztuidc [facility] [place] 2023-01-18 00:00 twkzlq-kpekcfzl-ujjngcy [facility] [place] 2023-01-26 00:00 qjzlai-bnebawyy-xjqxfib [facility] [place] 2023-01-27 00:00 smkkoh-njvbtafb-iicitel [facility] [place] 2023-02-09 00:00 stpqjv-lxerenim-tzuxbyh [facility] [place] 2023-02-10 00:00 crizaf-qybysfzl-lttpfkv [facility] [place] 2023-02-12 00:00 bemwwz-rwdkzcjs-azehcjt [facility] [place] 2023-02-12 00:00 pdmmqr-pxqsfxsh-odnrusg [facility] [place] 2023-02-16 00:00 zscadk-xfzuadme-mdwcrtw [facility] [place] 2023-02-16 00:00 oatyer-plgmfsvy-pucawqx [facility] [place] 2023-02-20 00:00 nuzidm-srdtwgpa-zjjwyvj [facility] [place] 2022-12-15 00:00 digoxin [facility] [place] 2022-12-16 00:00 digoxin [facility] [place] 2023-01-14 00:00 digoxin [facility] [place] 2023-01-18 00:00 digoxin [facility] [place] 2023-01-26 00:00 digoxin [facility] [place] 2023-01-27 00:00 digoxin [facility] [place] 2023-02-09 00:00 digoxin [facility] [place] 2023-02-10 00:00 digoxin [facility] [place] 2023-02-12 00:00 digoxin [facility] [place] 2023-02-12 00:00 digoxin [facility] [place] 2023-02-16 00:00 digoxin [facility] [place] 2023-02-16 00:00 digoxin [facility] [place] 2023-02-20 00:00 digoxin [facility] [place] 2023-01-14 00:00 aspirin [facility] [place] 2023-01-18 00:00 aspirin [facility] [place] 2023-01-26 00:00 aspirin [facility] [place] 2023-01-27 00:00 aspirin [facility] [place] 2023-02-09 00:00 aspirin [facility] [place] 2023-02-10 00:00 aspirin [facility] [place] 2023-02-12 00:00 aspirin [facility] [place] 2023-02-12 00:00 aspirin [facility] [place] 2023-02-16 00:00 aspirin [facility] [place] 2023-02-16 00:00 aspirin [facility] [place] 2023-02-20 00:00 aspirin [facility] 2023-01-13 00:00 prednisone [facility] 2023-01-13 00:00 prednisone [facility] 2023-01-13 00:00 prednisone [facility] 2023-01-13 00:00 prednisone [facility] [place] 2023-01-13 00:00 prednisone [facility] [place] 2023-01-13 00:00 prednisone [facility] [place] 2023-01-13 00:00 prednisone [facility] [place] 2023-01-13 00:00 prednisone [facility] [place] 2023-01-13 00:00 prednisone [facility] [place] 2022-12-15 00:00 atorvastatin [facility] [place] 2022-12-16 00:00 atorvastatin [facility] [place] 2023-01-14 00:00 atorvastatin [facility] [place] 2023-01-18 00:00 atorvastatin [facility] [place] 2023-01-26 00:00 atorvastatin [facility] [place] 2023-01-27 00:00 atorvastatin [facility] [place] 2023-02-09 00:00 atorvastatin [facility] [place] 2023-02-10 00:00 atorvastatin [facility] [place] 2023-02-12 00:00 atorvastatin [facility] [place] 2023-02-12 00:00 atorvastatin [facility] [place] 2023-02-16 00:00 atorvastatin [facility] [place] 2023-02-16 00:00 atorvastatin [facility] [place] 2023-02-20 00:00 atorvastatin [facility] [place] 2022-12-15 00:00 bethanechol chloride [facility] [place] 2022-12-16 00:00 bethanechol chloride [facility] [place] 2023-01-14 00:00 bethanechol chloride [facility] 2023-01-18 00:00 bethanechol chloride [facility] 2023-01-26 00:00 bethanechol chloride [facility] 2023-01-27 00:00 bethanechol chloride [facility] 2023-02-09 00:00 bethanechol chloride [facility] [place] 2023-02-10 00:00 bethanechol chloride [facility] 2023-02-12 00:00 bethanechol chloride [facility] 2023-02-12 00:00 bethanechol chloride [facility] 2023-02-16 00:00 bethanechol chloride [facility] 2023-02-16 00:00 bethanechol chloride [facility] 2023-02-20 00:00 bethanechol chloride [facility] [place] 2023-02-09 00:00 oxycodone [facility] [place] 2023-02-09 00:00 oxycodone [facility] [place] 2023-02-09 00:00 oxycodone [facility] [place] 2023-02-09 00:00 oxycodone [facility] [place] 2023-02-09 00:00 oxycodone [facility] 2023-02-09 00:00 oxycodone [facility] 2022-12-15 00:00 digoxin [facility] 2022-12-16 00:00 digoxin [facility] 2023-01-14 00:00 digoxin [facility] 2023-01-18 00:00 digoxin [facility] 2023-01-26 00:00 digoxin [facility] 2023-01-27 00:00 digoxin [facility] 2023-02-09 00:00 digoxin [facility] [place] 2023-02-10 00:00 digoxin [facility] [place] 2023-02-12 00:00 digoxin [facility] [place] 2023-02-12 00:00 digoxin [facility] [place] 2023-02-16 00:00 digoxin [facility] [place] 2023-02-16 00:00 digoxin [facility] [place] 2023-02-20 00:00 digoxin [facility] [place] 2023-01-13 00:00 prednisone [facility] [place] 2023-01-13 00:00 prednisone [facility] [place] 2023-01-13 00:00 prednisone [facility] [place] 2023-01-13 00:00 prednisone [facility] [place] 2023-01-13 00:00 prednisone [facility] [place] 2023-01-13 00:00 prednisone [facility] [place] 2023-01-13 00:00 prednisone [facility] [place] 2023-01-13 00:00 prednisone [facility] [place] 2023-01-13 00:00 prednisone [facility] [place] 2022-12-15 00:00 sumatriptan succinate [facility] 2022-12-16 00:00 sumatriptan succinate [facility] 2023-01-14 00:00 sumatriptan succinate [facility] 2023-01-18 00:00 sumatriptan succinate [facility] 2023-01-26 00:00 sumatriptan succinate [facility] 2023-01-27 00:00 sumatriptan succinate [facility] 2023-02-09 00:00 sumatriptan succinate Walk-In [facility] [place] 2023-02-10 00:00 sumatriptan succinate Walk-In [facility] 2023-02-12 00:00 sumatriptan succinate Walk-In [facility] [place] 2023-02-12 00:00 sumatriptan succinate Walk-In [facility] 2023-02-16 00:00 sumatriptan succinate Walk-In [facility] 2023-02-16 00:00 sumatriptan succinate Walk-In [facility] 2023-02-20 00:00 sumatriptan succinate Walk-In [facility] [place] 2023-01-14 00:00 isosorbide dinitrate Walk[facility] [place] 2023-01-18 00:00 isosorbide dinitrate [facility] [place] 2023-01-26 00:00 isosorbide dinitrate [facility] [place] 2023-01-27 00:00 isosorbide dinitrate [facility] 2023-02-09 00:00 isosorbide dinitrate [facility] [place] 2023-02-10 00:00 isosorbide dinitrate [facility] 2023-02-12 00:00 isosorbide dinitrate [facility] 2023-02-12 00:00 isosorbide dinitrate [facility] 2023-02-16 00:00 isosorbide dinitrate [facility] 2023-02-16 00:00 isosorbide dinitrate [facility] 2023-02-20 00:00 isosorbide dinitrate [facility] 2022-12-15 00:00 diltiazem hcl [facility] 2022-12-16 00:00 diltiazem hcl [facility] 2023-01-14 00:00 diltiazem hcl [facility] 2023-01-18 00:00 diltiazem hcl [facility] 2023-01-26 00:00 diltiazem hcl [facility] 2023-01-27 00:00 diltiazem hcl [facility] 2023-02-09 00:00 diltiazem hcl [facility] 2023-02-10 00:00 diltiazem hcl [facility] 2023-02-12 00:00 diltiazem hcl [facility] 2023-02-12 00:00 diltiazem hcl [facility] 2023-02-16 00:00 diltiazem hcl [facility] 2023-02-16 00:00 diltiazem hcl [facility] 2023-02-20 00:00 diltiazem hcl [facility] 2023-01-14 00:00 hydralazine [facility] 2023-01-18 00:00 hydralazine [facility] 2023-01-26 00:00 hydralazine [facility] 2023-01-27 00:00 hydralazine [facility] 2023-02-09 00:00 hydralazine [facility] 2023-02-10 00:00 hydralazine [facility] 2023-02-12 00:00 hydralazine [facility] 2023-02-12 00:00 hydralazine [facility] 2023-02-16 00:00 hydralazine [facility] 2023-02-16 00:00 hydralazine [facility] 2023-02-20 00:00 hydralazine [facility] 2023-01-14 00:00 isosorbide dinitrate [facility] 2023-01-18 00:00 isosorbide dinitrate [facility] 2023-01-26 00:00 isosorbide dinitrate [facility] 2023-01-27 00:00 isosorbide dinitrate [facility] 2023-02-09 00:00 isosorbide dinitrate [facility] 2023-02-10 00:00 isosorbide dinitrate [facility] 2023-02-12 00:00 isosorbide dinitrate [facility] 2023-02-12 00:00 isosorbide dinitrate [facility] 2023-02-16 00:00 isosorbide dinitrate [facility] 2023-02-16 00:00 isosorbide dinitrate [facility] 2023-02-20 00:00 isosorbide dinitrate [facility] 2022-12-15 00:00 atorvastatin [facility] 2022-12-16 00:00 atorvastatin [facility] 2023-01-14 00:00 atorvastatin [facility] 2023-01-18 00:00 atorvastatin [facility] 2023-01-26 00:00 atorvastatin [facility] 2023-01-27 00:00 atorvastatin [facility] [place] 2023-02-09 00:00 atorvastatin [facility] [place] 2023-02-10 00:00 atorvastatin [facility] [place] 2023-02-12 00:00 atorvastatin [facility] [place] 2023-02-12 00:00 atorvastatin [facility] 2023-02-16 00:00 atorvastatin [facility] [place] 2023-02-16 00:00 atorvastatin [facility] [place] 2023-02-20 00:00 atorvastatin [facility] [place] 2022-12-15 00:00 atorvastatin [facility] [place] 2022-12-16 00:00 atorvastatin [facility] [place] 2023-01-14 00:00 atorvastatin [facility] [place] 2023-01-18 00:00 atorvastatin [facility] [place] 2023-01-26 00:00 atorvastatin [facility] [place] 2023-01-27 00:00 atorvastatin [facility] [place] 2023-02-09 00:00 atorvastatin [facility] [place] 2023-02-10 00:00 atorvastatin [facility] [place] 2023-02-12 00:00 atorvastatin [facility] [place] 2023-02-12 00:00 atorvastatin [facility] [place] 2023-02-16 00:00 atorvastatin [facility] [place] 2023-02-16 00:00 atorvastatin [facility] [place] 2023-02-20 00:00 atorvastatin [facility] [place] 2022-12-15 00:00 sumatriptan succinate Walk-In [facility] [place] 2022-12-16 00:00 sumatriptan succinate [facility] 2023-01-14 00:00 sumatriptan succinate Walk-In [facility] 2023-01-18 00:00 sumatriptan succinate Walk-In [facility] 2023-01-26 00:00 sumatriptan succinate Walk-In [facility] 2023-01-27 00:00 sumatriptan succinate Walk-In [facility] 2023-02-09 00:00 sumatriptan succinate Walk-In [facility] 2023-02-10 00:00 sumatriptan succinate Walk-In [facility] 2023-02-12 00:00 sumatriptan succinate Walk-In [facility] 2023-02-12 00:00 sumatriptan succinate Walk-In [facility] 2023-02-16 00:00 sumatriptan succinate Walk-In [facility] 2023-02-16 00:00 sumatriptan succinate Walk-In [facility] 2023-02-20 00:00 sumatriptan succinate Walk[facility]In [facility] 2022-12-15 00:00 diltiazem hcl [facility] 2022-12-16 00:00 diltiazem hcl [facility] 2023-01-14 00:00 diltiazem hcl [facility] 2023-01-18 00:00 diltiazem hcl [facility] 2023-01-26 00:00 diltiazem hcl [facility] 2023-01-27 00:00 diltiazem hcl [facility] 2023-02-09 00:00 diltiazem hcl [facility] 2023-02-10 00:00 diltiazem hcl [facility] 2023-02-12 00:00 diltiazem hcl [facility] 2023-02-12 00:00 diltiazem hcl [facility] 2023-02-16 00:00 diltiazem hcl [facility] 2023-02-16 00:00 diltiazem hcl [facility] 2023-02-20 00:00 diltiazem hcl [facility] 2022-12-15 00:00 atorvastatin [facility] 2022-12-16 00:00 atorvastatin [facility] 2023-01-14 00:00 atorvastatin [facility] 2023-01-18 00:00 atorvastatin [facility] 2023-01-26 00:00 atorvastatin [facility] 2023-01-27 00:00 atorvastatin [facility] 2023-02-09 00:00 atorvastatin [facility] 2023-02-10 00:00 atorvastatin [facility] 2023-02-12 00:00 atorvastatin [facility] 2023-02-12 00:00 atorvastatin [facility] 2023-02-16 00:00 atorvastatin [facility] 2023-02-16 00:00 atorvastatin [facility] 2023-02-20 00:00 atorvastatin [facility] 2023-01-14 00:00 isosorbide dinitrate [facility] 2023-01-18 00:00 isosorbide dinitrate [facility] 2023-01-26 00:00 isosorbide dinitrate [facility] 2023-01-27 00:00 isosorbide dinitrate [facility] 2023-02-09 00:00 isosorbide dinitrate [facility] 2023-02-10 00:00 isosorbide dinitrate [facility] 2023-02-12 00:00 isosorbide dinitrate [facility] 2023-02-12 00:00 isosorbide dinitrate [facility] 2023-02-16 00:00 isosorbide dinitrate [facility] 2023-02-16 00:00 isosorbide dinitrate [facility] 2023-02-20 00:00 isosorbide dinitrate [facility] 2023-01-14 00:00 hydralazine [facility] 2023-01-18 00:00 hydralazine [facility] 2023-01-26 00:00 hydralazine [facility] 2023-01-27 00:00 hydralazine [facility] 2023-02-09 00:00 hydralazine [facility] 2023-02-10 00:00 hydralazine [facility] 2023-02-12 00:00 hydralazine [facility] 2023-02-12 00:00 hydralazine [facility] 2023-02-16 00:00 hydralazine [facility] 2023-02-16 00:00 hydralazine [facility] 2023-02-20 00:00 hydralazine [facility] 2023-01-14 00:00 qoaaco-wdokuwkw-flhyciq [facility] 2023-01-18 00:00 cxomyw-xmlmmcmr-hevvsys [facility] 2023-01-26 00:00 tuxexl-wvbstfih-mrhxuez [facility] [place] 2023-01-27 00:00 kxtiss-vraogwhu-mtneyuk [facility] [place] 2023-02-09 00:00 pnupdp-mcbqtfue-uhjjkgv [facility] [place] 2023-02-10 00:00 qawhlw-sdohsuwb-arwnkce [facility] [place] 2023-02-12 00:00 lgngjz-eywcjtel-qlhlizn [facility] [place] 2023-02-12 00:00 wmfctv-yajkffrx-cqrrdiq [facility] [place] 2023-02-16 00:00 pvljaq-zwwhyzej-adiuvve [facility] [place] 2023-02-16 00:00 hjkmkc-owbpmloa-kzruktm [facility] [place] 2023-02-20 00:00 tjmdxg-tsggyris-ihgbcqa [facility] [place] 2022-12-15 00:00 bethanechol chloride [facility] [place] 2022-12-16 00:00 bethanechol chloride [facility] [place] 2023-01-14 00:00 bethanechol chloride [facility] [place] 2023-01-18 00:00 bethanechol chloride [facility] [place] 2023-01-26 00:00 bethanechol chloride [facility] [place] 2023-01-27 00:00 bethanechol chloride [facility] [place] 2023-02-09 00:00 bethanechol chloride [facility] [place] 2023-02-10 00:00 bethanechol chloride [facility] [place] 2023-02-12 00:00 bethanechol chloride [facility] 2023-02-12 00:00 bethanechol chloride [facility] [place] 2023-02-16 00:00 bethanechol chloride Walk[facility]In [facility] [place] 2023-02-16 00:00 bethanechol chloride Walk[facility]In [facility] [place] 2023-02-20 00:00 bethanechol chloride Walk[facility]In [facility] [place] 2022-12-15 00:00 digoxin [facility] [place] 2022-12-16 00:00 digoxin [facility] [place] 2023-01-14 00:00 digoxin [facility] [place] 2023-01-18 00:00 digoxin [facility] [place] 2023-01-26 00:00 digoxin [facility] [place] 2023-01-27 00:00 digoxin [facility] [place] 2023-02-09 00:00 digoxin [facility] [place] 2023-02-10 00:00 digoxin [facility] [place] 2023-02-12 00:00 digoxin [facility] [place] 2023-02-12 00:00 digoxin [facility] [place] 2023-02-16 00:00 digoxin [facility] [place] 2023-02-16 00:00 digoxin [facility] [place] 2023-02-20 00:00 digoxin [facility] [place] 2022-12-15 00:00 atorvastatin [facility] [place] 2022-12-16 00:00 atorvastatin [facility] [place] 2023-01-14 00:00 atorvastatin [facility] [place] 2023-01-18 00:00 atorvastatin [facility] [place] 2023-01-26 00:00 atorvastatin [facility] [place] 2023-01-27 00:00 atorvastatin [facility] 2023-02-09 00:00 atorvastatin [facility] [place] 2023-02-10 00:00 atorvastatin [facility] [place] 2023-02-12 00:00 atorvastatin [facility] [place] 2023-02-12 00:00 atorvastatin [facility] [place] 2023-02-16 00:00 atorvastatin [facility] [place] 2023-02-16 00:00 atorvastatin [facility] [place] 2023-02-20 00:00 atorvastatin [facility] [place] 2023-01-14 00:00 ljxuny-iudhczak-hdpwurk [facility] [place] 2023-01-18 00:00 jaxpow-qrlggihk-ettycxu [facility] [place] 2023-01-26 00:00 clakfg-ytfskdva-uhleddu [facility] [place] 2023-01-27 00:00 sjhxvw-ieojgblt-qdkkwyg [facility] [place] 2023-02-09 00:00 txtjqz-elockfmp-cclqrya [facility] [place] 2023-02-10 00:00 gndmgf-ruhldwrj-ubsooho [facility] [place] 2023-02-12 00:00 wydumm-kxdfkuuf-tslaeub [facility] [place] 2023-02-12 00:00 tfoqfz-hxdtylbn-umqzzai [facility] [place] 2023-02-16 00:00 joshpo-nxnnhogd-frjpcyo [facility] [place] 2023-02-16 00:00 obrfdh-epsseolk-bmrdimo [facility] [place] 2023-02-20 00:00 kxhknb-abzzkwak-ffwmlnq [facility] [place] 2022-12-15 00:00 sumatriptan succinate Walk-In [facility] [place] 2022-12-16 00:00 [facility]an succinate [facility] [place] 2023-01-14 00:00 sumatriptan succinate Walk-In [facility] [place] 2023-01-18 00:00 sumatriptan succinate [facility] 2023-01-26 00:00 sumatriptan succinate Walk-In [facility] 2023-01-27 00:00 sumatriptan succinate Walk-In [facility] 2023-02-09 00:00 sumatriptan succinate [facility] 2023-02-10 00:00 sumatriptan succinate Walk-In [facility] 2023-02-12 00:00 sumatriptan succinate [facility] 2023-02-12 00:00 sumatriptan succinate [facility] 2023-02-16 00:00 sumatriptan succinate [facility] 2023-02-16 00:00 sumatriptan succinate [facility] 2023-02-20 00:00 sumatriptan succinate [facility] 2022-12-15 00:00 atorvastatin [facility] 2022-12-16 00:00 atorvastatin [facility] 2023-01-14 00:00 atorvastatin [facility] 2023-01-18 00:00 atorvastatin [facility] 2023-01-26 00:00 atorvastatin [facility] 2023-01-27 00:00 atorvastatin [facility] 2023-02-09 00:00 atorvastatin [facility] 2023-02-10 00:00 atorvastatin [facility] 2023-02-12 00:00 atorvastatin [facility] 2023-02-12 00:00 atorvastatin [facility] 2023-02-16 00:00 atorvastatin [facility] 2023-02-16 00:00 atorvastatin [facility] 2023-02-20 00:00 atorvastatin [facility] 2022-12-15 00:00 atorvastatin [facility] 2022-12-16 00:00 atorvastatin [facility] 2023-01-14 00:00 atorvastatin [facility] 2023-01-18 00:00 atorvastatin [facility] 2023-01-26 00:00 atorvastatin [facility] 2023-01-27 00:00 atorvastatin [facility] 2023-02-09 00:00 atorvastatin [facility] 2023-02-10 00:00 atorvastatin [facility] 2023-02-12 00:00 atorvastatin [facility] 2023-02-12 00:00 atorvastatin [facility] 2023-02-16 00:00 atorvastatin [facility] [place] 2023-02-16 00:00 atorvastatin [facility] 2023-02-20 00:00 atorvastatin [facility] [place] 2023-01-14 00:00 aspirin [facility] 2023-01-18 00:00 aspirin [facility] 2023-01-26 00:00 aspirin [facility] 2023-01-27 00:00 aspirin [facility] 2023-02-09 00:00 aspirin [facility] 2023-02-10 00:00 aspirin [facility] 2023-02-12 00:00 [facility] 2023-02-12 00:00 aspirin [facility] 2023-02-16 00:00 aspirin [facility] 2023-02-16 00:00 aspirin [facility] 2023-02-20 00:00 aspirin [facility] 2023-02-09 00:00 oxycodone [facility] 2023-02-09 00:00 oxycodone [facility] 2023-02-09 00:00 oxycodone [facility] 2023-02-09 00:00 oxycodone [facility] [place] 2023-02-09 00:00 oxycodone [facility] [place] 2023-02-09 00:00 oxycodone [facility] [place] 2022-12-15 00:00 digoxin [facility] [place] 2022-12-16 00:00 digoxin [facility] [place] 2023-01-14 00:00 digoxin [facility] [place] 2023-01-18 00:00 digoxin [facility] [place] 2023-01-26 00:00 digoxin [facility] [place] 2023-01-27 00:00 digoxin [facility] [place] 2023-02-09 00:00 digoxin [facility] [place] 2023-02-10 00:00 digoxin [facility] 2023-02-12 00:00 digoxin [facility] 2023-02-12 00:00 digoxin [facility] 2023-02-16 00:00 digoxin [facility] 2023-02-16 00:00 digoxin [facility] 2023-02-20 00:00 digoxin [facility] 2022-12-15 00:00 atorvastatin [facility] 2022-12-16 00:00 atorvastatin [facility] 2023-01-14 00:00 atorvastatin [facility] 2023-01-18 00:00 atorvastatin [facility] 2023-01-26 00:00 atorvastatin [facility] 2023-01-27 00:00 atorvastatin [facility] 2023-02-09 00:00 atorvastatin [facility] 2023-02-10 00:00 atorvastatin [facility] 2023-02-12 00:00 atorvastatin [facility] 2023-02-12 00:00 atorvastatin [facility] 2023-02-16 00:00 atorvastatin [facility] 2023-02-16 00:00 atorvastatin [facility] 2023-02-20 00:00 atorvastatin [facility] 2022-12-15 00:00 sumatriptan succinate [facility] 2022-12-16 00:00 [facility]riptan succinate [facility]-01-14 00:00 sumatriptan succinate [facility] 2023-01-18 00:00 sum[facility]riptan succinate [facility] 2023-01-26 00:00 sumatriptan succinate [facility] 2023-01-27 00:00 sumatriptan succinate [facility] 2023-02-09 00:00 sumatriptan succinate [facility] 2023-02-10 00:00 sumatriptan succinate [facility] 2023-02-12 00:00 sum[facility]riptan succinate [facility] 2023-02-12 00:00 sum[facility]riptan succinate [facility] 2023-02-16 00:00 sumatriptan succinate Walk[facility]In [facility] [place] 2023-02-16 00:00 sumatriptan succinate Walk[facility]In [facility] [place] 2023-02-20 00:00 sumatriptan succinate [facility]In [facility] [place] 2022-12-15 00:00 diltiazem hcl [facility] 2022-12-16 00:00 diltiazem hcl [facility] [place] 2023-01-14 00:00 diltiazem hcl [facility] [place] 2023-01-18 00:00 diltiazem hcl [facility] [place] 2023-01-26 00:00 diltiazem hcl [facility] [place] 2023-01-27 00:00 diltiazem hcl [facility] [place] 2023-02-09 00:00 diltiazem hcl [facility] [place] 2023-02-10 00:00 diltiazem hcl [facility] [place] 2023-02-12 00:00 diltiazem hcl [facility] [place] 2023-02-12 00:00 diltiazem hcl [facility] [place] 2023-02-16 00:00 diltiazem hcl [facility] [place] 2023-02-16 00:00 diltiazem hcl [facility] [place] 2023-02-20 00:00 diltiazem hcl [facility] [place] 2022-12-15 00:00 diltiazem hcl [facility] [place] 2022-12-16 00:00 diltiazem hcl [facility] 2023-01-14 00:00 diltiazem hcl [facility] 2023-01-18 00:00 diltiazem hcl [facility] 2023-01-26 00:00 diltiazem hcl [facility] 2023-01-27 00:00 diltiazem hcl [facility] 2023-02-09 00:00 diltiazem hcl [facility] 2023-02-10 00:00 diltiazem hcl [facility] 2023-02-12 00:00 diltiazem hcl [facility] 2023-02-12 00:00 diltiazem hcl [facility] 2023-02-16 00:00 diltiazem hcl [facility] 2023-02-16 00:00 diltiazem hcl [facility] 2023-02-20 00:00 diltiazem hcl [facility] 2022-12-15 00:00 apixaban [facility] 2022-12-16 00:00 apixaban [facility] 2023-01-14 00:00 apixaban [facility] 2023-01-18 00:00 apixaban [facility] 2023-01-26 00:00 apixaban [facility] 2023-01-27 00:00 apixaban [facility] 2023-02-09 00:00 apixaban [facility] 2023-02-10 00:00 apixaban [facility] 2023-02-12 00:00 apixaban [facility] 2023-02-12 00:00 apixaban [facility] 2023-02-16 00:00 apixaban [facility] 2023-02-16 00:00 apixaban [facility] 2023-02-20 00:00 apixaban [facility] [place] 2022-12-15 00:00 apixaban [facility] [place] 2022-12-16 00:00 apixaban [facility] [place] 2023-01-14 00:00 apixaban [facility] [place] 2023-01-18 00:00 apixaban [facility] [place] 2023-01-26 00:00 apixaban [facility] [place] 2023-01-27 00:00 apixaban [facility] [place] 2023-02-09 00:00 apixaban [facility] [place] 2023-02-10 00:00 apixaban [facility] [place] 2023-02-12 00:00 apixaban [facility] [place] 2023-02-12 00:00 apixaban [facility] [place] 2023-02-16 00:00 apixaban [facility] [place] 2023-02-16 00:00 apixaban [facility] [place] 2023-02-20 00:00 apixaban [facility] [place] 2022-12-15 00:00 bethanechol chloride [facility] [place] 2022-12-16 00:00 bethanechol chloride [facility] [place] 2023-01-14 00:00 bethanechol chloride [facility] 2023-01-18 00:00 bethanechol chloride [facility] 2023-01-26 00:00 bethanechol chloride [facility] 2023-01-27 00:00 bethanechol chloride [facility] 2023-02-09 00:00 bethanechol chloride [facility] [place] 2023-02-10 00:00 bethanechol chloride [facility] [place] 2023-02-12 00:00 bethanechol chloride [facility] [place] 2023-02-12 00:00 bethanechol chloride [facility] [place] 2023-02-16 00:00 bethanechol chloride [facility] [place] 2023-02-16 00:00 bethanechol chloride [facility] [place] 2023-02-20 00:00 bethanechol chloride [facility] [place] 2023-01-14 00:00 hydralazine [facility] [place] 2023-01-18 00:00 hydralazine [facility] [place] 2023-01-26 00:00 hydralazine [facility] [place] 2023-01-27 00:00 hydralazine [facility] [place] 2023-02-09 00:00 hydralazine [facility] [place] 2023-02-10 00:00 hydralazine [facility] [place] 2023-02-12 00:00 hydralazine [facility] 2023-02-12 00:00 hydralazine [facility] 2023-02-16 00:00 hydralazine [facility] 2023-02-16 00:00 hydralazine [facility] [place] 2023-02-20 00:00 hydralazine [facility] [place] Problems date description facility 2022-12-15 00:00 Asthma [facility] 2022-12-15 00:00 Multinodular goiter [facility] 2022-12-15 00:00 Unspecified hypothyroidism [facility] 2022-12-15 00:00 Diabetes mellitus wi thout mention of complication, type II or unspecified type, not stated as uncontrolled [facility] 2022-12-15 00:00 Diabetes mellitus wi th neurological manifestations, type II or unspecified type, not stated as uncontrolled [facility] 2022-12-15 00:00 Diabetes mellitus wi th peripheral circulatory disorders, type II or unspecified type, not stated as uncontrolled [facility] 2022-12-15 00:00 Diabetes mellitus wi th other specified manifestations, type II or unspecified type, not stated as uncontrolled [facility] 2022-12-15 00:00 Other and unspecifie d hyperlipidemia [facility] 2022-12-15 00:00 Restless legs [facility] 2022-12-15 00:00 Restless legs syndrome (RLS) [facility] 2022-12-15 00:00 Migraine, unspecifie d, without mention of intractable migraine, without mention of status migrainosus [facility] 2022-12-15 00:00 Seasonal allergic rhinitis [facility] 2022-12-15 00:00 Migraine [facility] 2022-12-15 00:00 [facility]-12-15 00:00 Benign essential hypertension [facility] 2022-12-15 00:00 Hypothyroidism [facility] 2022-12-15 00:00 Obesity [facility] 2022-12-15 00:00 Diabetic peripheral neuropathy [facility] 2022-12-15 00:00 Type II diabetes silvana litus uncontrolled [facility] 2022-12-15 00:00 Type 2 diabetes yuri itus well controlled [facility] 2022-12-15 00:00 Allergic rhinitis due to pollen [facility] 2022-12-15 00:00 Foot pain [facility] 2022-12-15 00:00 Foot pain [facility] 2022-12-15 00:00 Foot pain [facility] 2022-12-15 00:00 Foot pain [facility] 2022-12-15 00:00 Foot pain [facility] 2022-12-15 00:00 Foot pain [facility] 2022-12-15 00:00 Foot pain [facility] 2022-12-15 00:00 Foot pain [facility] 2022-12-15 00:00 Foot pain [facility] 2022-12-15 00:00 Foot pain [facility] 2022-12-15 00:00 Asthma, unspecified [facility] 2022-12-15 00:00 Hyperlipidemia [facility] 2022-12-15 00:00 Pain in limb [facility] 2022-12-15 00:00 Pain in limb [facility] 2022-12-15 00:00 Pain in limb [facility] 2022-12-15 00:00 Pain in limb [facility] 2022-12-15 00:00 Pain in limb [facility] 2022-12-15 00:00 Pain in limb [facility] 2022-12-15 00:00 Pain in limb [facility] 2022-12-15 00:00 Pain in limb [facility] 2022-12-15 00:00 Pain in limb [facility] 2022-12-15 00:00 Pain in limb [facility] [place] 2022-12-15 00:00 Hypothyroidism, unspecified [facility] 2022-12-15 00:00 Nontoxic multinodular goiter [facility] 2022-12-15 00:00 Type 2 diabetes yuri itus with diabetic neuropathy, unspecified [facility] 2022-12-15 00:00 Type 2 diabetes yuri itus with diabetic peripheral angiopathy without gangrene [facility] 2022-12-15 00:00 Type 2 diabetes yuri itus with hyperglycemia [facility] 2022-12-15 00:00 Type 2 diabetes yuri itus without complications [facility] [place] 2022-12-15 00:00 Obesity, unspecified [facility] [place] 2022-12-15 00:00 Restless legs syndrome [facility] [place] 2022-12-15 00:00 Migraine, unspecifie d, not intractable, without status migrainosus [facility] [place] 2022-12-15 00:00 Essential (primary) hypertensio n Walk-In [facility] [place] 2022-12-15 00:00 Other seasonal allergic rhiniti s [facility] [place] 2022-12-15 00:00 Unspecified asthma, uncomplicat ed [facility] [place] 2022-12-15 00:00 Pain in right foot Walk-In [facility] [place] 2022-12-15 00:00 Pain in right foot [facility] [place] 2022-12-15 00:00 Pain in right foot Walk[facility]In [facility] [place] 2022-12-15 00:00 Pain in right foot [facility] [place] 2022-12-15 00:00 Pain in right foot [facility] [place] 2022-12-15 00:00 Pain in right foot [facility] 2022-12-15 00:00 Pain in right foot Walk-In [facility] [place] 2022-12-15 00:00 Pain in right foot [facility] [place] 2022-12-15 00:00 Pain in right foot [facility] [place] 2022-12-15 00:00 Pain in right foot [facility] [place] 2022-12-16 00:00 Asthma Walk[facility]In [facility] 2022-12-16 00:00 Multinodular goiter [facility] 2022-12-16 00:00 Unspecified hypothyroidism Walk -In [facility] [place] 2022-12-16 00:00 Diabetes mellitus wi thout mention of complication, type II or unspecified type, not stated as uncontrolled [facility] [place] 2022-12-16 00:00 Diabetes mellitus wi th neurological manifestations, type II or unspecified type, not stated as uncontrolled [facility] 2022-12-16 00:00 Diabetes mellitus wi th peripheral circulatory disorders, type II or unspecified type, not stated as uncontrolled [facility] 2022-12-16 00:00 Diabetes mellitus wi th other specified manifestations, type II or unspecified type, not stated as uncontrolled [facility] 2022-12-16 00:00 Other and unspecifie d hyperlipidemia [facility] 2022-12-16 00:00 Restless legs [facility] 2022-12-16 00:00 Restless legs syndrome (RLS) [facility] 2022-12-16 00:00 Migraine, unspecifie d, without mention of intractable migraine, without mention of status migrainosus [facility]In [facility] 2022-12-16 00:00 Seasonal allergic rhinitis [facility] 2022-12-16 00:00 Migraine [facility] 2022-12-16 00:00 Hypertensive disorder [facility] 2022-12-16 00:00 Benign essential hypertension [facility] 2022-12-16 00:00 Hypothyroidism [facility] 2022-12-16 00:00 Obesity [facility] 2022-12-16 00:00 Diabetic peripheral neuropathy [facility] 2022-12-16 00:00 Type II diabetes silvana litus uncontrolled [facility] 2022-12-16 00:00 Type 2 diabetes yuri itus well controlled [facility] 2022-12-16 00:00 Allergic rhinitis due to pollen [facility] 2022-12-16 00:00 Asthma, unspecified [facility] 2022-12-16 00:00 Hyperlipidemia [facility] 2022-12-16 00:00 Hypothyroidism, unspecified [facility] 2022-12-16 00:00 Nontoxic multinodular goiter [facility] 2022-12-16 00:00 Type 2 diabetes yuri itus with diabetic neuropathy, unspecified [facility] 2022-12-16 00:00 Type 2 diabetes yuri itus with diabetic peripheral angiopathy without gangrene [facility] 2022-12-16 00:00 Type 2 diabetes yuri itus with hyperglycemia [facility] 2022-12-16 00:00 Type 2 diabetes yuri itus without complications [facility] 2022-12-16 00:00 Obesity, unspecified [facility] 2022-12-16 00:00 Restless legs syndrome [facility] 2022-12-16 00:00 Migraine, unspecifie d, not intractable, without status migrainosus [facility] 2022-12-16 00:00 Essential (primary) hypertensio n [facility] 2022-12-16 00:00 Other seasonal allergic rhiniti s [facility] 2022-12-16 00:00 Unspecified asthma, uncomplicat ed [facility] 2023-01-13 00:00 Clostridium difficile diarrhea [facility] 2023-01-13 00:00 Clostridium difficile diarrhea [facility] 2023-01-13 00:00 Clostridium difficile diarrhea [facility] 2023-01-13 00:00 Clostridium difficile diarrhea [facility] 2023-01-13 00:00 Clostridium difficile diarrhea [facility] 2023-01-13 00:00 Clostridium difficile diarrhea [facility] 2023-01-13 00:00 Clostridium difficile diarrhea [facility] 2023-01-13 00:00 Clostridium difficile diarrhea [facility] 2023-01-13 00:00 Clostridium difficile diarrhea [facility] 2023-01-13 00:00 Diarrhea [facility] 2023-01-13 00:00 Diarrhea [facility] 2023-01-13 00:00 Diarrhea [facility] 2023-01-13 00:00 Diarrhea [facility] 2023-01-13 00:00 Diarrhea [facility] 2023-01-13 00:00 Diarrhea [facility] 2023-01-13 00:00 Diarrhea [facility] 2023-01-13 00:00 Diarrhea [facility] [facility] 2023-01-13 00:00 Diarrhea [facility] 2023-01-13 00:00 Gout [facility] 2023-01-13 00:00 Gout [facility] 2023-01-13 00:00 Gout [facility] 2023-01-13 00:00 Gout [facility] 2023-01-13 00:00 Gout [facility] 2023-01-13 00:00 Gout [facility] 2023-01-13 00:00 Gout [facility] 2023-01-13 00:00 Gout [facility] 2023-01-13 00:00 Gout [facility] 2023-01-13 00:00 Enterocolitis due to Clostridium difficile, not specified as recurrent [facility] 2023-01-13 00:00 Enterocolitis due to Clostridium difficile, not specified as recurrent [facility] 2023-01-13 00:00 Enterocolitis due to Clostridium difficile, not specified as recurrent [facility] 2023-01-13 00:00 Enterocolitis due to Clostridium difficile, not specified as recurrent [facility] 2023-01-13 00:00 Enterocolitis due to Clostridium difficile, not specified as recurrent [facility] 2023-01-13 00:00 Enterocolitis due to Clostridium difficile, not specified as recurrent [facility] 2023-01-13 00:00 Enterocolitis due to Clostridium difficile, not specified as recurrent [facility] 2023-01-13 00:00 Enterocolitis due to Clostridium difficile, not specified as recurrent [facility] 2023-01-13 00:00 Enterocolitis due to Clostridium difficile, not specified as recurrent [facility] 2023-01-13 00:00 Gout, unspecified [facility] 2023-01-13 00:00 Gout, unspecified [facility] 2023-01-13 00:00 Gout, unspecified [facility] 2023-01-13 00:00 Gout, unspecified [facility] 2023-01-13 00:00 Gout, unspecified [facility] 2023-01-13 00:00 Gout, unspecified [facility] 2023-01-13 00:00 Gout, unspecified [facility] 2023-01-13 00:00 Gout, unspecified [facility] 2023-01-13 00:00 Gout, unspecified [facility] 2023-01-13 00:00 Diarrhea, unspecified [facility] 2023-01-13 00:00 Diarrhea, unspecified [facility] 2023-01-13 00:00 Diarrhea, unspecified [facility] 2023-01-13 00:00 Diarrhea, unspecified [facility] 2023-01-13 00:00 Diarrhea, unspecified [facility] 2023-01-13 00:00 Diarrhea, unspecified [facility] 2023-01-13 00:00 Diarrhea, unspecified [facility] 2023-01-13 00:00 Diarrhea, unspecified [facility] 2023-01-13 00:00 Diarrhea, unspecified [facility] 2023-01-14 00:00 Asthma [facility] 2023-01-14 00:00 Multinodular goiter [facility] 2023-01-14 00:00 Unspecified hypothyroidism [facility] 2023-01-14 00:00 Diabetes mellitus wi thout mention of complication, type II or unspecified type, not stated as uncontrolled [facility] 2023-01-14 00:00 Diabetes mellitus wi th neurological manifestations, type II or unspecified type, not stated as uncontrolled [facility] 2023-01-14 00:00 Diabetes mellitus wi th peripheral circulatory disorders, type II or unspecified type, not stated as uncontrolled [facility] 2023-01-14 00:00 Diabetes mellitus wi th other specified manifestations, type II or unspecified type, not stated as uncontrolled [facility] 2023-01-14 00:00 Other and unspecifie d hyperlipidemia [facility] 2023-01-14 00:00 Restless legs [facility] 2023-01-14 00:00 Restless legs syndrome (RLS) [facility] 2023-01-14 00:00 Migraine, unspecifie d, without mention of intractable migraine, without mention of status migrainosus [facility] 2023-01-14 00:00 Seasonal allergic rhinitis [facility] 2023-01-14 00:00 Migraine [facility] 2023-01-14 00:00 Hypertensive disorder [facility] 2023-01-14 00:00 Benign essential hypertension [facility] 2023-01-14 00:00 Hypothyroidism [facility] 2023-01-14 00:00 Obesity [facility] 2023-01-14 00:00 Diabetic peripheral neuropathy [facility] 2023-01-14 00:00 Type II diabetes silvana litus uncontrolled [facility] 2023-01-14 00:00 Type 2 diabetes yuri itus well controlled [facility] 2023-01-14 00:00 Allergic rhinitis due to pollen [facility] 2023-01-14 00:00 Asthma, unspecified [facility] 2023-01-14 00:00 Hyperlipidemia [facility] 2023-01-14 00:00 Hypothyroidism, unspecified [facility] 2023-01-14 00:00 Nontoxic multinodular goiter [facility] 2023-01-14 00:00 Type 2 diabetes yuri itus with diabetic neuropathy, unspecified [facility] 2023-01-14 00:00 Type 2 diabetes yuri itus with diabetic peripheral angiopathy without gangrene [facility] 2023-01-14 00:00 Type 2 diabetes yuri itus with hyperglycemia [facility] 2023-01-14 00:00 Type 2 diabetes yuri itus without complications [facility] 2023-01-14 00:00 Obesity, unspecified [facility] 2023-01-14 00:00 Restless legs syndrome [facility] 2023-01-14 00:00 Migraine, unspecifie d, not intractable, without status migrainosus [facility] 2023-01-14 00:00 Essential (primary) hypertensio n [facility] 2023-01-14 00:00 Other seasonal allergic rhiniti s [facility] 2023-01-14 00:00 Unspecified asthma, uncomplicat ed [facility] 2023-01-18 00:00 Asthma [facility] 2023-01-18 00:00 Multinodular goiter [facility] 2023-01-18 00:00 Unspecified hypothyroidism [facility] 2023-01-18 00:00 Diabetes mellitus wi thout mention of complication, type II or unspecified type, not stated as uncontrolled [facility] 2023-01-18 00:00 Diabetes mellitus wi th neurological manifestations, type II or unspecified type, not stated as uncontrolled [facility] 2023-01-18 00:00 Diabetes mellitus wi th peripheral circulatory disorders, type II or unspecified type, not stated as uncontrolled [facility] 2023-01-18 00:00 Diabetes mellitus wi th other specified manifestations, type II or unspecified type, not stated as uncontrolled [facility] 2023-01-18 00:00 Other and unspecifie d hyperlipidemia [facility] 2023-01-18 00:00 Restless legs [facility] 2023-01-18 00:00 Restless legs syndrome (RLS) [facility] 2023-01-18 00:00 Migraine, unspecifie d, without mention of intractable migraine, without mention of status migrainosus [facility] 2023-01-18 00:00 Seasonal allergic rhinitis [facility] 2023-01-18 00:00 Migraine [facility] 2023-01-18 00:00 Hypertensive disorder [facility] 2023-01-18 00:00 Benign essential hypertension [facility] 2023-01-18 00:00 Hypothyroidism [facility] 2023-01-18 00:00 Obesity [facility] 2023-01-18 00:00 Diabetic peripheral neuropathy [facility] 2023-01-18 00:00 Type II diabetes silvana litus uncontrolled [facility] 2023-01-18 00:00 Type 2 diabetes yuri itus well controlled [facility] 2023-01-18 00:00 Allergic rhinitis due to pollen [facility] 2023-01-18 00:00 Asthma, unspecified [facility] 2023-01-18 00:00 Hyperlipidemia [facility] 2023-01-18 00:00 Hypothyroidism, unspecified [facility] 2023-01-18 00:00 Nontoxic multinodular goiter [facility] 2023-01-18 00:00 Type 2 diabetes yuri itus with diabetic neuropathy, unspecified [facility] 2023-01-18 00:00 Type 2 diabetes yuri itus with diabetic peripheral angiopathy without gangrene [facility] 2023-01-18 00:00 Type 2 diabetes yuri itus with hyperglycemia [facility] 2023-01-18 00:00 Type 2 diabetes yuri itus without complications [facility] 2023-01-18 00:00 Obesity, unspecified [facility] 2023-01-18 00:00 Restless legs syndrome [facility] 2023-01-18 00:00 Migraine, unspecifie d, not intractable, without status migrainosus [facility] 2023-01-18 00:00 Essential (primary) hypertensio n [facility] 2023-01-18 00:00 Other seasonal allergic rhiniti s [facility] 2023-01-18 00:00 Unspecified asthma, uncomplicat ed [facility] 2023-01-26 00:00 Asthma [facility] 2023-01-26 00:00 Multinodular goiter [facility] 2023-01-26 00:00 Unspecified hypothyroidism [facility] 2023-01-26 00:00 Diabetes mellitus wi thout mention of complication, type II or unspecified type, not stated as uncontrolled [facility] 2023-01-26 00:00 Diabetes mellitus wi th neurological manifestations, type II or unspecified type, not stated as uncontrolled [facility] 2023-01-26 00:00 Diabetes mellitus wi th peripheral circulatory disorders, type II or unspecified type, not stated as uncontrolled [facility] 2023-01-26 00:00 Diabetes mellitus wi th other specified manifestations, type II or unspecified type, not stated as uncontrolled [facility] 2023-01-26 00:00 Other and unspecifie d hyperlipidemia [facility] 2023-01-26 00:00 Restless legs [facility] 2023-01-26 00:00 Restless legs syndrome (RLS) [facility] 2023-01-26 00:00 Migraine, unspecifie d, without mention of intractable migraine, without mention of status migrainosus [facility] 2023-01-26 00:00 Seasonal allergic rhinitis [facility] 2023-01-26 00:00 Migraine [facility] 2023-01-26 00:00 Hypertensive disorder [facility] 2023-01-26 00:00 Benign essential hypertension [facility] 2023-01-26 00:00 Hypothyroidism [facility] 2023-01-26 00:00 Obesity [facility] 2023-01-26 00:00 Diabetic peripheral neuropathy [facility] 2023-01-26 00:00 Type II diabetes silvana litus uncontrolled [facility] 2023-01-26 00:00 Type 2 diabetes yuri itus well controlled [facility] 2023-01-26 00:00 Allergic rhinitis due to pollen [facility] 2023-01-26 00:00 Asthma, unspecified [facility] 2023-01-26 00:00 Hyperlipidemia [facility] 2023-01-26 00:00 Hypothyroidism, unspecified [facility] 2023-01-26 00:00 Nontoxic multinodular goiter [facility] 2023-01-26 00:00 Type 2 diabetes yuri itus with diabetic neuropathy, unspecified [facility] 2023-01-26 00:00 Type 2 diabetes yuri itus with diabetic peripheral angiopathy without gangrene [facility] 2023-01-26 00:00 Type 2 diabetes yuri itus with hyperglycemia [facility] 2023-01-26 00:00 Type 2 diabetes yuri itus without complications [facility] 2023-01-26 00:00 Obesity, unspecified [facility] 2023-01-26 00:00 Restless legs syndrome [facility] 2023-01-26 00:00 Migraine, unspecifie d, not intractable, without status migrainosus [facility] 2023-01-26 00:00 Essential (primary) hypertensio n [facility] 2023-01-26 00:00 Other seasonal allergic rhiniti s [facility] 2023-01-26 00:00 Unspecified asthma, uncomplicat ed [facility] 2023-01-27 00:00 Asthma [facility] 2023-01-27 00:00 Multinodular goiter [facility] 2023-01-27 00:00 Unspecified hypothyroidism [facility] 2023-01-27 00:00 Diabetes mellitus wi thout mention of complication, type II or unspecified type, not stated as uncontrolled [facility] 2023-01-27 00:00 Diabetes mellitus wi th neurological manifestations, type II or unspecified type, not stated as uncontrolled [facility] 2023-01-27 00:00 Diabetes mellitus wi th peripheral circulatory disorders, type II or unspecified type, not stated as uncontrolled [facility] 2023-01-27 00:00 Diabetes mellitus wi th other specified manifestations, type II or unspecified type, not stated as uncontrolled [facility] 2023-01-27 00:00 Other and unspecifie d hyperlipidemia [facility] 2023-01-27 00:00 Restless legs [facility] 2023-01-27 00:00 Restless legs syndrome (RLS) [facility] 2023-01-27 00:00 Migraine, unspecifie d, without mention of intractable migraine, without mention of status migrainosus [facility] 2023-01-27 00:00 Seasonal allergic rhinitis [facility] 2023-01-27 00:00 Migraine [facility] 2023-01-27 00:00 Hypertensive disorder [facility] 2023-01-27 00:00 Benign essential hypertension [facility] 2023-01-27 00:00 Hypothyroidism [facility] 2023-01-27 00:00 Obesity [facility] 2023-01-27 00:00 Diabetic peripheral neuropathy [facility] 2023-01-27 00:00 Type II diabetes silvana litus uncontrolled [facility] 2023-01-27 00:00 Type 2 diabetes yuri itus well controlled [facility] 2023-01-27 00:00 Allergic rhinitis due to pollen [facility] 2023-01-27 00:00 Asthma, unspecified [facility] 2023-01-27 00:00 Hyperlipidemia [facility] 2023-01-27 00:00 Hypothyroidism, unspecified [facility] 2023-01-27 00:00 Nontoxic multinodular goiter [facility] 2023-01-27 00:00 Type 2 diabetes yuri itus with diabetic neuropathy, unspecified [facility] 2023-01-27 00:00 Type 2 diabetes yuri itus with diabetic peripheral angiopathy without gangrene [facility] 2023-01-27 00:00 Type 2 diabetes yuri itus with hyperglycemia [facility] 2023-01-27 00:00 Type 2 diabetes yuri itus without complications [facility] 2023-01-27 00:00 Obesity, unspecified [facility] 2023-01-27 00:00 Restless legs syndrome [facility] 2023-01-27 00:00 Migraine, unspecifie d, not intractable, without status migrainosus [facility] 2023-01-27 00:00 Essential (primary) hypertensio n [facility] 2023-01-27 00:00 Other seasonal allergic rhiniti s [facility] 2023-01-27 00:00 Unspecified asthma, uncomplicat ed [facility] 2023-02-09 00:00 Asthma [facility] 2023-02-09 00:00 Multinodular goiter [facility] 2023-02-09 00:00 Unspecified hypothyroidism [facility] 2023-02-09 00:00 Diabetes mellitus wi thout mention of complication, type II or unspecified type, not stated as uncontrolled [facility] 2023-02-09 00:00 Diabetes mellitus wi th neurological manifestations, type II or unspecified type, not stated as uncontrolled [facility] 2023-02-09 00:00 Diabetes mellitus wi th peripheral circulatory disorders, type II or unspecified type, not stated as uncontrolled [facility] 2023-02-09 00:00 Diabetes mellitus wi th other specified manifestations, type II or unspecified type, not stated as uncontrolled [facility] 2023-02-09 00:00 Other and unspecifie d hyperlipidemia [facility] 2023-02-09 00:00 Restless legs [facility] 2023-02-09 00:00 Restless legs syndrome (RLS) [facility] 2023-02-09 00:00 Migraine, unspecifie d, without mention of intractable migraine, without mention of status migrainosus [facility] 2023-02-09 00:00 Seasonal allergic rhinitis [facility] 2023-02-09 00:00 Migraine [facility] 2023-02-09 00:00 Hypertensive disorder [facility] 2023-02-09 00:00 Benign essential hypertension [facility] 2023-02-09 00:00 Hypothyroidism [facility] 2023-02-09 00:00 Obesity [facility] 2023-02-09 00:00 Diabetic peripheral neuropathy [facility] 2023-02-09 00:00 Type II diabetes silvana litus uncontrolled [facility] 2023-02-09 00:00 Type 2 diabetes yuri itus well controlled [facility] 2023-02-09 00:00 Allergic rhinitis due to pollen [facility] 2023-02-09 00:00 Asthma, unspecified [facility] 2023-02-09 00:00 Hyperlipidemia [facility] 2023-02-09 00:00 Abdominal pain, righ t upper quadrant [facility] 2023-02-09 00:00 Abdominal pain, righ t upper quadrant [facility] 2023-02-09 00:00 Abdominal pain, righ t upper quadrant [facility] 2023-02-09 00:00 Abdominal pain, righ t upper quadrant [facility] 2023-02-09 00:00 Abdominal pain, righ t upper quadrant [facility] 2023-02-09 00:00 Abdominal pain, righ t upper quadrant [facility] 2023-02-09 00:00 Hypothyroidism, unspecified [facility] 2023-02-09 00:00 Nontoxic multinodular goiter [facility] 2023-02-09 00:00 Type 2 diabetes yuri itus with diabetic neuropathy, unspecified [facility] 2023-02-09 00:00 Type 2 diabetes yuri itus with diabetic peripheral angiopathy without gangrene [facility] 2023-02-09 00:00 Type 2 diabetes yuri itus with hyperglycemia [facility] 2023-02-09 00:00 Type 2 diabetes yuri itus without complications [facility] 2023-02-09 00:00 Obesity, unspecified [facility] 2023-02-09 00:00 Restless legs [facility] 2023-02-09 00:00 Migraine, unspecifie d, not intractable, without status migrainosus [facility] 2023-02-09 00:00 Essential (primary) hypertensio n [facility] 2023-02-09 00:00 Other seasonal allergic rhiniti s [facility] 2023-02-09 00:00 Unspecified asthma, uncomplicat ed [facility] 2023-02-09 00:00 Right upper quadrant pain [facility] 2023-02-09 00:00 Right upper quadrant pain [facility] 2023-02-09 00:00 Right upper quadrant pain [facility] 2023-02-09 00:00 Right upper quadrant pain [facility] 2023-02-09 00:00 Right upper quadrant pain [facility] 2023-02-09 00:00 Right upper quadrant pain [facility] 2023-02-10 00:00 Asthma [facility] 2023-02-10 00:00 Multinodular goiter [facility] 2023-02-10 00:00 Unspecified hypothyroidism [facility] 2023-02-10 00:00 Diabetes mellitus wi thout mention of complication, type II or unspecified type, not stated as uncontrolled [facility] 2023-02-10 00:00 Diabetes mellitus wi th neurological manifestations, type II or unspecified type, not stated as uncontrolled [facility] 2023-02-10 00:00 Diabetes mellitus wi th peripheral circulatory disorders, type II or unspecified type, not stated as uncontrolled [facility] 2023-02-10 00:00 Diabetes mellitus wi th other specified manifestations, type II or unspecified type, not stated as uncontrolled [facility] 2023-02-10 00:00 Other and unspecifie d hyperlipidemia [facility] 2023-02-10 00:00 Restless legs [facility] 2023-02-10 00:00 Restless legs syndrome (RLS) [facility] 2023-02-10 00:00 Migraine, unspecifie d, without mention of intractable migraine, without mention of status migrainosus [facility] 2023-02-10 00:00 Seasonal allergic rhinitis [facility] 2023-02-10 00:00 Migraine [facility] 2023-02-10 00:00 Hypertensive disorder [facility] 2023-02-10 00:00 Benign essential hypertension [facility] 2023-02-10 00:00 Hypothyroidism [facility] 2023-02-10 00:00 Obesity [facility] 2023-02-10 00:00 Diabetic peripheral neuropathy [facility] 2023-02-10 00:00 Type II diabetes silvana litus uncontrolled [facility] 2023-02-10 00:00 Type 2 diabetes yuri itus well controlled [facility] 2023-02-10 00:00 Allergic rhinitis due to pollen [facility] 2023-02-10 00:00 Asthma, unspecified [facility] 2023-02-10 00:00 Hyperlipidemia [facility] 2023-02-10 00:00 Hypothyroidism, unspecified [facility] 2023-02-10 00:00 Nontoxic multinodular goiter [facility] 2023-02-10 00:00 Type 2 diabetes yuri itus with diabetic neuropathy, unspecified [facility] 2023-02-10 00:00 Type 2 diabetes yuri itus with diabetic peripheral angiopathy without gangrene [facility] 2023-02-10 00:00 Type 2 diabetes yuri itus with hyperglycemia [facility] 2023-02-10 00:00 Type 2 diabetes yuri itus without complications [facility] 2023-02-10 00:00 Obesity, unspecified [facility] 2023-02-10 00:00 Restless legs syndrome [facility] 2023-02-10 00:00 Migraine, unspecifie d, not intractable, without status migrainosus [facility] 2023-02-10 00:00 Essential (primary) hypertensio n [facility] 2023-02-10 00:00 Other seasonal allergic rhiniti s [facility] 2023-02-10 00:00 Unspecified asthma, uncomplicat ed [facility] 2023-02-12 00:00 Asthma [facility] 2023-02-12 00:00 Asthma [facility] 2023-02-12 00:00 Multinodular goiter [facility] 2023-02-12 00:00 Multinodular goiter [facility] 2023-02-12 00:00 Unspecified hypothyroidism [facility] 2023-02-12 00:00 Unspecified hypothyroidism [facility] 2023-02-12 00:00 Diabetes mellitus wi thout mention of complication, type II or unspecified type, not stated as uncontrolled [facility] 2023-02-12 00:00 Diabetes mellitus wi thout mention of complication, type II or unspecified type, not stated as uncontrolled [facility] 2023-02-12 00:00 Diabetes mellitus wi th neurological manifestations, type II or unspecified type, not stated as uncontrolled [facility] 2023-02-12 00:00 Diabetes mellitus wi th neurological manifestations, type II or unspecified type, not stated as uncontrolled [facility] 2023-02-12 00:00 Diabetes mellitus wi th peripheral circulatory disorders, type II or unspecified type, not stated as uncontrolled [facility] 2023-02-12 00:00 Diabetes mellitus wi th peripheral circulatory disorders, type II or unspecified type, not stated as uncontrolled [facility] 2023-02-12 00:00 Diabetes mellitus wi th other specified manifestations, type II or unspecified type, not stated as uncontrolled [facility] 2023-02-12 00:00 Diabetes mellitus wi th other specified manifestations, type II or unspecified type, not stated as uncontrolled [facility] 2023-02-12 00:00 Other and unspecifie d hyperlipidemia [facility] 2023-02-12 00:00 Other and unspecifie d hyperlipidemia [facility] 2023-02-12 00:00 Restless legs [facility] 2023-02-12 00:00 Restless legs [facility] 2023-02-12 00:00 Restless legs syndrome (RLS) [facility] 2023-02-12 00:00 Restless legs syndrome (RLS) [facility] 2023-02-12 00:00 Migraine, unspecifie d, without mention of intractable migraine, without mention of status migrainosus [facility] 2023-02-12 00:00 Migraine, unspecifie d, without mention of intractable migraine, without mention of status migrainosus [facility] 2023-02-12 00:00 Seasonal allergic rhinitis [facility] 2023-02-12 00:00 Seasonal allergic rhinitis [facility] 2023-02-12 00:00 Migraine [facility] 2023-02-12 00:00 Migraine [facility] 2023-02-12 00:00 Hypertensive disorder [facility] 2023-02-12 00:00 Hypertensive disorder [facility] 2023-02-12 00:00 Benign essential hypertension [facility] 2023-02-12 00:00 Benign essential hypertension [facility] 2023-02-12 00:00 Hypothyroidism [facility] 2023-02-12 00:00 Hypothyroidism [facility] 2023-02-12 00:00 Obesity [facility] 2023-02-12 00:00 Obesity [facility] 2023-02-12 00:00 Diabetic peripheral neuropathy [facility] 2023-02-12 00:00 Diabetic peripheral neuropathy [facility] 2023-02-12 00:00 Type II diabetes silvana litus uncontrolled [facility] 2023-02-12 00:00 Type II diabetes silvana litus uncontrolled [facility] 2023-02-12 00:00 Type 2 diabetes yuri itus well controlled [facility] 2023-02-12 00:00 Type 2 diabetes yuri itus well controlled [facility] 2023-02-12 00:00 Allergic rhinitis due to pollen [facility] 2023-02-12 00:00 Allergic rhinitis due to pollen [facility] 2023-02-12 00:00 Asthma, unspecified [facility] 2023-02-12 00:00 Asthma, unspecified [facility] 2023-02-12 00:00 Hyperlipidemia [facility] 2023-02-12 00:00 Hyperlipidemia [facility] 2023-02-12 00:00 Hypothyroidism, unspecified [facility] 2023-02-12 00:00 Hypothyroidism, unspecified [facility] 2023-02-12 00:00 Nontoxic multinodular goiter [facility] 2023-02-12 00:00 Nontoxic multinodular goiter [facility] 2023-02-12 00:00 Type 2 diabetes yuri itus with diabetic neuropathy, unspecified [facility] 2023-02-12 00:00 Type 2 diabetes yuri itus with diabetic neuropathy, unspecified [facility] 2023-02-12 00:00 Type 2 diabetes yuri itus with diabetic peripheral angiopathy without gangrene [facility] 2023-02-12 00:00 Type 2 diabetes yuri itus with diabetic peripheral angiopathy without gangrene [facility] 2023-02-12 00:00 Type 2 diabetes yuri itus with hyperglycemia [facility] 2023-02-12 00:00 Type 2 diabetes yuri itus with hyperglycemia [facility] 2023-02-12 00:00 Type 2 diabetes yuri itus without complications [facility] 2023-02-12 00:00 Type 2 diabetes yuri itus without complications [facility] 2023-02-12 00:00 Obesity[facility] unspecified [facility] 2023-02-12 00:00 Obesity, unspecified [facility] 2023-02-12 00:00 Restless legs syndrome [facility] 2023-02-12 00:00 Restless legs syndrome [facility] 2023-02-12 00:00 Migraine, unspecifie d, not intractable, without status migrainosus [facility] 2023-02-12 00:00 Migraine, unspecifie d, not intractable, without status migrainosus [facility] 2023-02-12 00:00 Essential (primary) hypertensio n [facility] 2023-02-12 00:00 Essential (primary) hypertensio n [facility] 2023-02-12 00:00 Other seasonal allergic rhiniti s [facility] 2023-02-12 00:00 Other seasonal allergic rhiniti s [facility] 2023-02-12 00:00 Unspecified asthma, uncomplicat ed [facility] 2023-02-12 00:00 Unspecified asthma, uncomplicat ed [facility] 2023-02-16 00:00 Asthma [facility] 2023-02-16 00:00 Asthma [facility] 2023-02-16 00:00 Multinodular goiter [facility] 2023-02-16 00:00 Multinodular goiter [facility] 2023-02-16 00:00 Unspecified hypothyroidism [facility] 2023-02-16 00:00 Unspecified hypothyroidism [facility] 2023-02-16 00:00 Diabetes mellitus wi thout mention of complication, type II or unspecified type, not stated as uncontrolled [facility] 2023-02-16 00:00 Diabetes mellitus wi thout mention of complication, type II or unspecified type, not stated as uncontrolled [facility] 2023-02-16 00:00 Diabetes mellitus wi th neurological manifestations, type II or unspecified type, not stated as uncontrolled [facility] 2023-02-16 00:00 Diabetes mellitus wi th neurological manifestations, type II or unspecified type, not stated as uncontrolled [facility] 2023-02-16 00:00 Diabetes mellitus wi th peripheral circulatory disorders, type II or unspecified type, not stated as uncontrolled [facility] 2023-02-16 00:00 Diabetes mellitus wi th peripheral circulatory disorders, type II or unspecified type, not stated as uncontrolled [facility] 2023-02-16 00:00 Diabetes mellitus wi th other specified manifestations, type II or unspecified type, not stated as uncontrolled [facility] 2023-02-16 00:00 Diabetes mellitus wi th other specified manifestations, type II or unspecified type, not stated as uncontrolled [facility] 2023-02-16 00:00 Other and unspecifie d hyperlipidemia [facility] 2023-02-16 00:00 Other and unspecifie d hyperlipidemia [facility] 2023-02-16 00:00 Restless legs [facility] 2023-02-16 00:00 Restless legs [facility] 2023-02-16 00:00 Restless legs syndrome (RLS) [facility] 2023-02-16 00:00 Restless legs syndrome (RLS) [facility] 2023-02-16 00:00 Migraine, unspecifie d, without mention of intractable migraine, without mention of status migrainosus [facility] 2023-02-16 00:00 Migraine, unspecifie d, without mention of intractable migraine, without mention of status migrainosus [facility] 2023-02-16 00:00 Seasonal allergic rhinitis [facility] 2023-02-16 00:00 Seasonal allergic rhinitis [facility] 2023-02-16 00:00 Migraine [facility] 2023-02-16 00:00 Migraine [facility] 2023-02-16 00:00 Hypertensive disorder [facility] 2023-02-16 00:00 Hypertensive disorder [facility] 2023-02-16 00:00 Benign essential hypertension [facility] 2023-02-16 00:00 Benign essential hypertension [facility] 2023-02-16 00:00 Hypothyroidism [facility] 2023-02-16 00:00 Hypothyroidism [facility] 2023-02-16 00:00 Obesity [facility] 2023-02-16 00:00 Obesity [facility] 2023-02-16 00:00 Diabetic peripheral neuropathy [facility] 2023-02-16 00:00 Diabetic peripheral neuropathy [facility] 2023-02-16 00:00 Type II diabetes silvana litus uncontrolled [facility] 2023-02-16 00:00 Type II diabetes silvana litus uncontrolled [facility] 2023-02-16 00:00 Type 2 diabetes yuri itus well controlled [facility] 2023-02-16 00:00 Type 2 diabetes yuri itus well controlled [facility] 2023-02-16 00:00 Acquired right hallux rigidus [facility] 2023-02-16 00:00 Acquired right hallux rigidus [facility] 2023-02-16 00:00 Allergic rhinitis due to pollen [facility] 2023-02-16 00:00 Allergic rhinitis due to pollen [facility] 2023-02-16 00:00 Asthma, unspecified [facility] 2023-02-16 00:00 Asthma, unspecified [facility] 2023-02-16 00:00 Hyperlipidemia [facility] 2023-02-16 00:00 Hyperlipidemia [facility] 2023-02-16 00:00 Acquired hallux rigidus [facility] 2023-02-16 00:00 Acquired hallux rigidus [facility] 2023-02-16 00:00 Hallux rigidus [facility] 2023-02-16 00:00 Hallux rigidus [facility] 2023-02-16 00:00 Hypothyroidism, unspecified [facility] 2023-02-16 00:00 Hypothyroidism, unspecified [facility] 2023-02-16 00:00 Nontoxic multinodular goiter [facility] 2023-02-16 00:00 Nontoxic multinodular goiter [facility] 2023-02-16 00:00 Type 2 diabetes yuri itus with diabetic neuropathy, unspecified [facility] 2023-02-16 00:00 Type 2 diabetes yuri itus with diabetic neuropathy, unspecified [facility] 2023-02-16 00:00 Type 2 diabetes yuri itus with diabetic peripheral angiopathy without gangrene [facility] 2023-02-16 00:00 Type 2 diabetes yuri itus with diabetic peripheral angiopathy without gangrene [facility] 2023-02-16 00:00 Type 2 diabetes yuri itus with hyperglycemia [facility] 2023-02-16 00:00 Type 2 diabetes yuri itus with hyperglycemia [facility] 2023-02-16 00:00 Type 2 diabetes yuri itus without complications [facility] 2023-02-16 00:00 Type 2 diabetes yuri itus without complications [facility] 2023-02-16 00:00 Obesity, unspecified [facility] 2023-02-16 00:00 Obesity, unspecified [facility] 2023-02-16 00:00 Restless legs syndrome [facility] 2023-02-16 00:00 Restless legs syndrome [facility] 2023-02-16 00:00 Migraine, unspecifie d, not intractable, without status migrainosus [facility] 2023-02-16 00:00 Migraine, unspecifie d, not intractable, without status migrainosus [facility] 2023-02-16 00:00 Essential (primary) hypertensio n [facility] 2023-02-16 00:00 Essential (primary) hypertensio n [facility] 2023-02-16 00:00 Other seasonal allergic rhiniti s [facility] 2023-02-16 00:00 Other seasonal allergic rhiniti s [facility] 2023-02-16 00:00 Unspecified asthma, uncomplicat ed [facility] 2023-02-16 00:00 Unspecified asthma, uncomplicat ed [facility] 2023-02-16 00:00 Hallux rigidus, right foot [facility] 2023-02-16 00:00 Hallux rigidus, right foot [facility] 2023-02-16 00:00 Hallux rigidus, left foot [facility] 2023-02-16 00:00 Hallux rigidus, left foot [facility] 2023-02-20 00[facility]00 Asthma [facility] 2023-02-20 00:00 Multinodular goiter [facility] 2023-02-20 00:00 Unspecified hypothyroidism [facility] 2023-02-20 00:00 Diabetes mellitus wi thout mention of complication, type II or unspecified type, not stated as uncontrolled [facility] 2023-02-20 00:00 Diabetes mellitus wi th neurological manifestations, type II or unspecified type, not stated as uncontrolled [facility] 2023-02-20 00:00 Diabetes mellitus wi th peripheral circulatory disorders, type II or unspecified type, not stated as uncontrolled [facility] 2023-02-20 00:00 Diabetes mellitus wi th other specified manifestations, type II or unspecified type, not stated as uncontrolled [facility] 2023-02-20 00:00 Other and unspecifie d hyperlipidemia [facility] 2023-02-20 00:00 Restless legs [facility] 2023-02-20 00:00 Restless legs syndrome (RLS) [facility] 2023-02-20 00:00 Migraine, unspecifie d, without mention of intractable migraine, without mention of status migrainosus [facility] 2023-02-20 00:00 Seasonal allergic rhinitis [facility] 2023-02-20 00:00 Migraine [facility] 2023-02-20 00:00 Hypertensive disorder [facility] [facility] 2023-02-20 00:00 Benign essential hypertension [facility] 2023-02-20 00:00 Hypothyroidism [facility] 2023-02-20 00:00 Obesity [facility] 2023-02-20 00:00 Diabetic peripheral neuropathy [facility] 2023-02-20 00:00 Type II diabetes silvana litus uncontrolled [facility] 2023-02-20 00:00 Type 2 diabetes yuri itus well controlled [facility] 2023-02-20 00:00 Allergic rhinitis due to pollen [facility] 2023-02-20 00:00 Asthma, unspecified [facility] 2023-02-20 00:00 Hyperlipidemia [facility] 2023-02-20 00:00 Hypothyroidism, unspecified [facility] 2023-02-20 00:00 Nontoxic multinodular goiter [facility] 2023-02-20 00:00 Type 2 diabetes yuri itus with diabetic neuropathy, unspecified [facility] 2023-02-20 00:00 Type 2 diabetes yuri itus with diabetic peripheral angiopathy without gangrene [facility] 2023-02-20 00:00 Type 2 diabetes yuri itus with hyperglycemia [facility] 2023-02-20 00:00 Type 2 diabetes yuri itus without complications [facility] 2023-02-20 00:00 Obesity, unspecified [facility] [place] 2023-02-20 00:00 Restless legs syndrome [facility] [place] 2023-02-20 00:00 Migraine, unspecifie d, not intractable, without status migrainosus [facility] 2023-02-20 00:00 Essential (primary) hypertensio n [facility] 2023-02-20 00:00 Other seasonal allergic rhiniti s [facility] 2023-02-20 00:00 Unspecified asthma, uncomplicat ed [facility] [place] Procedures date description facility 2022-12-15 00:00 Visit Code Hold [facility] 2022-12-15 00:00 Visit Code Hold [facility] 2022-12-15 00:00 Visit Code Hold [facility] 2022-12-15 00:00 Visit Code Hold [facility] 2022-12-15 00:00 Visit Code Hold [facility] 2022-12-15 00:00 Visit Code Hold [facility] 2022-12-15 00:00 Visit Code Hold [facility] 2022-12-15 00:00 Visit Code Hold [facility] 2022-12-15 00:00 Visit Code Hold [facility] 2022-12-15 00:00 Visit Code Hold [facility] 2023-01-13 00:00 Visit Code Hold [facility] 2023-01-13 00:00 Visit Code Hold [facility] 2023-01-13 00:00 Visit Code Hold [facility] [place] 2023-01-13 00:00 Visit Code Hold [facility] 2023-01-13 00:00 Visit Code Hold [facility] 2023-01-13 00:00 Visit Code Hold [facility] 2023-01-13 00:00 Visit Code Hold [facility] 2023-01-13 00:00 Visit Code Hold [facility] 2023-01-13 00:00 Visit Code Hold [facility] 2023-02-09 00:00 Visit Code Hold [facility] 2023-02-09 00:00 Visit Code Hold [facility] 2023-02-09 00:00 Visit Code Hold [facility] 2023-02-09 00:00 Visit Code Hold [facility] 2023-02-09 00:00 Visit Code Hold [facility] 2023-02-09 00:00 Visit Code Hold [facility] 2022-12-15 00:00 XR FOOT COMPLETE MIN 3 VIEW [facility] 2022-12-15 00:00 XR FOOT COMPLETE MIN 3 VIEW [facility] 2022-12-15 00:00 XR FOOT COMPLETE MIN 3 VIEW [facility] 2022-12-15 00:00 XR FOOT COMPLETE MIN 3 VIEW [facility] 2022-12-15 00:00 XR FOOT COMPLETE MIN 3 VIEW [facility] 2022-12-15 00:00 XR FOOT COMPLETE MIN 3 VIEW [facility] 2022-12-15 00:00 XR FOOT COMPLETE MIN 3 VIEW [facility] 2022-12-15 00:00 XR FOOT COMPLETE MIN 3 VIEW [facility] 2022-12-15 00:00 XR FOOT COMPLETE MIN 3 VIEW [facility] 2022-12-15 00:00 XR FOOT COMPLETE MIN 3 VIEW [facility] 2023-02-09 00:00 COMPREHENSIVE METABOLIC PANEL [facility] 2023-02-09 00:00 COMPREHENSIVE METABOLIC PANEL [facility] 2023-02-09 00:00 COMPREHENSIVE METABOLIC PANEL [facility] 2023-02-09 00:00 COMPREHENSIVE METABOLIC PANEL [facility] 2023-02-09 00:00 COMPREHENSIVE METABOLIC PANEL [facility] [place] 2023-02-09 00:00 COMPREHENSIVE METABOLIC PANEL [facility] [place] 2023-02-09 00:00 POC URINALYSIS DIP [facility] [place] 2023-02-09 00:00 POC URINALYSIS DIP [facility] [place] 2023-02-09 00:00 POC URINALYSIS DIP [facility] [place] 2023-02-09 00:00 POC URINALYSIS DIP [facility] [place] 2023-02-09 00:00 POC URINALYSIS DIP [facility] [place] 2023-02-09 00:00 POC URINALYSIS DIP [facility] 2023-02-09 00:00 CBC W/Diff/Plt [facility] 2023-02-09 00:00 CBC W/Diff/Plt [facility] 2023-02-09 00:00 CBC W/Diff/Plt [facility] 2023-02-09 00:00 CBC W/Diff/Plt [facility] 2023-02-09 00:00 CBC W/Diff/Plt [facility] 2023-02-09 00:00 CBC W/Diff/Plt [facility] Results/Labs test date author facility value unit interpretation Result panel 1 (unknown) (no date) (unknown) [facility] (no value) (units unknown) (unknown) Result panel 2 (unknown) (no date) (unknown) [facility] (no value) (units unknown) (unknown) Result panel 3 (unknown) (no date) (unknown) [facility] (no value) (units unknown) (unknown) Result panel 4 (unknown) (no date) (unknown) [facility] (no value) (units unknown) (unknown) Result panel 5 (unknown) (no date) (unknown) [facility] (no value) (units unknown) (unknown) Result panel 6 (unknown) (no date) (unknown) [facility] (no value) (units unknown) (unknown) Result panel 7 (unknown) (no date) (unknown) [facility] (no value) (units unknown) (unknown) Result panel 8 (unknown) (no date) (unknown) [facility] (no value) (units unknown) (unknown) Result panel 9 (unknown) (no date) (unknown) [facility] (no value) (units unknown) (unknown) Result panel 10 (unknown) (no date) (unknown) [facility] (no value) (units unknown) (unknown) Result panel 11 (unknown) (no date) (unknown) [facility] (no value) (units unknown) (unknown) Result panel 12 (unknown) (no date) (unknown) [facility] (no value) (units unknown) (unknown) Result panel 13 (unknown) (no date) (unknown) [facility] (no value) (units unknown) (unknown) Result panel 14 (unknown) (no date) (unknown) [facility] (no value) (units unknown) (unknown) Result panel 15 (unknown) (no date) (unknown) [facility] (no value) (units unknown) (unknown) Result panel 16 (unknown) (no date) (unknown) [facility] (no value) (units unknown) (unknown) Result panel 17 (unknown) (no date) (unknown) [facility] (no value) (units unknown) (unknown) Result panel 18 (unknown) (no date) (unknown) [facility] (no value) (units unknown) (unknown) Result panel 19 (unknown) (no date) (unknown) [facility] (no value) (units unknown) (unknown) Result panel 20 (unknown) (no date) (unknown) [facility] (no value) (units unknown) (unknown) Result panel 21 (unknown) (no date) (unknown) [facility] (no value) (units unknown) (unknown) Result panel 22 (unknown) (no date) (unknown) [facility] (no value) (units unknown) (unknown) Result panel 23 (unknown) (no date) (unknown) [facility] (no value) (units unknown) (unknown) Result panel 24 (unknown) (no date) (unknown) [facility] (no value) (units unknown) (unknown) Result panel 25 (unknown) (no date) (unknown) [facility] (no value) (units unknown) (unknown) Result panel 26 (unknown) (no date) (unknown) [facility] (no value) (units unknown) (unknown) Result panel 27 (unknown) (no date) (unknown) [facility] (no value) (units unknown) (unknown) Result panel 28 (unknown) (no date) (unknown) [facility] (no value) (units unknown) (unknown) Result panel 29 (unknown) (no date) (unknown) [facility] (no value) (units unknown) (unknown) Result panel 30 (unknown) (no date) (unknown) [facility] (no value) (units unknown) (unknown) Result panel 31 (unknown) (no date) (unknown) [facility] (no value) (units unknown) (unknown) Result panel 32 (unknown) (no date) (unknown) [facility] (no value) (units unknown) (unknown) Result panel 33 (unknown) (no date) (unknown) [facility] (no value) (units unknown) (unknown) Result panel 34 (unknown) (no date) (unknown) [facility] (no value) (units unknown) (unknown) Result panel 35 (unknown) (no date) (unknown) [facility] (no value) (units unknown) (unknown) Result panel 36 (unknown) (no date) (unknown) [facility] (no value) (units unknown) (unknown) Result panel 37 (unknown) (no date) (unknown) [facility] (no value) (units unknown) (unknown) Result panel 38 (unknown) (no date) (unknown) [facility] (no value) (units unknown) (unknown) Result panel 39 (unknown) (no date) (unknown) [facility] (no value) (units unknown) (unknown) Result panel 40 (unknown) (no date) (unknown) [facility] (no value) (units unknown) (unknown) Result panel 41 (unknown) (no date) (unknown) [facility] (no value) (units unknown) (unknown) Result panel 42 (unknown) (no date) (unknown) [facility] (no value) (units unknown) (unknown) Result panel 43 (unknown) (no date) (unknown) [facility] (no value) (units unknown) (unknown) Result panel 44 (unknown) (no date) (unknown) [facility] (no value) (units unknown) (unknown) Result panel 45 (unknown) (no date) (unknown) [facility] (no value) (units unknown) (unknown) Result panel 46 (unknown) (no date) (unknown) [facility] (no value) (units unknown) (unknown) Result panel 47 (unknown) (no date) (unknown) [facility] (no value) (units unknown) (unknown) Result panel 48 (unknown) (no date) (unknown) [facility] (no value) (units unknown) (unknown) Result panel 49 (unknown) (no date) (unknown) [facility] (no value) (units unknown) (unknown) Result panel 50 (unknown) (no date) (unknown) [facility] (no value) (units unknown) (unknown) Result panel 51 (unknown) (no date) (unknown) [facility] (no value) (units unknown) (unknown) Result panel 52 (unknown) (no date) (unknown) [facility] (no value) (units unknown) (unknown) Result panel 53 (unknown) (no date) (unknown) [facility] (no value) (units unknown) (unknown) Result panel 54 (unknown) (no date) (unknown) [facility] (no value) (units unknown) (unknown) Result panel 55 (unknown) (no date) (unknown) [facility] (no value) (units unknown) (unknown) Result panel 56 (unknown) (no date) (unknown) [facility] (no value) (units unknown) (unknown) Result panel 57 (unknown) (no date) (unknown) [facility] (no value) (units unknown) (unknown) Result panel 58 (unknown) (no date) (unknown) [facility] (no value) (units unknown) (unknown) Result panel 59 (unknown) (no date) (unknown) [facility] (no value) (units unknown) (unknown) Result panel 60 (unknown) (no date) (unknown) [facility] (no value) (units unknown) (unknown) Result panel 61 (unknown) (no date) (unknown) [facility] (no value) (units unknown) (unknown) Result panel 62 (unknown) (no date) (unknown) [facility] (no value) (units unknown) (unknown) Result panel 63 (unknown) (no date) (unknown) [facility] (no value) (units unknown) (unknown) Result panel 64 (unknown) (no date) (unknown) [facility] (no value) (units unknown) (unknown) Result panel 65 (unknown) (no date) (unknown) [facility] (no value) (units unknown) (unknown) Result panel 66 (unknown) (no date) (unknown) [facility] (no value) (units unknown) (unknown) Result panel 67 (unknown) (no date) (unknown) [facility] (no value) (units unknown) (unknown) Result panel 68 (unknown) (no date) (unknown) [facility] (no value) (units unknown) (unknown) Result panel 69 (unknown) (no date) (unknown) [facility] (no value) (units unknown) (unknown) Result panel 70 (unknown) (no date) (unknown) [facility] (no value) (units unknown) (unknown) Result panel 71 (unknown) (no date) (unknown) [facility] (no value) (units unknown) (unknown) Result panel 72 (unknown) (no date) (unknown) [facility] (no value) (units unknown) (unknown) Result panel 73 (unknown) (no date) (unknown) [facility] (no value) (units unknown) (unknown) Result panel 74 (unknown) (no date) (unknown) [facility] (no value) (units unknown) (unknown) Result panel 75 (unknown) (no date) (unknown) [facility] (no value) (units unknown) (unknown) Result panel 76 (unknown) (no date) (unknown) [facility] (no value) (units unknown) (unknown) Result panel 77 (unknown) (no date) (unknown) [facility] (no value) (units unknown) (unknown) Result panel 78 (unknown) (no date) (unknown) [facility] (no value) (units unknown) (unknown) Result panel 79 (unknown) (no date) (unknown) [facility] (no value) (units unknown) (unknown) Result panel 80 (unknown) (no date) (unknown) [facility] (no value) (units unknown) (unknown) Result panel 81 (unknown) (no date) (unknown) [facility] (no value) (units unknown) (unknown) Result panel 82 (unknown) (no date) (unknown) [facility] (no value) (units unknown) (unknown) Result panel 83 (unknown) (no date) (unknown) [facility] (no value) (units unknown) (unknown) Result panel 84 (unknown) (no date) (unknown) [facility] (no value) (units unknown) (unknown) Result panel 85 (unknown) (no date) (unknown) [facility] (no value) (units unknown) (unknown) Result panel 86 (unknown) (no date) (unknown) [facility] (no value) (units unknown) (unknown) Result panel 87 (unknown) (no date) (unknown) [facility] (no value) (units unknown) (unknown) Result panel 88 (unknown) (no date) (unknown) [facility] (no value) (units unknown) (unknown) Result panel 89 (unknown) (no date) (unknown) [facility] (no value) (units unknown) (unknown) Result panel 90 (unknown) (no date) (unknown) [facility] (no value) (units unknown) (unknown) Result panel 91 (unknown) (no date) (unknown) [facility] (no value) (units unknown) (unknown) Result panel 92 (unknown) (no date) (unknown) [facility] (no value) (units unknown) (unknown) Result panel 93 (unknown) (no date) (unknown) [facility] (no value) (units unknown) (unknown) Result panel 94 (unknown) (no date) (unknown) [facility] (no value) (units unknown) (unknown) Result panel 95 (unknown) (no date) (unknown) [facility] (no value) (units unknown) (unknown) Result panel 96 (unknown) (no date) (unknown) [facility] (no value) (units unknown) (unknown) Result panel 97 (unknown) (no date) (unknown) [facility] (no value) (units unknown) (unknown) Result panel 98 (unknown) (no date) (unknown) [facility] (no value) (units unknown) (unknown) Result panel 99 (unknown) (no date) (unknown) [facility] (no value) (units unknown) (unknown) Result panel 100 (unknown) (no date) (unknown) [facility] (no value) (units unknown) (unknown) Result panel 101 (unknown) (no date) (unknown) [facility] (no value) (units unknown) (unknown) Result panel 102 (unknown) (no date) (unknown) [facility] (no value) (units unknown) (unknown) Result panel 103 (unknown) (no date) (unknown) [facility] (no value) (units unknown) (unknown) Result panel 104 (unknown) (no date) (unknown) [facility] (no value) (units unknown) (unknown) Result panel 105 (unknown) (no date) (unknown) [facility] (no value) (units unknown) (unknown) Result panel 106 (unknown) (no date) (unknown) [facility] (no value) (units unknown) (unknown) Result panel 107 (unknown) (no date) (unknown) [facility] (no value) (units unknown) (unknown) Result panel 108 (unknown) (no date) (unknown) [facility] (no value) (units unknown) (unknown) Result panel 109 (unknown) (no date) (unknown) [facility] (no value) (units unknown) (unknown) Result panel 110 (unknown) (no date) (unknown) [facility] (no value) (units unknown) (unknown) Result panel 111 (unknown) (no date) (unknown) [facility] (no value) (units unknown) (unknown) Result panel 112 (unknown) (no date) (unknown) [facility] (no value) (units unknown) (unknown) Result panel 113 (unknown) (no date) (unknown) [facility] (no value) (units unknown) (unknown) Result panel 114 (unknown) (no date) (unknown) [facility] (no value) (units unknown) (unknown) Result panel 115 (unknown) (no date) (unknown) [facility] (no value) (units unknown) (unknown) Result panel 116 (unknown) (no date) (unknown) [facility] (no value) (units unknown) (unknown) Result panel 117 (unknown) (no date) (unknown) [facility] (no value) (units unknown) (unknown) Result panel 118 (unknown) (no date) (unknown) [facility] (no value) (units unknown) (unknown) Result panel 119 (unknown) (no date) (unknown) [facility] (no value) (units unknown) (unknown) Result panel 120 (unknown) (no date) (unknown) [facility] (no value) (units unknown) (unknown) Result panel 121 (unknown) (no date) (unknown) [facility] [facility] (no value) (units unknown) (unknown) Result panel 122 (unknown) (no date) (unknown) [facility] (no value) (units unknown) (unknown) Result panel 123 (unknown) (no date) (unknown) [facility] (no value) (units unknown) (unknown) Result panel 124 (unknown) (no date) (unknown) [facility] (no value) (units unknown) (unknown) Result panel 125 (unknown) (no date) (unknown) [facility] (no value) (units unknown) (unknown) Result panel 126 (unknown) (no date) (unknown) [facility] (no value) (units unknown) (unknown) Result panel 127 (unknown) (no date) (unknown) [facility] (no value) (units unknown) (unknown) Result panel 128 (unknown) (no date) (unknown) [facility] (no value) (units unknown) (unknown) Result panel 129 (unknown) (no date) (unknown) [facility] (no value) (units unknown) (unknown) Result panel 130 (unknown) (no date) (unknown) [facility] (no value) (units unknown) (unknown) Result panel 131 (unknown) (no date) (unknown) [facility] (no value) (units unknown) (unknown) Result panel 132 (unknown) (no date) (unknown) [facility] (no value) (units unknown) (unknown) Result panel 133 (unknown) (no date) (unknown) [facility] (no value) (units unknown) (unknown) Result panel 134 (unknown) (no date) (unknown) [facility] (no value) (units unknown) (unknown) Result panel 135 (unknown) (no date) (unknown) [facility] (no value) (units unknown) (unknown) Result panel 136 (unknown) (no date) (unknown) [facility] (no value) (units unknown) (unknown) Result panel 137 (unknown) (no date) (unknown) [facility] (no value) (units unknown) (unknown) Result panel 138 (unknown) (no date) (unknown) [facility] (no value) (units unknown) (unknown) Result panel 139 (unknown) (no date) (unknown) [facility] (no value) (units unknown) (unknown) Result panel 140 (unknown) (no date) (unknown) [facility] (no value) (units unknown) (unknown) Result panel 141 (unknown) (no date) (unknown) [facility] (no value) (units unknown) (unknown) Result panel 142 (unknown) (no date) (unknown) [facility] (no value) (units unknown) (unknown) Result panel 143 (unknown) (no date) (unknown) [facility] (no value) (units unknown) (unknown) Result panel 144 (unknown) (no date) (unknown) [facility] (no value) (units unknown) (unknown) Result panel 145 (unknown) (no date) (unknown) [facility] (no value) (units unknown) (unknown) Result panel 146 (unknown) (no date) (unknown) [facility] (no value) (units unknown) (unknown) Result panel 147 (unknown) (no date) (unknown) [facility] (no value) (units unknown) (unknown) Result panel 148 (unknown) (no date) (unknown) [facility] (no value) (units unknown) (unknown) Result panel 149 (unknown) (no date) (unknown) [facility] (no value) (units unknown) (unknown) Result panel 150 (unknown) (no date) (unknown) [facility] (no value) (units unknown) (unknown) Result panel 151 (unknown) (no date) (unknown) [facility] (no value) (units unknown) (unknown) Result panel 152 (unknown) (no date) (unknown) [facility] (no value) (units unknown) (unknown) Result panel 153 (unknown) (no date) (unknown) [facility] (no value) (units unknown) (unknown) Result panel 154 (unknown) (no date) (unknown) [facility] (no value) (units unknown) (unknown) Result panel 155 (unknown) (no date) (unknown) [facility] (no value) (units unknown) (unknown) Result panel 156 (unknown) (no date) (unknown) [facility] (no value) (units unknown) (unknown) Result panel 157 (unknown) (no date) (unknown) [facility] (no value) (units unknown) (unknown) Result panel 158 (unknown) (no date) (unknown) [facility] (no value) (units unknown) (unknown) Result panel 159 (unknown) (no date) (unknown) [facility] (no value) (units unknown) (unknown) Result panel 160 (unknown) (no date) (unknown) [facility] (no value) (units unknown) (unknown) Result panel 161 (unknown) (no date) (unknown) [facility] (no value) (units unknown) (unknown) Result panel 162 (unknown) (no date) (unknown) [facility] (no value) (units unknown) (unknown) Result panel 163 (unknown) (no date) (unknown) [facility] (no value) (units unknown) (unknown) Result panel 164 (unknown) (no date) (unknown) [facility] (no value) (units unknown) (unknown) Result panel 165 (unknown) (no date) (unknown) [facility] (no value) (units unknown) (unknown) Result panel 166 (unknown) (no date) (unknown) [facility] (no value) (units unknown) (unknown) Result panel 167 (unknown) (no date) (unknown) [facility] (no value) (units unknown) (unknown) Result panel 168 (unknown) (no date) (unknown) [facility] (no value) (units unknown) (unknown) Result panel 169 (unknown) (no date) (unknown) [facility] (no value) (units unknown) (unknown) Result panel 170 (unknown) (no date) (unknown) [facility] (no value) (units unknown) (unknown) Result panel 171 (unknown) (no date) (unknown) [facility] (no value) (units unknown) (unknown) Result panel 172 (unknown) (no date) (unknown) [facility] (no value) (units unknown) (unknown) Result panel 173 (unknown) (no date) (unknown) [facility] (no value) (units unknown) (unknown) Result panel 174 (unknown) (no date) (unknown) [facility] (no value) (units unknown) (unknown) Result panel 175 (unknown) (no date) (unknown) [facility] (no value) (units unknown) (unknown) Result panel 176 (unknown) (no date) (unknown) [facility] (no value) (units unknown) (unknown) Result panel 177 (unknown) (no date) (unknown) [facility] (no value) (units unknown) (unknown) Result panel 178 (unknown) (no date) (unknown) [facility] (no value) (units unknown) (unknown) Result panel 179 (unknown) (no date) (unknown) [facility] (no value) (units unknown) (unknown) Result panel 180 (unknown) (no date) (unknown) [facility] (no value) (units unknown) (unknown) Result panel 181 (unknown) (no date) (unknown) [facility] (no value) (units unknown) (unknown) Result panel 182 (unknown) (no date) (unknown) [facility] (no value) (units unknown) (unknown) Result panel 183 (unknown) (no date) (unknown) [facility] (no value) (units unknown) (unknown) Result panel 184 (unknown) (no date) (unknown) [facility] (no value) (units unknown) (unknown) Result panel 185 (unknown) (no date) (unknown) [facility] (no value) (units unknown) (unknown) Result panel 186 (unknown) (no date) (unknown) [facility] (no value) (units unknown) (unknown) Result panel 187 (unknown) (no date) (unknown) [facility] (no value) (units unknown) (unknown) Result panel 188 (unknown) (no date) (unknown) [facility] (no value) (units unknown) (unknown) Result panel 189 (unknown) (no date) (unknown) [facility] (no value) (units unknown) (unknown) Result panel 190 (unknown) (no date) (unknown) [facility] (no value) (units unknown) (unknown) Result panel 191 (unknown) (no date) (unknown) [facility] (no value) (units unknown) (unknown) Result panel 192 (unknown) (no date) (unknown) [facility] (no value) (units unknown) (unknown) Result panel 193 (unknown) (no date) (unknown) [facility] (no value) (units unknown) (unknown) Result panel 194 (unknown) (no date) (unknown) [facility] (no value) (units unknown) (unknown) Result panel 195 (unknown) (no date) (unknown) [facility] (no value) (units unknown) (unknown) Result panel 196 (unknown) (no date) (unknown) [facility] (no value) (units unknown) (unknown) Result panel 197 (unknown) (no date) (unknown) [facility] (no value) (units unknown) (unknown) Result panel 198 (unknown) (no date) (unknown) [facility] (no value) (units unknown) (unknown) Result panel 199 (unknown) (no date) (unknown) [facility] (no value) (units unknown) (unknown) Result panel 200 (unknown) (no date) (unknown) [facility] (no value) (units unknown) (unknown) Result panel 201 (unknown) (no date) (unknown) [facility] (no value) (units unknown) (unknown) Result panel 202 (unknown) (no date) (unknown) [facility] (no value) (units unknown) (unknown) Result panel 203 (unknown) (no date) (unknown) [facility] (no value) (units unknown) (unknown) Result panel 204 (unknown) (no date) (unknown) [facility] (no value) (units unknown) (unknown) Result panel 205 (unknown) (no date) (unknown) [facility] (no value) (units unknown) (unknown) Result panel 206 (unknown) (no date) (unknown) [facility] (no value) (units unknown) (unknown) Result panel 207 (unknown) (no date) (unknown) [facility] (no value) (units unknown) (unknown) Result panel 208 (unknown) (no date) (unknown) [facility] (no value) (units unknown) (unknown) Result panel 209 (unknown) (no date) (unknown) [facility] (no value) (units unknown) (unknown) Result panel 210 (unknown) (no date) (unknown) [facility] (no value) (units unknown) (unknown) Result panel 211 (unknown) (no date) (unknown) [facility] (no value) (units unknown) (unknown) Result panel 212 (unknown) (no date) (unknown) [facility] (no value) (units unknown) (unknown) Result panel 213 (unknown) (no date) (unknown) [facility] (no value) (units unknown) (unknown) Result panel 214 (unknown) (no date) (unknown) [facility] (no value) (units unknown) (unknown) Result panel 215 (unknown) (no date) (unknown) [facility] (no value) (units unknown) (unknown) Result panel 216 (unknown) (no date) (unknown) [facility] (no value) (units unknown) (unknown) Result panel 217 (unknown) (no date) (unknown) [facility] (no value) (units unknown) (unknown) Result panel 218 (unknown) (no date) (unknown) [facility] (no value) (units unknown) (unknown) Result panel 219 (unknown) (no date) (unknown) [facility] (no value) (units unknown) (unknown) Result panel 220 (unknown) (no date) (unknown) [facility] (no value) (units unknown) (unknown) Result panel 221 (unknown) (no date) (unknown) [facility] (no value) (units unknown) (unknown) Result panel 222 (unknown) (no date) (unknown) [facility] (no value) (units unknown) (unknown) Result panel 223 (unknown) (no date) (unknown) [facility] (no value) (units unknown) (unknown) Result panel 224 (unknown) (no date) (unknown) [facility] (no value) (units unknown) (unknown) Result panel 225 (unknown) (no date) (unknown) [facility] (no value) (units unknown) (unknown) Result panel 226 (unknown) (no date) (unknown) [facility] (no value) (units unknown) (unknown) Result panel 227 (unknown) (no date) (unknown) [facility] (no value) (units unknown) (unknown) Result panel 228 (unknown) (no date) (unknown) [facility] (no value) (units unknown) (unknown) Result panel 229 (unknown) (no date) (unknown) [facility] (no value) (units unknown) (unknown) Result panel 230 (unknown) (no date) (unknown) [facility] (no value) (units unknown) (unknown) Result panel 231 (unknown) (no date) (unknown) [facility] (no value) (units unknown) (unknown) Result panel 232 (unknown) (no date) (unknown) [facility] (no value) (units unknown) (unknown) Result panel 233 (unknown) (no date) (unknown) [facility] (no value) (units unknown) (unknown) Result panel 234 (unknown) (no date) (unknown) [facility] (no value) (units unknown) (unknown) Result panel 235 (unknown) (no date) (unknown) [facility] (no value) (units unknown) (unknown) Result panel 236 (unknown) (no date) (unknown) [facility] (no value) (units unknown) (unknown) Result panel 237 (unknown) (no date) (unknown) [facility] (no value) (units unknown) (unknown) Result panel 238 (unknown) (no date) (unknown) [facility] (no value) (units unknown) (unknown) Result panel 239 (unknown) (no date) (unknown) [facility] (no value) (units unknown) (unknown) Result panel 240 (unknown) (no date) (unknown) [facility] (no value) (units unknown) (unknown) Result panel 241 (unknown) (no date) (unknown) [facility] (no value) (units unknown) (unknown) Result panel 242 (unknown) (no date) (unknown) [facility] (no value) (units unknown) (unknown) Result panel 243 (unknown) (no date) (unknown) [facility] (no value) (units unknown) (unknown) Result panel 244 (unknown) (no date) (unknown) [facility] (no value) (units unknown) (unknown) Result panel 245 (unknown) (no date) (unknown) [facility] (no value) (units unknown) (unknown) Result panel 246 (unknown) (no date) (unknown) [facility] (no value) (units unknown) (unknown) Result panel 247 (unknown) (no date) (unknown) [facility] (no value) (units unknown) (unknown) Result panel 248 (unknown) (no date) (unknown) [facility] (no value) (units unknown) (unknown) Result panel 249 (unknown) (no date) (unknown) [facility] (no value) (units unknown) (unknown) Result panel 250 (unknown) (no date) (unknown) [facility] (no value) (units unknown) (unknown) Result panel 251 (unknown) (no date) (unknown) [facility] (no value) (units unknown) (unknown) Result panel 252 (unknown) (no date) (unknown) [facility] (no value) (units unknown) (unknown) Result panel 253 (unknown) (no date) (unknown) [facility] (no value) (units unknown) (unknown) Result panel 254 (unknown) (no date) (unknown) [facility] (no value) (units unknown) (unknown) Result panel 255 (unknown) (no date) (unknown) [facility] (no value) (units unknown) (unknown) Result panel 256 (unknown) (no date) (unknown) [facility] (no value) (units unknown) (unknown) Result panel 257 (unknown) (no date) (unknown) [facility] (no value) (units unknown) (unknown) Result panel 258 (unknown) (no date) (unknown) [facility] (no value) (units unknown) (unknown) Result panel 259 (unknown) (no date) (unknown) [facility] (no value) (units unknown) (unknown) Result panel 260 (unknown) (no date) (unknown) [facility] (no value) (units unknown) (unknown) Result panel 261 (unknown) (no date) (unknown) [facility] (no value) (units unknown) (unknown) Result panel 262 (unknown) (no date) (unknown) [facility] (no value) (units unknown) (unknown) Result panel 263 (unknown) (no date) (unknown) [facility] (no value) (units unknown) (unknown) Result panel 264 (unknown) (no date) (unknown) [facility] (no value) (units unknown) (unknown) Result panel 265 (unknown) (no date) (unknown) [facility] (no value) (units unknown) (unknown) Result panel 266 (unknown) (no date) (unknown) [facility] (no value) (units unknown) (unknown) Result panel 267 (unknown) (no date) (unknown) [facility] (no value) (units unknown) (unknown) Result panel 268 (unknown) (no date) (unknown) [facility] (no value) (units unknown) (unknown) Result panel 269 (unknown) (no date) (unknown) [facility] (no value) (units unknown) (unknown) Result panel 270 (unknown) (no date) (unknown) [facility] (no value) (units unknown) (unknown) Result panel 271 (unknown) (no date) (unknown) [facility] (no value) (units unknown) (unknown) Result panel 272 (unknown) (no date) (unknown) [facility] (no value) (units unknown) (unknown) Result panel 273 (unknown) (no date) (unknown) [facility] (no value) (units unknown) (unknown) Result panel 274 (unknown) (no date) (unknown) [facility] (no value) (units unknown) (unknown) Result panel 275 (unknown) (no date) (unknown) [facility] (no value) (units unknown) (unknown) Result panel 276 (unknown) (no date) (unknown) [facility] (no value) (units unknown) (unknown) Result panel 277 (unknown) (no date) (unknown) [facility] (no value) (units unknown) (unknown) Result panel 278 (unknown) (no date) (unknown) [facility] (no value) (units unknown) (unknown) Result panel 279 (unknown) (no date) (unknown) [facility] (no value) (units unknown) (unknown) Result panel 280 (unknown) (no date) (unknown) [facility] (no value) (units unknown) (unknown) Result panel 281 (unknown) (no date) (unknown) [facility] (no value) (units unknown) (unknown) Result panel 282 (unknown) (no date) (unknown) [facility] (no value) (units unknown) (unknown) Result panel 283 (unknown) (no date) (unknown) [facility] (no value) (units unknown) (unknown) Result panel 284 (unknown) (no date) (unknown) [facility] (no value) (units unknown) (unknown) Result panel 285 (unknown) (no date) (unknown) [facility] (no value) (units unknown) (unknown) Result panel 286 (unknown) (no date) (unknown) [facility] (no value) (units unknown) (unknown) Result panel 287 (unknown) (no date) (unknown) [facility] (no value) (units unknown) (unknown) Result panel 288 (unknown) (no date) (unknown) [facility] (no value) (units unknown) (unknown) Result panel 289 (unknown) (no date) (unknown) [facility] (no value) (units unknown) (unknown) Result panel 290 (unknown) (no date) (unknown) [facility] (no value) (units unknown) (unknown) Result panel 291 (unknown) (no date) (unknown) [facility] (no value) (units unknown) (unknown) Result panel 292 (unknown) (no date) (unknown) [facility] (no value) (units unknown) (unknown) Result panel 293 (unknown) (no date) (unknown) [facility] (no value) (units unknown) (unknown) Result panel 294 (unknown) (no date) (unknown) [facility] (no value) (units unknown) (unknown) Result panel 295 (unknown) (no date) (unknown) [facility] (no value) (units unknown) (unknown) Result panel 296 (unknown) (no date) (unknown) [facility] (no value) (units unknown) (unknown) Result panel 297 (unknown) (no date) (unknown) [facility] (no value) (units unknown) (unknown) Result panel 298 (unknown) (no date) (unknown) [facility] (no value) (units unknown) (unknown) Result panel 299 (unknown) (no date) (unknown) [facility] (no value) (units unknown) (unknown) Result panel 300 (unknown) (no date) (unknown) [facility] (no value) (units unknown) (unknown) Result panel 301 (unknown) (no date) (unknown) [facility] (no value) (units unknown) (unknown) Result panel 302 (unknown) (no date) (unknown) [facility] (no value) (units unknown) (unknown) Result panel 303 (unknown) (no date) (unknown) [facility] (no value) (units unknown) (unknown) Result panel 304 (unknown) (no date) (unknown) [facility] (no value) (units unknown) (unknown) Result panel 305 (unknown) (no date) (unknown) [facility] (no value) (units unknown) (unknown) Result panel 306 (unknown) (no date) (unknown) [facility] (no value) (units unknown) (unknown) Result panel 307 (unknown) (no date) (unknown) [facility] (no value) (units unknown) (unknown) Result panel 308 (unknown) (no date) (unknown) [facility] (no value) (units unknown) (unknown) Result panel 309 (unknown) (no date) (unknown) [facility] (no value) (units unknown) (unknown) Result panel 310 (unknown) (no date) (unknown) [facility] (no value) (units unknown) (unknown) Result panel 311 (unknown) (no date) (unknown) [facility] (no value) (units unknown) (unknown) Result panel 312 (unknown) (no date) (unknown) [facility] (no value) (units unknown) (unknown) Result panel 313 (unknown) (no date) (unknown) [facility] (no value) (units unknown) (unknown) Result panel 314 (unknown) (no date) (unknown) [facility] (no value) (units unknown) (unknown) Result panel 315 (unknown) (no date) (unknown) [facility] (no value) (units unknown) (unknown) Result panel 316 (unknown) (no date) (unknown) [facility] (no value) (units unknown) (unknown) Result panel 317 (unknown) (no date) (unknown) [facility] (no value) (units unknown) (unknown) Result panel 318 (unknown) (no date) (unknown) [facility] (no value) (units unknown) (unknown) Result panel 319 (unknown) (no date) (unknown) [facility] (no value) (units unknown) (unknown) Result panel 320 (unknown) (no date) (unknown) [facility] (no value) (units unknown) (unknown) Result panel 321 (unknown) (no date) (unknown) [facility] (no value) (units unknown) (unknown) Result panel 322 (unknown) (no date) (unknown) [facility] (no value) (units unknown) (unknown) Result panel 323 (unknown) (no date) (unknown) [facility] (no value) (units unknown) (unknown) Result panel 324 (unknown) (no date) (unknown) [facility] (no value) (units unknown) (unknown) Result panel 325 (unknown) (no date) (unknown) [facility] (no value) (units unknown) (unknown) Result panel 326 (unknown) (no date) (unknown) [facility] (no value) (units unknown) (unknown) Result panel 327 (unknown) (no date) (unknown) [facility] (no value) (units unknown) (unknown) Result panel 328 (unknown) (no date) (unknown) [facility] (no value) (units unknown) (unknown) Result panel 329 (unknown) (no date) (unknown) [facility] (no value) (units unknown) (unknown) Result panel 330 (unknown) (no date) (unknown) [facility] (no value) (units unknown) (unknown) Result panel 331 (unknown) (no date) (unknown) [facility] (no value) (units unknown) (unknown) Result panel 332 (unknown) (no date) (unknown) [facility] (no value) (units unknown) (unknown) Result panel 333 (unknown) (no date) (unknown) [facility] (no value) (units unknown) (unknown) Result panel 334 (unknown) (no date) (unknown) [facility] (no value) (units unknown) (unknown) Result panel 335 (unknown) (no date) (unknown) [facility] (no value) (units unknown) (unknown) Result panel 336 (unknown) (no date) (unknown) [facility] (no value) (units unknown) (unknown) Result panel 337 (unknown) (no date) (unknown) [facility] (no value) (units unknown) (unknown) Result panel 338 (unknown) (no date) (unknown) [facility] (no value) (units unknown) (unknown) Result panel 339 (unknown) (no date) (unknown) [facility] (no value) (units unknown) (unknown) Result panel 340 (unknown) (no date) (unknown) [facility] (no value) (units unknown) (unknown) Result panel 341 (unknown) (no date) (unknown) [facility] (no value) (units unknown) (unknown) Result panel 342 (unknown) (no date) (unknown) [facility] (no value) (units unknown) (unknown) Result panel 343 (unknown) (no date) (unknown) [facility] (no value) (units unknown) (unknown) Result panel 344 (unknown) (no date) (unknown) [facility] (no value) (units unknown) (unknown) Result panel 345 (unknown) (no date) (unknown) [facility] (no value) (units unknown) (unknown) Result panel 346 (unknown) (no date) (unknown) [facility] (no value) (units unknown) (unknown) Result panel 347 (unknown) (no date) (unknown) [facility] (no value) (units unknown) (unknown) Result panel 348 (unknown) (no date) (unknown) [facility] (no value) (units unknown) (unknown) Result panel 349 (unknown) (no date) (unknown) [facility] (no value) (units unknown) (unknown) Result panel 350 (unknown) (no date) (unknown) [facility] (no value) (units unknown) (unknown) Result panel 351 (unknown) (no date) (unknown) [facility] (no value) (units unknown) (unknown) Result panel 352 (unknown) (no date) (unknown) [facility] (no value) (units unknown) (unknown) Result panel 353 (unknown) (no date) (unknown) [facility] (no value) (units unknown) (unknown) Result panel 354 (unknown) (no date) (unknown) [facility] (no value) (units unknown) (unknown) Result panel 355 (unknown) (no date) (unknown) [facility] (no value) (units unknown) (unknown) Result panel 356 (unknown) (no date) (unknown) [facility] (no value) (units unknown) (unknown) Result panel 357 (unknown) (no date) (unknown) [facility] (no value) (units unknown) (unknown) Result panel 358 (unknown) (no date) (unknown) [facility] (no value) (units unknown) (unknown) Result panel 359 (unknown) (no date) (unknown) [facility] (no value) (units unknown) (unknown) Result panel 360 (unknown) (no date) (unknown) [facility] (no value) (units unknown) (unknown) Result panel 361 (unknown) (no date) (unknown) [facility] (no value) (units unknown) (unknown) Result panel 362 (unknown) (no date) (unknown) [facility] (no value) (units unknown) (unknown) Result panel 363 (unknown) (no date) (unknown) [facility] (no value) (units unknown) (unknown) Result panel 364 (unknown) (no date) (unknown) [facility] (no value) (units unknown) (unknown) Result panel 365 (unknown) (no date) (unknown) [facility] (no value) (units unknown) (unknown) Result panel 366 (unknown) (no date) (unknown) [facility] (no value) (units unknown) (unknown) Result panel 367 (unknown) (no date) (unknown) [facility] (no value) (units unknown) (unknown) Result panel 368 (unknown) (no date) (unknown) [facility] (no value) (units unknown) (unknown) Result panel 369 (unknown) (no date) (unknown) [facility] (no value) (units unknown) (unknown) Result panel 370 (unknown) (no date) (unknown) [facility] (no value) (units unknown) (unknown) Result panel 371 (unknown) (no date) (unknown) [facility] (no value) (units unknown) (unknown) Result panel 372 (unknown) (no date) (unknown) [facility] (no value) (units unknown) (unknown) Result panel 373 (unknown) (no date) (unknown) [facility] (no value) (units unknown) (unknown) Result panel 374 (unknown) (no date) (unknown) [facility] (no value) (units unknown) (unknown) Result panel 375 (unknown) (no date) (unknown) [facility] (no value) (units unknown) (unknown) Result panel 376 (unknown) (no date) (unknown) [facility] (no value) (units unknown) (unknown) Result panel 377 (unknown) (no date) (unknown) [facility] (no value) (units unknown) (unknown) Result panel 378 (unknown) (no date) (unknown) [facility] (no value) (units unknown) (unknown) Result panel 379 (unknown) (no date) (unknown) [facility] (no value) (units unknown) (unknown) Result panel 380 (unknown) (no date) (unknown) [facility] (no value) (units unknown) (unknown) Result panel 381 (unknown) (no date) (unknown) [facility] (no value) (units unknown) (unknown) Result panel 382 (unknown) (no date) (unknown) [facility] (no value) (units unknown) (unknown) Result panel 383 (unknown) (no date) (unknown) [facility] (no value) (units unknown) (unknown) Result panel 384 (unknown) (no date) (unknown) [facility] (no value) (units unknown) (unknown) Result panel 385 (unknown) (no date) (unknown) [facility] (no value) (units unknown) (unknown) Result panel 386 (unknown) (no date) (unknown) [facility] (no value) (units unknown) (unknown) Result panel 387 (unknown) (no date) (unknown) [facility] (no value) (units unknown) (unknown) Result panel 388 (unknown) (no date) (unknown) [facility] (no value) (units unknown) (unknown) Result panel 389 (unknown) (no date) (unknown) [facility] (no value) (units unknown) (unknown) Result panel 390 (unknown) (no date) (unknown) [facility] (no value) (units unknown) (unknown) Result panel 391 (unknown) (no date) (unknown) [facility] (no value) (units unknown) (unknown) Result panel 392 (unknown) (no date) (unknown) [facility] (no value) (units unknown) (unknown) Result panel 393 (unknown) (no date) (unknown) [facility] (no value) (units unknown) (unknown) Result panel 394 (unknown) (no date) (unknown) [facility] (no value) (units unknown) (unknown) Result panel 395 (unknown) (no date) (unknown) [facility] (no value) (units unknown) (unknown) Result panel 396 (unknown) (no date) (unknown) [facility] (no value) (units unknown) (unknown) Result panel 397 (unknown) (no date) (unknown) [facility] (no value) (units unknown) (unknown) Result panel 398 (unknown) (no date) (unknown) [facility] (no value) (units unknown) (unknown) Result panel 399 (unknown) (no date) (unknown) [facility] (no value) (units unknown) (unknown) Result panel 400 (unknown) (no date) (unknown) [facility] (no value) (units unknown) (unknown) Result panel 401 (unknown) (no date) (unknown) [facility] (no value) (units unknown) (unknown) Result panel 402 (unknown) (no date) (unknown) [facility] (no value) (units unknown) (unknown) Result panel 403 (unknown) (no date) (unknown) [facility] (no value) (units unknown) (unknown) Result panel 404 (unknown) (no date) (unknown) [facility] (no value) (units unknown) (unknown) Result panel 405 (unknown) (no date) (unknown) [facility] (no value) (units unknown) (unknown) Result panel 406 (unknown) (no date) (unknown) [facility] (no value) (units unknown) (unknown) Result panel 407 (unknown) (no date) (unknown) [facility] (no value) (units unknown) (unknown) Result panel 408 (unknown) (no date) (unknown) [facility] (no value) (units unknown) (unknown) Result panel 409 (unknown) (no date) (unknown) [facility] (no value) (units unknown) (unknown) Result panel 410 (unknown) (no date) (unknown) [facility] (no value) (units unknown) (unknown) Result panel 411 (unknown) (no date) (unknown) [facility] (no value) (units unknown) (unknown) Result panel 412 (unknown) (no date) (unknown) [facility] (no value) (units unknown) (unknown) Result panel 413 (unknown) (no date) (unknown) [facility] (no value) (units unknown) (unknown) Result panel 414 (unknown) (no date) (unknown) [facility] (no value) (units unknown) (unknown) Result panel 415 (unknown) (no date) (unknown) [facility] (no value) (units unknown) (unknown) Result panel 416 (unknown) (no date) (unknown) [facility] (no value) (units unknown) (unknown) Result panel 417 (unknown) (no date) (unknown) [facility] (no value) (units unknown) (unknown) Result panel 418 (unknown) (no date) (unknown) [facility] (no value) (units unknown) (unknown) Result panel 419 (unknown) (no date) (unknown) [facility] (no value) (units unknown) (unknown) Result panel 420 (unknown) (no date) (unknown) [facility] (no value) (units unknown) (unknown) Result panel 421 (unknown) (no date) (unknown) [facility] (no value) (units unknown) (unknown) Result panel 422 (unknown) (no date) (unknown) [facility] (no value) (units unknown) (unknown) Result panel 423 (unknown) (no date) (unknown) [facility] (no value) (units unknown) (unknown) Result panel 424 (unknown) (no date) (unknown) [facility] (no value) (units unknown) (unknown) Result panel 425 (unknown) (no date) (unknown) [facility] (no value) (units unknown) (unknown) Result panel 426 (unknown) (no date) (unknown) [facility] (no value) (units unknown) (unknown) Result panel 427 (unknown) (no date) (unknown) [facility] (no value) (units unknown) (unknown) Result panel 428 (unknown) (no date) (unknown) [facility] (no value) (units unknown) (unknown) Result panel 429 (unknown) (no date) (unknown) [facility] (no value) (units unknown) (unknown) Result panel 430 (unknown) (no date) (unknown) [facility] (no value) (units unknown) (unknown) Result panel 431 (unknown) (no date) (unknown) [facility] (no value) (units unknown) (unknown) Result panel 432 (unknown) (no date) (unknown) [facility] (no value) (units unknown) (unknown) Result panel 433 (unknown) (no date) (unknown) [facility] (no value) (units unknown) (unknown) Result panel 434 (unknown) (no date) (unknown) [facility] (no value) (units unknown) (unknown) Result panel 435 (unknown) (no date) (unknown) [facility] (no value) (units unknown) (unknown) Result panel 436 (unknown) (no date) (unknown) [facility] (no value) (units unknown) (unknown) Result panel 437 (unknown) (no date) (unknown) [facility] (no value) (units unknown) (unknown) Result panel 438 (unknown) (no date) (unknown) [facility] (no value) (units unknown) (unknown) Result panel 439 (unknown) (no date) (unknown) [facility] (no value) (units unknown) (unknown) Result panel 440 (unknown) (no date) (unknown) [facility] (no value) (units unknown) (unknown) Result panel 441 (unknown) (no date) (unknown) [facility] (no value) (units unknown) (unknown) Result panel 442 (unknown) (no date) (unknown) [facility] (no value) (units unknown) (unknown) Result panel 443 (unknown) (no date) (unknown) [facility] (no value) (units unknown) (unknown) Result panel 444 (unknown) (no date) (unknown) [facility] (no value) (units unknown) (unknown) Result panel 445 (unknown) (no date) (unknown) [facility] (no value) (units unknown) (unknown) Result panel 446 (unknown) (no date) (unknown) [facility] (no value) (units unknown) (unknown) Result panel 447 (unknown) (no date) (unknown) [facility] (no value) (units unknown) (unknown) Result panel 448 (unknown) (no date) (unknown) [facility] (no value) (units unknown) (unknown) Result panel 449 (unknown) (no date) (unknown) [facility] (no value) (units unknown) (unknown) Result panel 450 (unknown) (no date) (unknown) [facility] (no value) (units unknown) (unknown) Result panel 451 (unknown) (no date) (unknown) [facility] (no value) (units unknown) (unknown) Result panel 452 (unknown) (no date) (unknown) [facility] (no value) (units unknown) (unknown) Result panel 453 (unknown) (no date) (unknown) [facility] (no value) (units unknown) (unknown) Result panel 454 (unknown) (no date) (unknown) [facility] (no value) (units unknown) (unknown) Result panel 455 (unknown) (no date) (unknown) [facility] (no value) (units unknown) (unknown) Result panel 456 (unknown) (no date) (unknown) [facility] (no value) (units unknown) (unknown) Result panel 457 (unknown) (no date) (unknown) [facility] (no value) (units unknown) (unknown) Result panel 458 (unknown) (no date) (unknown) [facility] (no value) (units unknown) (unknown) Result panel 459 (unknown) (no date) (unknown) [facility] (no value) (units unknown) (unknown) Result panel 460 (unknown) (no date) (unknown) [facility] (no value) (units unknown) (unknown) Result panel 461 (unknown) (no date) (unknown) [facility] (no value) (units unknown) (unknown) Result panel 462 (unknown) (no date) (unknown) [facility] (no value) (units unknown) (unknown) Result panel 463 (unknown) (no date) (unknown) [facility] (no value) (units unknown) (unknown) Result panel 464 (unknown) (no date) (unknown) [facility] (no value) (units unknown) (unknown) Result panel 465 (unknown) (no date) (unknown) [facility] (no value) (units unknown) (unknown) Result panel 466 (unknown) (no date) (unknown) [facility] [facility] (no value) (units unknown) (unknown) Result panel 467 (unknown) (no date) (unknown) [facility] (no value) (units unknown) (unknown) Result panel 468 (unknown) (no date) (unknown) [facility] (no value) (units unknown) (unknown) Result panel 469 (unknown) (no date) (unknown) [facility] (no value) (units unknown) (unknown) Result panel 470 (unknown) (no date) (unknown) [facility] (no value) (units unknown) (unknown) Result panel 471 (unknown) (no date) (unknown) [facility] (no value) (units unknown) (unknown) Result panel 472 (unknown) (no date) (unknown) [facility] (no value) (units unknown) (unknown) Result panel 473 (unknown) (no date) (unknown) [facility] (no value) (units unknown) (unknown) Result panel 474 (unknown) (no date) (unknown) [facility] (no value) (units unknown) (unknown) Result panel 475 (unknown) (no date) (unknown) [facility] (no value) (units unknown) (unknown) Result panel 476 (unknown) (no date) (unknown) [facility] (no value) (units unknown) (unknown) Result panel 477 (unknown) (no date) (unknown) [facility] (no value) (units unknown) (unknown) Result panel 478 (unknown) (no date) (unknown) [facility] (no value) (units unknown) (unknown) Result panel 479 (unknown) (no date) (unknown) [facility] (no value) (units unknown) (unknown) Result panel 480 (unknown) (no date) (unknown) [facility] (no value) (units unknown) (unknown) Result panel 481 (unknown) (no date) (unknown) [facility] (no value) (units unknown) (unknown) Result panel 482 (unknown) (no date) (unknown) [facility] (no value) (units unknown) (unknown) Result panel 483 (unknown) (no date) (unknown) [facility] (no value) (units unknown) (unknown) Result panel 484 (unknown) (no date) (unknown) [facility] (no value) (units unknown) (unknown) Result panel 485 (unknown) (no date) (unknown) [facility] (no value) (units unknown) (unknown) Result panel 486 (unknown) (no date) (unknown) [facility] (no value) (units unknown) (unknown) Result panel 487 (unknown) (no date) (unknown) [facility] (no value) (units unknown) (unknown) Result panel 488 (unknown) (no date) (unknown) [facility] (no value) (units unknown) (unknown) Result panel 489 (unknown) (no date) (unknown) [facility] (no value) (units unknown) (unknown) Result panel 490 (unknown) (no date) (unknown) [facility] (no value) (units unknown) (unknown) Result panel 491 (unknown) (no date) (unknown) [facility] (no value) (units unknown) (unknown) Result panel 492 (unknown) (no date) (unknown) [facility] (no value) (units unknown) (unknown) Result panel 493 (unknown) (no date) (unknown) [facility] (no value) (units unknown) (unknown) Result panel 494 (unknown) (no date) (unknown) [facility] (no value) (units unknown) (unknown) Result panel 495 (unknown) (no date) (unknown) [facility] (no value) (units unknown) (unknown) Result panel 496 (unknown) (no date) (unknown) [facility] (no value) (units unknown) (unknown) Result panel 497 (unknown) (no date) (unknown) [facility] (no value) (units unknown) (unknown) Result panel 498 (unknown) (no date) (unknown) [facility] (no value) (units unknown) (unknown) Result panel 499 (unknown) (no date) (unknown) [facility] (no value) (units unknown) (unknown) Result panel 500 (unknown) (no date) (unknown) [facility] (no value) (units unknown) (unknown) Result panel 501 (unknown) (no date) (unknown) [facility] (no value) (units unknown) (unknown) Result panel 502 (unknown) (no date) (unknown) [facility] (no value) (units unknown) (unknown) Result panel 503 (unknown) (no date) (unknown) [facility] (no value) (units unknown) (unknown) Result panel 504 (unknown) (no date) (unknown) [facility] (no value) (units unknown) (unknown) Result panel 505 (unknown) (no date) (unknown) [facility] (no value) (units unknown) (unknown) Result panel 506 (unknown) (no date) (unknown) [facility] (no value) (units unknown) (unknown) Result panel 507 (unknown) (no date) (unknown) [facility] (no value) (units unknown) (unknown) Result panel 508 (unknown) (no date) (unknown) [facility] (no value) (units unknown) (unknown) Result panel 509 (unknown) (no date) (unknown) [facility] (no value) (units unknown) (unknown) Result panel 510 (unknown) (no date) (unknown) [facility] (no value) (units unknown) (unknown) Result panel 511 (unknown) (no date) (unknown) [facility] (no value) (units unknown) (unknown) Result panel 512 (unknown) (no date) (unknown) [facility] (no value) (units unknown) (unknown) Result panel 513 (unknown) (no date) (unknown) [facility] (no value) (units unknown) (unknown) Result panel 514 (unknown) (no date) (unknown) [facility] (no value) (units unknown) (unknown) Result panel 515 (unknown) (no date) (unknown) [facility] (no value) (units unknown) (unknown) Result panel 516 (unknown) (no date) (unknown) [facility] (no value) (units unknown) (unknown) Result panel 517 (unknown) (no date) (unknown) [facility] (no value) (units unknown) (unknown) Result panel 518 (unknown) (no date) (unknown) [facility] (no value) (units unknown) (unknown) Result panel 519 (unknown) (no date) (unknown) [facility] (no value) (units unknown) (unknown) Result panel 520 (unknown) (no date) (unknown) [facility] (no value) (units unknown) (unknown) Result panel 521 (unknown) (no date) (unknown) [facility] (no value) (units unknown) (unknown) Result panel 522 (unknown) (no date) (unknown) [facility] (no value) (units unknown) (unknown) Result panel 523 (unknown) (no date) (unknown) [facility] (no value) (units unknown) (unknown) Result panel 524 (unknown) (no date) (unknown) [facility] (no value) (units unknown) (unknown) Result panel 525 (unknown) (no date) (unknown) [facility] (no value) (units unknown) (unknown) Result panel 526 (unknown) (no date) (unknown) [facility] (no value) (units unknown) (unknown) Result panel 527 (unknown) (no date) (unknown) [facility] (no value) (units unknown) (unknown) Result panel 528 (unknown) (no date) (unknown) [facility] (no value) (units unknown) (unknown) Result panel 529 (unknown) (no date) (unknown) [facility] (no value) (units unknown) (unknown) Result panel 530 (unknown) (no date) (unknown) [facility] (no value) (units unknown) (unknown) Result panel 531 (unknown) (no date) (unknown) [facility] (no value) (units unknown) (unknown) Result panel 532 (unknown) (no date) (unknown) [facility] (no value) (units unknown) (unknown) Result panel 533 (unknown) (no date) (unknown) [facility] (no value) (units unknown) (unknown) Result panel 534 (unknown) (no date) (unknown) [facility] (no value) (units unknown) (unknown) Result panel 535 (unknown) (no date) (unknown) [facility] (no value) (units unknown) (unknown) Result panel 536 (unknown) (no date) (unknown) [facility] (no value) (units unknown) (unknown) Result panel 537 (unknown) (no date) (unknown) [facility] (no value) (units unknown) (unknown) Result panel 538 (unknown) (no date) (unknown) [facility] (no value) (units unknown) (unknown) Result panel 539 (unknown) (no date) (unknown) [facility] (no value) (units unknown) (unknown) Result panel 540 (unknown) (no date) (unknown) [facility] (no value) (units unknown) (unknown) Result panel 541 (unknown) (no date) (unknown) [facility] (no value) (units unknown) (unknown) Result panel 542 (unknown) (no date) (unknown) [facility] (no value) (units unknown) (unknown) Result panel 543 (unknown) (no date) (unknown) [facility] (no value) (units unknown) (unknown) Result panel 544 (unknown) (no date) (unknown) [facility] (no value) (units unknown) (unknown) Result panel 545 (unknown) (no date) (unknown) [facility] (no value) (units unknown) (unknown) Result panel 546 (unknown) (no date) (unknown) [facility] (no value) (units unknown) (unknown) Result panel 547 (unknown) (no date) (unknown) [facility] (no value) (units unknown) (unknown) Result panel 548 (unknown) (no date) (unknown) [facility] (no value) (units unknown) (unknown) Result panel 549 (unknown) (no date) (unknown) [facility] (no value) (units unknown) (unknown) Result panel 550 (unknown) (no date) (unknown) [facility] (no value) (units unknown) (unknown) Result panel 551 (unknown) (no date) (unknown) [facility] (no value) (units unknown) (unknown) Result panel 552 (unknown) (no date) (unknown) [facility] (no value) (units unknown) (unknown) Result panel 553 (unknown) (no date) (unknown) [facility] (no value) (units unknown) (unknown) Result panel 554 (unknown) (no date) (unknown) [facility] (no value) (units unknown) (unknown) Result panel 555 (unknown) (no date) (unknown) [facility] (no value) (units unknown) (unknown) Result panel 556 (unknown) (no date) (unknown) [facility] (no value) (units unknown) (unknown) Result panel 557 (unknown) (no date) (unknown) [facility] (no value) (units unknown) (unknown) Result panel 558 (unknown) (no date) (unknown) [facility] (no value) (units unknown) (unknown) Result panel 559 (unknown) (no date) (unknown) [facility] (no value) (units unknown) (unknown) Result panel 560 (unknown) (no date) (unknown) [facility] (no value) (units unknown) (unknown) Result panel 561 (unknown) (no date) (unknown) [facility] (no value) (units unknown) (unknown) Result panel 562 (unknown) (no date) (unknown) [facility] (no value) (units unknown) (unknown) Result panel 563 (unknown) (no date) (unknown) [facility] (no value) (units unknown) (unknown) Result panel 564 (unknown) (no date) (unknown) [facility] (no value) (units unknown) (unknown) Result panel 565 (unknown) (no date) (unknown) [facility] (no value) (units unknown) (unknown) Result panel 566 (unknown) (no date) (unknown) [facility] (no value) (units unknown) (unknown) Result panel 567 (unknown) (no date) (unknown) [facility] (no value) (units unknown) (unknown) Result panel 568 (unknown) (no date) (unknown) [facility] (no value) (units unknown) (unknown) Result panel 569 (unknown) (no date) (unknown) [facility] (no value) (units unknown) (unknown) Result panel 570 (unknown) (no date) (unknown) [facility] (no value) (units unknown) (unknown) Result panel 571 (unknown) (no date) (unknown) [facility] (no value) (units unknown) (unknown) Result panel 572 (unknown) (no date) (unknown) [facility] (no value) (units unknown) (unknown) Result panel 573 (unknown) (no date) (unknown) [facility] (no value) (units unknown) (unknown) Result panel 574 (unknown) (no date) (unknown) [facility] (no value) (units unknown) (unknown) Result panel 575 (unknown) (no date) (unknown) [facility] (no value) (units unknown) (unknown) Result panel 576 (unknown) (no date) (unknown) [facility] (no value) (units unknown) (unknown) Result panel 577 (unknown) (no date) (unknown) [facility] (no value) (units unknown) (unknown) Result panel 578 (unknown) (no date) (unknown) [facility] (no value) (units unknown) (unknown) Result panel 579 (unknown) (no date) (unknown) [facility] (no value) (units unknown) (unknown) Result panel 580 (unknown) (no date) (unknown) [facility] (no value) (units unknown) (unknown) Result panel 581 (unknown) (no date) (unknown) [facility] (no value) (units unknown) (unknown) Result panel 582 (unknown) (no date) (unknown) [facility] (no value) (units unknown) (unknown) Result panel 583 (unknown) (no date) (unknown) [facility] (no value) (units unknown) (unknown) Result panel 584 (unknown) (no date) (unknown) [facility] (no value) (units unknown) (unknown) Result panel 585 (unknown) (no date) (unknown) [facility] (no value) (units unknown) (unknown) Result panel 586 (unknown) (no date) (unknown) [facility] (no value) (units unknown) (unknown) Result panel 587 (unknown) (no date) (unknown) [facility] (no value) (units unknown) (unknown) Result panel 588 (unknown) (no date) (unknown) [facility] (no value) (units unknown) (unknown) Result panel 589 (unknown) (no date) (unknown) [facility] (no value) (units unknown) (unknown) Result panel 590 (unknown) (no date) (unknown) [facility] (no value) (units unknown) (unknown) Result panel 591 (unknown) (no date) (unknown) [facility] (no value) (units unknown) (unknown) Result panel 592 (unknown) (no date) (unknown) [facility] (no value) (units unknown) (unknown) Result panel 593 (unknown) (no date) (unknown) [facility] (no value) (units unknown) (unknown) Result panel 594 (unknown) (no date) (unknown) [facility] (no value) (units unknown) (unknown) Result panel 595 (unknown) (no date) (unknown) [facility] (no value) (units unknown) (unknown) Result panel 596 (unknown) (no date) (unknown) [facility] (no value) (units unknown) (unknown) Result panel 597 (unknown) (no date) (unknown) [facility] (no value) (units unknown) (unknown) Result panel 598 (unknown) (no date) (unknown) [facility] (no value) (units unknown) (unknown) Result panel 599 (unknown) (no date) (unknown) [facility] (no value) (units unknown) (unknown) Result panel 600 (unknown) (no date) (unknown) [facility] (no value) (units unknown) (unknown) Result panel 601 (unknown) (no date) (unknown) [facility] (no value) (units unknown) (unknown) Result panel 602 (unknown) (no date) (unknown) [facility] (no value) (units unknown) (unknown) Result panel 603 (unknown) (no date) (unknown) [facility] (no value) (units unknown) (unknown) Result panel 604 (unknown) (no date) (unknown) [facility] (no value) (units unknown) (unknown) Result panel 605 (unknown) (no date) (unknown) [facility] (no value) (units unknown) (unknown) Result panel 606 (unknown) (no date) (unknown) [facility] (no value) (units unknown) (unknown) Result panel 607 (unknown) (no date) (unknown) [facility] (no value) (units unknown) (unknown) Result panel 608 (unknown) (no date) (unknown) [facility] (no value) (units unknown) (unknown) Result panel 609 (unknown) (no date) (unknown) [facility] (no value) (units unknown) (unknown) Result panel 610 (unknown) (no date) (unknown) [facility] (no value) (units unknown) (unknown) Result panel 611 (unknown) (no date) (unknown) [facility] (no value) (units unknown) (unknown) Result panel 612 (unknown) (no date) (unknown) [facility] (no value) (units unknown) (unknown) Result panel 613 (unknown) (no date) (unknown) [facility] (no value) (units unknown) (unknown) Result panel 614 (unknown) (no date) (unknown) [facility] (no value) (units unknown) (unknown) Result panel 615 (unknown) (no date) (unknown) [facility] (no value) (units unknown) (unknown) Result panel 616 (unknown) (no date) (unknown) [facility] (no value) (units unknown) (unknown) Result panel 617 (unknown) (no date) (unknown) [facility] (no value) (units unknown) (unknown) Result panel 618 (unknown) (no date) (unknown) [facility] (no value) (units unknown) (unknown) Result panel 619 (unknown) (no date) (unknown) [facility] (no value) (units unknown) (unknown) Result panel 620 (unknown) (no date) (unknown) [facility] (no value) (units unknown) (unknown) Result panel 621 (unknown) (no date) (unknown) [facility] (no value) (units unknown) (unknown) Result panel 622 (unknown) (no date) (unknown) [facility] (no value) (units unknown) (unknown) Result panel 623 (unknown) (no date) (unknown) [facility] (no value) (units unknown) (unknown) Result panel 624 (unknown) (no date) (unknown) [facility] (no value) (units unknown) (unknown) Result panel 625 (unknown) (no date) (unknown) [facility] (no value) (units unknown) (unknown) Result panel 626 (unknown) (no date) (unknown) [facility] (no value) (units unknown) (unknown) Result panel 627 (unknown) (no date) (unknown) [facility] (no value) (units unknown) (unknown) Result panel 628 (unknown) (no date) (unknown) [facility] (no value) (units unknown) (unknown) Result panel 629 (unknown) (no date) (unknown) [facility] (no value) (units unknown) (unknown) Result panel 630 (unknown) (no date) (unknown) [facility] (no value) (units unknown) (unknown) Result panel 631 (unknown) (no date) (unknown) [facility] (no value) (units unknown) (unknown) Result panel 632 (unknown) (no date) (unknown) [facility] (no value) (units unknown) (unknown) Result panel 633 (unknown) (no date) (unknown) [facility] (no value) (units unknown) (unknown) Result panel 634 (unknown) (no date) (unknown) [facility] (no value) (units unknown) (unknown) Result panel 635 (unknown) (no date) (unknown) [facility] (no value) (units unknown) (unknown) Result panel 636 (unknown) (no date) (unknown) [facility] (no value) (units unknown) (unknown) Result panel 637 (unknown) (no date) (unknown) [facility] (no value) (units unknown) (unknown) Result panel 638 (unknown) (no date) (unknown) [facility] (no value) (units unknown) (unknown) Result panel 639 (unknown) (no date) (unknown) [facility] (no value) (units unknown) (unknown) Result panel 640 (unknown) (no date) (unknown) [facility] (no value) (units unknown) (unknown) Result panel 641 (unknown) (no date) (unknown) [facility] (no value) (units unknown) (unknown) Result panel 642 (unknown) (no date) (unknown) [facility] (no value) (units unknown) (unknown) Result panel 643 (unknown) (no date) (unknown) [facility] (no value) (units unknown) (unknown) Result panel 644 (unknown) (no date) (unknown) [facility] (no value) (units unknown) (unknown) Result panel 645 (unknown) (no date) (unknown) [facility] (no value) (units unknown) (unknown) Result panel 646 (unknown) (no date) (unknown) [facility] (no value) (units unknown) (unknown) Result panel 647 (unknown) (no date) (unknown) [facility] (no value) (units unknown) (unknown) Result panel 648 (unknown) (no date) (unknown) [facility] (no value) (units unknown) (unknown) Result panel 649 (unknown) (no date) (unknown) [facility] (no value) (units unknown) (unknown) Result panel 650 (unknown) (no date) (unknown) [facility] (no value) (units unknown) (unknown) Result panel 651 (unknown) (no date) (unknown) [facility] (no value) (units unknown) (unknown) Result panel 652 (unknown) (no date) (unknown) [facility] (no value) (units unknown) (unknown) Result panel 653 (unknown) (no date) (unknown) [facility] (no value) (units unknown) (unknown) Result panel 654 (unknown) (no date) (unknown) [facility] (no value) (units unknown) (unknown) Result panel 655 (unknown) (no date) (unknown) [facility] (no value) (units unknown) (unknown) Result panel 656 (unknown) (no date) (unknown) [facility] (no value) (units unknown) (unknown) Result panel 657 (unknown) (no date) (unknown) [facility] (no value) (units unknown) (unknown) Result panel 658 (unknown) (no date) (unknown) [facility] (no value) (units unknown) (unknown) Result panel 659 (unknown) (no date) (unknown) [facility] (no value) (units unknown) (unknown) Result panel 660 (unknown) (no date) (unknown) [facility] (no value) (units unknown) (unknown) Result panel 661 (unknown) (no date) (unknown) [facility] (no value) (units unknown) (unknown) Result panel 662 (unknown) (no date) (unknown) [facility] (no value) (units unknown) (unknown) Result panel 663 (unknown) (no date) (unknown) [facility] (no value) (units unknown) (unknown) Result panel 664 (unknown) (no date) (unknown) [facility] (no value) (units unknown) (unknown) Result panel 665 (unknown) (no date) (unknown) [facility] (no value) (units unknown) (unknown) Result panel 666 (unknown) (no date) (unknown) [facility] (no value) (units unknown) (unknown) Result panel 667 (unknown) (no date) (unknown) [facility] (no value) (units unknown) (unknown) Result panel 668 (unknown) (no date) (unknown) [facility] (no value) (units unknown) (unknown) Result panel 669 (unknown) (no date) (unknown) [facility] (no value) (units unknown) (unknown) Result panel 670 (unknown) (no date) (unknown) [facility] (no value) (units unknown) (unknown) Result panel 671 (unknown) (no date) (unknown) [facility] (no value) (units unknown) (unknown) Result panel 672 (unknown) (no date) (unknown) [facility] (no value) (units unknown) (unknown) Result panel 673 (unknown) (no date) (unknown) [facility] (no value) (units unknown) (unknown) Result panel 674 (unknown) (no date) (unknown) [facility] (no value) (units unknown) (unknown) Result panel 675 (unknown) (no date) (unknown) [facility] (no value) (units unknown) (unknown) Result panel 676 (unknown) (no date) (unknown) [facility] (no value) (units unknown) (unknown) Result panel 677 (unknown) (no date) (unknown) [facility] (no value) (units unknown) (unknown) Result panel 678 (unknown) (no date) (unknown) [facility] (no value) (units unknown) (unknown) Result panel 679 (unknown) (no date) (unknown) [facility] (no value) (units unknown) (unknown) Result panel 680 (unknown) (no date) (unknown) [facility] (no value) (units unknown) (unknown) Result panel 681 (unknown) (no date) (unknown) [facility] (no value) (units unknown) (unknown) Result panel 682 (unknown) (no date) (unknown) [facility] (no value) (units unknown) (unknown) Result panel 683 (unknown) (no date) (unknown) [facility] (no value) (units unknown) (unknown) Result panel 684 (unknown) (no date) (unknown) [facility] (no value) (units unknown) (unknown) Result panel 685 (unknown) (no date) (unknown) [facility] (no value) (units unknown) (unknown) Result panel 686 (unknown) (no date) (unknown) [facility] (no value) (units unknown) (unknown) Result panel 687 (unknown) (no date) (unknown) [facility] (no value) (units unknown) (unknown) Result panel 688 (unknown) (no date) (unknown) [facility] (no value) (units unknown) (unknown) Result panel 689 (unknown) (no date) (unknown) [facility] (no value) (units unknown) (unknown) Result panel 690 (unknown) (no date) (unknown) [facility] (no value) (units unknown) (unknown) Result panel 691 (unknown) (no date) (unknown) [facility] (no value) (units unknown) (unknown) Result panel 692 (unknown) (no date) (unknown) [facility] (no value) (units unknown) (unknown) Result panel 693 (unknown) (no date) (unknown) [facility] (no value) (units unknown) (unknown) Result panel 694 (unknown) (no date) (unknown) [facility] (no value) (units unknown) (unknown) Result panel 695 (unknown) (no date) (unknown) [facility] (no value) (units unknown) (unknown) Result panel 696 (unknown) (no date) (unknown) [facility] (no value) (units unknown) (unknown) Result panel 697 (unknown) (no date) (unknown) [facility] (no value) (units unknown) (unknown) Result panel 698 (unknown) (no date) (unknown) [facility] (no value) (units unknown) (unknown) Result panel 699 (unknown) (no date) (unknown) [facility] (no value) (units unknown) (unknown) Result panel 700 (unknown) (no date) (unknown) [facility] (no value) (units unknown) (unknown) Result panel 701 (unknown) (no date) (unknown) [facility] (no value) (units unknown) (unknown) Result panel 702 (unknown) (no date) (unknown) [facility] (no value) (units unknown) (unknown) Result panel 703 (unknown) (no date) (unknown) [facility] (no value) (units unknown) (unknown) Social History date description facility 2022-12-15 00:00 Never smoker [facility] [place] 2022-12-15 00:00 Never smoker [facility] 2022-12-15 00:00 Never smoker [facility] 2022-12-15 00:00 Never smoker [facility] [place] 2022-12-15 00:00 Never smoker [facility] 2022-12-15 00:00 Never smoker [facility] [place] 2022-12-15 00:00 Never smoker [facility] [place] 2022-12-15 00:00 Never smoker [facility] [place] 2022-12-15 00:00 Never smoker [facility] [place] 2022-12-15 00:00 Never smoker [facility] [place] 2023-01-13 00:00 Never smoker [facility] [place] 2023-01-13 00:00 Never smoker [facility] [place] 2023-01-13 00:00 Never smoker [facility] [place] 2023-01-13 00:00 Never smoker [facility] [place] 2023-01-13 00:00 Never smoker [facility] [place] 2023-01-13 00:00 Never smoker [facility] [place] 2023-01-13 00:00 Never smoker [facility] [place] 2023-01-13 00:00 Never smoker [facility] [place] 2023-01-13 00:00 Never smoker [facility] [place] 2023-02-09 00:00 Never smoker [facility] [place] 2023-02-09 00:00 Never smoker [facility] [place] 2023-02-09 00:00 Never smoker [facility] [place] 2023-02-09 00:00 Never smoker [facility] [place] 2023-02-09 00:00 Never smoker [facility] [place] 2023-02-09 00:00 Never smoker [facility] [place] Vital Signs date measurement value units 2022-12-15 [...]
[2023-02-23 12:38] LABS: ALBUMIN 3.4 g/dL (3.2-5.5); ALBUMIN/GLOBULIN RATIO 0.9 (1.0-2.2); BILIRUBIN,TOTAL 0.8 mg/dL (0.2-1.0); CREATININE 2.3 mg/dL (0.4-1.0); POTASSIUM 4.6 mmol/L (3.5-5.0); TOTAL PROTEIN 7.1 g/dL (6.7-8.2)
[2023-02-23] MEDS ORDERED: FUROSEMIDE 20 MG TABLET PO STA (13:16)
[2023-02-23 13:41] VITALS: BP 138/97
== END 2023-02-23 13:30 | disposition home or self-care (01) ==
LOC: EDUNIT# → ED 12:06
DX: I48.21 Permanent atrial fibrillation (principal); I11.0 Hypertensive heart disease with heart failure; I50.9 Heart failure, unspecified; E78.00 Pure hypercholesterolemia, unspecified; E11.9 Type 2 diabetes mellitus without complications; E03.9 Hypothyroidism, unspecified; Z79.84 Long term (current) use of oral hypoglycemic drugs; Z79.4 Long term (current) use of insulin; Z79.01 Long term (current) use of anticoagulants; Z79.899 Other long term (current) drug therapy
CPT/HCPCS: 36415; 71045; 80053; 83690; 83880; 85025; 93005; 96374; 99284; A9270

== ENCOUNTER 2023-06-02 08:00 | Outpatient (CLI) | payer MEDICARE, OTHER, MEDICAID | END 2023-06-02 23:59 | disposition home or self-care (01) | LOC: LAB.S 08:00 | PROVIDERS: ATTEND Physician Assistant Medical | DX: E16.2 Hypoglycemia, unspecified (principal) | CPT/HCPCS: 82962 ==

== ENCOUNTER 2023-06-02 15:28 | Outpatient (CLI) | payer MEDICARE, OTHER, MEDICAID ==
--- NOTE | 2023-06-02 16:38 | XRAY Report ---
PROCEDURE: Abdomen Acute INDICATIONS: ABDOMINAL PAIN AND BLOATING TECHNIQUE: 2 views of the abdomen were acquired on 7 total images. COMPARISON: Correlation is made with chest x-ray 02/23/2023. Correlation is also made with abdomen pel vis CT, 02/05/2023. FINDINGS: Surgical changes and devices: Bilateral hip arthroplasty hardware can be seen. Chest: There is mild blunting of the right costovertebral angle. Mild generalized interstitial promi nence can be seen. No pneumothorax. No focal infiltrates are seen. Heart size is moderately enlarge d. No pneumoperitoneum. Bowel: No pneumoperitoneum. The bowel gas pattern is normal. Stool load within normal limits. Soft tissues: No masses; visualized solid organ contours appear normal in size. No suspicious abdom inal calcifications. Bones:Age-appropriate degenerative changes are seen. Mild levoconvex scoliotic curvature is seen. IMPRESSION: Moderate cardiomegaly with a small right-sided pleural effusion and mild interstitial prominence. Ple ase consider CHF. There is a nonobstructive bowel gas pattern seen. If the symptoms persist or worsen, please consider a dedicated follow-up CT for further evaluation. Postoperative and degenerative changes are seen. Reviewed by: Bobby Caraballo MD on 06/02/2023 3:37 PM [facility] Approved by: Bobby Caraballo MD on 06/02/2023 3:37 PM [facility] Station ID: [id number]
== END 2023-06-02 23:59 | disposition home or self-care (01) ==
LOC: DI.S 15:28
PROVIDERS: ATTEND Physician Assistant Medical
DX: R10.9 Unspecified abdominal pain (principal); R14.0 Abdominal distension (gaseous); I51.7 Cardiomegaly; J90 Pleural effusion, not elsewhere classified; Z96.643 Presence of artificial hip joint, bilateral

== ENCOUNTER 2023-06-03 10:46 | Outpatient (CLI) | payer MEDICARE, OTHER, MEDICAID ==
[2023-06-03 15:30] LABS: THYROID STIMULATING HORMONE 6.2 uIU/mL (0.34-5.60)
[2023-06-03 17:08] LABS: ALBUMIN 3.6 g/dL (3.2-5.5); ALBUMIN/GLOBULIN RATIO 1.1 (1.0-2.2); BILIRUBIN,TOTAL 0.8 mg/dL (0.2-1.0); CALCIUM 9.2 mg/dL (8.5-10.3); CREATININE 2.4 mg/dL (0.4-1.0); POTASSIUM 3.7 mmol/L (3.5-5.0); TOTAL PROTEIN 6.9 g/dL (6.7-8.2)
[2023-06-03 20:26] LABS: ESTIMATED AVERAGE GLUCOSE 200 mg/dL (70-100); HEMOGLOBIN A1c% 8.6 % (4.27-6.07)
== END 2023-06-03 10:47 | disposition home or self-care (01) ==
LOC: LAB.S 10:46
PROVIDERS: ATTEND Physician Assistant Medical
DX: N18.4 Chronic kidney disease, stage 4 (severe) (principal); I50.9 Heart failure, unspecified; E03.9 Hypothyroidism, unspecified; R10.9 Unspecified abdominal pain; R14.0 Abdominal distension (gaseous); E16.2 Hypoglycemia, unspecified
CPT/HCPCS: 36415; 80053; 83036; 83880; 84439; 84443

== ENCOUNTER 2023-06-17 11:56 | Outpatient (CLI) | payer MEDICARE, OTHER, MEDICAID ==
[2023-06-17 15:32] LABS: CALCIUM 9.6 mg/dL (8.5-10.3); CREATININE 3.3 mg/dL (0.6-1.3); POTASSIUM 4.6 mmol/L (3.5-4.5)
== END 2023-06-17 11:57 | disposition home or self-care (01) ==
LOC: LAB.S 11:56
PROVIDERS: ATTEND Internal Medicine Cardiovascular Disease
DX: I50.22 Chronic systolic (congestive) heart failure (principal)
CPT/HCPCS: 36415; 80048; 83880

== ENCOUNTER 2023-06-18 12:00 | Emergency (ER) | payer MEDICARE, OTHER, MEDICAID ==
--- NOTE | 2023-06-18 12:44 | ED Physician Documentation ---
History of Present Illness - Stated complaint Stated Complaint: WT GAIN,FLUID RETENTION - Chief complaint Chief Complaint: General - Additonal information Additional information: 77-year-old female who has a history of CHF, A-fib, hypertension, type 2 diabetes presents to the emergency department for evaluation of weight gain, increasing dyspnea and abnormal labs. Much of the history is obtained from her caregiver at the bedside. Reportedly over the last week patient has gained about 8 pounds. She is also begun to have increasing dyspnea. She was previously on torsemide 60 mg a day but due to weight gain and dyspnea her intelligence officer basic, PARI Renee, increased her torsemide to 80 mg daily. She had been taking that for approximately 10 days when labs were obtained yesterday that showed a markedly increase BUN to 83 and a creatinine of 3.3 higher than baseline. She was advised to stop the torsemide and come to the ER. Review of Systems Constitutional: denies: Fever, Chills Throat: reports: Reviewed and negative Cardiac: reports: Other (weight gain and ascites). denies: Chest pain / pressure Respiratory: reports: Dyspnea. 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 : Incontinence, Frequency HEENT: Chronic vision loss, Chronic hearing loss Psych: None Musculoskeletal: Osteoarthritis, Chronic back pain, Other Derm: None - Past Surgical History Past Surgical History: Yes Ortho: Hip replacement, Knee replacement, Carpal Tunnel surgery /INJECTION MOLDING MACHINE OFFBEARER: Dilation and currettage, Tubal ligation, Hysterectomy, Oophrectomy - Present Medications Home Medications: Ambulatory Orders Medication Instructions Recorded Confirmed Insulin Glargine [Lantus Solostar] 45 unit SQ DAILY 08/14/17 06/18/23 Sertraline HCl 50 mg PO QPM 02/26/18 06/18/23 Levothyroxine Sodium 125 mcg PO QDAC 04/11/19 06/18/23 Apixaban [Eliquis] 2.5 mg PO BID 01/02/23 06/18/23 Atorvastatin [Lipitor] 20 mg PO QPM 01/02/23 06/18/23 Metoprolol Succinate [Toprol Xl] 200 mg PO BID 01/02/23 06/18/23 dilTIAZem HCL [Diltiazem 24Hr ER 120 mg PO BID 01/02/23 06/18/23 (Xr)] glipiZIDE [Glipizide] 10 mg PO BID 01/02/23 06/18/23 Bethanechol [Urecholine] 25 mg PO DAILY 06/18/23 06/18/23 Isosorbide Dinitrate 10 mg PO DAILY 06/18/23 06/18/23 Lipase/Protease/Amylase 1 each PO DAILY 06/18/23 06/18/23 [Pancrelipase Dr 5,000/17,000/24,000 [facility]] hydrALAZINE [Apresoline] 10 mg PO DAILY 06/18/23 06/18/23 rOPINIRole [Requip] 0.25 mg PO QPM 06/18/23 06/18/23 - Allergies Allergies/Adverse Reactions: Allergies Allergy/AdvReac Type Severity Reaction Status Date / Time atorvastatin Allergy Cramps Verified 06/18/23 12:13 bee venom protein (honey bee) Allergy Unknown Verified 06/18/23 12:13 cefuroxime [From Ceftin] Allergy Unknown Verified 06/18/23 12:13 codeine Allergy Nausea Verified 06/18/23 12:13 hydrocodone [From Vicodin] Allergy Nausea Verified 06/18/23 12:13 Influenza Virus Vaccines Allergy Unknown Verified 06/18/23 12:13 lisinopril Allergy Respiratory Verified 06/18/23 12:13 mushroom Allergy Anaphylaxis Verified 06/18/23 12:13 nitroglycerin Allergy Headache Verified 06/18/23 12:13 propoxyphene Allergy Unknown Verified 06/18/23 12:13 [From Darvocet-N] tramadol Allergy Headache Verified 02/10/23 12:52 - Social History Does the pt smoke?: No Smoking Status: Never smoker Does the pt drink ETOH?: No Does the pt have substance abuse?: No - Immunizations Immunizations are current?: Yes - POLST Patient has POLST: No POLST Status: Full Code PD ED PE NORMAL - General General: Alert and oriented X 3. No: No acute distress (Mildly labored breathing and tachypnea) - HEENT HEENT: Atraumatic - Neck Neck: Supple, no meningeal sign - Cardiac Cardiac: No murmur, Strong equal pulses, Other (2+ pitting edema bilateral lower extremities.). No: RRR (Irregularly irregular. Atrial fibrillation.) - Respiratory Respiratory: No: No respiratory distress (Tachypnea with respiratory rate in the mid 20s. Room air sats 93%. Diminished at the bases with diffuse crackles), Clear bilaterally - Abdomen Abdomen: Normal bowel sounds, Soft - Back Back: No CVA TTP - Derm Derm: Normal color, No rash - Extremities Extremities: No deformity - Neuro Neuro: Alert and oriented X 3, development lead 2-12 intact Eye Opening: Spontaneous Motor: Obeys Commands Verbal: Oriented GCS Score: 15 Results - Vitals Vitals: Vital Signs - 24 hr 06/18/23 06/18/23 06/18/23 12:13 13:05 15:23 Temperature 36.5 C Heart Rate 90 82 86 Respiratory 16 26 H 18 Rate Blood Pressure 130/85 H 136/93 H 134/79 H O2 Saturation 93 92 97 06/18/23 17:18 Temperature Heart Rate 87 Respiratory 16 Rate Blood Pressure 132/77 H O2 Saturation 96 Oxygen O2 Source Room air - EKG (time done) 1226 EKG releavant findings:: EKG personally interpreted by author of this note. Relevant findings are: Rate: Rate (enter#) (102) Rhythm: Atrial fibrillation Intervals: Prolonged QT QRS: Poor R wave progression Ischemia: Non specific changes Compare to prior EKG: Unchanged from prior EKG Computer interpretation: Disagree with computer (a-fib; not flutter) - Labs Labs: Laboratory Tests 06/18/23 06/18/23 06/18/23 12:42 12:42 12:42 WBC 8.5 RBC 4.10 L Hgb 11.0 L Hct 35.8 L MCV 87.3 MCH 26.8 L MCHC 30.7 L RDW 16.7 H Plt Count 217 MPV 11.8 H Neut # (Auto) 7.0 H Lymph # (Auto) 0.8 L [place] # (Auto) 0.5 Eos # (Auto) 0.2 Baso # (Auto) 0.1 Absolute Nucleated RBC 0.00 Nucleated RBC % 0.0 Sodium 138 Potassium 3.9 Chloride 103 Carbon Dioxide 26 Anion Gap 9.0 BUN 79 H Creatinine 2.9 H Estimated GFR (MDRD) 16 L Glucose 247 H Calcium 9.4 Total Bilirubin 0.8 AST 15 ALT 12 Alkaline Phosphatase 167 H B-Natriuretic Peptide 1121 H Total Protein 6.8 Albumin 3.8 Globulin 3.0 Albumin/Globulin Ratio 1.3 Lipase 48 - Rads (name of study) cxr Relevant Findings:: EMP independent interpretation of test (mild congestion. no definite focal infiltrate. no ptx) echo Relevant Findings:: Other (EF 20-25%) PD Medical Decision Making - ED course Complexity details: reviewed results, re-evaluated patient, d/w patient, d/w family, d/w erp consultant ED course: 77-year-old female who has a history of hypertension, atrial fibrillation anticoagulated on Eliquis, CHF, chronic kidney disease presents to the emergency department for evaluation of worsening dyspnea over the last several weeks, increased weight gain and abnormal labs. About 2 weeks ago her torsemide dosing was increased from 60 daily to 80 daily. Despite this she has had some weight gain of almost 10 pounds. She is also reporting herself to be increasingly dyspneic with swelling and mild anasarca. Labs obtained yesterday as an outpatient showed markedly increased BUN and creatinine from a baseline of 60 and 2.3-83 and 3.3. Today in the emergency department did obtain a chest x-ray which is suggestive of cardiomegaly and volume overload though not significantly different from previous imaging. Her vital signs show atrial fibrillation with rate control. Room air saturations are 92%. She is mildly dyspneic and tachypneic with respiratory rate approaching 30. I did obtain CBC, electrolytes and a BNP. Per my interpretation mild anemia with a hemoglobin of 11. Her electrolytes show moderate derangement with a BUN today of 79 and creatinine of 2.9. Essentially unchanged from yesterday. Her BNP is 1100 down from 1400 yesterday. Echo completed today showed an EF of 25% likely contributing to cardiorenal failure Given the concern here for both cardiorenal failure I initially reached out to PARI Russell the patient's intelligence officer basic. He reports to me that in February of this year he had spoken with the patient that she was likely going to need dialysis in the near future. He would recommend inpatient hospitalization and stabilization of her renal function. He recommends increasing the torsemide to 60 mg twice daily. If her renal function is unable to be stabilized then she would need to be considered for more emergent dialysis. Subsequently I spoke on the phone with Dr. colon our hospitalist. Because we do not have nephrology services here and the patient will need dialysis in the near future, the patient will not be admitted to [facility]. Instead we will attempt to transfer to an tertiary hospital that has the appropriate nephrology and dialysis services if necessary. 1730: I have spoken with Dharmesh Hospitalist at [facility]. Patient is graciously excepted in transfer. We are pending bed availability which is likely early this evening. I have notified the patient of the plan to transfer. Appropriate COBRA paperwork completed. I have notified the patient's son Hilario and notified that his mom would be tx to [facility] via [facility] ambulance Departure - Departure Disposition: 02 Transfer Acute Care Hosp Clinical Impression: CKD (chronic kidney disease) stage 5, GFR less than 15 ml/min, Insulin dependent diabetes mellitus CHF (congestive heart failure) Qualifiers: Heart failure type: end stage Qualified Code(s): I50.84 - End stage heart failure Atrial fibrillation Qualifiers: Atrial fibrillation type: unspecified Qualified Code(s): I48.91 - Unspecified atrial fibrillation Forms: PCP List
--- OUTSIDE RECORDS SUMMARY | 2023-06-18 12:53 | EXTERNAL MEDICAL SUMMARY RPT | Continuity of Care Document ---
Author Name Unknown Address [address] [place] [address] Phone Organization [facility] Address [address] [place] [address] Phone Care Team Providers Care Directional Bore Operator Name Role Phone Unavailable Unavailable Unavailable Dennen Panel Edge Painter Iii, Mara Unavailable Unav ailable Dennen Panel Edge Painter Iii, Mara Unavailable Unav ailable Tanner Salmon, Mary Unavailable Unavailable Strem[facility] Patient Registrar, Vickie Unavailable Unavailable Strempel Patient Registrar Ii, Linda Unavailab le Unavailable Strempel Patient Registrar, Vickie Unavailable Unavailable Dennen Panel Edge Painter Iii, Mara Unavailable Unav ailable Nurse, Eduin Walk-In Unavailable Unavailab le Medications date description facility 2023-06-02 00:00 [facility] 2023-06-03 00:00 [facility] 2023-06-04 00:00 [facility] 2023-06-04 00[facility]00 [facility] 2023-06-04 00:00 [facility] [place] 2023-06-04 00[facility]00 [facility] 2023-06-04 00:00 [facility] [place] 2023-06-06 00[facility]00 [facility] [place] 2023-06-06 00[facility]00 [facility] [place] 2023-06-08 00:00 [facility] [place] 2023-06-02 00[facility]00 [facility] [place] 2023-06-03 00:00 [facility] [place] 2023-06-04 00:00 [facility] [place] 2023-06-04 00:00 [facility] [place] 2023-06-04 00:00 [facility] [place] 2023-06-04 00:00 [facility] [place] 2023-06-04 00:00 [facility] [place] 2023-06-06 00:00 [facility] [place] 2023-06-06 00:00 [facility] [place] 2023-06-08 00:00 [facility] [place] 2023-06-02 00:00 bethanechol chloride [facility] 2023-06-03 00:00 bethanechol chloride [facility] [place] 2023-06-04 00:00 bethanechol chloride [facility] [place] 2023-06-04 00:00 bethanechol chloride [facility] [place] 2023-06-04 00:00 bethanechol chloride [facility] [place] 2023-06-04 00:00 bethanechol chloride [facility] 2023-06-04 00:00 bethanechol chloride [facility] 2023-06-06 00:00 bethanechol chloride [facility] 2023-06-06 00:00 bethanechol chloride [facility] 2023-06-08 00:00 bethanechol chloride [facility] 2023-06-02 00:00 aspirin [facility] 2023-06-03 00:00 aspirin [facility] 2023-06-04 00:00 aspirin [facility] 2023-06-04 00:00 aspirin [facility] 2023-06-04 00:00 aspirin [facility] 2023-06-04 00:00 aspirin [facility] 2023-06-04 00:00 aspirin [facility] 2023-06-06 00:00 aspirin [facility] 2023-06-06 00:00 aspirin [facility] 2023-06-08 00:00 aspirin [facility] 2023-06-02 00:00 hydralazine [facility] [place] 2023-06-03 00:00 hydralazine [facility] [place] 2023-06-04 00:00 hydralazine [facility] [place] 2023-06-04 00:00 hydralazine [facility] [place] 2023-06-04 00:00 hydralazine [facility] [place] 2023-06-04 00:00 hydralazine [facility] 2023-06-04 00:00 hydralazine [facility] 2023-06-06 00:00 hydralazine [facility] [place] 2023-06-06 00:00 hydralazine [facility] [place] 2023-06-08 00:00 hydralazine [facility] 2023-06-02 00:00 isosorbide dinitrate [facility] 2023-06-03 00:00 isosorbide dinitrate [facility] 2023-06-04 00:00 isosorbide dinitrate Walk-In [facility] 2023-06-04 00:00 isosorbide dinitrate Walk-In [facility] 2023-06-04 00:00 isosorbide dinitrate Walk-In [facility] 2023-06-04 00:00 isosorbide dinitrate Walk-In [facility] 2023-06-04 00:00 isosorbide dinitrate Walk-In [facility] 2023-06-06 00:00 isosorbide dinitrate Walk-In [facility] 2023-06-06 00:00 isosorbide dinitrate Walk-In [facility] 2023-06-08 00:00 isosorbide dinitrate Walk-In [facility] 2023-06-02 00:00 [facility] 2023-06-03 00:00 [facility] 2023-06-04 00:00 [facility] 2023-06-04 00:00 [facility] 2023-06-04 00:00 [facility] 2023-06-04 00:00 [facility] 2023-06-04 00:00 [facility] 2023-06-06 00:00 [facility] 2023-06-06 00:00 [facility] 2023-06-08 00:00 [facility] 2023-06-02 00:00 [facility] 2023-06-03 00:00 [facility] 2023-06-04 00:00 [facility] 2023-06-04 00:00 [facility] [place] 2023-06-04 00:00 [facility] [place] 2023-06-04 00:00 [facility] [place] 2023-06-04 00:00 [facility] [place] 2023-06-06 00:00 [facility] [place] 2023-06-06 00:00 [facility] [place] 2023-06-08 00:00 [facility] [place] 2023-06-02 00:00 autigw-ffygjyyu-rswoiit [facility] [place] 2023-06-03 00:00 mapvxc-antsbcqp-bsenobp [facility] [place] 2023-06-04 00:00 nxlpno-wvnfwrtl-gkfjubw [facility] [place] 2023-06-04 00:00 iznwuy-yubkauhg-zyxskyb [facility] [place] 2023-06-04 00:00 onglsn-ogcsflvz-dnfeqav [facility] [place] 2023-06-04 00:00 tvarbi-jxlwhoiq-ibnpgez [facility] [place] 2023-06-04 00:00 xeubcl-kckivzpj-klrdvrp [facility] [place] 2023-06-06 00:00 uyswur-axvshvga-ldwgmbs [facility] [place] 2023-06-06 00:00 dxjcba-aykcgguk-hdqevql [facility] [place] 2023-06-08 00:00 lonrky-rpdpyhfv-nwhlseo [facility] [place] 2023-06-02 00:00 [facility] [place] 2023-06-03 00:00 [facility] [place] 2023-06-04 00:00 [facility] [place] 2023-06-04 00:00 [facility] [place] 2023-06-04 00:00 [facility] [place] 2023-06-04 00:00 [facility] [place] 2023-06-04 00:00 [facility] [place] 2023-06-06 00:00 [facility] [place] 2023-06-06 00:00 [facility] [place] 2023-06-08 00:00 [facility] [place] 2023-06-02 00:00 [facility] [place] 2023-06-03 00:00 [facility] [place] 2023-06-04 00:00 [facility] [place] 2023-06-04 00:00 [facility] [place] 2023-06-04 00:00 [facility] [place] 2023-06-04 00:00 [facility] [place] 2023-06-04 00:00 [facility] [place] 2023-06-06 00:00 [facility] [place] 2023-06-06 00:00 [facility] [place] 2023-06-08 00:00 [facility] [place] 2023-06-02 00:00 nqglas-lsxnmdqu-thxqijm [facility] [place] 2023-06-03 00:00 gudmhn-vmkslpnd-xlxqowb [facility] [place] 2023-06-04 00:00 myfmvi-ybjnkhmh-didwsem [facility] [place] 2023-06-04 00:00 sncunx-ydmwwtwz-ntbawfp [facility] [place] 2023-06-04 00:00 iibxpg-gtvbgkhv-yjdfsme [facility] [place] 2023-06-04 00:00 sfixcn-nfqlltqq-cilqaoz [facility] [place] 2023-06-04 00:00 jatwbr-ptrmzfwx-quoabmv [facility] [place] 2023-06-06 00:00 ixppsd-jiegimoq-sdbnwqv [facility] [place] 2023-06-06 00:00 qpaykm-ancszkra-eklntkd [facility] [place] 2023-06-08 00:00 whvfdc-skjqztbb-phyggmg [facility] [place] 2023-06-02 00:00 digoxin [facility] [place] 2023-06-03 00:00 digoxin [facility] [place] 2023-06-04 00:00 digoxin [facility] [place] 2023-06-04 00:00 digoxin [facility] [place] 2023-06-04 00:00 digoxin [facility] [place] 2023-06-04 00:00 digoxin [facility] [place] 2023-06-04 00:00 digoxin [facility] [place] 2023-06-06 00:00 digoxin [facility] [place] 2023-06-06 00:00 digoxin [facility] [place] 2023-06-08 00:00 digoxin [facility] [place] 2023-06-02 00:00 aspirin [facility] [place] 2023-06-03 00:00 aspirin [facility] [place] 2023-06-04 00:00 aspirin [facility] [place] 2023-06-04 00:00 aspirin [facility] [place] 2023-06-04 00:00 aspirin [facility] [place] 2023-06-04 00:00 aspirin [facility] [place] 2023-06-04 00:00 aspirin [facility] [place] 2023-06-06 00:00 aspirin [facility] [place] 2023-06-06 00:00 aspirin [facility] [place] 2023-06-08 00:00 aspirin [facility] [place] 2023-06-03 00:00 torsemide [facility] [place] 2023-06-04 00:00 torsemide [facility] [place] 2023-06-04 00:00 torsemide [facility] [place] 2023-06-04 00:00 torsemide [facility] [place] 2023-06-04 00:00 torsemide [facility] [place] 2023-06-04 00:00 torsemide [facility] [place] 2023-06-06 00:00 torsemide [facility] [place] 2023-06-06 00:00 torsemide [facility] [place] 2023-06-06 00:00 torsemide [facility] [place] 2023-06-08 00:00 torsemide [facility] [place] 2023-06-02 00:00 atorvastatin [facility] [place] 2023-06-03 00:00 atorvastatin [facility] [place] 2023-06-04 00:00 atorvastatin [facility] [place] 2023-06-04 00:00 atorvastatin [facility] [place] 2023-06-04 00:00 atorvastatin [facility] [place] 2023-06-04 00:00 atorvastatin [facility] [place] 2023-06-04 00:00 atorvastatin [facility] [place] 2023-06-06 00:00 atorvastatin [facility] [place] 2023-06-06 00:00 atorvastatin [facility] [place] 2023-06-08 00:00 atorvastatin [facility] [place] 2023-06-02 00:00 bethanechol chloride Walk[facility]In [facility] 2023-06-03 00:00 bethanechol chloride [facility] [place] 2023-06-04 00:00 bethanechol chloride [facility] [place] 2023-06-04 00:00 bethanechol chloride [facility] [place] 2023-06-04 00:00 bethanechol chloride [facility] [place] 2023-06-04 00:00 bethanechol chloride [facility] [place] 2023-06-04 00:00 bethanechol chloride [facility] [place] 2023-06-06 00:00 bethanechol chloride Walk-In Cl [facility] [place] 2023-06-06 00:00 bethanechol chloride [facility] [place] 2023-06-08 00:00 bethanechol chloride [facility] [place] 2023-06-02 00:00 digoxin [facility] [place] 2023-06-03 00:00 digoxin [facility] [place] 2023-06-04 00:00 digoxin [facility] [place] 2023-06-04 00:00 digoxin [facility] [place] 2023-06-04 00:00 digoxin [facility] [place] 2023-06-04 00:00 digoxin [facility] [place] 2023-06-04 00:00 digoxin [facility] [place] 2023-06-06 00:00 digoxin [facility] [place] 2023-06-06 00:00 digoxin [facility] [place] 2023-06-08 00:00 digoxin [facility] [place] 2023-06-02 00:00 sumatriptan succinate Walk-In [facility] [place] 2023-06-03 00:00 sumatriptan succinate [facility]In [facility] [place] 2023-06-04 00:00 sumatriptan succinate [facility] [place] 2023-06-04 00:00 sumatriptan succinate [facility] [place] 2023-06-04 00:00 sumatriptan succinate [facility] [place] 2023-06-04 00:00 sumatriptan succinate [facility] [place] 2023-06-04 00:00 sumatriptan succinate [facility] [place] 2023-06-06 00:00 sumatriptan succinate [facility] [place] 2023-06-06 00:00 sumatriptan succinate [facility] [place] 2023-06-08 00:00 sumatriptan succinate [facility] [place] 2023-06-02 00:00 isosorbide dinitrate Walk-In [facility] [place] 2023-06-03 00:00 isosorbide dinitrate Walk-In [facility] [place] 2023-06-04 00:00 isosorbide dinitrate Walk-In [facility] [place] 2023-06-04 00:00 isosorbide dinitrate Walk-In [facility] [place] 2023-06-04 00:00 isosorbide dinitrate Walk-In [facility] 2023-06-04 00:00 isosorbide dinitrate Walk-In [facility] 2023-06-04 00:00 isosorbide dinitrate Walk-In [facility] 2023-06-06 00:00 isosorbide dinitrate Walk-In [facility] 2023-06-06 00:00 isosorbide dinitrate Walk-In [facility] 2023-06-08 00:00 isosorbide dinitrate Walk-In [facility] 2023-06-02 00:00 diltiazem hcl [facility] [place] 2023-06-03 00:00 diltiazem hcl [facility] [place] 2023-06-04 00:00 diltiazem hcl [facility] [place] 2023-06-04 00:00 diltiazem hcl [facility] [place] 2023-06-04 00:00 diltiazem hcl [facility] [place] 2023-06-04 00:00 diltiazem hcl [facility] [place] 2023-06-04 00:00 diltiazem hcl [facility] [place] 2023-06-06 00:00 diltiazem hcl [facility] [place] 2023-06-06 00:00 diltiazem hcl [facility] [place] 2023-06-08 00:00 diltiazem hcl [facility] [place] 2023-06-03 00:00 diltiazem hcl [facility] [place] 2023-06-04 00:00 diltiazem hcl [facility] [place] 2023-06-04 00:00 diltiazem hcl [facility] [place] 2023-06-04 00:00 diltiazem hcl [facility] [place] 2023-06-04 00:00 diltiazem hcl [facility] [place] 2023-06-04 00:00 diltiazem hcl [facility] [place] 2023-06-06 00:00 diltiazem hcl [facility] [place] 2023-06-06 00:00 diltiazem hcl [facility] [place] 2023-06-08 00:00 diltiazem hcl [facility] [place] 2023-06-02 00:00 hydralazine [facility] [place] 2023-06-03 00:00 hydralazine [facility] [place] 2023-06-04 00:00 hydralazine [facility] [place] 2023-06-04 00:00 hydralazine [facility] [place] 2023-06-04 00:00 hydralazine [facility] [place] 2023-06-04 00:00 hydralazine [facility] [place] 2023-06-04 00:00 hydralazine [facility] [place] 2023-06-06 00:00 hydralazine [facility] [place] 2023-06-06 00:00 hydralazine [facility] [place] 2023-06-08 00:00 hydralazine [facility] [place] 2023-06-03 00:00 torsemide [facility] [place] 2023-06-04 00:00 torsemide [facility] [place] 2023-06-04 00:00 torsemide [facility] [place] 2023-06-04 00:00 torsemide [facility] [place] 2023-06-04 00:00 torsemide [facility] [place] 2023-06-04 00:00 torsemide [facility] [place] 2023-06-06 00:00 torsemide [facility] [place] 2023-06-06 00:00 torsemide [facility] [place] 2023-06-06 00:00 torsemide [facility] [place] 2023-06-08 00:00 torsemide [facility] 2023-06-02 00:00 isosorbide dinitrate [facility] 2023-06-03 00:00 isosorbide dinitrate Walk-In [facility] 2023-06-04 00:00 isosorbide dinitrate Walk-In [facility] [place] 2023-06-04 00:00 isosorbide dinitrate [facility] [place] 2023-06-04 00:00 isosorbide dinitrate [facility] [place] 2023-06-04 00:00 isosorbide dinitrate [facility] [place] 2023-06-04 00:00 isosorbide dinitrate Walk-In [facility] [place] 2023-06-06 00:00 isosorbide dinitrate [facility] [place] 2023-06-06 00:00 isosorbide dinitrate Walk-In [facility] [place] 2023-06-08 00:00 isosorbide dinitrate Walk-In [facility] [place] 2023-06-02 00:00 atorvastatin [facility] [place] 2023-06-03 00:00 atorvastatin [facility] [place] 2023-06-04 00:00 atorvastatin [facility] [place] 2023-06-04 00:00 atorvastatin [facility] [place] 2023-06-04 00:00 atorvastatin [facility] [place] 2023-06-04 00:00 atorvastatin [facility] [place] 2023-06-04 00:00 atorvastatin [facility] 2023-06-06 00:00 atorvastatin [facility] [place] 2023-06-06 00:00 atorvastatin [facility] [place] 2023-06-08 00:00 atorvastatin [facility] [place] 2023-06-02 00:00 [facility] 2023-06-03 00:00 [facility]atin [facility] 2023-06-04 00:00 [facility]vastatin [facility] 2023-06-04 00:00 [facility]vastatin [facility] 2023-06-04 00:00 [facility]vastatin [facility] [place] 2023-06-04 00:00 atorvastatin [facility] 2023-06-04 00:00 atorvastatin [facility] 2023-06-06 00:00 atorvastatin [facility] 2023-06-06 00:00 atorvastatin [facility] 2023-06-08 00:00 atorvastatin [facility] 2023-06-02 00:00 sumatriptan succinate Walk-In [facility] 2023-06-03 00:00 sumatriptan succinate Walk-In [facility] [place] 2023-06-04 00:00 sumatriptan succinate Walk-In [facility] [place] 2023-06-04 00:00 sumatriptan succinate Walk[facility]In [facility] [place] 2023-06-04 00:00 sumatriptan succinate Walk[facility]In [facility] [place] 2023-06-04 00:00 sumatriptan succinate [facility]In [facility] [place] 2023-06-04 00:00 sumatriptan succinate Walk[facility]In [facility] [place] 2023-06-06 00:00 sumatriptan succinate Walk[facility]In [facility] [place] 2023-06-06 00:00 sumatriptan succinate [facility]In [facility] [place] 2023-06-08 00:00 sumatriptan succinate [facility] [place] 2023-06-03 00:00 torsemide [facility] 2023-06-04 00:00 torsemide [facility] [place] 2023-06-04 00:00 torsemide [facility] 2023-06-04 00:00 torsemide [facility] 2023-06-04 00:00 torsemide [facility] [place] 2023-06-04 00:00 torsemide [facility] [place] 2023-06-06 00:00 torsemide [facility] [place] 2023-06-06 00:00 torsemide [facility] [place] 2023-06-06 00:00 torsemide [facility] [place] 2023-06-08 00:00 torsemide [facility] [place] 2023-06-02 00:00 diltiazem hcl [facility] [place] 2023-06-03 00:00 diltiazem hcl [facility] [place] 2023-06-04 00:00 diltiazem hcl [facility] [place] 2023-06-04 00:00 diltiazem hcl [facility] [place] 2023-06-04 00:00 diltiazem hcl [facility] [place] 2023-06-04 00:00 diltiazem hcl [facility] [place] 2023-06-04 00:00 diltiazem hcl [facility] [place] 2023-06-06 00:00 diltiazem hcl [facility] [place] 2023-06-06 00:00 diltiazem hcl [facility] [place] 2023-06-08 00:00 diltiazem hcl [facility] [place] 2023-06-03 00:00 diltiazem hcl [facility] [place] 2023-06-04 00:00 diltiazem hcl [facility] [place] 2023-06-04 00:00 diltiazem hcl [facility] [place] 2023-06-04 00:00 diltiazem hcl [facility] [place] 2023-06-04 00:00 diltiazem hcl [facility] [place] 2023-06-04 00:00 diltiazem hcl [facility] 2023-06-06 00:00 diltiazem hcl [facility] 2023-06-06 00:00 diltiazem hcl [facility] 2023-06-08 00:00 diltiazem hcl [facility] 2023-06-02 00:00 atorvastatin [facility] 2023-06-03 00:00 atorvastatin [facility] 2023-06-04 00:00 atorvastatin [facility] 2023-06-04 00:00 atorvastatin [facility] 2023-06-04 00:00 atorvastatin [facility] [place] 2023-06-04 00:00 atorvastatin [facility] 2023-06-04 00:00 atorvastatin [facility] [place] 2023-06-06 00:00 atorvastatin [facility] [place] 2023-06-06 00:00 atorvastatin [facility] [place] 2023-06-08 00:00 atorvastatin [facility] [place] 2023-06-02 00:00 isosorbide dinitrate Walk-In [facility] 2023-06-03 00:00 isosorbide dinitrate Walk-In [facility] 2023-06-04 00:00 isosorbide dinitrate Walk-In [facility] 2023-06-04 00:00 isosorbide dinitrate Walk-In [facility] 2023-06-04 00:00 isosorbide dinitrate Walk-In [facility] 2023-06-04 00:00 isosorbide dinitrate Walk-In [facility] 2023-06-04 00:00 isosorbide dinitrate Walk-In [facility] 2023-06-06 00:00 isosorbide dinitrate [facility] 2023-06-06 00:00 isosorbide dinitrate [facility] 2023-06-08 00:00 isosorbide dinitrate [facility] 2023-06-02 00:00 hydralazine [facility] 2023-06-03 00:00 hydralazine [facility] 2023-06-04 00:00 hydralazine [facility] 2023-06-04 00:00 hydralazine [facility] 2023-06-04 00:00 hydralazine [facility] 2023-06-04 00:00 hydralazine [facility] 2023-06-04 00:00 hydralazine [facility] 2023-06-06 00:00 hydralazine [facility] 2023-06-06 00:00 hydralazine [facility] 2023-06-08 00:00 hydralazine [facility] 2023-06-03 00:00 torsemide [facility] 2023-06-04 00:00 torsemide [facility] 2023-06-04 00:00 torsemide [facility] 2023-06-04 00:00 torsemide [facility] 2023-06-04 00:00 torsemide [facility] 2023-06-04 00:00 torsemide [facility] 2023-06-06 00:00 torsemide [facility] 2023-06-06 00:00 torsemide [facility] 2023-06-06 00:00 torsemide [facility] [place] 2023-06-08 00:00 torsemide [facility] [place] 2023-06-02 00:00 olrrnx-dlpeaulc-cvoyyfy [facility] [place] 2023-06-03 00:00 gjtxuy-kwrfpxbe-yzamlbe [facility] [place] 2023-06-04 00:00 qyniii-ictunlzb-evonypi [facility] [place] 2023-06-04 00:00 gldpgd-emmztxoa-nravvum [facility] [place] 2023-06-04 00:00 asanxl-cujwfbet-gtbqoua [facility] [place] 2023-06-04 00:00 dykjwa-nfuybfyj-hsunmqc [facility] [place] 2023-06-04 00:00 wmutnc-lcckatnm-vskrvxv [facility] [place] 2023-06-06 00:00 sfrrsz-mbbgkxyc-hzlmmyq [facility] [place] 2023-06-06 00:00 mfqnwf-txafiywz-kzysyuz [facility] [place] 2023-06-08 00:00 mwfunq-nkxtxyxg-wlqgrpp [facility] [place] 2023-06-02 00:00 bethanechol chloride Walk-In [facility] [place] 2023-06-03 00:00 bethanechol chloride Walk-In [facility] [place] 2023-06-04 00:00 bethanechol chloride Walk-In [facility] [place] 2023-06-04 00:00 bethanechol chloride Walk-In [facility] [place] 2023-06-04 00:00 bethanechol chloride Walk-In [facility] [place] 2023-06-04 00:00 bethanechol chloride Walk-In [facility] [place] 2023-06-04 00:00 bethanechol chloride Walk-In [facility] [place] 2023-06-06 00:00 bethanechol chloride Walk-In [facility] [place] 2023-06-06 00:00 bethanechol chloride [facility]In [facility] [place] 2023-06-08 00:00 bethanechol chloride Walk-In [facility] [place] 2023-06-02 00:00 digoxin [facility] [place] 2023-06-03 00:00 digoxin [facility] [place] 2023-06-04 00:00 digoxin [facility] [place] 2023-06-04 00:00 digoxin [facility] [place] 2023-06-04 00:00 digoxin [facility] [place] 2023-06-04 00:00 digoxin [facility] [place] 2023-06-04 00:00 digoxin [facility] [place] 2023-06-06 00:00 digoxin [facility] [place] 2023-06-06 00:00 digoxin [facility] [place] 2023-06-08 00:00 digoxin [facility] [place] 2023-06-02 00:00 atorvastatin [facility] [place] 2023-06-03 00:00 atorvastatin [facility] [place] 2023-06-04 00:00 atorvastatin [facility] [place] 2023-06-04 00:00 atorvastatin [facility] [place] 2023-06-04 00:00 atorvastatin [facility] [place] 2023-06-04 00:00 atorvastatin [facility] [place] 2023-06-04 00:00 atorvastatin [facility] [place] 2023-06-06 00:00 atorvastatin [facility] [place] 2023-06-06 00:00 atorvastatin [facility] [place] 2023-06-08 00:00 atorvastatin [facility] [place] 2023-06-02 00:00 jlstgh-ayccvnii-ytvumez [facility] [place] 2023-06-03 00:00 gxhevd-sjnzittk-fqrbkku [facility] [place] 2023-06-04 00:00 smyrfx-znqkvrma-pxsvplh [facility] [place] 2023-06-04 00:00 ampbmw-kuqeebiy-iixtzfa [facility] [place] 2023-06-04 00:00 usixax-zjasiyay-hbswuqx [facility] [place] 2023-06-04 00:00 goenyi-xekhjsoj-nhwhbmg [facility] [place] 2023-06-04 00:00 cynzos-mjzcavtl-sghgkab [facility] [place] 2023-06-06 00:00 hrplqh-eqkavucl-eevkfbl [facility] [place] 2023-06-06 00:00 zkosvi-xylsfcnv-vrbftgl [facility] [place] 2023-06-08 00:00 cncscb-ngfqifiy-prrjins [facility] [place] 2023-06-02 00:00 sumatriptan succinate Walk[facility]In [facility] [place] 2023-06-03 00:00 sumatriptan succinate Walk[facility] [place] 2023-06-04 00:00 sumatriptan succinate [facility] [place] 2023-06-04 00:00 sumatriptan succinate [facility] [place] 2023-06-04 00:00 sumatriptan succinate [facility] [place] 2023-06-04 00:00 sumatriptan succinate [facility] [place] 2023-06-04 00:00 sumatriptan succinate [facility] [place] 2023-06-06 00:00 sumatriptan succinate [facility] [place] 2023-06-06 00:00 sumatriptan succinate [facility] [place] 2023-06-08 00:00 sumatriptan succinate [facility] [place] 2023-06-02 00:00 atorvastatin [facility] [place] 2023-06-03 00:00 atorvastatin [facility] [place] 2023-06-04 00:00 atorvastatin [facility] [place] 2023-06-04 00:00 atorvastatin [facility] [place] 2023-06-04 00:00 atorvastatin [facility] [place] 2023-06-04 00:00 atorvastatin [facility] [place] 2023-06-04 00:00 atorvastatin [facility] [place] 2023-06-06 00:00 atorvastatin [facility] [place] 2023-06-06 00:00 atorvastatin [facility] [place] 2023-06-08 00:00 atorvastatin [facility] [place] 2023-06-02 00:00 atorvastatin [facility] [place] 2023-06-03 00:00 atorvastatin [facility] [place] 2023-06-04 00:00 atorvastatin [facility] [place] 2023-06-04 00:00 atorvastatin [facility] [place] 2023-06-04 00:00 atorvastatin [facility] [place] 2023-06-04 00:00 atorvastatin [facility] [place] 2023-06-04 00:00 atorvastatin [facility] [place] 2023-06-06 00:00 atorvastatin [facility] [place] 2023-06-06 00:00 atorvastatin [facility] [place] 2023-06-08 00:00 atorvastatin [facility] [place] 2023-06-02 00:00 aspirin [facility] [place] 2023-06-03 00:00 aspirin [facility] [place] 2023-06-04 00:00 aspirin [facility] 2023-06-04 00:00 aspirin [facility] [place] 2023-06-04 00:00 aspirin [facility] [place] 2023-06-04 00:00 aspirin [facility] [place] 2023-06-04 00:00 aspirin [facility] [place] 2023-06-06 00:00 aspirin [facility] [place] 2023-06-06 00:00 aspirin [facility] [place] 2023-06-08 00:00 aspirin [facility] [place] 2023-06-02 00:00 digoxin [facility] [place] 2023-06-03 00:00 digoxin [facility] [place] 2023-06-04 00:00 digoxin [facility] [place] 2023-06-04 00:00 digoxin [facility] [place] 2023-06-04 00:00 digoxin [facility] [place] 2023-06-04 00:00 digoxin [facility] [place] 2023-06-04 00:00 digoxin [facility] [place] 2023-06-06 00:00 digoxin [facility] [place] 2023-06-06 00:00 digoxin [facility] [place] 2023-06-08 00:00 digoxin [facility] [place] 2023-06-02 00:00 atorvastatin [facility] [place] 2023-06-03 00:00 atorvastatin [facility] [place] 2023-06-04 00:00 atorvastatin [facility] 2023-06-04 00:00 atorvastatin [facility] [place] 2023-06-04 00:00 atorvastatin [facility] [place] 2023-06-04 00:00 atorvastatin [facility] [place] 2023-06-04 00:00 atorvastatin [facility] [place] 2023-06-06 00:00 atorvastatin [facility] 2023-06-06 00:00 atorvastatin [facility] 2023-06-08 00:00 atorvastatin [facility] 2023-06-02 00:00 sumatriptan succinate Walk[facility]In [facility] 2023-06-03 00:00 sumatriptan succinate Walk[facility]In [facility] 2023-06-04 00:00 sumatriptan succinate Walk[facility]In [facility] 2023-06-04 00:00 sumatriptan succinate [facility] [place] 2023-06-04 00:00 sumatriptan succinate [facility] [place] 2023-06-04 00:00 sumatriptan succinate [facility] [place] 2023-06-04 00:00 sumatriptan succinate [facility] [place] 2023-06-06 00:00 sumatriptan succinate [facility] [place] 2023-06-06 00:00 sumatriptan succinate [facility] [place] 2023-06-08 00:00 sumatriptan succinate [facility] [place] 2023-06-02 00:00 diltiazem hcl [facility] 2023-06-03 00:00 diltiazem hcl [facility] 2023-06-04 00:00 diltiazem hcl [facility] 2023-06-04 00:00 diltiazem hcl [facility] 2023-06-04 00:00 diltiazem hcl [facility] 2023-06-04 00:00 diltiazem hcl [facility] 2023-06-04 00:00 diltiazem hcl [facility] 2023-06-06 00:00 diltiazem hcl [facility] [place] 2023-06-06 00:00 diltiazem hcl [facility] [place] 2023-06-08 00:00 diltiazem hcl [facility] [place] 2023-06-03 00:00 diltiazem hcl [facility] [place] 2023-06-04 00:00 diltiazem hcl [facility] [place] 2023-06-04 00:00 diltiazem hcl [facility] [place] 2023-06-04 00:00 diltiazem hcl [facility] [place] 2023-06-04 00:00 diltiazem hcl [facility] [place] 2023-06-04 00:00 diltiazem hcl [facility] [place] 2023-06-06 00:00 diltiazem hcl [facility] [place] 2023-06-06 00:00 diltiazem hcl [facility] [place] 2023-06-08 00:00 diltiazem hcl [facility] [place] 2023-06-03 00:00 diltiazem hcl [facility] [place] 2023-06-04 00:00 diltiazem hcl [facility] [place] 2023-06-04 00:00 diltiazem hcl [facility] [place] 2023-06-04 00:00 diltiazem hcl [facility] [place] 2023-06-04 00:00 diltiazem hcl [facility] [place] 2023-06-04 00:00 diltiazem hcl [facility] [place] 2023-06-06 00:00 diltiazem hcl [facility] [place] 2023-06-06 00:00 diltiazem hcl [facility] [place] 2023-06-08 00:00 diltiazem hcl [facility] 2023-06-02 00:00 diltiazem hcl [facility] 2023-06-03 00:00 diltiazem hcl [facility] 2023-06-04 00:00 diltiazem hcl [facility] 2023-06-04 00:00 diltiazem hcl [facility] 2023-06-04 00:00 diltiazem hcl [facility] 2023-06-04 00:00 diltiazem hcl [facility] 2023-06-04 00:00 diltiazem hcl [facility] 2023-06-06 00:00 diltiazem hcl [facility] [place] 2023-06-06 00:00 diltiazem hcl [facility] [place] 2023-06-08 00:00 diltiazem hcl [facility] 2023-06-02 00:00 apixaban [facility] 2023-06-03 00:00 apixaban [facility] 2023-06-04 00:00 apixaban [facility] 2023-06-04 00:00 apixaban [facility] 2023-06-04 00:00 apixaban [facility] 2023-06-04 00:00 apixaban [facility] 2023-06-04 00:00 apixaban [facility] 2023-06-06 00:00 apixaban [facility] 2023-06-06 00:00 apixaban [facility] 2023-06-08 00:00 apixaban [facility] [place] 2023-06-02 00:00 apixaban [facility] [place] 2023-06-03 00:00 apixaban [facility] [place] 2023-06-04 00:00 apixaban [facility] [place] 2023-06-04 00:00 apixaban [facility] [place] 2023-06-04 00:00 apixaban [facility] [place] 2023-06-04 00:00 [facility] [place] 2023-06-04 00:00 [facility] [place] 2023-06-06 00:00 [facility] [place] 2023-06-06 00:00 [facility] [place] 2023-06-08 00:00 [facility] [place] 2023-06-02 00:00 bethanechol chloride [facility] [place] 2023-06-03 00:00 bethanechol chloride [facility] [place] 2023-06-04 00:00 bethanechol chloride [facility] [place] 2023-06-04 00:00 bethanechol chloride [facility] [place] 2023-06-04 00:00 bethanechol chloride [facility] [place] 2023-06-04 00:00 bethanechol chloride [facility] [place] 2023-06-04 00:00 bethanechol chloride [facility] 2023-06-06 00:00 bethanechol chloride [facility] [place] 2023-06-06 00:00 bethanechol chloride [facility] 2023-06-08 00:00 bethanechol chloride [facility] [place] 2023-06-02 00:00 hydralazine [facility] [place] 2023-06-03 00:00 hydralazine [facility] [place] 2023-06-04 00:00 hydralazine [facility] [place] 2023-06-04 00:00 hydralazine [facility] [place] 2023-06-04 00:00 hydralazine [facility] [place] 2023-06-04 00:00 hydralazine [facility] [place] 2023-06-04 00:00 hydralazine [facility] [place] 2023-06-06 00:00 hydralazine [facility] [place] 2023-06-06 00:00 hydralazine [facility] [place] 2023-06-08 00:00 hydralazine [facility] [place] Problems date description facility 2023-06-02 00:00 Abdominal bloating [facility] [place] 2023-06-02 00:00 Abdominal bloating [facility] [place] 2023-06-02 00:00 Abdominal bloating [facility] [place] 2023-06-02 00:00 Abdominal bloating [facility] [place] 2023-06-02 00:00 Abdominal bloating [facility] [place] 2023-06-02 00:00 Abdominal bloating [facility] [place] 2023-06-02 00:00 Abdominal bloating [facility] [place] 2023-06-02 00:00 Asthma [facility] [place] 2023-06-02 00:00 Multinodular goiter [facility] [place] 2023-06-02 00:00 Unspecified hypothyroidism [facility] [place] 2023-06-02 00:00 Diabetes mellitus wi thout mention of complication, type II or unspecified type, not stated as uncontrolled [facility] [place] 2023-06-02 00:00 Diabetes mellitus wi th neurological manifestations, type II or unspecified type, not stated as uncontrolled [facility] 2023-06-02 00:00 Diabetes mellitus wi th peripheral circulatory disorders, type II or unspecified type, not stated as uncontrolled [facility] [place] 2023-06-02 00:00 Diabetes mellitus wi th other specified manifestations, type II or unspecified type, not stated as uncontrolled [facility] 2023-06-02 00:00 Other and unspecified hyperlipi demia [facility] [place] 2023-06-02 00:00 Hypoglycemia [facility] [place] 2023-06-02 00:00 Hypoglycemia [facility] [place] 2023-06-02 00:00 Hypoglycemia [facility] [place] 2023-06-02 00:00 Hypoglycemia [facility] [place] 2023-06-02 00:00 Hypoglycemia [facility] [place] 2023-06-02 00:00 Hypoglycemia [facility] [place] 2023-06-02 00:00 Hypoglycemia [facility] [place] 2023-06-02 00:00 Restless legs [facility] [place] 2023-06-02 00:00 Restless legs syndrome (RLS) [facility] [place] 2023-06-02 00:00 Migraine, unspecifie d, without mention of intractable migraine, without mention of status migrainosus [facility] [place] 2023-06-02 00:00 Seasonal allergic rhinitis [facility] [place] 2023-06-02 00:00 Migraine [facility] [place] 2023-06-02 00:00 Hypertensive disorder [facility] [place] 2023-06-02 00:00 Benign essential hypertension [facility] [place] 2023-06-02 00:00 Hypothyroidism [facility] [place] 2023-06-02 00:00 Obesity [facility] [place] 2023-06-02 00:00 Diabetic peripheral neuropathy [facility] [place] 2023-06-02 00:00 Chronic kidney disease stage 5 [facility] [place] 2023-06-02 00:00 Chronic kidney disease stage 5 [facility] [place] 2023-06-02 00:00 Chronic kidney disease stage 5 [facility] [place] 2023-06-02 00:00 Chronic kidney disease stage 5 [facility] [place] 2023-06-02 00:00 Chronic kidney disease stage 5 [facility] [place] 2023-06-02 00:00 Chronic kidney disease stage 5 [facility] [place] 2023-06-02 00:00 Chronic kidney disease stage 5 [facility] [place] 2023-06-02 00:00 Type II diabetes silvana litus uncontrolled [facility] [place] 2023-06-02 00:00 Type 2 diabetes yuri itus well controlled [facility] [place] 2023-06-02 00:00 Allergic rhinitis due to pollen [facility] [place] 2023-06-02 00:00 Asthma, unspecified [facility] [place] 2023-06-02 00:00 Hyperlipidemia [facility] [place] 2023-06-02 00:00 End stage renal disease [facility] [place] 2023-06-02 00:00 End stage renal disease [facility] [place] 2023-06-02 00:00 End stage renal disease [facility] [place] 2023-06-02 00:00 End stage renal disease [facility] [place] 2023-06-02 00:00 End stage renal disease [facility] [place] 2023-06-02 00:00 End stage renal disease [facility] [place] 2023-06-02 00:00 End stage renal disease [facility] [place] 2023-06-02 00:00 Flatulence, eructation, and gas pain [facility] [place] 2023-06-02 00:00 Flatulence, eructation, and gas pain [facility] [place] 2023-06-02 00:00 Flatulence, eructation, and gas pain [facility] [place] 2023-06-02 00:00 Flatulence, eructation, and gas pain [facility] [place] 2023-06-02 00:00 Flatulence, eructation, and gas pain [facility] [place] 2023-06-02 00:00 Flatulence, eructation, and gas pain [facility] [place] 2023-06-02 00:00 Flatulence, eructation, and gas pain [facility] [place] 2023-06-02 00:00 Hypothyroidism, unspecified [facility] [place] 2023-06-02 00:00 Nontoxic multinodular goiter [facility] [place] 2023-06-02 00:00 Type 2 diabetes yuri itus with diabetic neuropathy, unspecified [facility] [place] 2023-06-02 00:00 Type 2 diabetes yuri itus with diabetic peripheral angiopathy without gangrene [facility] [place] 2023-06-02 00:00 Type 2 diabetes yuri itus with hyperglycemia [facility] [place] 2023-06-02 00:00 Type 2 diabetes yuri itus without complications [facility] [place] 2023-06-02 00:00 Hypoglycemia, unspecified [facility] [place] 2023-06-02 00:00 Hypoglycemia, unspecified [facility] [place] 2023-06-02 00:00 Hypoglycemia, unspecified [facility] [place] 2023-06-02 00:00 Hypoglycemia, unspecified [facility] [place] 2023-06-02 00:00 Hypoglycemia, unspecified [facility] [place] 2023-06-02 00:00 Hypoglycemia, unspecified [facility] [place] 2023-06-02 00:00 Hypoglycemia, unspecified [facility] [place] 2023-06-02 00:00 Obesity, unspecified [facility] [place] 2023-06-02 00:00 Restless legs syndrome [facility] [place] 2023-06-02 00:00 Migraine, unspecifie d, not intractable, without status migrainosus [facility] [place] 2023-06-02 00:00 Essential (primary) hypertensio n [facility] [place] 2023-06-02 00:00 Other seasonal allergic rhiniti s [facility] [place] 2023-06-02 00:00 Unspecified asthma, uncomplicat ed [facility] [place] 2023-06-02 00:00 Chronic kidney disease, stage 5 [facility] [place] 2023-06-02 00:00 Chronic kidney disease, stage 5 [facility] [place] 2023-06-02 00:00 Chronic kidney disease, stage 5 [facility] [place] 2023-06-02 00:00 Chronic kidney disease, stage 5 [facility] [place] 2023-06-02 00:00 Chronic kidney disease, stage 5 [facility] [place] 2023-06-02 00:00 Chronic kidney disease, stage 5 [facility] [place] 2023-06-02 00:00 Chronic kidney disease, stage 5 [facility] [place] 2023-06-02 00:00 Abdominal distension (gaseous) [facility] [place] 2023-06-02 00:00 Abdominal distension (gaseous) [facility] [place] 2023-06-02 00:00 Abdominal distension (gaseous) [facility] [place] 2023-06-02 00:00 Abdominal distension (gaseous) [facility] [place] 2023-06-02 00:00 Abdominal distension (gaseous) [facility] [place] 2023-06-02 00:00 Abdominal distension (gaseous) [facility] [place] 2023-06-02 00:00 Abdominal distension (gaseous) [facility] [place] 2023-06-03 00:00 Asthma [facility] [place] 2023-06-03 00:00 Multinodular goiter [facility] [place] 2023-06-03 00:00 Unspecified hypothyroidism [facility] [place] 2023-06-03 00:00 Diabetes mellitus wi thout mention of complication, type II or unspecified type, not stated as uncontrolled [facility] [place] 2023-06-03 00:00 Diabetes mellitus wi th neurological manifestations, type II or unspecified type, not stated as uncontrolled [facility] [place] 2023-06-03 00:00 Diabetes mellitus wi th peripheral circulatory disorders, type II or unspecified type, not stated as uncontrolled [facility] [place] 2023-06-03 00:00 Diabetes mellitus wi th other specified manifestations, type II or unspecified type, not stated as uncontrolled [facility] [place] 2023-06-03 00:00 Other and unspecified hyperlipi demia [facility] [place] 2023-06-03 00:00 Restless legs [facility] [place] 2023-06-03 00:00 Restless legs syndrome (RLS) [facility] [place] 2023-06-03 00:00 Migraine, unspecifie d, without mention of intractable migraine, without mention of status migrainosus [facility] [place] 2023-06-03 00:00 Seasonal allergic rhinitis [facility] [place] 2023-06-03 00:00 Migraine [facility] [place] 2023-06-03 00:00 Hypertensive disorder [facility] [place] 2023-06-03 00:00 Benign essential hypertension [facility] [place] 2023-06-03 00:00 Hypothyroidism [facility] [place] 2023-06-03 00:00 Obesity [facility] [place] 2023-06-03 00:00 Diabetic peripheral neuropathy [facility] [place] 2023-06-03 00:00 Type II diabetes silvana litus uncontrolled [facility] [place] 2023-06-03 00:00 Type 2 diabetes yuri itus well controlled [facility] [place] 2023-06-03 00:00 Allergic rhinitis due to pollen [facility] [place] 2023-06-03 00:00 Asthma, unspecified [facility] [place] 2023-06-03 00:00 Hyperlipidemia [facility] [place] 2023-06-03 00:00 Hypothyroidism, unspecified [facility] [place] 2023-06-03 00:00 Nontoxic multinodular goiter [facility] [place] 2023-06-03 00:00 Type 2 diabetes yuri itus with diabetic neuropathy, unspecified [facility] [place] 2023-06-03 00:00 Type 2 diabetes yuri itus with diabetic peripheral angiopathy without gangrene [facility] [place] 2023-06-03 00:00 Type 2 diabetes yuri itus with hyperglycemia [facility] [place] 2023-06-03 00:00 Type 2 diabetes yuri itus without complications [facility] [place] 2023-06-03 00:00 Obesity, unspecified [facility] [place] 2023-06-03 00:00 Restless legs syndrome [facility] [place] 2023-06-03 00:00 Migraine, unspecifie d, not intractable, without status migrainosus [facility] [place] 2023-06-03 00:00 Essential (primary) hypertensio n [facility] [place] 2023-06-03 00:00 Other seasonal allergic rhiniti s [facility] [place] 2023-06-03 00:00 Unspecified asthma, uncomplicat ed [facility] [place] 2023-06-04 00:00 Asthma [facility] [place] 2023-06-04 00:00 Asthma [facility] [place] 2023-06-04 00:00 Asthma [facility] [place] 2023-06-04 00:00 Asthma [facility] [place] 2023-06-04 00:00 Asthma [facility] [place] 2023-06-04 00:00 Multinodular goiter [facility] [place] 2023-06-04 00:00 Multinodular goiter [facility] 2023-06-04 00:00 Multinodular goiter [facility] 2023-06-04 00:00 Multinodular goiter [facility] 2023-06-04 00:00 Multinodular goiter [facility] 2023-06-04 00:00 Unspecified hypothyroidism [facility] [place] 2023-06-04 00:00 Unspecified hypothyroidism [facility] [place] 2023-06-04 00:00 Unspecified hypothyroidism [facility] [place] 2023-06-04 00:00 Unspecified hypothyroidism [facility] [place] 2023-06-04 00:00 Unspecified hypothyroidism [facility] [place] 2023-06-04 00:00 Diabetes mellitus wi thout mention of complication, type II or unspecified type, not stated as uncontrolled [facility] [place] 2023-06-04 00:00 Diabetes mellitus wi thout mention of complication, type II or unspecified type, not stated as uncontrolled [facility] [place] 2023-06-04 00:00 Diabetes mellitus wi thout mention of complication, type II or unspecified type, not stated as uncontrolled [facility] [place] 2023-06-04 00:00 Diabetes mellitus wi thout mention of complication, type II or unspecified type, not stated as uncontrolled [facility] 2023-06-04 00:00 Diabetes mellitus wi thout mention of complication, type II or unspecified type, not stated as uncontrolled [facility] [place] 2023-06-04 00:00 Diabetes mellitus wi th neurological manifestations, type II or unspecified type, not stated as uncontrolled [facility] 2023-06-04 00:00 Diabetes mellitus wi th neurological manifestations, type II or unspecified type, not stated as uncontrolled [facility] 2023-06-04 00:00 Diabetes mellitus wi th neurological manifestations, type II or unspecified type, not stated as uncontrolled [facility] 2023-06-04 00:00 Diabetes mellitus wi th neurological manifestations, type II or unspecified type, not stated as uncontrolled [facility] 2023-06-04 00:00 Diabetes mellitus wi th neurological manifestations, type II or unspecified type, not stated as uncontrolled [facility] 2023-06-04 00:00 Diabetes mellitus wi th peripheral circulatory disorders, type II or unspecified type, not stated as uncontrolled [facility] 2023-06-04 00:00 Diabetes mellitus wi th peripheral circulatory disorders, type II or unspecified type, not stated as uncontrolled [facility] 2023-06-04 00:00 Diabetes mellitus wi th peripheral circulatory disorders, type II or unspecified type, not stated as uncontrolled [facility] 2023-06-04 00:00 Diabetes mellitus wi th peripheral circulatory disorders, type II or unspecified type, not stated as uncontrolled [facility] 2023-06-04 00:00 Diabetes mellitus wi th peripheral circulatory disorders, type II or unspecified type, not stated as uncontrolled [facility] 2023-06-04 00:00 Diabetes mellitus wi th other specified manifestations, type II or unspecified type, not stated as uncontrolled [facility] 2023-06-04 00:00 Diabetes mellitus wi th other specified manifestations, type II or unspecified type, not stated as uncontrolled [facility] 2023-06-04 00:00 Diabetes mellitus wi th other specified manifestations, type II or unspecified type, not stated as uncontrolled [facility] 2023-06-04 00:00 Diabetes mellitus wi th other specified manifestations, type II or unspecified type, not stated as uncontrolled [facility] 2023-06-04 00:00 Diabetes mellitus wi th other specified manifestations, type II or unspecified type, not stated as uncontrolled [facility] 2023-06-04 00:00 Other and unspecified hyperlipi demia [facility] 2023-06-04 00:00 Other and unspecified hyperlipi demia [facility] 2023-06-04 00:00 Other and unspecified hyperlipi demia [facility] 2023-06-04 00:00 Other and unspecified hyperlipi demia [facility] 2023-06-04 00:00 Other and unspecified hyperlipi demia [facility] 2023-06-04 00:00 Restless legs [facility] 2023-06-04 00:00 Restless legs [facility] 2023-06-04 00:00 Restless legs [facility] 2023-06-04 00:00 Restless legs [facility] 2023-06-04 00:00 Restless legs [facility] 2023-06-04 00:00 Restless legs syndrome (RLS) [facility] 2023-06-04 00:00 Restless legs syndrome (RLS) [facility] 2023-06-04 00:00 Restless legs syndrome (RLS) [facility] 2023-06-04 00:00 Restless legs syndrome (RLS) [facility] 2023-06-04 00:00 Restless legs syndrome (RLS) [facility] 2023-06-04 00:00 Migraine, unspecifie d, without mention of intractable migraine, without mention of status migrainosus [facility] [place] 2023-06-04 00:00 Migraine, unspecifie d, without mention of intractable migraine, without mention of status migrainosus [facility] [place] 2023-06-04 00:00 Migraine, unspecifie d, without mention of intractable migraine, without mention of status migrainosus [facility] [place] 2023-06-04 00:00 Migraine, unspecifie d, without mention of intractable migraine, without mention of status migrainosus [facility] [place] 2023-06-04 00:00 Migraine, unspecifie d, without mention of intractable migraine, without mention of status migrainosus [facility] 2023-06-04 00:00 Seasonal allergic rhinitis [facility] 2023-06-04 00:00 Seasonal allergic rhinitis [facility] 2023-06-04 00:00 Seasonal allergic rhinitis [facility] 2023-06-04 00:00 Seasonal allergic rhinitis [facility] 2023-06-04 00:00 Seasonal allergic rhinitis [facility] 2023-06-04 00:00 Migraine [facility] 2023-06-04 00:00 Migraine [facility] 2023-06-04 00:00 Migraine [facility] 2023-06-04 00:00 Migraine [facility] [facility] 2023-06-04 00:00 [facility]raine [facility] 2023-06-04 00:00 Hypertensive disorder [facility] 2023-06-04 00:00 Hypertensive disorder [facility] 2023-06-04 00:00 Hypertensive disorder [facility] 2023-06-04 00:00 Hypertensive disorder [facility] 2023-06-04 00:00 Hypertensive disorder [facility] 2023-06-04 00:00 Benign essential hypertension [facility] 2023-06-04 00:00 Benign essential hypertension [facility] 2023-06-04 00:00 Benign essential hypertension [facility] 2023-06-04 00:00 Benign essential hypertension [facility] 2023-06-04 00:00 Benign essential hypertension [facility] 2023-06-04 00:00 Hypothyroidism [facility] 2023-06-04 00:00 Hypothyroidism [facility] 2023-06-04 00:00 Hypothyroidism [facility] 2023-06-04 00:00 Hypothyroidism [facility] 2023-06-04 00:00 Hypothyroidism [facility] 2023-06-04 00:00 Obesity [facility] 2023-06-04 00:00 Obesity [facility] 2023-06-04 00:00 Obesity [facility] 2023-06-04 00:00 Obesity [facility] 2023-06-04 00:00 Obesity [facility] 2023-06-04 00:00 Diabetic peripheral neuropathy [facility] [place] 2023-06-04 00:00 Diabetic peripheral neuropathy [facility] 2023-06-04 00:00 Diabetic peripheral neuropathy [facility] [place] 2023-06-04 00:00 Diabetic peripheral neuropathy [facility] 2023-06-04 00:00 Diabetic peripheral neuropathy [facility] 2023-06-04 00:00 Type II diabetes silvana litus uncontrolled [facility] 2023-06-04 00:00 Type II diabetes silvana litus uncontrolled [facility] 2023-06-04 00:00 Type II diabetes silvana litus uncontrolled [facility] [place] 2023-06-04 00:00 Type II diabetes silvana litus uncontrolled [facility] [place] 2023-06-04 00:00 Type II diabetes silvana litus uncontrolled [facility] [place] 2023-06-04 00:00 Type 2 diabetes yuri itus well controlled [facility] 2023-06-04 00:00 Type 2 diabetes yuri itus well controlled [facility] 2023-06-04 00:00 Type 2 diabetes yuri itus well controlled [facility] 2023-06-04 00:00 Type 2 diabetes yuri itus well controlled [facility] 2023-06-04 00:00 Type 2 diabetes yuri itus well controlled [facility] 2023-06-04 00:00 Allergic rhinitis due to pollen [facility] 2023-06-04 00:00 Allergic rhinitis due to pollen [facility] 2023-06-04 00:00 Allergic rhinitis due to pollen [facility] 2023-06-04 00:00 Allergic rhinitis due to pollen [facility] 2023-06-04 00:00 Allergic rhinitis due to pollen [facility] 2023-06-04 00:00 Asthma, unspecified [facility] 2023-06-04 00:00 Asthma, unspecified [facility] 2023-06-04 00:00 Asthma, unspecified [facility] 2023-06-04 00:00 Asthma, unspecified [facility] 2023-06-04 00:00 Asthma, unspecified [facility] 2023-06-04 00:00 Hyperlipidemia [facility] 2023-06-04 00:00 Hyperlipidemia [facility] 2023-06-04 00:00 Hyperlipidemia [facility] 2023-06-04 00:00 Hyperlipidemia [facility] 2023-06-04 00:00 Hyperlipidemia [facility] 2023-06-04 00:00 Hypothyroidism, unspecified [facility] 2023-06-04 00:00 Hypothyroidism, unspecified [facility] 2023-06-04 00:00 Hypothyroidism, unspecified [facility] 2023-06-04 00:00 Hypothyroidism, unspecified [facility] 2023-06-04 00:00 Hypothyroidism, unspecified [facility] 2023-06-04 00:00 Nontoxic multinodular goiter [facility] 2023-06-04 00:00 Nontoxic multinodular goiter [facility] 2023-06-04 00:00 Nontoxic multinodular goiter [facility] 2023-06-04 00:00 Nontoxic multinodular goiter [facility] 2023-06-04 00:00 Nontoxic multinodular goiter [facility] 2023-06-04 00:00 Type 2 diabetes yuri itus with diabetic neuropathy, unspecified [facility] 2023-06-04 00:00 Type 2 diabetes yuri itus with diabetic neuropathy, unspecified [facility] 2023-06-04 00:00 Type 2 diabetes yuri itus with diabetic neuropathy, unspecified [facility] 2023-06-04 00:00 Type 2 diabetes yuri itus with diabetic neuropathy, unspecified [facility] 2023-06-04 00:00 Type 2 diabetes yuri itus with diabetic neuropathy, unspecified [facility] 2023-06-04 00:00 Type 2 diabetes yuri itus with diabetic peripheral angiopathy without gangrene [facility] 2023-06-04 00:00 Type 2 diabetes yuri itus with diabetic peripheral angiopathy without gangrene [facility] 2023-06-04 00:00 Type 2 diabetes yuri itus with diabetic peripheral angiopathy without gangrene [facility] 2023-06-04 00:00 Type 2 diabetes yuri itus with diabetic peripheral angiopathy without gangrene [facility] 2023-06-04 00:00 Type 2 diabetes yuri itus with diabetic peripheral angiopathy without gangrene [facility] 2023-06-04 00:00 Type 2 diabetes yuri itus with hyperglycemia [facility] 2023-06-04 00:00 Type 2 diabetes yuri itus with hyperglycemia [facility] 2023-06-04 00:00 Type 2 diabetes yuri itus with hyperglycemia [facility] 2023-06-04 00:00 Type 2 diabetes yuri itus with hyperglycemia [facility] 2023-06-04 00:00 Type 2 diabetes yuri itus with hyperglycemia [facility] 2023-06-04 00:00 Type 2 diabetes yuri itus without complications [facility] 2023-06-04 00:00 Type 2 diabetes yuri itus without complications [facility] 2023-06-04 00:00 Type 2 diabetes yuri itus without complications [facility] 2023-06-04 00:00 Type 2 diabetes yuri itus without complications [facility] 2023-06-04 00:00 Type 2 diabetes yuri itus without complications [facility] 2023-06-04 00:00 Obesity, unspecified [facility] 2023-06-04 00:00 Obesity, unspecified [facility] [place] 2023-06-04 00:00 Obesity, unspecified [facility] [place] 2023-06-04 00:00 Obesity, unspecified [facility] 2023-06-04 00:00 Obesity, unspecified [facility] [place] 2023-06-04 00:00 Restless legs syndrome [facility] 2023-06-04 00:00 Restless legs syndrome [facility] [place] 2023-06-04 00:00 Restless legs syndrome [facility] 2023-06-04 00:00 Restless legs syndrome [facility] 2023-06-04 00:00 Restless legs syndrome [facility] 2023-06-04 00:00 Migraine, unspecifie d, not intractable, without status migrainosus [facility] 2023-06-04 00:00 Migraine, unspecifie d, not intractable, without status migrainosus [facility] 2023-06-04 00:00 Migraine, unspecifie d, not intractable, without status migrainosus [facility] 2023-06-04 00:00 Migraine, unspecifie d, not intractable, without status migrainosus [facility] 2023-06-04 00:00 Migraine, unspecifie d, not intractable, without status migrainosus [facility] 2023-06-04 00:00 Essential (primary) hypertensio n [facility] 2023-06-04 00:00 Essential (primary) hypertensio n [facility] 2023-06-04 00:00 Essential (primary) hypertensio n [facility] 2023-06-04 00:00 Essential (primary) hypertensio n [facility] 2023-06-04 00:00 Essential (primary) hypertensio n [facility] 2023-06-04 00:00 Other seasonal allergic rhiniti s [facility] 2023-06-04 00:00 Other seasonal allergic rhiniti s [facility] 2023-06-04 00:00 Other seasonal allergic rhiniti s [facility] 2023-06-04 00:00 Other seasonal allergic rhiniti s [facility] 2023-06-04 00:00 Other seasonal allergic rhiniti s [facility] 2023-06-04 00:00 Unspecified asthma, uncomplicat ed [facility] 2023-06-04 00:00 Unspecified asthma, uncomplicat ed [facility] 2023-06-04 00:00 Unspecified asthma, uncomplicat ed [facility] 2023-06-04 00:00 Unspecified asthma, uncomplicat ed [facility] 2023-06-04 00:00 Unspecified asthma, uncomplicat ed [facility] 2023-06-06 00:00 Asthma [facility] 2023-06-06 00:00 Asthma [facility] 2023-06-06 00:00 Multinodular goiter [facility] 2023-06-06 00:00 Multinodular goiter [facility] 2023-06-06 00:00 Unspecified hypothyroidism [facility] 2023-06-06 00:00 Unspecified hypothyroidism [facility] 2023-06-06 00:00 Diabetes mellitus wi thout mention of complication, type II or unspecified type, not stated as uncontrolled [facility] 2023-06-06 00:00 Diabetes mellitus wi thout mention of complication, type II or unspecified type, not stated as uncontrolled [facility] 2023-06-06 00:00 Diabetes mellitus wi th neurological manifestations, type II or unspecified type, not stated as uncontrolled [facility] 2023-06-06 00:00 Diabetes mellitus wi th neurological manifestations, type II or unspecified type, not stated as uncontrolled [facility] 2023-06-06 00:00 Diabetes mellitus wi th peripheral circulatory disorders, type II or unspecified type, not stated as uncontrolled [facility] 2023-06-06 00:00 Diabetes mellitus wi th peripheral circulatory disorders, type II or unspecified type, not stated as uncontrolled [facility] 2023-06-06 00:00 Diabetes mellitus wi th other specified manifestations, type II or unspecified type, not stated as uncontrolled [facility] 2023-06-06 00:00 Diabetes mellitus wi th other specified manifestations, type II or unspecified type, not stated as uncontrolled [facility] 2023-06-06 00:00 Other and unspecified hyperlipi demia [facility] 2023-06-06 00:00 Other and unspecified hyperlipi demia [facility] 2023-06-06 00:00 Restless legs [facility] 2023-06-06 00:00 Restless legs [facility] 2023-06-06 00:00 Restless legs syndrome (RLS) [facility] 2023-06-06 00:00 Restless legs syndrome (RLS) [facility] 2023-06-06 00:00 Migraine, unspecifie d, without mention of intractable migraine, without mention of status migrainosus [facility] 2023-06-06 00:00 Migraine, unspecifie d, without mention of intractable migraine, without mention of status migrainosus [facility] 2023-06-06 00:00 Seasonal allergic rhinitis [facility] 2023-06-06 00:00 Seasonal allergic rhinitis [facility] 2023-06-06 00:00 Migraine [facility] 2023-06-06 00:00 Migraine [facility] 2023-06-06 00:00 Hypertensive disorder [facility] 2023-06-06 00:00 Hypertensive disorder [facility] 2023-06-06 00:00 Benign essential hypertension [facility] 2023-06-06 00:00 Benign essential hypertension [facility] 2023-06-06 00:00 Hypothyroidism [facility] 2023-06-06 00:00 Hypothyroidism [facility] 2023-06-06 00:00 Obesity [facility] 2023-06-06 00:00 Obesity [facility] 2023-06-06 00:00 Diabetic peripheral neuropathy [facility] 2023-06-06 00:00 Diabetic peripheral neuropathy [facility] 2023-06-06 00:00 Type II diabetes silvana litus uncontrolled [facility] 2023-06-06 00:00 Type II diabetes silvana litus uncontrolled [facility] 2023-06-06 00:00 Type 2 diabetes yuri itus well controlled [facility] 2023-06-06 00:00 Type 2 diabetes yuri itus well controlled [facility] 2023-06-06 00:00 Allergic rhinitis due to pollen [facility] 2023-06-06 00:00 Allergic rhinitis due to pollen [facility] 2023-06-06 00:00 Asthma, unspecified [facility] 2023-06-06 00:00 Asthma, unspecified [facility] 2023-06-06 00:00 Hyperlipidemia [facility] 2023-06-06 00:00 Hyperlipidemia [facility] 2023-06-06 00:00 Hypothyroidism, unspecified [facility] 2023-06-06 00:00 Hypothyroidism, unspecified [facility] 2023-06-06 00:00 Nontoxic multinodular goiter [facility] 2023-06-06 00:00 Nontoxic multinodular goiter [facility] [place] 2023-06-06 00:00 Type 2 diabetes yuri itus with diabetic neuropathy, unspecified [facility] 2023-06-06 00:00 Type 2 diabetes yuri itus with diabetic neuropathy, unspecified [facility] 2023-06-06 00:00 Type 2 diabetes yuri itus with diabetic peripheral angiopathy without gangrene [facility] 2023-06-06 00:00 Type 2 diabetes yuri itus with diabetic peripheral angiopathy without gangrene [facility] 2023-06-06 00:00 Type 2 diabetes yuri itus with hyperglycemia [facility] 2023-06-06 00:00 Type 2 diabetes yuri itus with hyperglycemia [facility] 2023-06-06 00:00 Type 2 diabetes yuri itus without complications [facility] 2023-06-06 00:00 Type 2 diabetes yuri itus without complications [facility] [place] 2023-06-06 00:00 Obesity, unspecified [facility] [place] 2023-06-06 00:00 Obesity, unspecified [facility] [place] 2023-06-06 00:00 Restless legs syndrome [facility] [place] 2023-06-06 00:00 Restless legs syndrome [facility] [place] 2023-06-06 00:00 Migraine, unspecifie d, not intractable, without status migrainosus [facility] [place] 2023-06-06 00:00 Migraine, unspecifie d, not intractable, without status migrainosus [facility] [place] 2023-06-06 00:00 Essential (primary) hypertensio n [facility] [place] 2023-06-06 00:00 Essential (primary) hypertensio n [facility] [place] 2023-06-06 00:00 Other seasonal allergic rhiniti s [facility] [place] 2023-06-06 00:00 Other seasonal allergic rhiniti s [facility] [place] 2023-06-06 00:00 Unspecified asthma, uncomplicat ed [facility] 2023-06-06 00:00 Unspecified asthma, uncomplicat ed [facility] [place] 2023-06-08 00:00 Asthma [facility] [place] 2023-06-08 00:00 Multinodular goiter [facility] [place] 2023-06-08 00:00 Unspecified hypothyroidism [facility] [place] 2023-06-08 00:00 Diabetes mellitus wi thout mention of complication, type II or unspecified type, not stated as uncontrolled [facility] 2023-06-08 00:00 Diabetes mellitus wi th neurological manifestations, type II or unspecified type, not stated as uncontrolled [facility] 2023-06-08 00:00 Diabetes mellitus wi th peripheral circulatory disorders, type II or unspecified type, not stated as uncontrolled [facility] 2023-06-08 00:00 Diabetes mellitus wi th other specified manifestations, type II or unspecified type, not stated as uncontrolled [facility] 2023-06-08 00:00 Other and unspecified hyperlipi demia [facility] 2023-06-08 00:00 Restless legs [facility] 2023-06-08 00:00 Restless legs syndrome (RLS) [facility] 2023-06-08 00:00 Migraine, unspecifie d, without mention of intractable migraine, without mention of status migrainosus [facility] 2023-06-08 00:00 Seasonal allergic rhinitis [facility] 2023-06-08 00:00 Migraine [facility] 2023-06-08 00:00 Hypertensive disorder [facility] 2023-06-08 00:00 Benign essential hypertension [facility] 2023-06-08 00:00 Hypothyroidism [facility] 2023-06-08 00:00 Obesity [facility] 2023-06-08 00:00 Diabetic peripheral neuropathy [facility] 2023-06-08 00:00 Type II diabetes silvana litus uncontrolled [facility] 2023-06-08 00:00 Type 2 diabetes yuri itus well controlled [facility] 2023-06-08 00:00 Allergic rhinitis due to pollen [facility] 2023-06-08 00:00 Asthma, unspecified [facility] 2023-06-08 00:00 Hyperlipidemia [facility] 2023-06-08 00:00 Hypothyroidism, unspecified [facility] 2023-06-08 00:00 Nontoxic multinodular goiter [facility] 2023-06-08 00:00 Type 2 diabetes yuri itus with diabetic neuropathy, unspecified [facility] 2023-06-08 00:00 Type 2 diabetes yuri itus with diabetic peripheral angiopathy without gangrene [facility] [place] 2023-06-08 00:00 Type 2 diabetes yuri itus with hyperglycemia [facility] [place] 2023-06-08 00:00 Type 2 diabetes yuri itus without complications [facility] [place] 2023-06-08 00:00 Obesity, unspecified [facility] [place] 2023-06-08 00:00 Restless legs syndrome [facility] [place] 2023-06-08 00:00 Migraine, unspecifie d, not intractable, without status migrainosus [facility] [place] 2023-06-08 00:00 Essential (primary) hypertensio n [facility] [place] 2023-06-08 00:00 Other seasonal allergic rhiniti s [facility] [facility] 2023-06-08 00:00 Unspecified asthma, uncomplicat ed [facility] Procedures date description facility 2023-06-02 00:00 Visit Code Hold [facility] 2023-06-02 00:00 Visit Code Hold [facility] 2023-06-02 00:00 Visit Code Hold [facility] 2023-06-02 00:00 Visit Code Hold [facility] 2023-06-02 00:00 Visit Code Hold [facility] 2023-06-02 00:00 Visit Code Hold [facility] 2023-06-02 00:00 Visit Code [facility] 2023-06-06 00:00 Visit Code Hold [facility] 2023-06-06 00:00 Visit Code Hold [facility] 2023-06-06 00:00 Visit Code Hold [facility] 2023-06-02 00:00 COMPREHENSIVE METABOLIC PANEL [facility] 2023-06-02 00:00 COMPREHENSIVE METABOLIC PANEL [facility] 2023-06-02 00:00 COMPREHENSIVE METABOLIC PANEL [facility] 2023-06-02 00:00 COMPREHENSIVE METABOLIC PANEL [facility] 2023-06-02 00:00 COMPREHENSIVE METABOLIC PANEL [facility] 2023-06-02 00:00 COMPREHENSIVE METABOLIC PANEL [facility] 2023-06-02 00:00 COMPREHENSIVE METABOLIC PANEL [facility] 2023-06-02 00:00 POC GLUCOSE BLOOD TEST [facility] 2023-06-02 00:00 POC GLUCOSE BLOOD TEST [facility] 2023-06-02 00:00 POC GLUCOSE BLOOD TEST [facility] 2023-06-02 00:00 POC GLUCOSE BLOOD TEST [facility] 2023-06-02 00:00 POC GLUCOSE BLOOD TEST [facility] 2023-06-02 00:00 POC GLUCOSE BLOOD TEST [facility] 2023-06-02 00:00 POC GLUCOSE BLOOD TEST [facility] Results/Labs test date facility value unit notes Social History date description facility 2023-06-02 00:00 Never smoker [facility] 2023-06-02 00:00 Never smoker [facility] 2023-06-02 00:00 Never smoker [facility] 2023-06-02 00:00 Never smoker [facility] 2023-06-02 00:00 Never smoker [facility] 2023-06-02 00:00 Never smoker [facility] 2023-06-02 00:00 Never smoker [facility] 2023-06-06 00:00 Never smoker [facility] 2023-06-06 00:00 Never smoker [facility] 2023-06-06 00:00 Never smoker [facility] Vital Signs date measurement value units 2023-06-02 00:00 BMI 41.30 kg/m2 2023-06-02 00:00 BP_diastolic 83 mmHg 2023-06-02 00:00 BP_systolic 133 mmHg 2023-06-02 00:00 heart_rate 73 /min 2023-06-02 00:00 height_metric 157.48 cm 2023-06-02 00:00 height_standard 62 in 2023-06-02 00:00 respiration_rate 16 /min 2023-06-02 00:00 temperature_metric 36.67 C 2023-06-02 00:00 temperature_standard 98 F 2023-06-02 00:00 weight_metric 102.06 kg 2023-06-02 00:00 weight_standard 225 lb 2023-06-06 00:00 BMI 41.82 kg/m2 2023-06-06 00:00 BP_diastolic 77 mmHg 2023-06-06 00:00 BP_systolic 132 mmHg 2023-06-06 00:00 heart_rate 88 /min 2023-06-06 00:00 height_metric 157.48 cm 2023-06-06 00:00 height_standard 62 in 2023-06-06 00:00 respiration_rate 18 /min 2023-06-06 00:00 temperature_metric 36.61 C 2023-06-06 00:00 temperature_standard 97.9 F 2023-06-06 00:00 weight_metric 103.33 kg 2023-06-06 00:00 weight_standard 227.8 lb
[2023-06-18 12:54] LABS: BASOPHILS # (AUTO) 0.1 10^3/uL (0.0-0.1); BASOPHILS % (AUTO) 0.7 %; EOSINOPHILS # (AUTO) 0.2 10^3/uL (0.0-0.7); EOSINOPHILS % (AUTO) 2.6 %; HCT - HEMATOCRIT 35.8 % (37.0-47.0); LYMPHOCYTES # (AUTO) 0.8 10^3/uL (1.5-3.5); LYMPHOCYTES % (AUTO) 9.2 %; MEAN CORPUSCULAR HEMOGLOBIN 26.8 pg (27.0-31.0); MEAN CORPUSCULAR HGB CONC 30.7 g/dL (32.0-36.0); MEAN CORPUSCULAR VOLUME 87.3 fL (81.0-99.0); MEAN PLATELET VOLUME 11.8 fL (7.9-10.8); MONOCYTES # (AUTO) 0.5 10^3/uL (0.0-1.0); MONOCYTES % (AUTO) 5.3 %; NEUTROPHILS % (AUTO) 81.7 %; PLT - PLATELET COUNT 217 10^3/uL (130-450); RED CELL DISTRIBUTION WIDTH 16.7 % (12.0-15.0); WHITE BLOOD COUNT 8.5 x10^3/uL (4.8-10.8)
[2023-06-18 13:05] LABS: ALBUMIN 3.8 g/dL (3.2-5.5); ALBUMIN/GLOBULIN RATIO 1.3 (1.0-2.2); BILIRUBIN,TOTAL 0.8 mg/dL (0.2-1.0); CALCIUM 9.4 mg/dL (8.5-10.3); CREATININE 2.9 mg/dL (0.6-1.3); POTASSIUM 3.9 mmol/L (3.5-4.5); TOTAL PROTEIN 6.8 g/dL (6.4-8.9)
--- NOTE | 2023-06-18 13:24 | XRAY Report ---
PROCEDURE: Chest 1 View X-Ray INDICATIONS: Chest Pain TECHNIQUE: One view of the chest was acquired. COMPARISON: Chest x-ray 02/23/2023 FINDINGS: Surgical changes and devices: Wireless pacer. Lungs and pleura: No pleural effusions or pneumothorax. Mild appearance of increased vascularity. Mediastinum: Mediastinal contours appear normal. Heart size is enlarged Bones and chest wall: No suspicious bony lesions. Overlying soft tissues appear unremarkable. IMPRESSION: Cardiomegaly with increased vascularity suggestive of edema. Reviewed by: Priti Benoit MD on 06/18/2023 1:23 PM PDT Approved by: Priti Benoit MD on 06/18/2023 1:23 PM PDT Station ID: [id number]
[2023-06-18] MEDS ORDERED: TORSEMIDE 20 MG TABLET PO SCH (14:00)
[2023-06-18 19:53] VITALS: BP 130/79; O2SAT 97
== END 2023-06-18 19:58 | disposition short-term general hospital (02) ==
LOC: ED 12:00
DX: I13.2 Hypertensive heart and chronic kidney disease with heart failure and with stage 5 chronic kidney disease, or end stage renal disease (principal); E11.22 Type 2 diabetes mellitus with diabetic chronic kidney disease; N18.5 Chronic kidney disease, stage 5; I50.9 Heart failure, unspecified; I48.91 Unspecified atrial fibrillation; Z79.4 Long term (current) use of insulin
CPT/HCPCS: 36415; 71045; 80053; 83690; 83880; 85025; 93005; 93306; 99284; 99285; A9270

== ENCOUNTER 2023-06-18 19:51 | Outpatient (CLI) | payer MEDICARE, OTHER, MEDICAID | END 2023-06-18 19:52 | disposition short-term general hospital (02) | LOC: EMS 19:51 | PROVIDERS: ATTEND Registered Nurse | DX: N18.4 Chronic kidney disease, stage 4 (severe) (principal); I50.9 Heart failure, unspecified; I48.91 Unspecified atrial fibrillation | CPT/HCPCS: A0425; A0428 ==

== ENCOUNTER 2023-07-05 15:22 | Outpatient (CLI) | payer MEDICARE, OTHER, MEDICAID | END 2023-07-05 15:23 | disposition critical access hospital (66) | LOC: EMS 15:22 | DX: R46.4 Slowness and poor responsiveness (principal); R11.10 Vomiting, unspecified; E11.65 Type 2 diabetes mellitus with hyperglycemia; Z79.4 Long term (current) use of insulin | CPT/HCPCS: A0425; A0427 ==

== ENCOUNTER 2023-07-05 15:30 | Emergency (ER) | payer MEDICARE, OTHER, MEDICAID ==
--- OUTSIDE RECORDS SUMMARY | 2023-07-05 16:14 | EXTERNAL MEDICAL SUMMARY RPT | Continuity of Care Document ---
Author Name Unknown Address [address] [place] [address] Phone Organization [facility] Address [address] [place] [address] Phone Care Team Providers Care Helper Metal Hanging Name Role Phone Unavailable Unavailable Unavailable Dennen Chin Strap Cutter Iii, Mara Unavailable Unav ailable Dennen Chin Strap Cutter Iii, Mara Unavailable Unav ailable Tanner Salmon, Mary Unavailable Unavailable Strempel Patient Registrar, Vickie Unavailable Unavailable Strempel Patient Registrar Ii, Linda Unavailab le Unavailable Strempel Patient Registrar, Vickie Unavailable Unavailable Emily, Provider Unavailable Unavailable Dennen Chin Strap Cutter Iii, Mara Unavailable Unav ailable Nurse, Eduin [...] [facility] 2023-06-18 00:00 apixaban [facility] 2023-06-19 00:00 apixaban [facility] 2023-06-02 00:00 apixaban [facility] 2023-06-03 00:00 apixaban [facility] [place] 2023-06-04 00:00 apixaban [facility] [place] 2023-06-04 00:00 apixaban [facility] [place] 2023-06-04 00:00 apixaban [facility] [place] 2023-06-04 00:00 apixaban [facility] [place] 2023-06-04 00:00 apixaban [facility] [place] 2023-06-06 00:00 apixaban [facility] [place] 2023-06-06 00:00 apixaban [facility] [place] 2023-06-08 00:00 apixaban [facility] [place] 2023-06-18 00:00 apixaban [facility] [place] 2023-06-19 00:00 apixaban [facility] [place] 2023-06-02 00:00 bethanechol chloride Walk-In [facility] [place] 2023-06-03 00:00 bethanechol chloride Walk-In [facility] [place] 2023-06-04 00:00 bethanechol chloride Walk[facility] [place] 2023-06-04 00:00 bethanechol chloride [facility] 2023-06-04 00:00 bethanechol chloride [facility] 2023-06-04 00:00 bethanechol chloride [facility] [place] 2023-06-04 00:00 bethanechol chloride [facility] 2023-06-06 00:00 bethanechol chloride [facility] 2023-06-06 00:00 bethanechol chloride [facility] 2023-06-08 00:00 bethanechol chloride Walk[facility] 2023-06-18 00:00 bethanechol chloride [facility] 2023-06-19 00:00 bethanechol chloride [facility] 2023-06-02 [...] [facility] 2023-06-18 00:00 aspirin [facility] 2023-06-19 00:00 aspirin [facility] [...] [facility] 2023-06-18 00:00 hydralazine [facility] 2023-06-19 00:00 hydralazine [facility] 2023-06-02 00:00 isosorbide dinitrate [facility] 2023-06-03 00:00 isosorbide dinitrate [facility] [place] 2023-06-04 00:00 isosorbide dinitrate Walk[facility]In [facility] 2023-06-04 00:00 isosorbide dinitrate Walk[facility] [place] 2023-06-04 00:00 isosorbide dinitrate Walk[facility]In [facility] 2023-06-04 00:00 isosorbide dinitrate Walk[facility] 2023-06-04 00:00 isosorbide dinitrate Walk[facility]In [facility] 2023-06-06 00:00 isosorbide dinitrate Walk-In [facility] 2023-06-06 00:00 isosorbide dinitrate Walk[facility]In [facility] 2023-06-08 00:00 isosorbide dinitrate [facility] 2023-06-18 00:00 isosorbide dinitrate [facility] 2023-06-19 00:00 isosorbide dinitrate [facility] 2023-06-02 [...] [facility] 2023-06-18 00:00 apixaban [facility] 2023-06-19 00:00 apixaban [facility] [...] [facility] 2023-06-18 00:00 apixaban [facility] [place] 2023-06-19 00:00 apixaban [facility] [place] 2023-06-02 00:00 iejina-rtsuaomm-eehzzgq [facility] [place] 2023-06-03 00:00 ajomzc-qmpgosbr-qyvkpoq [facility] [place] 2023-06-04 00:00 vybiuz-ruqpgode-fygevto [facility] [place] 2023-06-04 00:00 odpfkz-gtimmjds-kefydbo [facility] [place] 2023-06-04 00:00 gwhmom-bvldetwy-sjbzefe [facility] [place] 2023-06-04 00:00 mqurtc-epfvgeun-rlchyvb [facility] [place] 2023-06-04 00:00 uebgra-tysklbrx-sbsugjl [facility] [place] 2023-06-06 00:00 ewlrya-ikuxjwbd-kcbmlob [facility] [place] 2023-06-06 00:00 tjbrnr-uhxhurkv-ieocnhg [facility] [place] 2023-06-08 00:00 gzsdlg-ccanijry-kojdbbn [facility] [place] 2023-06-18 00:00 burjft-osohxhzs-auoiufp [facility] [place] 2023-06-19 00:00 mhpjpr-igobdhvk-skroxzo [facility] [place] 2023-06-02 00:00 apixaban [facility] [place] 2023-06-03 00:00 apixaban [facility] [place] 2023-06-04 00:00 apixaban [facility] [place] 2023-06-04 00:00 apixaban [facility] [place] 2023-06-04 00:00 apixaban [facility] [place] 2023-06-04 00:00 apixaban [facility] [place] 2023-06-04 00:00 apixaban [facility] [place] 2023-06-06 00:00 apixaban [facility] [place] 2023-06-06 00:00 apixaban [facility] [place] 2023-06-08 00:00 apixaban [facility] [place] 2023-06-18 00:00 apixaban [facility] [place] 2023-06-19 00:00 apixaban [facility] [place] 2023-06-02 00:00 apixaban [facility] [place] 2023-06-03 00:00 apixaban [facility] [place] 2023-06-04 00:00 apixaban [facility] [place] 2023-06-04 00:00 apixaban [facility] [place] 2023-06-04 00:00 apixaban [facility] [place] 2023-06-04 00:00 apixaban [facility] [place] 2023-06-04 00:00 apixaban [facility] [place] 2023-06-06 00:00 apixaban [facility] [place] 2023-06-06 00:00 apixaban [facility] [place] 2023-06-08 00:00 apixaban [facility] [place] 2023-06-18 00:00 apixaban [facility] [place] 2023-06-19 00:00 apixaban [facility] [place] 2023-06-02 00:00 iindby-gdomyyxi-psuuuvi [facility] [place] 2023-06-03 00:00 ojcibb-ebmmkgdo-vaswfky [facility] [place] 2023-06-04 00:00 pthfta-euivndee-vpsmmwp [facility] [place] 2023-06-04 00:00 skbymp-nzevgtdx-mbcvuuy [facility] [place] 2023-06-04 00:00 pkghvh-jpnoetnx-buezstc [facility] [place] 2023-06-04 00:00 ucegme-tzjapyiu-eweicwl [facility] [place] 2023-06-04 00:00 lvpdbb-fwvgekzl-tpoxlqv [facility] [place] 2023-06-06 00:00 dnmcle-ofnjtqxy-drmznve [facility] [place] 2023-06-06 00:00 vwcmrc-orlbsrom-larrjdd [facility] [place] 2023-06-08 00:00 uzhiqn-ruzdkjoj-slyithb [facility] [place] 2023-06-18 00:00 spjbmh-gbzlddne-jxlspet [facility] [place] 2023-06-19 00:00 pdwvmt-yvefeawn-nttfpbi [facility] [place] 2023-06-02 00:00 digoxin [facility] [place] 2023-06-03 00:00 digoxin [facility] [place] 2023-06-04 00:00 digoxin [facility] [place] 2023-06-04 00:00 digoxin [facility] [place] 2023-06-04 00:00 digoxin [facility] [place] 2023-06-04 00:00 digoxin [facility] [place] 2023-06-04 00:00 digoxin [facility] [place] 2023-06-06 00:00 digoxin [facility] [place] 2023-06-06 00:00 digoxin [facility] [place] 2023-06-08 00:00 digoxin [facility] [place] 2023-06-18 00:00 digoxin [facility] [place] 2023-06-19 00:00 digoxin [facility] [place] 2023-06-02 00:00 aspirin [facility] [place] 2023-06-03 00:00 aspirin [facility] [place] 2023-06-04 00:00 aspirin [facility] 2023-06-04 00:00 aspirin [facility] [place] 2023-06-04 00:00 aspirin [facility] [place] 2023-06-04 00:00 aspirin [facility] 2023-06-04 00:00 aspirin [facility] [place] 2023-06-06 00:00 aspirin [facility] [place] 2023-06-06 00:00 aspirin [facility] [place] 2023-06-08 00:00 aspirin [facility] [place] 2023-06-18 00:00 aspirin [facility] [place] 2023-06-19 00:00 aspirin [facility] [place] 2023-06-03 00:00 torsemide [facility] [place] 2023-06-04 00:00 torsemide [facility] [place] 2023-06-04 00:00 torsemide [facility] [place] 2023-06-04 00:00 torsemide [facility] [place] 2023-06-04 00:00 torsemide [facility] [place] 2023-06-04 00:00 torsemide [facility] [place] 2023-06-06 00:00 torsemide [facility] [place] 2023-06-06 00:00 torsemide [facility] [place] 2023-06-06 00:00 torsemide [facility] [place] 2023-06-06 00:00 torsemide [facility] [place] 2023-06-08 00:00 torsemide [facility] [place] 2023-06-18 00:00 torsemide [facility] [place] 2023-06-19 00:00 torsemide [facility] [place] 2023-06-02 00:00 atorvastatin [facility] [place] 2023-06-03 00:00 atorvastatin [facility] [place] 2023-06-04 00:00 atorvastatin [facility] [place] 2023-06-04 00:00 atorvastatin [facility] [place] 2023-06-04 00:00 atorvastatin [facility] [place] 2023-06-04 00:00 atorvastatin [facility] [place] 2023-06-04 00:00 atorvastatin [facility] [place] 2023-06-06 00:00 atorvastatin [facility] [place] 2023-06-06 00:00 atorvastatin [facility] [place] 2023-06-08 00:00 atorvastatin [facility] [place] 2023-06-18 00:00 atorvastatin [facility] [place] 2023-06-19 00:00 atorvastatin [facility] [place] 2023-06-02 00:00 bethanechol chloride Walk[facility]In [facility] [place] 2023-06-03 00:00 bethanechol chloride [facility] [place] 2023-06-04 00:00 bethanechol chloride [facility] [place] 2023-06-04 00:00 bethanechol chloride [facility] [place] 2023-06-04 00:00 bethanechol chloride [facility] [place] 2023-06-04 00:00 bethanechol chloride [facility] [place] 2023-06-04 00:00 bethanechol chloride [facility] 2023-06-06 00:00 bethanechol chloride [facility] 2023-06-06 00:00 bethanechol chloride [facility] 2023-06-08 00:00 bethanechol chloride Walk[facility]In [facility] 2023-06-18 00:00 bethanechol chloride [facility] 2023-06-19 00:00 bethanechol chloride [facility] [place] 2023-06-02 00:00 digoxin [facility] 2023-06-03 00:00 digoxin [facility] 2023-06-04 00:00 digoxin [facility] [place] 2023-06-04 00:00 digoxin [facility] 2023-06-04 00:00 digoxin [facility] [place] 2023-06-04 00:00 digoxin [facility] [place] 2023-06-04 00:00 digoxin [facility] [place] 2023-06-06 00:00 digoxin [facility] [place] 2023-06-06 00:00 digoxin [facility] [place] 2023-06-08 00:00 digoxin [facility] [place] 2023-06-18 00:00 digoxin [facility] [place] 2023-06-19 00:00 digoxin [facility] [place] 2023-06-02 00:00 sumatriptan succinate Walk-In [facility] 2023-06-03 00:00 sumatriptan succinate Walk-In [facility] 2023-06-04 00:00 sumatriptan succinate Walk-In [facility] 2023-06-04 00:00 sumatriptan succinate Walk[facility]In [facility] 2023-06-04 00:00 sumatriptan succinate Walk-In [facility] 2023-06-04 00:00 sumatriptan succinate Walk[facility]In [facility] 2023-06-04 00:00 sumatriptan succinate Walk-In [facility] 2023-06-06 00:00 sumatriptan succinate Walk[facility]In [facility] 2023-06-06 00:00 sumatriptan succinate Walk-In [facility] 2023-06-08 00:00 sumatriptan succinate Walk-In [facility] [place] 2023-06-18 00:00 sumatriptan succinate Walk-In [facility] 2023-06-19 00:00 sumatriptan succinate Walk[facility]In [facility] 2023-06-02 00:00 isosorbide dinitrate Walk[facility]In [facility] 2023-06-03 00:00 isosorbide dinitrate [facility] 2023-06-04 00:00 isosorbide dinitrate [facility] 2023-06-04 00:00 isosorbide dinitrate [facility] 2023-06-04 00:00 isosorbide dinitrate [facility] 2023-06-04 00:00 isosorbide dinitrate [facility] 2023-06-04 00:00 isosorbide dinitrate [facility] 2023-06-06 00:00 isosorbide dinitrate [facility] 2023-06-06 00:00 isosorbide dinitrate [facility] 2023-06-08 00:00 isosorbide dinitrate [facility] 2023-06-18 00:00 isosorbide dinitrate [facility] 2023-06-19 00:00 isosorbide dinitrate [facility] 2023-06-02 00:00 diltiazem hcl Walk-In [facility] 2023-06-03 00:00 diltiazem hcl [facility] [place] 2023-06-04 00:00 diltiazem hcl [facility] [place] 2023-06-04 00:00 diltiazem hcl [facility] [place] 2023-06-04 00:00 diltiazem hcl [facility] [place] 2023-06-04 00:00 diltiazem hcl [facility] [place] 2023-06-04 00:00 diltiazem hcl [facility] [place] 2023-06-06 00:00 diltiazem hcl [facility] [place] 2023-06-06 00:00 diltiazem hcl [facility] [place] 2023-06-08 00:00 diltiazem hcl [facility] [place] 2023-06-18 00:00 diltiazem hcl [facility] [place] 2023-06-19 00:00 diltiazem hcl [facility] [place] 2023-06-03 00:00 diltiazem hcl [facility] [place] 2023-06-04 00:00 diltiazem hcl [facility] [place] 2023-06-04 00:00 diltiazem hcl [facility] [place] 2023-06-04 00:00 diltiazem hcl [facility] [place] 2023-06-04 00:00 diltiazem hcl [facility] [place] 2023-06-04 00:00 diltiazem hcl [facility] [place] 2023-06-06 00:00 diltiazem hcl [facility] [place] 2023-06-06 00:00 diltiazem hcl [facility] [place] 2023-06-08 00:00 diltiazem hcl [facility] [place] 2023-06-18 00:00 diltiazem hcl [facility] [place] 2023-06-19 00:00 diltiazem hcl [facility] [place] 2023-06-02 00:00 hydralazine [facility] [place] 2023-06-03 00:00 hydralazine [facility] [place] 2023-06-04 00:00 hydralazine [facility] [place] 2023-06-04 00:00 hydralazine [facility] [place] 2023-06-04 00:00 hydralazine [facility] [place] 2023-06-04 00:00 hydralazine [facility] [place] 2023-06-04 00:00 hydralazine [facility] [place] 2023-06-06 00:00 hydralazine [facility] [place] 2023-06-06 00:00 hydralazine [facility] [place] 2023-06-08 00:00 hydralazine [facility] [place] 2023-06-18 00:00 hydralazine [facility] [place] 2023-06-19 00:00 hydralazine [facility] [place] 2023-06-03 00:00 torsemide [facility] [place] 2023-06-04 00:00 torsemide [facility] [place] 2023-06-04 00:00 torsemide [facility] [place] 2023-06-04 00:00 torsemide [facility] 2023-06-04 00:00 torsemide [facility] [place] 2023-06-04 00:00 torsemide [facility] [place] 2023-06-06 00:00 torsemide [facility] [place] 2023-06-06 00:00 torsemide [facility] 2023-06-06 00:00 torsemide [facility] 2023-06-06 00:00 torsemide [facility] 2023-06-08 00:00 torsemide [facility] 2023-06-18 00:00 torsemide [facility] 2023-06-19 00:00 torsemide [facility] 2023-06-02 00:00 isosorbide dinitrate Walk[facility]In [facility] 2023-06-03 00:00 isosorbide dinitrate [facility] 2023-06-04 00:00 isosorbide dinitrate [facility] 2023-06-04 00:00 isosorbide dinitrate Walk[facility]In [facility] 2023-06-04 00:00 isosorbide dinitrate Walk[facility]In [facility] 2023-06-04 00:00 isosorbide dinitrate Walk[facility]In [facility] 2023-06-04 00:00 isosorbide dinitrate [facility] 2023-06-06 00:00 isosorbide dinitrate Walk[facility]In [facility] 2023-06-06 00:00 isosorbide dinitrate Walk[facility]In [facility] 2023-06-08 00:00 isosorbide dinitrate Walk-In [facility] 2023-06-18 00:00 isosorbide dinitrate [facility] 2023-06-19 00:00 isosorbide dinitrate Walk[facility] 2023-06-02 00:00 atorvastatin [facility] 2023-06-03 00:00 atorvastatin [facility] 2023-06-04 00:00 atorvastatin [facility] [facility] 2023-06-04 00:00 [facility] 2023-06-04 00:00 [facility] 2023-06-04 00:00 [facility]vastatin [facility] [place] 2023-06-04 00:00 [facility]vastatin [facility] [place] 2023-06-06 00:00 [facility]orvastatin [facility] [place] 2023-06-06 00:00 [facility]orvastatin [facility] [place] 2023-06-08 00:00 atorvastatin [facility] [place] 2023-06-18 00:00 atorvastatin [facility] [place] 2023-06-19 00:00 atorvastatin [facility] [place] 2023-06-02 00:00 [facility]orvastatin [facility] [place] 2023-06-03 00:00 [facility]vastatin [facility] [place] 2023-06-04 00:00 [facility]orvastatin [facility] [place] 2023-06-04 00:00 [facility]orvastatin [facility] [place] 2023-06-04 00:00 [facility]vastatin [facility] [place] 2023-06-04 00:00 [facility]orvastatin [facility] [place] 2023-06-04 00:00 [facility]orvastatin [facility] [place] 2023-06-06 00:00 [facility]orvastatin [facility] [place] 2023-06-06 00:00 [facility]vastatin [facility] [place] 2023-06-08 00:00 [facility]orvastatin [facility] [place] 2023-06-18 00:00 [facility]vastatin [facility] [place] 2023-06-19 00:00 [facility]vastatin [facility] [place] 2023-06-02 00:00 sumatriptan succinate [facility] 2023-06-03 00:00 sumatriptan succinate [facility] [place] 2023-06-04 00:00 sumatriptan succinate [facility] [place] 2023-06-04 00:00 sumatriptan succinate [facility] [place] 2023-06-04 00:00 sumatriptan succinate [facility] [place] 2023-06-04 00:00 sumatriptan succinate [facility] [place] 2023-06-04 00:00 sumatriptan succinate [facility] [place] 2023-06-06 00:00 sumatriptan succinate [facility] [place] 2023-06-06 00:00 sumatriptan succinate [facility] [place] 2023-06-08 00:00 sumatriptan succinate [facility] [place] 2023-06-18 00:00 sumatriptan succinate [facility] [place] 2023-06-19 00:00 sumatriptan succinate [facility] [place] 2023-06-03 00:00 torsemide [facility] [place] 2023-06-04 00:00 torsemide [facility] [place] 2023-06-04 00:00 torsemide [facility] [place] 2023-06-04 00:00 torsemide [facility] [place] 2023-06-04 00:00 torsemide [facility] [place] 2023-06-04 00:00 torsemide [facility] [place] 2023-06-06 00:00 torsemide [facility] [place] 2023-06-06 00:00 torsemide [facility] [place] 2023-06-06 00:00 torsemide [facility] [place] 2023-06-06 00:00 torsemide [facility] [place] 2023-06-08 00:00 torsemide [facility] [place] 2023-06-18 00:00 torsemide [facility] [place] 2023-06-19 00:00 torsemide [facility] [place] 2023-06-02 00:00 diltiazem hcl [facility] [place] 2023-06-03 00:00 diltiazem hcl [facility] [place] 2023-06-04 00:00 diltiazem hcl [facility] [place] 2023-06-04 00:00 diltiazem hcl [facility] [place] 2023-06-04 00:00 diltiazem hcl [facility] [place] 2023-06-04 00:00 diltiazem hcl [facility] [place] 2023-06-04 00:00 diltiazem hcl [facility] [place] 2023-06-06 00:00 diltiazem hcl [facility] [place] 2023-06-06 00:00 diltiazem hcl [facility] [place] 2023-06-08 00:00 diltiazem hcl [facility] [place] 2023-06-18 00:00 diltiazem hcl [facility] [place] 2023-06-19 00:00 diltiazem hcl [facility] [place] 2023-06-03 00:00 diltiazem hcl [facility] [place] 2023-06-04 00:00 diltiazem hcl [facility] [place] 2023-06-04 00:00 diltiazem hcl [facility] [place] 2023-06-04 00:00 diltiazem hcl [facility] [place] 2023-06-04 00:00 diltiazem hcl [facility] [place] 2023-06-04 00:00 diltiazem hcl [facility] [place] 2023-06-06 00:00 diltiazem hcl [facility] [place] 2023-06-06 00:00 diltiazem hcl [facility] [place] 2023-06-08 00:00 diltiazem hcl [facility] 2023-06-18 00:00 diltiazem hcl [facility] [place] 2023-06-19 00:00 diltiazem hcl [facility] [place] 2023-06-02 00:00 atorvastatin [facility] [place] 2023-06-03 00:00 [facility]orvastatin [facility] [place] 2023-06-04 00:00 [facility]orvastatin [facility] [place] 2023-06-04 00:00 [facility]vastatin [facility] [place] 2023-06-04 00:00 [facility]orvastatin [facility] [place] 2023-06-04 00:00 atorvastatin [facility] [place] 2023-06-04 00:00 [facility]vastatin [facility] [place] 2023-06-06 00:00 [facility]orvastatin [facility] [place] 2023-06-06 00:00 atorvastatin [facility] [place] 2023-06-08 00:00 [facility]orvastatin [facility] [place] 2023-06-18 00:00 [facility]orvastatin [facility] [place] 2023-06-19 00:00 [facility]orvastatin [facility] [place] 2023-06-02 00:00 isosorbide dinitrate [facility] 2023-06-03 00:00 isosorbide dinitrate [facility] 2023-06-04 00:00 isosorbide dinitrate [facility] 2023-06-04 00:00 isosorbide dinitrate [facility] 2023-06-04 00:00 isosorbide dinitrate [facility] 2023-06-04 00:00 isosorbide dinitrate [facility] 2023-06-04 00:00 isosorbide dinitrate [facility] 2023-06-06 00:00 isosorbide dinitrate [facility] 2023-06-06 00:00 isosorbide dinitrate [facility] 2023-06-08 00:00 isosorbide dinitrate [facility] 2023-06-18 00:00 isosorbide dinitrate [facility] 2023-06-19 00:00 isosorbide dinitrate [facility] 2023-06-02 [...] [facility] 2023-06-18 00:00 hydralazine [facility] 2023-06-19 00:00 hydralazine [facility] [place] 2023-06-03 00:00 torsemide [facility] [place] 2023-06-04 00:00 torsemide [facility] [place] 2023-06-04 00:00 torsemide [facility] [place] 2023-06-04 00:00 torsemide [facility] [place] 2023-06-04 00:00 torsemide [facility] [place] 2023-06-04 00:00 torsemide [facility] [place] 2023-06-06 00:00 torsemide [facility] [place] 2023-06-06 00:00 torsemide [facility] [place] 2023-06-06 00:00 torsemide [facility] [place] 2023-06-06 00:00 torsemide [facility] [place] 2023-06-08 00:00 torsemide [facility] [place] 2023-06-18 00:00 torsemide [facility] [place] 2023-06-19 00:00 [facility]semide [facility] [place] 2023-06-02 00:00 mpvucc-igguhssj-mmqdwyy [facility] [place] 2023-06-03 00:00 eqhbio-kptsumao-nnbuzib [facility] [place] 2023-06-04 00:00 skwlxc-ngiptsjx-zhyiheq [facility] [place] 2023-06-04 00:00 exggjb-vwxbbqss-ceysjfc [facility] [place] 2023-06-04 00:00 xsqqaz-ngrbiyru-oqeqfkv [facility] [place] 2023-06-04 00:00 jxjzxp-txxsrqsb-ielqlbt [facility] [place] 2023-06-04 00:00 nrvdiw-kavldpqr-gjwdspt [facility] [place] 2023-06-06 00:00 tsvuny-fmvxnrjd-yvhfnov [facility] [place] 2023-06-06 00:00 ofkiyy-iisbjoqg-uqztdat [facility] [place] 2023-06-08 00:00 gufcem-sxtemgvd-pnsobfa [facility] [place] 2023-06-18 00:00 hlgela-tctbgebt-emosads [facility] [place] 2023-06-19 00:00 mjavoy-ocjudwtu-etfguos [facility] [place] 2023-06-02 00:00 bethanechol chloride [facility] [place] 2023-06-03 00:00 bethanechol chloride [facility] [place] 2023-06-04 00:00 bethanechol chloride [facility] [place] 2023-06-04 00:00 bethanechol chloride [facility] [place] 2023-06-04 00:00 bethanechol chloride [facility] [place] 2023-06-04 00:00 bethanechol chloride [facility] [place] 2023-06-04 00:00 bethanechol chloride [facility] [place] 2023-06-06 00:00 bethanechol chloride [facility] [place] 2023-06-06 00:00 bethanechol chloride [facility] [place] 2023-06-08 00:00 bethanechol chloride [facility] [place] 2023-06-18 00:00 bethanechol chloride [facility] [place] 2023-06-19 00:00 bethanechol chloride [facility] 2023-06-02 00:00 digoxin [facility] [place] 2023-06-03 00:00 digoxin [facility] 2023-06-04 00:00 digoxin [facility] [place] 2023-06-04 00:00 digoxin [facility] [place] 2023-06-04 00:00 digoxin [facility] [place] 2023-06-04 00:00 digoxin [facility] [place] 2023-06-04 00:00 digoxin [facility] [place] 2023-06-06 00:00 digoxin [facility] [place] 2023-06-06 00:00 digoxin [facility] [place] 2023-06-08 00:00 digoxin [facility] [place] 2023-06-18 00:00 digoxin [facility] [place] 2023-06-19 00:00 digoxin [facility] [place] 2023-06-02 00:00 atorvastatin [facility] [place] 2023-06-03 00:00 atorvastatin [facility] [place] 2023-06-04 00:00 atorvastatin [facility] [place] 2023-06-04 00:00 atorvastatin [facility] [place] 2023-06-04 00:00 atorvastatin [facility] [place] 2023-06-04 00:00 atorvastatin [facility] [place] 2023-06-04 00:00 atorvastatin [facility] [place] 2023-06-06 00:00 atorvastatin [facility] [place] 2023-06-06 00:00 atorvastatin [facility] [place] 2023-06-08 00:00 atorvastatin [facility] [place] 2023-06-18 00:00 atorvastatin [facility] [place] 2023-06-19 00:00 atorvastatin [facility] [place] 2023-06-02 00:00 cuqwfb-hyamtyoo-apdjtoc [facility] [place] 2023-06-03 00:00 mxbrie-hwyuftlp-elvngbo [facility] [place] 2023-06-04 00:00 opvbft-ljhaghix-hsstbex [facility] [place] 2023-06-04 00:00 wrrqtl-lmqgrpof-lhxqfdf [facility] [place] 2023-06-04 00:00 akwmjp-sexwwose-hpnreih [facility] [place] 2023-06-04 00:00 dlenls-luoqpznx-gjzvxzg [facility] [place] 2023-06-04 00:00 ssoomb-vcvcdlbu-vvdziff [facility] [place] 2023-06-06 00:00 alrmeh-blwomktx-bwrazoz [facility] [place] 2023-06-06 00:00 revbgo-kxflkcjv-mryagsr [facility] [place] 2023-06-08 00:00 ferewd-avtepfjk-glkxafe [facility] [place] 2023-06-18 00:00 qwjipz-yfxurokx-sgzqejk [facility] [place] 2023-06-19 00:00 heoxxi-fuwjusfl-ggaqiew [facility] [place] 2023-06-02 00:00 sumatriptan succinate [facility] [place] 2023-06-03 00:00 sumatriptan succinate [facility] [place] 2023-06-04 00:00 sumatriptan succinate [facility] [place] 2023-06-04 00:00 sumatriptan succinate [facility] [place] 2023-06-04 00:00 sumatriptan succinate [facility] [place] 2023-06-04 00:00 sumatriptan succinate [facility] [place] 2023-06-04 00:00 sumatriptan succinate [facility] [place] 2023-06-06 00:00 sumatriptan succinate [facility] [place] 2023-06-06 00:00 sumatriptan succinate [facility] [place] 2023-06-08 00:00 sumatriptan succinate [facility] 2023-06-18 00:00 sumatriptan succinate [facility] 2023-06-19 00:00 sumatriptan succinate [facility] [place] 2023-06-02 00:00 atorvastatin [facility] 2023-06-03 00:00 atorvastatin [facility] 2023-06-04 00:00 atorvastatin [facility] [place] 2023-06-04 00:00 atorvastatin [facility] [place] 2023-06-04 00:00 atorvastatin [facility] [place] 2023-06-04 00:00 atorvastatin [facility] [place] 2023-06-04 00:00 atorvastatin [facility] [place] 2023-06-06 00:00 atorvastatin [facility] [place] 2023-06-06 00:00 atorvastatin [facility] [place] 2023-06-08 00:00 atorvastatin [facility] [place] 2023-06-18 00:00 atorvastatin [facility] [place] 2023-06-19 00:00 atorvastatin [facility] [place] 2023-06-02 00:00 atorvastatin [facility] [place] 2023-06-03 00:00 atorvastatin [facility] [place] 2023-06-04 00:00 atorvastatin [facility] [place] 2023-06-04 00:00 atorvastatin [facility] [place] 2023-06-04 00:00 atorvastatin [facility] [place] 2023-06-04 00:00 atorvastatin [facility] [place] 2023-06-04 00:00 atorvastatin [facility] 2023-06-06 00:00 atorvastatin [facility] 2023-06-06 00:00 atorvastatin [facility] [place] 2023-06-08 00:00 atorvastatin [facility] [place] 2023-06-18 00:00 atorvastatin [facility] [place] 2023-06-19 00:00 atorvastatin [facility] [place] 2023-06-02 00:00 aspirin [facility] [place] 2023-06-03 00:00 aspirin [facility] [place] 2023-06-04 00:00 aspirin [facility] [place] 2023-06-04 00:00 aspirin [facility] [place] 2023-06-04 00:00 aspirin [facility] [place] 2023-06-04 00:00 aspirin [facility] [place] 2023-06-04 00:00 aspirin [facility] [place] 2023-06-06 00:00 aspirin [facility] [place] 2023-06-06 00:00 aspirin [facility] [place] 2023-06-08 00:00 aspirin [facility] [place] 2023-06-18 00:00 aspirin [facility] [place] 2023-06-19 00:00 aspirin [facility] [place] 2023-06-02 00:00 digoxin [facility] [place] 2023-06-03 00:00 digoxin [facility] [place] 2023-06-04 00:00 digoxin [facility] [place] 2023-06-04 00:00 digoxin [facility] [place] 2023-06-04 00:00 digoxin [facility] [place] 2023-06-04 00:00 digoxin [facility] [place] 2023-06-04 00:00 digoxin [facility] [place] 2023-06-06 00:00 digoxin [facility] [place] 2023-06-06 00:00 digoxin [facility] 2023-06-08 00:00 digoxin [facility] 2023-06-18 00:00 digoxin [facility] 2023-06-19 00:00 digoxin [facility] [...] [facility] [place] 2023-06-08 00:00 atorvastatin [facility] 2023-06-18 00:00 atorvastatin [facility] [place] 2023-06-19 00:00 atorvastatin [facility] 2023-06-02 00:00 sumatriptan succinate Walk[facility]In [facility] 2023-06-03 00:00 sumatriptan succinate [facility] 2023-06-04 00:00 sumatriptan succinate [facility] 2023-06-04 00:00 sumatriptan succinate [facility] 2023-06-04 00:00 sumatriptan succinate [facility] 2023-06-04 00:00 sumatriptan succinate [facility] 2023-06-04 00:00 sumatriptan succinate [facility] [place] 2023-06-06 00:00 sumatriptan succinate [facility] [place] 2023-06-06 00:00 sumatriptan succinate [facility] [place] 2023-06-08 00:00 sumatriptan succinate [facility] [place] 2023-06-18 00:00 sumatriptan succinate [facility] [place] 2023-06-19 00:00 sumatriptan succinate [facility] [place] 2023-06-02 00:00 diltiazem hcl [facility] [place] 2023-06-03 00:00 diltiazem hcl [facility] [place] 2023-06-04 00:00 diltiazem hcl [facility] [place] 2023-06-04 00:00 diltiazem hcl [facility] [place] 2023-06-04 00:00 diltiazem hcl [facility] [place] 2023-06-04 00:00 diltiazem hcl [facility] [place] 2023-06-04 00:00 diltiazem hcl [facility] [place] 2023-06-06 00:00 diltiazem hcl [facility] [place] 2023-06-06 00:00 diltiazem hcl [facility] [place] 2023-06-08 00:00 diltiazem hcl [facility] [place] 2023-06-18 00:00 diltiazem hcl [facility] [place] 2023-06-19 00:00 diltiazem hcl [facility] [place] 2023-06-03 00:00 diltiazem hcl [facility] [place] 2023-06-04 00:00 diltiazem hcl [facility] 2023-06-04 00:00 diltiazem hcl [facility] [place] 2023-06-04 00:00 diltiazem hcl [facility] [place] 2023-06-04 00:00 diltiazem hcl [facility] [place] 2023-06-04 00:00 diltiazem hcl [facility] [place] 2023-06-06 00:00 diltiazem hcl [facility] [place] 2023-06-06 00:00 [facility]em [facility] [place] 2023-06-08 00:00 diltiazem hcl [facility] [place] 2023-06-18 00:00 diltiazem hcl [facility] [place] 2023-06-19 00:00 diltiazem hcl [facility] [place] 2023-06-03 00:00 diltiazem hcl [facility] [place] 2023-06-04 00:00 diltiazem hcl [facility] [place] 2023-06-04 00:00 diltiazem hcl [facility] [place] 2023-06-04 00:00 diltiazem hcl [facility] [place] 2023-06-04 00:00 diltiazem hcl [facility] [place] 2023-06-04 00:00 diltiazem hcl [facility] [place] 2023-06-06 00:00 diltiazem hcl [facility] [place] 2023-06-06 00:00 diltiazem hcl [facility] [place] 2023-06-08 00:00 diltiazem hcl [facility] [place] 2023-06-18 00:00 diltiazem hcl [facility] [place] 2023-06-19 00:00 diltiazem hcl [facility] [place] 2023-06-02 00:00 diltiazem hcl [facility] [place] 2023-06-03 00:00 diltiazem hcl [facility] 2023-06-04 00:00 diltiazem hcl [facility] 2023-06-04 00:00 diltiazem hcl [facility] 2023-06-04 00:00 diltiazem hcl [facility] 2023-06-04 00:00 diltiazem hcl [facility] [place] 2023-06-04 00:00 diltiazem hcl [facility] 2023-06-06 00:00 diltiazem hcl [facility] 2023-06-06 00:00 diltiazem hcl [facility] 2023-06-08 00:00 diltiazem hcl [facility] [place] 2023-06-18 00:00 diltiazem hcl [facility] [place] 2023-06-19 00:00 diltiazem hcl [facility] [...] [facility] [place] 2023-06-18 00:00 apixaban [facility] [place] 2023-06-19 00:00 apixaban [facility] [place] 2023-06-02 00:00 apixaban [facility] [place] 2023-06-03 00:00 apixaban [facility] [place] 2023-06-04 00:00 apixaban [facility] [place] 2023-06-04 00:00 apixaban [facility] [place] 2023-06-04 00:00 apixaban [facility] [place] 2023-06-04 00:00 apixaban [facility] [place] 2023-06-04 00:00 apixaban [facility] [place] 2023-06-06 00:00 apixaban [facility] [place] 2023-06-06 00:00 apixaban [facility] [place] 2023-06-08 00:00 apixaban [facility] [place] 2023-06-18 00:00 apixaban [facility] [place] 2023-06-19 00:00 apixaban [facility] [place] 2023-06-02 00:00 bethanechol chloride [facility] 2023-06-03 00:00 bethanechol chloride [facility] 2023-06-04 00:00 bethanechol chloride [facility] 2023-06-04 00:00 bethanechol chloride [facility] 2023-06-04 00:00 bethanechol chloride [facility] 2023-06-04 00:00 bethanechol chloride [facility] [place] 2023-06-04 00:00 bethanechol chloride [facility] [place] 2023-06-06 00:00 bethanechol chloride [facility] [place] 2023-06-06 00:00 bethanechol chloride [facility] 2023-06-08 00:00 bethanechol chloride [facility] [place] 2023-06-18 00:00 bethanechol chloride [facility] [place] 2023-06-19 00:00 bethanechol chloride [facility] [place] 2023-06-02 00:00 hydralazine [facility] [place] 2023-06-03 00:00 hydralazine [facility] [place] 2023-06-04 00:00 hydralazine [facility] [place] 2023-06-04 00:00 hydralazine [facility] [place] 2023-06-04 00:00 hydralazine [facility] [place] 2023-06-04 00:00 hydralazine [facility] [place] 2023-06-04 00:00 hydralazine [facility] 2023-06-06 00:00 hydralazine [facility] 2023-06-06 00:00 hydralazine [facility] 2023-06-08 00:00 hydralazine [facility] 2023-06-18 00:00 hydralazine [facility] 2023-06-19 00:00 hydralazine [facility] [place] Problems date description facility 2023-06-02 00:00 Abdominal bloating [facility] 2023-06-02 00:00 Abdominal bloating [facility] 2023-06-02 00:00 Abdominal bloating [facility] 2023-06-02 00:00 Abdominal bloating [facility] 2023-06-02 00:00 Abdominal bloating [facility] 2023-06-02 00:00 Abdominal bloating [facility] 2023-06-02 00:00 Abdominal bloating [facility] 2023-06-02 00:00 Abdominal bloating [facility] 2023-06-02 00:00 Asthma [facility] [place] 2023-06-02 00:00 Multinodular goiter [facility] [place] 2023-06-02 00:00 Unspecified hypothyroidism [facility] [place] 2023-06-02 00:00 Diabetes mellitus wi thout mention of complication, type II or unspecified type, not stated as uncontrolled [facility] [place] 2023-06-02 00:00 Diabetes mellitus wi th neurological manifestations, type II or unspecified type, not stated as uncontrolled [facility] [place] 2023-06-02 00:00 Diabetes mellitus wi th peripheral [...] [facility] [place] 2023-06-02 00:00 Hypoglycemia [facility] [place] 2023-06-02 00:00 Hypoglycemia [facility] 2023-06-02 00:00 Hypoglycemia [facility] [place] 2023-06-02 00:00 Restless legs [facility] [place] 2023-06-02 00:00 Restless legs syndrome (RLS) [facility] [place] 2023-06-02 00:00 Migraine, unspecifie d, without mention of intractable migraine, without mention of status migrainosus [facility] [place] 2023-06-02 00:00 Seasonal allergic rhinitis [facility] [place] 2023-06-02 00:00 Migraine [facility] [place] 2023-06-02 00:00 Hypertensive disorder [facility] [place] 2023-06-02 00:00 Benign essential hypertension W alk-[facility] [place] 2023-06-02 00:00 Hypothyroidism [facility] [place] 2023-06-02 00:00 Obesity [facility] [place] 2023-06-02 00:00 Diabetic peripheral neuropathy [facility] [place] 2023-06-02 00:00 Chronic kidney disease stage 5 [facility] 2023-06-02 00:00 Chronic kidney disease stage 5 [facility] [place] 2023-06-02 00:00 Chronic kidney disease stage 5 [facility] [place] 2023-06-02 00:00 Chronic kidney disease stage 5 [facility] [place] 2023-06-02 00:00 Chronic kidney disease stage 5 [facility] 2023-06-02 00:00 Chronic kidney disease stage 5 [facility] [place] 2023-06-02 00:00 Chronic kidney disease stage 5 [facility] [place] 2023-06-02 00:00 Chronic kidney disease stage 5 [facility] [place] 2023-06-02 00:00 Type II diabetes silvana litus uncontrolled [facility] [place] 2023-06-02 00:00 Type 2 diabetes yuri itus well controlled [facility] [place] 2023-06-02 00:00 Allergic rhinitis due to pollen [facility] [place] 2023-06-02 00:00 Asthma, unspecified [facility] [place] 2023-06-02 00:00 Hyperlipidemia [facility] [place] 2023-06-02 00:00 End stage renal disease [facility] [place] 2023-06-02 00:00 End stage renal disease [facility] [place] 2023-06-02 00:00 End stage renal disease [facility] [place] 2023-06-02 00:00 End stage renal disease [facility] [place] 2023-06-02 00:00 End stage renal disease [facility] [place] 2023-06-02 00:00 End stage renal disease [facility] [place] 2023-06-02 00:00 End stage renal disease [facility] [place] 2023-06-02 00:00 End stage renal disease [facility] [place] 2023-06-02 00:00 Flatulence, eructation, and gas pain [facility] [place] 2023-06-02 00:00 Flatulence, eructation, and gas pain [facility] [place] 2023-06-02 00:00 Flatulence, eructation, and gas pain [facility] [place] 2023-06-02 00:00 Flatulence, eructation, and gas pain [facility] [place] 2023-06-02 00:00 Flatulence, eructation, and gas pain [facility] [place] 2023-06-02 00:00 Flatulence, eructation, and gas pain [facility] 2023-06-02 00:00 Flatulence, eructation, and gas pain [facility] 2023-06-02 00:00 Flatulence, eructation, and gas pain [facility] 2023-06-02 00:00 Hypothyroidism, unspecified [facility] [place] 2023-06-02 00:00 Nontoxic multinodular goiter Wa lk-In [...] In [facility] [place] 2023-06-02 00:00 Hypoglycemia, unspecified [facility] [...] [facility] 2023-06-02 00:00 Obesity, unspecified [facility] 2023-06-02 00:00 Restless legs syndrome [facility] 2023-06-02 00:00 Migraine, unspecifie d, not intractable, without status migrainosus [facility] 2023-06-02 00:00 Essential (primary) hypertensio n [facility] 2023-06-02 00:00 Other seasonal allergic rhiniti s [facility] 2023-06-02 00:00 Unspecified asthma, uncomplicat ed [facility] 2023-06-02 00:00 Chronic kidney disease, stage 5 [facility] [place] 2023-06-02 00:00 Chronic kidney disease, stage 5 [facility] [place] 2023-06-02 00:00 Chronic kidney disease, stage 5 [facility] 2023-06-02 00:00 Chronic kidney disease, stage 5 [facility] 2023-06-02 00:00 Chronic kidney disease, stage 5 [facility] 2023-06-02 00:00 Chronic kidney disease, stage 5 [facility] 2023-06-02 00:00 Chronic kidney disease, stage 5 [facility] 2023-06-02 00:00 Chronic kidney disease, stage 5 [...] [facility] [place] 2023-06-02 00:00 Abdominal distension (gaseous) [facility] 2023-06-02 00:00 Abdominal distension (gaseous) [facility] 2023-06-02 00:00 Abdominal distension (gaseous) [facility] 2023-06-03 00:00 Asthma [facility] 2023-06-03 00:00 Multinodular goiter [facility] 2023-06-03 00:00 Unspecified hypothyroidism [facility] 2023-06-03 00:00 Diabetes mellitus wi thout mention of complication, type II or unspecified type, not stated as uncontrolled [facility] 2023-06-03 00:00 Diabetes mellitus wi th neurological manifestations, type II or unspecified type, not stated as uncontrolled [facility] 2023-06-03 00:00 Diabetes mellitus wi th peripheral circulatory disorders, type II or unspecified type, not stated as uncontrolled [facility] 2023-06-03 00:00 Diabetes mellitus wi th other [...] [facility] 2023-06-03 00:00 Hypertensive disorder [facility] 2023-06-03 [...] [facility] 2023-06-04 00:00 Hypertensive disorder [facility] 2023-06-04 00:00 Hypertensive disorder [facility] 2023-06-04 00:00 Hypertensive disorder [facility] 2023-06-04 00:00 Hypertensive disorder [facility] 2023-06-04 [...] alk[facility] [place] 2023-06-04 00:00 Hypothyroidism [facility] [...] 2 diabetes yuri itus without complications [facility]In [facility] [place] 2023-06-04 00:00 Type 2 diabetes yuri itus without complications [facility] [place] 2023-06-04 00:00 Obesity, unspecified [facility] [place] 2023-06-04 00:00 Obesity, unspecified [facility] [place] 2023-06-04 00:00 Obesity, unspecified [facility] [place] 2023-06-04 00:00 Obesity, unspecified [facility] [place] 2023-06-04 00:00 Obesity, unspecified [facility] [place] 2023-06-04 00:00 Restless legs syndrome [facility] [place] 2023-06-04 00:00 Restless legs syndrome [facility] [place] 2023-06-04 00:00 Restless legs syndrome [facility] [place] 2023-06-04 00:00 Restless legs syndrome [facility] [place] 2023-06-04 00:00 Restless legs syndrome [facility] [place] 2023-06-04 00:00 Migraine, unspecifie d, not intractable, without status migrainosus [facility] [place] 2023-06-04 00:00 Migraine, unspecifie d, not intractable, without status migrainosus [facility] [place] 2023-06-04 00:00 Migraine, unspecifie d, not intractable, without status migrainosus [facility] 2023-06-04 00:00 Migraine, unspecifie d, not intractable, without status migrainosus [facility] 2023-06-04 00:00 Migraine, unspecifie d, not intractable, without status migrainosus [facility] [...] Services [facility] 2023-06-06 00:00 Hypertensive disorder [facility] 2023-06-06 00:00 Hypertensive disorder [facility] [...] Care & [facility] 2023-06-06 00:00 Obesity, unspecified [facility] [place] 2023-06-06 00:00 Obesity, unspecified [facility] [place] 2023-06-06 00:00 Restless legs syndrome [facility] 2023-06-06 00:00 Restless legs syndrome [facility] [place] 2023-06-06 00:00 Migraine, unspecifie d, not intractable, without status migrainosus [facility] 2023-06-06 00:00 Migraine, unspecifie d, not intractable, without status migrainosus [facility] [place] 2023-06-06 00:00 Essential (primary) hypertensio n [facility] [place] 2023-06-06 00:00 Essential (primary) hypertensio n [facility] [place] 2023-06-06 00:00 Other seasonal allergic rhiniti s [facility] [place] 2023-06-06 00:00 Other seasonal allergic rhiniti s [facility] [place] 2023-06-06 00:00 Unspecified asthma, uncomplicat ed [facility] [place] 2023-06-06 00:00 Unspecified asthma, uncomplicat ed [facility] [place] 2023-06-08 00:00 Asthma [facility] [place] 2023-06-08 00:00 Multinodular goiter [facility] [place] 2023-06-08 00:00 Unspecified hypothyroidism [facility] [place] 2023-06-08 00:00 Diabetes mellitus wi thout mention of complication, type II or unspecified type, not stated as uncontrolled [facility] [place] 2023-06-08 00:00 Diabetes mellitus wi th neurological [...] Services [facility] 2023-06-08 00:00 Hypertensive disorder [facility] 2023-06-08 [...] [facility] 2023-06-08 00:00 Obesity, unspecified [facility] 2023-06-08 00:00 Restless legs syndrome [facility] 2023-06-08 00:00 Migraine, unspecifie d, not intractable, without status migrainosus [facility] 2023-06-08 00:00 Essential (primary) hypertensio n [facility] 2023-06-08 00:00 Other seasonal allergic rhiniti s [facility] 2023-06-08 00:00 Unspecified asthma, uncomplicat ed [facility] 2023-06-18 00:00 Asthma [facility] 2023-06-18 00:00 Multinodular goiter [facility] 2023-06-18 00:00 Unspecified hypothyroidism [facility] 2023-06-18 00:00 Diabetes mellitus wi thout mention of complication, type II or unspecified type, not stated as uncontrolled [facility] 2023-06-18 00:00 Diabetes mellitus wi th neurological manifestations, type II or unspecified type, not stated as uncontrolled [facility] 2023-06-18 00:00 Diabetes mellitus wi th peripheral circulatory disorders, type II or unspecified type, not stated as uncontrolled [facility] 2023-06-18 00:00 Diabetes mellitus wi th other specified manifestations, type II or unspecified type, not stated as uncontrolled [facility] 2023-06-18 00:00 Other and unspecified hyperlipi demia [facility] 2023-06-18 00:00 Restless legs [facility] 2023-06-18 00:00 Restless legs syndrome (RLS) [facility] 2023-06-18 00:00 Migraine, unspecifie d, without mention of intractable migraine, without mention of status migrainosus [facility] 2023-06-18 00:00 Seasonal allergic rhinitis [facility] 2023-06-18 00:00 Migraine [facility] 2023-06-18 00:00 Hypertensive disorder [facility] 2023-06-18 00:00 Benign essential hypertension W alk[facility] 2023-06-18 00:00 Hypothyroidism [facility] 2023-06-18 00:00 Obesity [facility] 2023-06-18 00:00 Diabetic peripheral neuropathy [facility] 2023-06-18 00:00 Type II diabetes silvana litus uncontrolled [facility] 2023-06-18 00:00 Type 2 diabetes yuri itus well controlled [facility] 2023-06-18 00:00 Allergic rhinitis due to pollen [facility] 2023-06-18 00:00 Asthma, unspecified [facility] 2023-06-18 00:00 Hyperlipidemia [facility] 2023-06-18 00:00 Hypothyroidism, unspecified [facility] 2023-06-18 00:00 Nontoxic multinodular goiter [facility] 2023-06-18 00:00 Type 2 diabetes yuri itus with diabetic neuropathy, unspecified [facility] 2023-06-18 00:00 Type 2 diabetes yuri itus with diabetic peripheral angiopathy without gangrene [facility] 2023-06-18 00:00 Type 2 diabetes yuri itus with hyperglycemia [facility] 2023-06-18 00:00 Type 2 diabetes yuri itus without complications [facility] 2023-06-18 00:00 Obesity, unspecified [facility] 2023-06-18 00:00 Restless legs syndrome [facility] 2023-06-18 00:00 Migraine, unspecifie d, not intractable, without status migrainosus [facility] 2023-06-18 00:00 Essential (primary) hypertensio n [facility] 2023-06-18 00:00 Other seasonal allergic rhiniti s [facility] 2023-06-18 00:00 Unspecified asthma, uncomplicat ed [facility] 2023-06-19 00:00 Asthma [facility] 2023-06-19 00:00 Multinodular goiter [facility] 2023-06-19 00:00 Unspecified hypothyroidism [facility] 2023-06-19 00:00 Diabetes mellitus wi thout mention of complication, type II or unspecified type, not stated as uncontrolled [facility] 2023-06-19 00:00 Diabetes mellitus wi th neurological manifestations, type II or unspecified type, not stated as uncontrolled [facility] 2023-06-19 00:00 Diabetes mellitus wi th peripheral circulatory disorders, type II or unspecified type, not stated as uncontrolled [facility] 2023-06-19 00:00 Diabetes mellitus wi th other specified manifestations, type II or unspecified type, not stated as uncontrolled [facility] 2023-06-19 00:00 Other and unspecified hyperlipi demia [facility] 2023-06-19 00:00 Restless legs [facility] 2023-06-19 00:00 Restless legs syndrome (RLS) [facility] 2023-06-19 00:00 Migraine, unspecifie d, without mention of intractable migraine, without mention of status migrainosus [facility] 2023-06-19 00:00 Seasonal allergic rhinitis [facility] 2023-06-19 00:00 Migraine [facility] 2023-06-19 00:00 Hypertensive disorder [facility] 2023-06-19 00:00 Benign essential hypertension [facility] 2023-06-19 00:00 Hypothyroidism [facility] 2023-06-19 00:00 Obesity [facility] 2023-06-19 00:00 Diabetic peripheral neuropathy [facility] 2023-06-19 00:00 Type II diabetes silvana litus uncontrolled [facility] 2023-06-19 00:00 Type 2 diabetes yuri itus well controlled [facility] 2023-06-19 00:00 Allergic rhinitis due to pollen [facility] 2023-06-19 00:00 Asthma, unspecified [facility] 2023-06-19 00:00 Hyperlipidemia [facility] 2023-06-19 00:00 Hypothyroidism, unspecified [facility] 2023-06-19 00:00 Nontoxic multinodular goiter [facility] 2023-06-19 00:00 Type 2 diabetes yuri itus with diabetic neuropathy, unspecified [facility] 2023-06-19 00:00 Type 2 diabetes yuri itus with diabetic peripheral angiopathy without gangrene [facility] 2023-06-19 00:00 Type 2 diabetes yuri itus with hyperglycemia [facility] 2023-06-19 00:00 Type 2 diabetes yuri itus without complications [facility] 2023-06-19 00:00 Obesity, unspecified [facility] 2023-06-19 00:00 Restless legs syndrome [facility] 2023-06-19 00:00 Migraine, unspecifie d, not intractable, without status migrainosus [facility] 2023-06-19 00:00 Essential (primary) hypertensio n [facility] 2023-06-19 00:00 Other seasonal allergic rhiniti s [facility] 2023-06-19 00:00 Unspecified asthma, uncomplicat ed [facility] Procedures date description facility 2023-06-02 00:00 Visit Code Hold [facility] 2023-06-02 00:00 Visit Code Hold [facility] 2023-06-02 00:00 Visit Code Hold [facility] 2023-06-02 00:00 Visit Code Hold [facility] 2023-06-02 00:00 Visit Code Hold [facility] 2023-06-02 00:00 Visit Code Hold [facility] 2023-06-02 00:00 Visit Code Hold [facility] 2023-06-02 00:00 Visit Code Hold [facility] 2023-06-06 00:00 Visit Code Hold [facility] 2023-06-06 00:00 Visit Code Hold [facility] 2023-06-06 00:00 Visit Code Hold [facility] 2023-06-06 00:00 Visit Code Hold [facility] 2023-06-02 00:00 COMPREHENSIVE METABOLIC PANEL [facility] 2023-06-02 00:00 COMPREHENSIVE METABOLIC PANEL [facility] 2023-06-02 00:00 COMPREHENSIVE METABOLIC PANEL [facility] 2023-06-02 00:00 COMPREHENSIVE METABOLIC PANEL [facility] 2023-06-02 00:00 COMPREHENSIVE METABOLIC PANEL [facility] 2023-06-02 00:00 COMPREHENSIVE METABOLIC PANEL [facility] 2023-06-02 00:00 COMPREHENSIVE METABOLIC PANEL [facility] 2023-06-02 00:00 COMPREHENSIVE METABOLIC PANEL [facility] 2023-06-02 00:00 POC GLUCOSE BLOOD TEST [facility] 2023-06-02 00:00 POC GLUCOSE BLOOD TEST [facility] 2023-06-02 00:00 POC GLUCOSE BLOOD TEST [facility] 2023-06-02 00:00 POC GLUCOSE BLOOD TEST [facility] 2023-06-02 00:00 POC GLUCOSE BLOOD TEST [facility] 2023-06-02 00:00 POC GLUCOSE BLOOD TEST [facility] 2023-06-02 00:00 POC GLUCOSE BLOOD TEST [facility] 2023-06-02 00:00 POC GLUCOSE BLOOD TEST [facility] Results/Labs test date facility value unit notes Social History date description facility 2023-06-02 00:00 Never smoker [facility] 2023-06-02 00:00 Never smoker [facility] 2023-06-02 00:00 Never smoker [facility] 2023-06-02 00:00 Never smoker [facility] 2023-06-02 00:00 Never smoker [facility] 2023-06-02 00:00 Never smoker [facility] 2023-06-02 00:00 Never smoker [facility] 2023-06-02 00:00 Never smoker [facility] 2023-06-06 00:00 Never smoker [facility] 2023-06-06 00:00 Never smoker [facility] 2023-06-06 00:00 Never smoker [facility] 2023-06-06 00:00 Never smoker [facility] Vital Signs date measurement value units 2023-06-02 [...]
[2023-07-05 16:18] LABS: BASOPHILS # (AUTO) 0.1 10^3/uL (0.0-0.1); BASOPHILS % (AUTO) 1.2 %; EOSINOPHILS # (AUTO) 0.2 10^3/uL (0.0-0.7); EOSINOPHILS % (AUTO) 1.7 %; HCT - HEMATOCRIT 45.9 % (37.0-47.0); HGB - HEMOGLOBIN 14.3 g/dL (12.0-16.0); LYMPHOCYTES # (AUTO) 1.3 10^3/uL (1.5-3.5); LYMPHOCYTES % (AUTO) 11.5 %; MEAN CORPUSCULAR HGB CONC 31.2 g/dL (32.0-36.0); MEAN CORPUSCULAR VOLUME 86.6 fL (81.0-99.0); MEAN PLATELET VOLUME 11.9 fL (7.9-10.8); MONOCYTES # (AUTO) 0.9 10^3/uL (0.0-1.0); MONOCYTES % (AUTO) 8.1 %; NEUTROPHILS # (AUTO) 8.8 10^3/uL (1.5-6.6); PLT - PLATELET COUNT 245 10^3/uL (130-450); RED CELL DISTRIBUTION WIDTH 16.8 % (12.0-15.0); WHITE BLOOD COUNT 11.4 x10^3/uL (4.8-10.8)
[2023-07-05 16:36] LABS: ALBUMIN 4.2 g/dL (3.2-5.5); PHOSPHORUS 6.4 mg/dL (2.5-5.0)
[2023-07-05 16:45] LABS: ALBUMIN/GLOBULIN RATIO 1.2 (1.0-2.2); BILIRUBIN,TOTAL 0.8 mg/dL (0.2-1.0); CALCIUM 10.2 mg/dL (8.5-10.3); POTASSIUM 4.4 mmol/L (3.5-4.5); TOTAL PROTEIN 7.8 g/dL (6.4-8.9)
[2023-07-05] MEDS ORDERED: SODIUM CHLORIDE 0.9% 500 ML IV STA (16:49)
--- NOTE | 2023-07-05 17:01 | ED Physician Documentation ---
History of Present Illness - Stated complaint Stated Complaint: AMS - Chief complaint Chief Complaint: General - History obtained from History obtained from: Patient, EMS - History of Present Illness Timing: Today Pain level max: 0 Pain level now: 0 - Additonal information Additional information: 77-year-old female presents to the emergency department via EMS, they report that she had altered mental status earlier today. Patient states that she feels normal and does not have any complaints. She states that she had dialysis on Thursday. Started dialysis this last week. She is scheduled again to have dialysis tomorrow. No fevers. No chills. No cough. No congestion. No abdominal pain, nausea, vomiting or diarrhea. No focal neurological deficits reported. She received 100 mL of IV fluid with EMS. Blood sugar was 300. Patient is diabetic. Review of Systems Constitutional: denies: Fever, Chills GI: denies: Vomiting : denies: Dysuria, Frequency, Hesitancy Skin: denies: Rash Musculoskeletal: denies: Neck pain, Back pain Neurologic: denies: Headache PD PAST MEDICAL HISTORY - Past Medical History Cardiovascular: Congestive heart failure, Hypertension, High cholesterol, Coronary artery disease, Atrial fibrillation, Murmur Respiratory: Asthma, Pneumonia, Shortness of breath, Sleep apnea, CPAP use Neuro: CVA, Migraines, Other Endocrine/Autoimmune: Type 2 diabetes, HyPOthyroidism, Other GI: GERD, Hepatitis, Other TRACK VEHICLE REPAIRER: None : Dialysis, Incontinence, Renal insuffiency, Frequency HEENT: Chronic vision loss, Chronic hearing loss Psych: Depression Musculoskeletal: Osteoarthritis, Chronic back pain, Other Derm: None - Past Surgical History Past Surgical History: Yes Ortho: Hip replacement, Knee replacement, Carpal Tunnel surgery /TRACK VEHICLE REPAIRER: Dilation and currettage, Tubal ligation, Hysterectomy, Oophrectomy - Present Medications Home Medications: Ambulatory Orders Medication Instructions Recorded Confirmed Insulin Glargine [Lantus Solostar] 14 unit SQ QPM 08/14/17 07/05/23 Sertraline HCl 50 mg PO QPM 02/26/18 07/05/23 Levothyroxine Sodium 125 mcg PO QDAC 04/11/19 07/05/23 Apixaban [Eliquis] 2.5 mg PO BID 01/02/23 07/05/23 Atorvastatin [Lipitor] 40 mg PO QPM 01/02/23 07/05/23 Metoprolol Succinate [Toprol Xl] 200 mg PO BID 01/02/23 07/05/23 dilTIAZem HCL [Diltiazem 24Hr ER 240 mg PO DAILY 01/02/23 07/05/23 (Xr)] glipiZIDE [Glipizide] 10 mg PO TID 01/02/23 07/05/23 Bethanechol [Urecholine] 25 mg PO DAILY 06/18/23 07/05/23 Isosorbide Dinitrate 30 mg PO DAILY 06/18/23 07/05/23 Lipase/Protease/Amylase 1 each PO DAILY 06/18/23 07/05/23 [Pancrelipase Dr 5,000/17,000/24,000 Intermediate] rOPINIRole [Requip] 0.5 mg PO TID 06/18/23 07/05/23 Omeprazole Magnesium 20 mg PO DAILY 07/05/23 07/05/23 Torsemide 100 mg PO DAILY 07/05/23 07/05/23 calcitrioL [Rocaltrol] 0.25 mcg PO DAILY 07/05/23 07/05/23 - Allergies Allergies/Adverse Reactions: Allergies Allergy/AdvReac Type Severity Reaction Status Date / Time atorvastatin Allergy Cramps Verified 07/05/23 15:40 bee venom protein (honey bee) Allergy Unknown Verified 07/05/23 15:40 cefuroxime [From Ceftin] Allergy Unknown Verified 07/05/23 15:40 codeine Allergy Nausea Verified 07/05/23 15:40 hydrocodone [From Vicodin] Allergy Nausea Verified 07/05/23 15:40 Influenza Virus Vaccines Allergy Unknown Verified 07/05/23 15:40 lisinopril Allergy Respiratory Verified 07/05/23 15:40 mushroom Allergy Anaphylaxis Verified 07/05/23 15:40 nitroglycerin Allergy Headache Verified 07/05/23 15:40 propoxyphene Allergy Unknown Verified 07/05/23 15:40 [From Darvocet-N] tramadol Allergy Headache Verified 07/05/23 15:40 - Social History Does the pt smoke?: No Smoking Status: Never smoker Does the pt drink ETOH?: No Does the pt have substance abuse?: No - Immunizations Immunizations are current?: Yes - POLST Patient has POLST: No POLST Status: Full Code PD ED PE NORMAL - Vitals Vital signs reviewed: Yes - General General: Alert and oriented X 3, No acute distress - HEENT HEENT: PERRL, Moist mucous membranes - Neck Neck: Supple, no meningeal sign - Cardiac Cardiac: RRR, Strong equal pulses - Respiratory Respiratory: No respiratory distress, Clear bilaterally - Abdomen Abdomen: Soft, Non tender, Non distended - Derm Derm: Warm and dry - Extremities Extremities: No edema, No calf tenderness / cord - Neuro Neuro: Alert and oriented X 3 - Psych Psych: Normal mood, Normal affect Results - Vitals Vitals: Vital Signs - 24 hr 07/05/23 07/05/23 07/05/23 15:36 17:39 18:05 Temperature 36.4 C L Heart Rate 70 74 72 Respiratory 16 19 19 Rate Blood Pressure 101/72 107/70 121/61 O2 Saturation 96 95 96 Oxygen O2 Source Room air - Labs Labs: Laboratory Tests 07/05/23 07/05/23 16:13 16:13 WBC 11.4 H RBC 5.30 Hgb 14.3 Hct 45.9 MCV 86.6 MCH 27.0 MCHC 31.2 L RDW 16.8 H Plt Count 245 MPV 11.9 H Neut # (Auto) 8.8 H Lymph # (Auto) 1.3 L Dillon # (Auto) 0.9 Eos # (Auto) 0.2 Baso # (Auto) 0.1 Absolute Nucleated RBC 0.00 Nucleated RBC % 0.0 Sodium 129 L Potassium 4.4 Chloride 92 L Carbon Dioxide 20 L Anion Gap 17.0 H BUN 46 H Creatinine 7.0 H* Estimated GFR (MDRD) 6 L Glucose 289 H Calcium 10.2 Phosphorus 6.4 H Magnesium 2.0 Total Bilirubin 0.8 AST 29 ALT 18 Alkaline Phosphatase 190 H Total Protein 7.8 Albumin 4.2 Globulin 3.6 Albumin/Globulin Ratio 1.2 Lipase 109 H PD Medical Decision Making - ED course Complexity details: reviewed results, re-evaluated patient, considered differential, d/w patient, d/w family, d/w school plant consultant ED course: 77-year-old female with what appears to be dehydration secondary to overdiuresis. Recently started hemodialysis. She feels much better after IV fluids. Blood pressure improved. She has mild hyponatremia and a worsening creatinine than her baseline. No evidence of fever. No urinary symptoms. No cough. No congestion. No evidence of sepsis or infection. Did discuss the case with the gas turbine powerplant mechanic on-call for her gas turbine powerplant mechanic, Dr. Frank, he will talk to Dr. Freire and they can adjust her dialysis tomorrow. Patient is currently asymptomatic and request to go home at this time. Patient counseled regarding signs and symptoms for which I believe and urgent re-evaluation would be necessary. Patient with good understanding of and agreement to plan and is comfortable going home at this time This document was made in part using voice recognition software. While efforts are made to proofread this document, sound alike and grammatical errors may occur. Departure - Departure Disposition: 01 Home, Self Care Clinical Impression: Dehydration, Hyponatremia Chronic renal failure Qualifiers: Chronic kidney disease stage: unspecified stage Qualified Code(s): N18.9 - Chronic kidney disease, unspecified Condition: Good Instructions: ED Dehydration Follow-Up: Stephenie Hart ARNP [Primary Care Provider] - Sparkle Renee MD [Provider Admit Priv/Credential] - Comments: Please follow-up with your doctor for further care. You appear to have been dehydrated today, this is likely due to to large volume being taken off during dialysis. I spoke with Dr. Frank, on-call for Dr. Tani parkinson, they will adjust your dialysis for tomorrow. Forms: PCP List Discharge Date/Time: 07/05/23 18:10
[2023-07-05 18:06] VITALS: BP 121/61; O2SAT 96
== END 2023-07-05 18:10 | disposition home or self-care (01) ==
LOC: EDUNIT# → ED 15:30
DX: E87.1 Hypo-osmolality and hyponatremia (principal); E86.0 Dehydration; I13.2 Hypertensive heart and chronic kidney disease with heart failure and with stage 5 chronic kidney disease, or end stage renal disease; E11.22 Type 2 diabetes mellitus with diabetic chronic kidney disease; N18.6 End stage renal disease; I50.9 Heart failure, unspecified; E78.00 Pure hypercholesterolemia, unspecified; I25.10 Atherosclerotic heart disease of native coronary artery without angina pectoris; I48.91 Unspecified atrial fibrillation; E03.9 Hypothyroidism, unspecified; Z79.01 Long term (current) use of anticoagulants; Z99.2 Dependence on renal dialysis; Z79.4 Long term (current) use of insulin; Z79.899 Other long term (current) drug therapy; Z79.84 Long term (current) use of oral hypoglycemic drugs
CPT/HCPCS: 36415; 80053; 83690; 83735; 84100; 85025; 99283; 99284

== ENCOUNTER 2023-07-09 13:36 | Outpatient (CLI) | payer MEDICARE, OTHER, MEDICAID ==
[2023-07-09 13:46] LABS: BASOPHILS # (AUTO) 0.1 10^3/uL (0.0-0.1); BASOPHILS % (AUTO) 1.1 %; EOSINOPHILS # (AUTO) 0.3 10^3/uL (0.0-0.7); EOSINOPHILS % (AUTO) 3.3 %; HCT - HEMATOCRIT 41.7 % (37.0-47.0); HGB - HEMOGLOBIN 13.3 g/dL (12.0-16.0); LYMPHOCYTES # (AUTO) 1.3 10^3/uL (1.5-3.5); LYMPHOCYTES % (AUTO) 13.4 %; MEAN CORPUSCULAR HGB CONC 31.9 g/dL (32.0-36.0); MEAN CORPUSCULAR VOLUME 84.6 fL (81.0-99.0); MEAN PLATELET VOLUME 11.3 fL (7.9-10.8); MONOCYTES # (AUTO) 0.8 10^3/uL (0.0-1.0); MONOCYTES % (AUTO) 8.6 %; NEUTROPHILS # (AUTO) 6.9 10^3/uL (1.5-6.6); PLT - PLATELET COUNT 247 10^3/uL (130-450); RED BLOOD COUNT 4.93 10^6/uL (4.20-5.40); RED CELL DISTRIBUTION WIDTH 16.5 % (12.0-15.0); WHITE BLOOD COUNT 9.4 x10^3/uL (4.8-10.8)
[2023-07-09 14:06] LABS: CREATININE 3.9 mg/dL (0.6-1.3); PHOSPHORUS 5.1 mg/dL (2.5-5.0); POTASSIUM 3.6 mmol/L (3.5-4.5)
[2023-07-09 15:16] LABS: ESTIMATED AVERAGE GLUCOSE 192 mg/dL (70-100); HEMOGLOBIN A1c% 8.3 % (4.27-6.07)
== END 2023-07-09 13:37 | disposition home or self-care (01) ==
LOC: LAB.R 13:36
PROVIDERS: ATTEND Registered Nurse
DX: I12.0 Hypertensive chronic kidney disease with stage 5 chronic kidney disease or end stage renal disease (principal); E11.22 Type 2 diabetes mellitus with diabetic chronic kidney disease; N18.6 End stage renal disease; Z99.2 Dependence on renal dialysis; E03.9 Hypothyroidism, unspecified; K86.89 Other specified diseases of pancreas; E11.42 Type 2 diabetes mellitus with diabetic polyneuropathy
CPT/HCPCS: 80048; 83036; 83970; 84100; 85025

== ENCOUNTER 2023-08-10 17:02 | Outpatient (CLI) | payer MEDICARE, OTHER, MEDICAID | END 2023-08-10 23:59 | disposition critical access hospital (66) | LOC: EMS 17:02 | DX: E11.649 Type 2 diabetes mellitus with hypoglycemia without coma (principal); R41.0 Disorientation, unspecified; M54.9 Dorsalgia, unspecified; Z79.4 Long term (current) use of insulin; Z99.2 Dependence on renal dialysis | CPT/HCPCS: A0425; A0429 ==

== ENCOUNTER 2023-08-10 17:26 | Emergency (ER) | payer MEDICARE, OTHER, MEDICAID ==
--- NOTE | 2023-08-10 17:52 | ED Physician Documentation ---
PD HPI ALTERED MENTAL STATUS - Stated complaint Stated Complaint: CONFUSION/BACK PX - Chief complaint Chief Complaint: General - History obtained from History obtained from: Patient - History of Present Illness Timing - onset: How many days ago (2) Timing - duration: Days (Family states the patient has had increasing confusion over the last 2 days, more notable today during and after dialysis. Blood sugar was a little bit low at dialysis and given some oral juice. Blood glucose 108 on arrival here. No other illness per se. Denies headache.) Timing - details: Gradual onset, Still present (pt states feeling less confused now thatn at dialysis. However she still seems to be repeating history of her symptoms without awareness of repating. No focal weakness. No chest pain. Feels some nausea. No abd pain. She feels symptoms related to dialysis and low sugar.) Quality / character: Confused, Disoriented Contributing factors: Diabetic, Other (symptoms worse at end of dialysis, was feeling some confused prior to it as well.). No: Anticoagulated, New medication, Recent illness Basline status: Alert and oriented X 3 (some mild confusion at baseline due to prior CVA, per patient.), Ambulatory Treatment FINANCIAL INVESTMENT MANAGER: Accucheck (sugar reportedly low at dialysis with given oral juice. BS 108 on ED arrival and she sayss she was starting to feel better.) Similar symptoms before: No diagnosis (she states has felt confused during/after dialysis often. Has only been getting dialysis the past month.) Review of Systems Constitutional: denies: Fever Nose: denies: Rhinorrhea / runny nose, Congestion Throat: denies: Sore throat Respiratory: denies: Cough Neurologic: denies: Focal weakness, Near syncope, Headache PD PAST MEDICAL HISTORY - Past Medical History Past Medical History: Yes Cardiovascular: Congestive heart failure, Hypertension, High cholesterol, Coronary artery disease, Atrial fibrillation, Murmur Respiratory: Asthma, Pneumonia, Shortness of breath, Sleep apnea, CPAP use Neuro: CVA, Migraines, Other Endocrine/Autoimmune: Type 2 diabetes, HyPOthyroidism, Other GI: GERD, Hepatitis, Other FOUNTAIN SERVER: None : Dialysis (just newly in the past month. ), Incontinence, Renal insuffiency, Frequency HEENT: Chronic vision loss, Chronic hearing loss Psych: Depression Musculoskeletal: Osteoarthritis, Chronic back pain, Other Derm: None - Past Surgical History Past Surgical History: Yes Ortho: Hip replacement, Knee replacement, Carpal Tunnel surgery /FOUNTAIN SERVER: Dilation and currettage, Tubal ligation, Hysterectomy, Oophrectomy - Present Medications Home Medications: Ambulatory Orders Medication Instructions Recorded Confirmed Insulin Glargine [Lantus Solostar] 25 unit SQ QPM 08/14/17 08/10/23 Sertraline HCl 50 mg PO QPM 02/26/18 08/10/23 Levothyroxine Sodium 125 mcg PO QDAC 04/11/19 08/10/23 Apixaban [Eliquis] 2.5 mg PO BID 01/02/23 08/10/23 Atorvastatin [Lipitor] 40 mg PO QPM 01/02/23 08/10/23 Metoprolol Succinate [Toprol Xl] 200 mg PO BID 01/02/23 08/10/23 dilTIAZem HCL [Diltiazem 24Hr ER 240 mg PO DAILY 01/02/23 08/10/23 (Xr)] glipiZIDE [Glipizide] 10 mg PO TID 01/02/23 08/10/23 Bethanechol [Urecholine] 25 mg PO DAILY 06/18/23 08/10/23 Isosorbide Dinitrate 30 mg PO DAILY 06/18/23 08/10/23 Lipase/Protease/Amylase 1 each PO DAILY 06/18/23 08/10/23 [Pancrelipase Dr 5,000/17,000/24,000 Intermediate] rOPINIRole [Requip] 0.75 mg PO TID 06/18/23 08/10/23 Omeprazole Magnesium 20 mg PO DAILY 07/05/23 08/10/23 Torsemide 100 mg PO DAILY 07/05/23 08/10/23 Aspirin [[place] Aspirin] 81 mg PO DAILY 08/10/23 08/10/23 hydrALAZINE [Apresoline] 10 mg PO TID 08/10/23 08/10/23 - Allergies Allergies/Adverse Reactions: Allergies Allergy/AdvReac Type Severity Reaction Status Date / Time atorvastatin Allergy Cramps Verified 08/10/23 17:41 bee venom protein (honey bee) Allergy Unknown Verified 08/10/23 17:41 cefuroxime [From Ceftin] Allergy Unknown Verified 08/10/23 17:41 codeine Allergy Nausea Verified 08/10/23 17:41 hydrocodone [From Vicodin] Allergy Nausea Verified 08/10/23 17:41 Influenza Virus Vaccines Allergy Unknown Verified 08/10/23 17:41 lisinopril Allergy Respiratory Verified 08/10/23 17:41 mushroom Allergy Anaphylaxis Verified 08/10/23 17:41 nitroglycerin Allergy Headache Verified 08/10/23 17:41 propoxyphene Allergy Unknown Verified 08/10/23 17:41 [From Darvocet-N] tramadol Allergy Headache Verified 08/10/23 17:41 - Social History Does the pt smoke?: No Smoking Status: Never smoker Does the pt drink ETOH?: No Does the pt have substance abuse?: No - Immunizations Immunizations are current?: Yes - POLST Patient has POLST: No POLST Status: Full Code PD ED PE NORMAL - Vitals Vital signs reviewed: Yes - General General: Alert and oriented X 3 (oriented. She does repeat the history of her symptoms at dialysis without apparent awareness she had just described it.), No acute distress, Well developed/nourished - HEENT HEENT: Atraumatic - Neck Neck: Supple, no meningeal sign, No adenopathy - Cardiac Cardiac: No murmur. No: RRR (irregular but normal rate. ) - Respiratory Respiratory: Clear bilaterally - Abdomen Abdomen: Soft, Non tender, Non distended, Other (right chest dialysis line without skin infection nor redness. ) - Derm Derm: Normal color, Warm and dry - Extremities Extremities: No edema, No calf tenderness / cord - Neuro Neuro: Alert and oriented X 3, No motor deficit, No sensory deficit, Normal speech Eye Opening: Spontaneous Motor: Obeys Commands Verbal: Oriented GCS Score: 15 Results - Vitals Vitals: Vital Signs - 24 hr 08/10/23 08/10/23 17:35 20:35 Temperature 36.5 C Heart Rate 98 111 H Respiratory 19 22 Rate Blood Pressure 138/104 H 116/84 H O2 Saturation 98 98 If not protocol 2 : Oxygen Flow, liters/minute Oxygen O2 Source Nasal cannula - Labs Labs: Laboratory Tests 08/10/23 08/10/23 08/10/23 18:51 18:51 20:08 WBC 9.9 RBC 4.56 Hgb 12.8 Hct 39.4 MCV 86.4 MCH 28.1 MCHC 32.5 RDW 18.9 H Plt Count 224 MPV 10.6 Neut # (Auto) 7.4 H Lymph # (Auto) 1.5 Mcdonald # (Auto) 0.8 Eos # (Auto) 0.2 Baso # (Auto) 0.1 Absolute Nucleated RBC 0.00 Nucleated RBC % 0.0 Sodium 134 L Potassium 3.4 L Chloride 96 L Carbon Dioxide 28 Anion Gap 10.0 BUN 28 H Creatinine 2.2 H Estimated GFR (MDRD) 22 L Glucose 89 POC Whole Bld Glucose 72 Calcium 9.2 Magnesium 1.7 Total Bilirubin 0.8 AST 25 ALT 24 Alkaline Phosphatase 159 H Total Protein 7.5 Albumin 4.2 Globulin 3.3 Albumin/Globulin Ratio 1.3 Lipase 88 H - Rads (name of study) head CT Relevant Findings:: Prelim report reviewed (prior CVA again noted. No acute new changes. ), EMP independent interpretation of test PD Medical Decision Making - ED course Complexity details: reviewed results (pending results at shift change. ), considered differential (confusion and lessened alertness a dialysis with low blood sugar and improved with juice. BS improved on arrival here. Still with some mild confusion with repeating of her symptoms several times. NO focal deficits. Can check lytes, blood count, head CT. ), d/w patient, d/w family (family called and talked with nursing and related taht the patient seemed to have onset of some confusion 2 days ago, worse today. ) [facility] Departure - Departure Disposition: 01 Home, Self Care Clinical Impression: Confusion, ESRD (end stage renal disease), Low blood sugar reading Condition: Stable Record reviewed to determine appropriate education?: Yes Comments: Thank you for allowing us to care for you today would be general. Today in the emergency department your evaluated for any possible dangerous or life-threatening medical emergency. The testing performed in the emergency department today including your blood wor k and head CT were all very reassuring. I do want you to follow-up with your primary care doctor first thing tomorrow concerning your ER visit. If you have any concerns or symptoms of ongoing confusion or low blood sugar it is important that you return to the emergency department immediately for reevaluation. Forms: PCP List
[2023-08-10] MEDS ORDERED: SODIUM CHLORIDE 0.9% 250 ML IV STA (18:25)
[2023-08-10 18:55] LABS: BASOPHILS # (AUTO) 0.1 10^3/uL (0.0-0.1); BASOPHILS % (AUTO) 0.8 %; EOSINOPHILS # (AUTO) 0.2 10^3/uL (0.0-0.7); EOSINOPHILS % (AUTO) 1.6 %; HCT - HEMATOCRIT 39.4 % (37.0-47.0); HGB - HEMOGLOBIN 12.8 g/dL (12.0-16.0); LYMPHOCYTES # (AUTO) 1.5 10^3/uL (1.5-3.5); LYMPHOCYTES % (AUTO) 15.4 %; MEAN CORPUSCULAR HEMOGLOBIN 28.1 pg (27.0-31.0); MEAN CORPUSCULAR HGB CONC 32.5 g/dL (32.0-36.0); MEAN CORPUSCULAR VOLUME 86.4 fL (81.0-99.0); MEAN PLATELET VOLUME 10.6 fL (7.9-10.8); MONOCYTES # (AUTO) 0.8 10^3/uL (0.0-1.0); MONOCYTES % (AUTO) 7.6 %; NEUTROPHILS # (AUTO) 7.4 10^3/uL (1.5-6.6); NEUTROPHILS % (AUTO) 74.3 %; PLT - PLATELET COUNT 224 10^3/uL (130-450); RED BLOOD COUNT 4.56 10^6/uL (4.20-5.40); RED CELL DISTRIBUTION WIDTH 18.9 % (12.0-15.0); WHITE BLOOD COUNT 9.9 x10^3/uL (4.8-10.8)
[2023-08-10 19:12] LABS: ALBUMIN 4.2 g/dL (3.2-5.5); ALBUMIN/GLOBULIN RATIO 1.3 (1.0-2.2); BILIRUBIN,TOTAL 0.8 mg/dL (0.2-1.0); CALCIUM 9.2 mg/dL (8.5-10.3); CREATININE 2.2 mg/dL (0.6-1.3); MAGNESIUM 1.7 mg/dL (1.7-2.3); POTASSIUM 3.4 mmol/L (3.5-4.5); TOTAL PROTEIN 7.5 g/dL (6.4-8.9)
--- NOTE | 2023-08-10 19:55 | CT Report ---
PROCEDURE: HEAD WO INDICATIONS: confusion worsening 2 days TECHNIQUE: Noncontrast 4.5 mm thick angled axial sections acquired from the foramen magnum to the vertex. For r adiation dose reduction, the following was used: automated exposure control, adjustment of mA and/or kV according to patient size. COMPARISON: CT head 10/24/2020. FINDINGS: Image quality: Excellent. CSF spaces: Basal cisterns are patent. No extra-axial fluid collections. Ventricles are normal in size and shape. Brain: Hypoattenuation within the right occipital lobe appears grossly similar compared to prior. Ag e-related global volume loss and chronic microvascular ischemic changes. No midline shift. No intrac ranial masses or hemorrhage. [place]-white matter interface is normal. Intracranial atherosclerotic va scular calcifications. Skull and face: Calvarium and visualized facial bones are intact, without suspicious lesions. Bilate ral lens replacements. The orbits are otherwise normal in appearance. Sinuses: Visualized sinuses and mastoids are clear. IMPRESSION: 1.No acute intracranial pathology. 2.Remote right occipital lobe infarct is again seen. 3.Age-related global volume loss and chronic microvascular ischemic changes. Reviewed by: Arun Samuel MD on 08/10/2023 7:54 PM PDT Approved by: Arun Samuel MD on 08/10/2023 7:54 PM PDT Station ID: [id number]
[2023-08-10] MEDS ORDERED: GABAPENTIN 100 MG CAPSULE PO STA (20:15)
[2023-08-10] MEDS ORDERED: fentaNYL 100 MCG/2 ML VIAL IVP STA (20:40)
--- NOTE | 2023-08-10 21:11 | ED Physician Documentation ---
ED Addendum - Addendum Addendum: 08/10/23 21:09 Patient received a signout from off going physician, please see their d ocumentation for further detail. Patient presented to the emergency department shortly after dialysis with report of increased confusion. Had a low but normal blood sugar. Other labs and imaging all reviewed. Notable posterior occipital stroke with the patient is aware of. Electrolytes all appropriate for patient who is on chronic renal replacement. Evaluated independently at bedside at 2110 hrs. Found to be resting comfortably and in no acute distress. Patient is alert and orientated to person place and time now. Reports that she has had episodes like this associated with dialysis in the past which has been attributed to her blood sugars. States "sometimes they just take too much off". Reports that she does live alone however has 4 children who are deeply involved in her care as well as a marketing programs manager. Does state that she has been having increasing memory difficulties for the last several months if not years which she also attributes to her history of stroke. At this time is requesting discharge from the emergency department. We will discharge with strong encouragement to follow-up carefully with her primary care doctor or return to the emergency department immediately for new or worsening symptoms. Departure - Departure Disposition: 01 Home, Self Care Clinical Impression: Confusion, ESRD (end stage renal disease) Comments: Thank you for allowing us to care for you today would be general. Today in the emergency department your evaluated for any possible dangerous or life-threatening medical emergency. The testing performed in the emergency department today including your blood work and head CT were all very reassuring. I do want you to follow-up with your primary care doctor first thing tomorrow concerning your ER visit. If you have any concerns or symptoms of ongoing confusion or low blood sugar it is important that you return to the emergency department immediately for reevaluation. Forms: PCP List
[2023-08-10 21:38] LABS: BILIRUBIN,URINE NEGATIVE (NEGATIVE); GLUCOSE, URINE (UA) NEGATIVE (NEGATIVE); KETONES,URINE (UA) NEGATIVE (NEGATIVE); LEUKOCYTE ESTERASE, URINE NEGATIVE (NEGATIVE); NITRITE,URINE NEGATIVE (NEGATIVE); OCCULT BLOOD,URINE NEGATIVE (NEGATIVE); PH,URINE 5.5 PH (5.0-7.5); PROTEIN,URINE 100 mg/dL (NEGATIVE); UROBILINOGEN,URINE 0.2 (NORMAL) E.U./dL (NORMAL)
[2023-08-10 22:06] LABS: CLARITY,URINE HAZY (CLEAR)
[2023-08-10 22:13] LABS: AMORPHOUS SEDIMENT,UR Few /LPF; BACTERIA,URINE Few /HPF (None Seen); RBC,URINE 0-5 /HPF (0-5); SQUAMOUS EPITHELIAL CELL,UR FEW Squamous (<= Few); WBC,URINE 0-3 /HPF (0-5)
[2023-08-10 22:47] VITALS: BP 111/85; O2SAT 95
== END 2023-08-10 22:42 | disposition home or self-care (01) ==
LOC: EDUNIT# → ED 17:26
DX: E11.22 Type 2 diabetes mellitus with diabetic chronic kidney disease (principal); E16.2 Hypoglycemia, unspecified; I13.2 Hypertensive heart and chronic kidney disease with heart failure and with stage 5 chronic kidney disease, or end stage renal disease; N18.6 End stage renal disease; I50.9 Heart failure, unspecified; Z99.2 Dependence on renal dialysis; Z79.4 Long term (current) use of insulin
CPT/HCPCS: 36415; 70450; 80053; 81001; 83690; 83735; 85025; 96361; 96374; 99284; A9270; 81003; 87086

== ENCOUNTER 2023-08-11 00:30 | Outpatient (CLI) | payer MEDICARE, OTHER, MEDICAID | END 2023-08-11 00:31 | disposition EMS.NT | LOC: EMS 00:30 | DX: Z03.89 Encounter for observation for other suspected diseases and conditions ruled out (principal) ==

== ENCOUNTER 2023-12-07 08:38 | Outpatient (CLI) | payer MEDICARE, OTHER, MEDICAID | END 2023-12-07 23:59 | disposition EMS.NT | LOC: EMS 08:38 | DX: Z03.89 Encounter for observation for other suspected diseases and conditions ruled out (principal) ==

== ENCOUNTER 2024-01-05 01:41 | Outpatient (CLI) | payer MEDICARE, OTHER | END 2024-01-05 01:42 | disposition critical access hospital (66) | LOC: EMS 01:41 | DX: R07.9 Chest pain, unspecified (principal) | CPT/HCPCS: A0425; A0427 ==

== ENCOUNTER 2024-01-05 02:08 | Emergency (ER) | payer MEDICARE, OTHER ==
--- NOTE | 2024-01-05 02:17 | ED Physician Documentation ---
History of Present Illness - Stated complaint Stated Complaint: CHEST/FLANK PX - History obtained from History obtained from: Patient, EMS - Additonal information Additional information: The patient is brought to the emergency department by EMS for chief complaint of sharp chest pain under her right breast that awakened her from sleep. She states it goes up into her right armpit. She denies any abdominal pain, will nausea, or vomiting. She is a dialysis patient and states that she has had dialysis yesterday and is on a Thursday schedule. She denies any fevers or chills. She chronically has mild shortness of breath but has not noticed anything unusual in that regard. She denies any change in pain with movement or deep breaths. She has not had a cough recently. 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 ), Incontinence, Renal insuffiency, Frequency HEENT: Chronic vision loss, Chronic hearing loss Psych: Depression Musculoskeletal: Osteoarthritis, Chronic back pain, Other Derm: None - Past Surgical History Past Surgical History: Yes Ortho: Hip replacement, Knee replacement, Carpal Tunnel surgery /CUT OFF SAW OPERATOR METAL: Dilation and currettage, Tubal ligation, Hysterectomy, Oophrectomy - Present Medications Home Medications: Ambulatory Orders Medication Instructions Recorded Confirmed Insulin Glargine [Lantus Solostar] 25 unit SQ QPM 08/14/17 08/10/23 Sertraline HCl 50 mg PO QPM 02/26/18 08/10/23 Levothyroxine Sodium 125 mcg PO QDAC 04/11/19 08/10/23 Apixaban [Eliquis] 2.5 mg PO BID 01/02/23 08/10/23 Atorvastatin [Lipitor] 40 mg PO QPM 01/02/23 08/10/23 Metoprolol Succinate [Toprol Xl] 200 mg PO BID 01/02/23 08/10/23 dilTIAZem HCL [Diltiazem 24Hr ER 240 mg PO DAILY 01/02/23 08/10/23 (Xr)] glipiZIDE [Glipizide] 10 mg PO TID 01/02/23 08/10/23 Bethanechol [Urecholine] 25 mg PO DAILY 06/18/23 08/10/23 Isosorbide Dinitrate 30 mg PO DAILY 06/18/23 08/10/23 Lipase/Protease/Amylase 1 each PO DAILY 06/18/23 08/10/[address] [[address] 5,000/17,000/24,000 Long Term] rOPINIRole [Requip] 0.75 mg PO TID 06/18/23 08/10/23 Omeprazole Magnesium 20 mg PO DAILY 07/05/23 08/10/23 Torsemide 100 mg PO DAILY 07/05/23 08/10/23 Aspirin [[place] Aspirin] 81 mg PO DAILY 08/10/23 08/10/23 hydrALAZINE [Apresoline] 10 mg PO TID 08/10/23 08/10/23 - Allergies Allergies/Adverse Reactions: Allergies Allergy/AdvReac Type Severity Reaction Status Date / Time atorvastatin Allergy Cramps Verified 01/05/24 02:19 bee venom protein (honey bee) Allergy Unknown Verified 01/05/24 02:19 cefuroxime [From Ceftin] Allergy Unknown Verified 01/05/24 02:19 codeine Allergy Nausea Verified 01/05/24 02:19 hydrocodone [From Vicodin] Allergy Nausea Verified 01/05/24 02:19 Influenza Virus Vaccines Allergy Unknown Verified 01/05/24 02:19 lisinopril Allergy Respiratory Verified 01/05/24 02:19 mushroom Allergy Anaphylaxis Verified 01/05/24 02:19 nitroglycerin Allergy Headache Verified 01/05/24 02:19 propoxyphene Allergy Unknown Verified 01/05/24 02:19 [From Darvocet-N] tramadol Allergy Headache Verified 01/05/24 02:19 - Social History Does the pt smoke?: No Smoking Status: Never smoker Does the pt drink ETOH?: No Does the pt have substance abuse?: No - Immunizations Immunizations are current?: Yes - POLST Patient has POLST: No POLST Status: Full Code PD ED PE NORMAL - Vitals Vital signs reviewed: Yes - General General: Alert and oriented X 3, No acute distress, Well developed/nourished - HEENT HEENT: Atraumatic, PERRL, EOMI, Moist mucous membranes - Neck Neck: Supple, no meningeal sign - Cardiac Cardiac: RRR, No murmur - Respiratory Respiratory: No respiratory distress, Clear bilaterally - Abdomen Abdomen: Soft, Non distended, Other (Mild diffuse upper abdominal tenderness, no rebound or guarding.) - Back Back: No CVA TTP - Derm Derm: Normal color, Warm and dry, No rash - Extremities Extremities: No deformity, No edema - Neuro Neuro: Alert and oriented X 3, Other (Grossly intact) - Psych Psych: Normal mood, Normal affect Results - Vitals Vitals: Vital Signs - 24 hr 01/05/24 01/05/24 01/05/24 02:17 02:20 03:13 Temperature 36.2 C L Heart Rate 57 L 66 60 Respiratory 18 18 18 Rate Blood Pressure 106/61 105/63 O2 Saturation 98 97 97 Oxygen O2 Source Room air - EKG (time done) 0215 EKG releavant findings:: EKG personally interpreted by author of this note. Relevant findings are: Rate: Rate (enter#) (69) Rhythm: Atrial fibrillation [place]: Normal Intervals: Prolonged QT QRS: Normal Ischemia: Non specific changes Compare to prior EKG: Old EKG unavailable Computer interpretation: Agree with computer - Labs Labs: Laboratory Tests 01/05/24 01/05/24 02:12 02:12 WBC 9.8 RBC 3.48 L Hgb 11.0 L Hct 33.3 L MCV 95.7 MCH 31.6 H MCHC 33.0 RDW 15.8 H Plt Count 206 MPV 11.2 H Neut # (Auto) 7.5 H Lymph # (Auto) 1.2 L [place] # (Auto) 0.7 Eos # (Auto) 0.3 Baso # (Auto) 0.1 Absolute Nucleated RBC 0.00 Nucleated RBC % 0.0 Sodium 135 Potassium 4.0 Chloride 95 L Carbon Dioxide 29 Anion Gap 11.0 BUN 31 H Creatinine 3.0 H Estimated GFR (MDRD) 15 L Glucose 242 H Calcium 8.5 Total Bilirubin 0.9 AST 14 ALT 15 Alkaline Phosphatase 85 Total Protein 6.8 Albumin 4.0 Globulin 2.8 Albumin/Globulin Ratio 1.4 Lipase 45 PD Medical Decision Making - ED course Complexity details: reviewed results, re-evaluated patient, considered differential, d/w patient ED course: The patient was worked up with labs, chest x-ray, and EKG. The patient's workup was unremarkable and I felt she was stable for discharge. Her pain was located under her right breast and was not consistent with cardiac chest pain. Furthermore, no evidence of any other emergent condition was found. We have discussed the need for follow-up as well as usual indications for return. The patient's family has picked her up. Departure - Departure Disposition: Home, Self Care Clinical Impression: Chest pain Qualifiers: Chest pain type: unspecified Qualified Code(s): R07.9 - Chest pain, unspecified Condition: Stable Instructions: ED Chest Pain Atypical Unkn Cause Comments: Your labs, chest x-ray, and EKG all look good. Most likely, the pain in your chest is coming from the muscular and bony structures of your chest wall and not from your vital organs. Please be sure to follow-up with your primary doctor if you continue to have chest pain. Please keep your dialysis schedule this week, as well. Forms: PCP List Discharge Date/Time: 01/05/24 03:48
[2024-01-05 02:20] LABS: BASOPHILS # (AUTO) 0.1 10^3/uL (0.0-0.1); BASOPHILS % (AUTO) 0.7 %; EOSINOPHILS # (AUTO) 0.3 10^3/uL (0.0-0.7); EOSINOPHILS % (AUTO) 2.6 %; HCT - HEMATOCRIT 33.3 % (37.0-47.0); LYMPHOCYTES # (AUTO) 1.2 10^3/uL (1.5-3.5); LYMPHOCYTES % (AUTO) 12.6 %; MEAN CORPUSCULAR HEMOGLOBIN 31.6 pg (27.0-31.0); MEAN CORPUSCULAR VOLUME 95.7 fL (81.0-99.0); MEAN PLATELET VOLUME 11.2 fL (7.9-10.8); MONOCYTES # (AUTO) 0.7 10^3/uL (0.0-1.0); MONOCYTES % (AUTO) 6.8 %; NEUTROPHILS # (AUTO) 7.5 10^3/uL (1.5-6.6); NEUTROPHILS % (AUTO) 76.7 %; PLT - PLATELET COUNT 206 10^3/uL (130-450); RED BLOOD COUNT 3.48 10^6/uL (4.20-5.40); RED CELL DISTRIBUTION WIDTH 15.8 % (12.0-15.0); WHITE BLOOD COUNT 9.8 x10^3/uL (4.8-10.8)
[2024-01-05 02:26] VITALS: O2SAT 97
[2024-01-05 02:34] LABS: BILIRUBIN,TOTAL 0.9 mg/dL (0.2-1.0); CALCIUM 8.5 mg/dL (8.5-10.3); TOTAL PROTEIN 6.8 g/dL (6.4-8.9)
[2024-01-05 02:35] LABS: ALBUMIN/GLOBULIN RATIO 1.4 (1.0-2.2)
[2024-01-05] MEDS ORDERED: KETOROLAC 15 MG/ML VIAL ONE (03:02)
[2024-01-05] MEDS: KETOROLAC 30 MG/ML VIAL IVP STA (03:03)
[2024-01-05 03:26] VITALS: BP 105/63
--- NOTE | 2024-01-05 08:05 | XRAY Report ---
PROCEDURE: Chest 1V INDICATIONS: chest pain TECHNIQUE: One view of the chest was acquired. COMPARISON: 06/18/2023. FINDINGS: Surgical changes and devices: Right-sided dialysis catheter tips are in the SVC.. Lungs and pleura: No pleural effusions or pneumothorax. Mild pulmonary vascular congestion is seen. No definite focal infiltrate. Mediastinum: Mediastinal contours appear normal. Heart size is enlarged. Bones and chest wall: No suspicious bony lesions. Overlying soft tissues appear unremarkable. IMPRESSION: Cardiomegaly and mild congestion. No definite focal infiltrate. No pleural effusion or pneumothorax. No significant discrepancies from preliminary reading. Reviewed by: Scott Almendarez MD on 01/05/2024 8:03 AM PDT Approved by: Scott Almendarez MD on 01/05/2024 8:03 AM PDT Station ID: [id number]
== END 2024-01-05 03:48 | disposition home or self-care (01) ==
LOC: EDUNIT# → ED 02:08
DX: R07.9 Chest pain, unspecified (principal); I11.0 Hypertensive heart disease with heart failure; I50.9 Heart failure, unspecified; E78.00 Pure hypercholesterolemia, unspecified; I25.10 Atherosclerotic heart disease of native coronary artery without angina pectoris; I48.91 Unspecified atrial fibrillation; J45.909 Unspecified asthma, uncomplicated; G47.30 Sleep apnea, unspecified; E11.9 Type 2 diabetes mellitus without complications; E03.9 Hypothyroidism, unspecified; N28.9 Disorder of kidney and ureter, unspecified; Z99.2 Dependence on renal dialysis; Z79.4 Long term (current) use of insulin; Z79.899 Other long term (current) drug therapy; Z79.01 Long term (current) use of anticoagulants
CPT/HCPCS: 36415; 80053; 83690; 85025; 93005; 96374; 99283

== ENCOUNTER 2024-01-14 08:00 | Outpatient (CLI) | payer MEDICARE, OTHER | END 2024-01-14 23:59 | disposition home or self-care (01) | LOC: PC 08:00 | PROVIDERS: ATTEND Nurse Practitioner Gerontology | DX: Z51.5 Encounter for palliative care (principal); I48.91 Unspecified atrial fibrillation; I13.2 Hypertensive heart and chronic kidney disease with heart failure and with stage 5 chronic kidney disease, or end stage renal disease; I50.9 Heart failure, unspecified; N18.5 Chronic kidney disease, stage 5; Z99.2 Dependence on renal dialysis; I25.10 Atherosclerotic heart disease of native coronary artery without angina pectoris; E11.22 Type 2 diabetes mellitus with diabetic chronic kidney disease; Z79.4 Long term (current) use of insulin; Z79.01 Long term (current) use of anticoagulants; G47.30 Sleep apnea, unspecified; K21.9 Gastro-esophageal reflux disease without esophagitis; I49.5 Sick sinus syndrome; E11.40 Type 2 diabetes mellitus with diabetic neuropathy, unspecified; T46.1X6A Underdosing of calcium-channel blockers, initial encounter; Z91.128 Patient's intentional underdosing of medication regimen for other reason | CPT/HCPCS: 99350 ==

== ENCOUNTER 2024-01-17 08:00 | Outpatient (CLI) | payer MEDICARE, OTHER | END 2024-01-17 23:59 | disposition home or self-care (01) | LOC: PC 08:00 | PROVIDERS: ATTEND Nurse Practitioner Gerontology | DX: Z51.5 Encounter for palliative care (principal); I50.9 Heart failure, unspecified; N18.5 Chronic kidney disease, stage 5 | CPT/HCPCS: 99426 ==

== ENCOUNTER 2024-02-11 08:00 | Outpatient (CLI) | payer MEDICARE, OTHER | END 2024-02-11 23:59 | disposition home or self-care (01) | LOC: PC 08:00 | PROVIDERS: ATTEND Nurse Practitioner Gerontology | DX: Z51.5 Encounter for palliative care (principal); E11.22 Type 2 diabetes mellitus with diabetic chronic kidney disease; I13.2 Hypertensive heart and chronic kidney disease with heart failure and with stage 5 chronic kidney disease, or end stage renal disease; N18.5 Chronic kidney disease, stage 5; Z99.2 Dependence on renal dialysis; Z79.4 Long term (current) use of insulin; I50.30 Unspecified diastolic (congestive) heart failure; E11.42 Type 2 diabetes mellitus with diabetic polyneuropathy; I48.91 Unspecified atrial fibrillation; G89.29 Other chronic pain; M16.0 Bilateral primary osteoarthritis of hip; M17.0 Bilateral primary osteoarthritis of knee; R53.83 Other fatigue; K58.9 Irritable bowel syndrome, unspecified; E21.3 Hyperparathyroidism, unspecified; G47.30 Sleep apnea, unspecified; Z66 Do not resuscitate; E66.9 Obesity, unspecified; E83.51 Hypocalcemia; M54.9 Dorsalgia, unspecified; R41.844 Frontal lobe and executive function deficit; R14.3 Flatulence | CPT/HCPCS: 99350 ==

== ENCOUNTER 2024-02-16 08:00 | Outpatient (CLI) | payer MEDICARE, OTHER | END 2024-02-16 23:59 | disposition home or self-care (01) | LOC: PC 08:00 | PROVIDERS: ATTEND Nurse Practitioner Gerontology | DX: Z51.5 Encounter for palliative care (principal); I50.9 Heart failure, unspecified; N18.5 Chronic kidney disease, stage 5 | CPT/HCPCS: 99426 ==

== ENCOUNTER 2024-04-06 17:29 | Outpatient (CLI) | payer MEDICARE, OTHER | END 2024-04-06 23:59 | disposition critical access hospital (66) | LOC: EMS 17:29 | DX: R07.89 Other chest pain (principal); R42 Dizziness and giddiness; I48.91 Unspecified atrial fibrillation; Z79.01 Long term (current) use of anticoagulants; Z99.2 Dependence on renal dialysis | CPT/HCPCS: A0425; A0429 ==

== ENCOUNTER 2024-04-06 17:51 | Emergency (ER) | payer MEDICARE, OTHER ==
--- NOTE | 2024-04-06 18:04 | ED Physician Documentation ---
PD HPI CHEST PAIN - Stated complaint Stated Complaint: CP - Chief complaint Chief Complaint: Cardiac - History obtained from History obtained from: Patient, EMS - History of Present Illness Pain level max: 2 Pain level now: 1 Quality: Pressure Location: Substernal Radiation: No: Jaw, Neck, Back, Abdominal, Left upper extremity, Right upper extremity Improved by: Nothing Associated symptoms: No: Shortness of air, Diaphoresis, Nausea, Vomiting, Feeling faint / dizzy Recently seen: Not recently seen - Additional information Additional information: Patient is a 78-year-old female who presents to the emergency department stating that she has had chest pain for the past 3 hours. She states it started while she was receiving dialysis today. It is in the center of her chest, nonradia ting. She states that it is "kind of there". She states she has a history of atrial fibrillation. She states that she does see a dining room tables set up attendant but she does not know who. She thinks that they are out of [employer]. She states that she has had a cardiac stress test, but has no idea when. She thinks that she had an angiogram as well but does not know when that was either. She states she cannot even tell me if it was in the last year or the last 10 years. 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 ), Incontinence, Renal insuffiency, Frequency HEENT: Chronic vision loss, Chronic hearing loss Psych: Depression Musculoskeletal: Osteoarthritis, Chronic back pain, Other Derm: None - Past Surgical History Past Surgical History: Yes Ortho: Hip replacement, Knee replacement, Carpal Tunnel surgery /ASSISTED LIVING ASSOCIATE: Dilation and currettage, Tubal ligation, Hysterectomy, Oophrectomy - Present Medications Home Medications: Ambulatory Orders Medication Instructions Recorded Confirmed Insulin Glargine [Lantus Solostar] 25 unit SQ QPM 08/14/17 08/10/23 Sertraline HCl 50 mg PO QPM 02/26/18 08/10/23 Levothyroxine Sodium 125 mcg PO QDAC 04/11/19 08/10/23 Apixaban [Eliquis] 2.5 mg PO BID 01/02/23 08/10/23 Atorvastatin [Lipitor] 40 mg PO QPM 01/02/23 08/10/23 Metoprolol Succinate [Toprol Xl] 200 mg PO BID 01/02/23 08/10/23 dilTIAZem HCL [Diltiazem 24Hr ER 240 mg PO DAILY 01/02/23 08/10/23 (Xr)] glipiZIDE [Glipizide] 10 mg PO TID 01/02/23 08/10/23 Bethanechol [Urecholine] 25 mg PO DAILY 06/18/23 08/10/23 Isosorbide Dinitrate 30 mg PO DAILY 06/18/23 08/10/23 Lipase/Protease/Amylase 1 each PO DAILY 06/18/23 08/10/23 [Pan[address]lip[address] 5,000/17,000/24,000 [facility]] rOPINIRole [Requip] 0.75 mg PO TID 06/18/23 08/10/23 Omeprazole Magnesium 20 mg PO DAILY 07/05/23 08/10/23 Torsemide 100 mg PO DAILY 07/05/23 08/10/23 Aspirin [[place] Aspirin] 81 mg PO DAILY 08/10/23 08/10/23 hydrALAZINE [Apresoline] 10 mg PO TID 08/10/23 08/10/23 - Allergies Allergies/Adverse Reactions: Allergies Allergy/AdvReac Type Severity Reaction Status Date / Time amoxicillin Allergy Unknown Verified 04/06/24 18:22 atorvastatin Allergy Cramps Verified 04/06/24 18:22 bee venom protein (honey bee) Allergy Unknown Verified 04/06/24 18:22 cefuroxime [From Ceftin] Allergy Unknown Verified 04/06/24 18:22 cephalexin Allergy Unknown Verified 04/06/24 18:22 codeine Allergy Nausea Verified 04/06/24 18:22 hydrocodone [From Vicodin] Allergy Nausea Verified 04/06/24 18:22 Influenza Virus Vaccines Allergy Unknown Verified 04/06/24 18:22 lisinopril Allergy Respiratory Verified 04/06/24 18:22 morphine Allergy Unknown Verified 04/06/24 18:22 mushroom Allergy Anaphylaxis Verified 04/06/24 18:22 nitroglycerin Allergy Headache Verified 04/06/24 18:22 propoxyphene Allergy Unknown Verified 04/06/24 18:22 [From RosemaryN] tramadol Allergy Headache Verified 04/06/24 18:22 - Social History Does the pt smoke?: No Smoking Status: Never smoker Does the pt drink ETOH?: No Does the pt have substance abuse?: No - Immunizations Immunizations are current?: Yes - POLST Patient has POLST: No POLST Status: Full Code PD ED PE NORMAL - Vitals Vital signs reviewed: Yes - General General: Alert and oriented X 3, No acute distress - HEENT HEENT: PERRL, Moist mucous membranes - Neck Neck: Supple, no meningeal sign - Cardiac Cardiac: Other (Irregular) - Respiratory Respiratory: No respiratory distress, Clear bilaterally - Abdomen Abdomen: Soft, Non tender, Non distended - Derm Derm: Warm and dry - Extremities Extremities: No edema, No calf tenderness / cord - Neuro Neuro: Alert and oriented X 3 - Psych Psych: Normal mood, Normal affect Results - Vitals Vitals: Vital Signs - 24 hr 04/06/24 04/06/24 04/06/24 18:00 18:25 20:00 Temperature 36.7 C Heart Rate 73 71 68 Respiratory 16 22 18 Rate Blood Pressure 134/67 H 148/70 H 154/76 H O2 Saturation 88 L 99 94 Oxygen O2 Source Room air - EKG (time done) 1818 EKG releavant findings:: EKG personally interpreted by author of this note. Relevant findings are: Rate: Rate (enter#) (62) Rhythm: Atrial fibrillation [place]: Normal QRS: Normal Ischemia: Normal ST segments - Labs Labs: Laboratory Tests 04/06/24 04/06/24 04/06/24 18:10 18:10 20:19 WBC 10.9 H RBC 3.40 L Hgb 10.9 L Hct 34.0 L MCV 100.0 H MCH 32.1 H MCHC 32.1 RDW 14.7 Plt Count 203 MPV 11.3 H Neut # (Auto) 9.0 H Lymph # (Auto) 0.9 L [place] # (Auto) 0.8 Eos # (Auto) 0.1 Baso # (Auto) 0.1 Absolute Nucleated RBC 0.00 Nucleated RBC % 0.0 Sodium 136 Potassium 3.8 Chloride 95 L Carbon Dioxide 31 Anion Gap 10.0 BUN 27 H Creatinine 2.8 H Estimated GFR (MDRD) 16 L Glucose 120 H Calcium 8.9 Total Bilirubin 2.7 H AST 43 H ALT 147 H Alkaline Phosphatase 369 H Troponin I High Sens 30.0 H* 30.9 H* Total Protein 7.1 Albumin 4.1 Globulin 3.0 Albumin/Globulin Ratio 1.4 Lipase 55 - Rads (name of study) Right upper quadrant ultrasound Relevant Findings:: Final report received, See rad report Chest x-ray Relevant Findings:: Final report received, See rad report PD Medical Decision Making - ED course Complexity details: reviewed results, re-evaluated patient, considered differential (No ST elevation [place], no aortic dissection, no PE, no tension pneumothorax, no aortic aneurysm), d/w patient ED course: Patient with a mild elevation of her high-sensitivity troponin, not uncommon given her dialysis and renal failure. Second high sensitive troponin shows no significant increase. Her liver function tests are elevated, right upper quadrant ultrasound performed. Gallbladder appears normal. No evidence of cholecystitis. She does have fatty liver, she will follow-up with her doctor for repeat LFT testing. Recommend that she follow-up with her doctor for referral to cardiology as well. Patient is asymptomatic in the emergency department. No chest pain or shortness of breath here. As patient is fully asymptomatic, negative workup, we will let her go home and follow-up very closely with her doctor. She will return if she worsens, develops recurrent symptoms or has any other new or worrisome symptoms. Patient counseled regarding signs and symptoms for which I believe and urgent re-evaluation would be necessary. Patient with good understanding of and agreement to plan and is comfortable going home at this time This document was made in part using voice recognition software. While efforts are made to proofread this document, sound alike and grammatical errors may occur. Departure - Departure Disposition: 01 Home, Self Care Clinical Impression: Elevated liver enzymes Chest pain Qualifiers: Chest pain type: unspecified Qualified Code(s): R07.9 - Chest pain, unspecified Condition: Good Instructions: ED Chest Pain Atypical Unkn Cause Follow-Up: your,doctor in 1 week [Other] Stephenie Hart ARNP [Provider Admit Priv/Credential] - Alex Rivas NP [Provider Admit Priv/Credential] - Comments: The cause of your symptoms is unclear today. Please follow-up with your doctor for further care. Please return if you worsen. Your liver function tests were elevated today, but your ultrasound does not show any acute abnormalities other than a fatty liver. Your liver function test should be rechecked with your doctor in 1 week. Your doctor may want to refer you for a cardiac stress test or cardiology evaluation as well. Please return if you worsen. Forms: PCP List
[2024-04-06 18:15] LABS: BASOPHILS # (AUTO) 0.1 10^3/uL (0.0-0.1); BASOPHILS % (AUTO) 0.5 %; EOSINOPHILS # (AUTO) 0.1 10^3/uL (0.0-0.7); EOSINOPHILS % (AUTO) 1.1 %; HGB - HEMOGLOBIN 10.9 g/dL (12.0-16.0); LYMPHOCYTES # (AUTO) 0.9 10^3/uL (1.5-3.5); MEAN CORPUSCULAR HEMOGLOBIN 32.1 pg (27.0-31.0); MEAN CORPUSCULAR HGB CONC 32.1 g/dL (32.0-36.0); MEAN PLATELET VOLUME 11.3 fL (7.9-10.8); MONOCYTES # (AUTO) 0.8 10^3/uL (0.0-1.0); MONOCYTES % (AUTO) 7.7 %; NEUTROPHILS % (AUTO) 81.9 %; PLT - PLATELET COUNT 203 10^3/uL (130-450); RED CELL DISTRIBUTION WIDTH 14.7 % (12.0-15.0); WHITE BLOOD COUNT 10.9 x10^3/uL (4.8-10.8)
[2024-04-06 18:27] LABS: ALBUMIN 4.1 g/dL (3.2-5.5); BILIRUBIN,TOTAL 2.7 mg/dL (0.2-1.0); CALCIUM 8.9 mg/dL (8.5-10.3); POTASSIUM 3.8 mmol/L (3.5-4.5)
--- NOTE | 2024-04-06 18:30 | XRAY Report ---
PROCEDURE: Chest 1V INDICATIONS: Chest Pain TECHNIQUE: One view of the chest was acquired. COMPARISON: 01/05/2024. FINDINGS: Surgical changes and devices: None. Lungs and pleura: No pleural effusions or pneumothorax. Mild interstitial prominence. Mediastinum: Mediastinal contours appear normal. Heart size is enlarged, stable. Bones and chest wall: No suspicious bony lesions. Overlying soft tissues appear unremarkable. IMPRESSION: Cardiomegaly with mild interstitial prominence. Recommend correlation for volume overload/pulmonary e veronica. Reviewed by: Arun Samuel MD on 04/06/2024 6:28 PM PDT Approved by: Arun Samuel MD on 04/06/2024 6:28 PM PDT Station ID: [id number]
[2024-04-06 18:33] LABS: ALBUMIN/GLOBULIN RATIO 1.4 (1.0-2.2); CREATININE 2.8 mg/dL (0.6-1.3); TOTAL PROTEIN 7.1 g/dL (6.4-8.9)
[2024-04-06] MEDS: fentaNYL 100 MCG/2 ML VIAL IVP STA (21:12)
--- NOTE | 2024-04-06 21:17 | Ultrasound Report ---
PROCEDURE: Abdomen Limited INDICATIONS: elevated LFTs TECHNIQUE: Real-time focused scanning was performed of the abdomen, with image documentation. COMPARISONS: 02/10/2023 FINDINGS: Liver: Increased liver echogenicity, commonly mild hepatic steatosis. Hepatopedal flow of the main p ortal vein. Gallbladder: No gallstones, sludge, wall thickening or pericholecystic edema. Biliary ducts: Intrahepatic bile ducts are non-dilated. Extrahepatic bile duct caliber measures 4 m m. Normal is 6-7 mm or less in diameter, or 10 mm or less post-cholecystectomy. Pancreas: Not well visualized due to overlying bowel gas. Right kidney: Normal in size and echotexture. Right kidney measures 11 cm long. There is a punctate, echogenic subcentimeter focus within the right kidney likely representing a nonobstructive stone. No hydronephrosis. No solid masses. No complex renal cystic lesions which require follow-up. Miscellaneous: No free abdominal fluid. IMPRESSION: Hepatic steatosis. Findings may explain elevated liver function tests. Possible subcentimeter nonobstructing right renal stone. No hydronephrosis. Reviewed by: Rosales Hawk MD on 04/06/2024 9:16 PM PDT Approved by: Rosales Hawk MD on 04/06/2024 9:16 PM PDT Station ID: [id number]
[2024-04-06 22:31] VITALS: BP 156/94; O2SAT 99
== END 2024-04-06 22:30 | disposition home or self-care (01) ==
LOC: EDUNIT# → ED 17:51
DX: R07.9 Chest pain, unspecified (principal); R74.8 Abnormal levels of other serum enzymes; I48.91 Unspecified atrial fibrillation; I11.0 Hypertensive heart disease with heart failure; I50.9 Heart failure, unspecified; E78.00 Pure hypercholesterolemia, unspecified; I25.10 Atherosclerotic heart disease of native coronary artery without angina pectoris; J45.909 Unspecified asthma, uncomplicated; E11.9 Type 2 diabetes mellitus without complications; N28.9 Disorder of kidney and ureter, unspecified; E03.9 Hypothyroidism, unspecified; G47.30 Sleep apnea, unspecified; Z86.73 Personal history of transient ischemic attack (TIA), and cerebral infarction without residual deficits; Z99.2 Dependence on renal dialysis; Z79.4 Long term (current) use of insulin; Z79.01 Long term (current) use of anticoagulants; Z79.899 Other long term (current) drug therapy
CPT/HCPCS: 36415; 80053; 83690; 84484; 85025; 93005; 96374; 99284

== ENCOUNTER 2024-04-14 16:10 | Outpatient (CLI) | payer MEDICARE, OTHER | END 2024-04-14 23:59 | disposition EMS.NT | LOC: EMS 16:10 | DX: Z03.89 Encounter for observation for other suspected diseases and conditions ruled out (principal) ==

== ENCOUNTER 2024-04-16 19:52 | Emergency (ER) | payer MEDICARE, OTHER ==
[2024-04-16 20:13] LABS: BASOPHILS # (AUTO) 0.1 10^3/uL (0.0-0.1); EOSINOPHILS # (AUTO) 0.2 10^3/uL (0.0-0.7); EOSINOPHILS % (AUTO) 1.9 %; HCT - HEMATOCRIT 35.6 % (37.0-47.0); HGB - HEMOGLOBIN 11.5 g/dL (12.0-16.0); LYMPHOCYTES # (AUTO) 1.2 10^3/uL (1.5-3.5); MEAN CORPUSCULAR HEMOGLOBIN 31.9 pg (27.0-31.0); MEAN CORPUSCULAR HGB CONC 32.3 g/dL (32.0-36.0); MEAN CORPUSCULAR VOLUME 98.9 fL (81.0-99.0); MEAN PLATELET VOLUME 11.2 fL (7.9-10.8); MONOCYTES # (AUTO) 0.8 10^3/uL (0.0-1.0); MONOCYTES % (AUTO) 7.8 %; NEUTROPHILS # (AUTO) 7.6 10^3/uL (1.5-6.6); NEUTROPHILS % (AUTO) 76.3 %; PLT - PLATELET COUNT 279 10^3/uL (130-450); RED CELL DISTRIBUTION WIDTH 14.2 % (12.0-15.0)
--- NOTE | 2024-04-16 20:26 | ED Physician Documentation ---
PD HPI HEAD INJURY - Stated complaint Stated Complaint: GLF/FACIAL LAC - Chief complaint Chief Complaint: Laceration - History obtained from History obtained from: Patient, EMS - Additional information Additional information: BIBA. HPI from patient, EMS. Patient says she went to sit down at home tonight, missed the chair and thus fell onto the floor. In falling, she sustained a head injury, patient thinks due to hitting the floor. Patient denies LOC. Patient complains of right wrist pain and right knee pain. Patient is left hand dominant. EMS notes laceration above her left eye. She does not offer complaint of headache, but on review of systems she does report mild, generalized headache. Patient takes Eliquis daily. Review of Systems Eyes: denies: Loss of vision, Decreased vision Cardiac: denies: Chest pain / pressure Respiratory: denies: Dyspnea GI: denies: Abdominal Pain Musculoskeletal: reports: Joint pain (right wrist, right knee). denies: Neck pain, Back pain Neurologic: reports: Headache, Head injury. denies: Generalized weakness, Focal weakness, Numbness, LOC PD PAST MEDICAL HISTORY - Past Medical History Past Medical History: Yes Cardiovascular: Congestive heart failure, Hypertension, High cholesterol, Coronary artery disease, Atrial fibrillation, Murmur Respiratory: Asthma, Pneumonia, Shortness of breath, Sleep apnea, CPAP use Neuro: CVA, Migraines, Other Endocrine/Autoimmune: Type 2 diabetes, HyPOthyroidism, Other GI: GERD, Hepatitis, Other DEPUTY K 9: None : Dialysis, Incontinence, Renal insuffiency, Frequency HEENT: Chronic vision loss, Chronic hearing loss Psych: Depression Musculoskeletal: Osteoarthritis, Chronic back pain, Other Derm: None - Past Surgical History Past Surgical History: Yes Ortho: Hip replacement, Knee replacement, Carpal Tunnel surgery /DEPUTY K 9: Dilation and currettage, Tubal ligation, Hysterectomy, Oophrectomy - Present Medications Home Medications: Ambulatory Orders Medication Instructions Recorded Confirmed Insulin Glargine [Lantus Solostar] 25 unit SQ QPM 08/14/17 08/10/23 Sertraline HCl 50 mg PO QPM 02/26/18 08/10/23 Levothyroxine Sodium 125 mcg PO QDAC 04/11/19 08/10/23 Apixaban [Eliquis] 2.5 mg PO BID 01/02/23 08/10/23 Atorvastatin [Lipitor] 40 mg PO QPM 01/02/23 08/10/23 Metoprolol Succinate [Toprol Xl] 200 mg PO BID 01/02/23 08/10/23 dilTIAZem HCL [Diltiazem 24Hr ER 240 mg PO DAILY 01/02/23 08/10/23 (Xr)] glipiZIDE [Glipizide] 10 mg PO TID 01/02/23 08/10/23 Bethanechol [Urecholine] 25 mg PO DAILY 06/18/23 08/10/23 Isosorbide Dinitrate 30 mg PO DAILY 06/18/23 08/10/23 Lipase/Protease/Amylase 1 each PO DAILY 06/18/23 08/10/23 [Pancrelipase Dr 5,000/,000/24,000 [facility]] rOPINIRole [Requip] 0.75 mg PO TID 06/18/23 08/10/23 Omeprazole Magnesium 20 mg PO DAILY 07/05/23 08/10/23 Torsemide 100 mg PO DAILY 07/05/23 08/10/23 Aspirin [[place] Aspirin] 81 mg PO DAILY 08/10/23 08/10/23 hydrALAZINE [Apresoline] 10 mg PO TID 08/10/23 08/10/23 - Allergies Allergies/Adverse Reactions: Allergies Allergy/AdvReac Type Severity Reaction Status Date / Time amoxicillin Allergy Unknown Verified 04/16/24 20:07 atorvastatin Allergy Cramps Verified 04/16/24 20:07 bee venom protein (honey bee) Allergy Unknown Verified 04/16/24 20:07 cefuroxime [From Ceftin] Allergy Unknown Verified 04/16/24 20:07 cephalexin Allergy Unknown Verified 04/16/24 20:07 codeine Allergy Nausea Verified 04/16/24 20:07 hydrocodone [From Vicodin] Allergy Nausea Verified 04/16/24 20:07 Influenza Virus Vaccines Allergy Unknown Verified 04/16/24 20:07 lisinopril Allergy Respiratory Verified 04/16/24 20:07 morphine Allergy Unknown Verified 04/16/24 20:07 mushroom Allergy Anaphylaxis Verified 04/16/24 20:07 nitroglycerin Allergy Headache Verified 04/16/24 20:07 propoxyphene Allergy Unknown Verified 04/16/24 20:07 [From Darvocet-N] tramadol Allergy Headache Verified 04/16/24 20:07 - Social History Does the pt smoke?: No Smoking Status: Never smoker Does the pt drink ETOH?: No Does the pt have substance abuse?: No - Immunizations Immunizations are current?: Yes - POLST Patient has POLST: No POLST Status: Full Code PD ED PE NORMAL - Vitals Vital signs reviewed: Yes - General General: No acute distress, Well developed/nourished, Other (AAOx2 (does not know year, but also says "I have short-term memory problems")) - HEENT HEENT: PERRL, EOMI - Neck Neck: No bony TTP - Respiratory Respiratory: No respiratory distress, Clear bilaterally - Abdomen Abdomen: Soft, Non tender - Back Back: No spinal TTP - Neuro Neuro: diamond mounter 2-12 intact, No motor deficit, No sensory deficit, Normal speech Eye Opening: Spontaneous Motor: Obeys Commands Verbal: Confused GCS Score: 14 PD ED PE EXPANDED - HEENT HEENT Visual: 1 - laceration (1 cm laceration, scant active (oozing) bleeding) - Cardiac Cardiac: Irregularly irregular, Murmur Present (2/6 MORAIMA along left sternal border) - Extremities Extremities: Other (LTS intact all extremities, brisk capillary refill right fingertips and thumb. FROM right knee but (+) direct patellar tenderness of right knee) MADDY UE/Hands Visual: 1 - bruising, abrasion, swelling, tenderness Results - Vitals Vitals: Vital Signs - 24 hr 04/16/24 04/16/24 04/16/24 19:49 21:01 21:32 Temperature 36.0 C L Heart Rate 71 78 83 Respiratory 13 18 18 Rate Blood Pressure 160/110 H 165/82 H 159/79 H O2 Saturation 98 99 98 If not protocol 2 2 : Oxygen Flow, liters/minute 04/16/24 04/16/24 04/16/24 22:00 22:30 23:00 Temperature Heart Rate 75 74 71 Respiratory 20 16 16 Rate Blood Pressure 153/86 H 159/79 H 166/82 H O2 Saturation 97 97 96 If not protocol 2 2 2 : Oxygen Flow, liters/minute 04/16/24 04/17/24 04/17/24 23:30 00:00 00:30 Temperature Heart Rate 74 71 77 Respiratory 16 16 16 Rate Blood Pressure 171/85 H 162/71 H 160/72 H O2 Saturation 98 96 96 If not protocol 2 2 : Oxygen Flow, liters/minute Oxygen O2 Source Nasal cannula Oxygen Flow Rate 2 - EKG (time done) No standard instances EKG releavant findings:: EKG personally interpreted by author of this note. Relevant findings are: Rate: Rate (enter#) (59) Rhythm: Atrial fibrillation [place]: Normal QRS: Normal Ischemia: Q waves (III, aVF) - Labs Labs: Laboratory Tests 04/16/24 04/16/24 04/16/24 20:00 20:15 20:15 WBC 10.0 RBC 3.60 L Hgb 11.5 L Hct 35.6 L MCV 98.9 MCH 31.9 H MCHC 32.3 RDW 14.2 Plt Count 279 MPV 11.2 H Neut # (Auto) 7.6 H Lymph # (Auto) 1.2 L [place] # (Auto) 0.8 Eos # (Auto) 0.2 Baso # (Auto) 0.1 Absolute Nucleated RBC 0.00 Nucleated RBC % 0.0 PT 13.9 H INR 1.3 H APTT 34.6 H Sodium 135 Potassium 3.8 Chloride 96 L Carbon Dioxide 27 Anion Gap 12.0 BUN 37 H Creatinine 3.4 H Estimated GFR (MDRD) 13 L Glucose 248 H Calcium 9.2 Total Bilirubin 1.5 H AST 14 ALT 22 Alkaline Phosphatase 217 H Total Protein 7.1 Albumin 4.2 Globulin 2.9 Albumin/Globulin Ratio 1.4 Lipase 37 Urine Color Urine Clarity Urine pH Ur Specific [place] Urine Protein Urine Glucose (UA) Urine Ketones Urine Occult Blood Urine Nitrite Urine Bilirubin Urine Urobilinogen Ur Leukocyte Esterase Urine RBC Urine WBC Ur Squamous Epith Cells Urine Bacteria Ur Microscopic Review Urine Culture Comments 04/16/24 22:02 WBC RBC Hgb Hct MCV MCH MCHC RDW Plt Count MPV Neut # (Auto) Lymph # (Auto) [place] # (Auto) Eos # (Auto) Baso # (Auto) Absolute Nucleated RBC Nucleated RBC % PT INR APTT Sodium Potassium Chloride Carbon Dioxide Anion Gap BUN Creatinine Estimated GFR (MDRD) Glucose Calcium Total Bilirubin AST ALT Alkaline Phosphatase Total Protein Albumin Globulin Albumin/Globulin Ratio Lipase Urine Color YELLOW Urine Clarity CLEAR Urine pH 6.0 Ur Specific [place] 1.015 Urine Protein 30 H Urine Glucose (UA) 100 H Urine Ketones NEGATIVE Urine Occult Blood MODERATE H Urine Nitrite NEGATIVE Urine Bilirubin NEGATIVE Urine Urobilinogen 0.2 (NORMAL) Ur Leukocyte Esterase NEGATIVE Urine RBC 6-10 H Urine WBC 0-3 Ur Squamous Epith Cells FEW Squamous Urine Bacteria Moderate H Ur Microscopic Review INDICATED Urine Culture Comments NOT INDICATED - Rads (name of study) CTH Relevant Findings:: Prelim report reviewed, See rad report CT cervical spine Relevant Findings:: Prelim report reviewed, See rad report right wrist xrays Relevant Findings:: Prelim report reviewed, See rad report right knee xrays Relevant Findings:: Prelim report reviewed, See rad report Procedures - Laceration (location) Face left Length in cm: 1 Wound type: Linear, Into subcut fat Neurovascular status: Sensory intact, Motor intact, Vascular intact Skin layer closure: Dermabond Other: Patient tolerated well, No complications, Tetanus UTD PD Medical Decision Making - ED course Complexity details: reviewed results, re-evaluated patient, considered differential, d/w patient ED course: No concerning findings on CTH, CT cervical spine, right wrist xrays, right knee xrays. Unremarkable blood tests (CBC, PT/PTT, ER abdominal panel); abnormal kidney function tests are c/w previous (CRF, HD patient). She is in NAD on initial exam as well as on reevaluation prior to d/c. Left supraorbital laceration repaired with dermabond. Results d/w patient, return precautions reviewed. Departure - Departure Disposition: 01 Home, Self Care Clinical Impression: Fall, Facial laceration, Sprain of wrist, right Condition: Good Instructions: ED Mechanical Fall, ED Head Injury Closed, ED Laceration Facial Skin Glue Comments: There were no concerning findings on tonight's tests including the blood test, x-rays (right knee, right wrist), CT scans (head, neck). The laceration above your left eye was repaired with skin glue. Discharge Date/Time: 04/17/24 00:37
[2024-04-16 20:29] LABS: PARTIAL THROMBOPLASTIN TIME 34.6 secs (24.9-33.3)
[2024-04-16 20:33] LABS: ALBUMIN 4.2 g/dL (3.2-5.5); ALBUMIN/GLOBULIN RATIO 1.4 (1.0-2.2); BILIRUBIN,TOTAL 1.5 mg/dL (0.2-1.0); CALCIUM 9.2 mg/dL (8.5-10.3); CREATININE 3.4 mg/dL (0.6-1.3); POTASSIUM 3.8 mmol/L (3.5-4.5); TOTAL PROTEIN 7.1 g/dL (6.4-8.9)
[2024-04-16 20:34] LABS: INR 1.3 (0.8-1.2); PT - PROTHROMBIN TIME 13.9 secs (9.9-12.6)
--- NOTE | 2024-04-16 21:16 | CT Report ---
PROCEDURE: Head WO INDICATIONS: fall, head injury, on Eliquis TECHNIQUE: Helical axial CT of the brain was obtained without contrast and reformatted in multiple p lanes. Radiation dose reduction was achieved using automated exposure control or adjustment of mA and /or kV according to patient size. COMPARISON: None FINDINGS: CSF spaces: Ventricles are appropriate in size and position. No hydrocephalus. Basal cisterns unre markable. Brain: Atrophy and white matter chronic ischemic change. Old right medial occipital infarct in the l ingual cortex on the right is unchanged from the prior. Moderate atrophy and multifocal white matter chronic ischemic change noted. Atherosclerotic vascular calcification noted in the cavernous segment s of both internal carotid and vertebral arteries. Skull and face: Calvarium and skull base are unremarkable without suspicious lesion. Sinuses: Visualized sinuses and mastoids are clear. IMPRESSION: Atrophy and chronic ischemic change without intracranial hemorrhage or mass effect Reviewed by: Luis Vizcaino MD on 04/16/2024 8:14 PM AKDT Approved by: Luis Vizcaino MD on 04/16/2024 8:14 PM AKDT Station ID: [id number]
--- NOTE | 2024-04-16 21:24 | CT Report ---
PROCEDURE: Cervical Spine WO INDICATIONS: fall, head injury, neck pain TECHNIQUE: Helical axial CT of the cervical spine was obtained without contrast and reformatted in m ultiple planes. Radiation dose reduction was achieved utilizing automated exposure control or adjus tment of mA and/or kV according to patient size. COMPARISON: 10/24/2020 FINDINGS: Bones: No fractures or dislocations. Visualized superior ribs are intact. Degenerative disc diseas e and arthropathy present the cervical spine resulting in straightening of normal cervical lordosis Soft tissues: Prevertebral soft tissues are normal in thickness. No paravertebral hematomas. No ap ical pneumothoraces. IMPRESSION: Degenerative disc disease and arthropathy without evidence of fracture or traumatic malalignment. No change from the prior exam Reviewed by: Luis Vizcaino MD on 04/16/2024 8:22 PM AKDT Approved by: Luis Vizcaino MD on 04/16/2024 8:22 PM AKDT Station ID: [id number]
[2024-04-16 22:15] LABS: BILIRUBIN,URINE NEGATIVE (NEGATIVE); CLARITY,URINE CLEAR (CLEAR); GLUCOSE, URINE (UA) 100 mg/dL (NEGATIVE); KETONES,URINE (UA) NEGATIVE (NEGATIVE); LEUKOCYTE ESTERASE, URINE NEGATIVE (NEGATIVE); NITRITE,URINE NEGATIVE (NEGATIVE); OCCULT BLOOD,URINE MODERATE (NEGATIVE); PROTEIN,URINE 30 mg/dL (NEGATIVE); UROBILINOGEN,URINE 0.2 (NORMAL) E.U./dL (NORMAL)
[2024-04-16 22:22] LABS: WBC,URINE 0-3 /HPF (0-5)
[2024-04-16 22:23] LABS: BACTERIA,URINE Moderate /HPF (None Seen); SQUAMOUS EPITHELIAL CELL,UR FEW Squamous (<= Few)
--- NOTE | 2024-04-16 23:48 | XRAY Report ---
PROCEDURE: Knee 3V RT INDICATIONS: fall, right knee pain TECHNIQUE: 3 views of the knee was obtained. COMPARISON: None FINDINGS: Bones: Total knee arthroplasty in good position. No fracture or hardware failure. Soft tissues: No knee joint effusion. No suspicious soft tissue calcifications or masses. Atheroscl erotic vascular calcification IMPRESSION: Total knee arthroplasty without fracture or hardware failure Reviewed by: Luis Vizcaino MD on 04/16/2024 10:47 PM AKDT Approved by: Luis Vizcaino MD on 04/16/2024 10:47 PM AKDT Station ID: [id number]
--- NOTE | 2024-04-16 23:59 | XRAY Report ---
PROCEDURE: Wrist 3+V RT INDICATIONS: fall, right wrist pain TECHNIQUE: 3 views of the wrist were acquired. COMPARISON: None FINDINGS: Bones: Generalized decreased osseous mineralization present. First carpometacarpal degenerative montes ges. Subchondral cysts Soft tissues: No suspicious soft tissue calcifications or masses. IMPRESSION: Osteopenia without fracture or foreign body. Osteoarthritis Reviewed by: Luis Vizcaino MD on 04/16/2024 10:58 PM AKCHARLES Approved by: Luis Vizcaino MD on 04/16/2024 10:58 PM AKDT Station ID: [id number]
[2024-04-17 00:40] VITALS: BP 160/72; O2SAT 96
== END 2024-04-17 00:37 | disposition home or self-care (01) ==
LOC: EDUNIT# → ED 19:52
DX: S01.81XA Laceration without foreign body of other part of head, initial encounter (principal); S63.501A Unspecified sprain of right wrist, initial encounter; W18.30XA Fall on same level, unspecified, initial encounter; Y92.009 Unspecified place in unspecified non-institutional (private) residence as the place of occurrence of the external cause; I13.2 Hypertensive heart and chronic kidney disease with heart failure and with stage 5 chronic kidney disease, or end stage renal disease; I50.9 Heart failure, unspecified; N18.6 End stage renal disease; E11.22 Type 2 diabetes mellitus with diabetic chronic kidney disease; E78.00 Pure hypercholesterolemia, unspecified; I25.10 Atherosclerotic heart disease of native coronary artery without angina pectoris; I48.91 Unspecified atrial fibrillation; E03.9 Hypothyroidism, unspecified; Z99.2 Dependence on renal dialysis; Z79.4 Long term (current) use of insulin; Z79.899 Other long term (current) drug therapy; Z79.01 Long term (current) use of anticoagulants; Z79.82 Long term (current) use of aspirin; Z79.84 Long term (current) use of oral hypoglycemic drugs
CPT/HCPCS: 12011; 36415; 80053; 81001; 81003; 83690; 85025; 85610; 85730; 87086; 93005; 99283; 99284

== ENCOUNTER 2024-05-26 08:00 | Outpatient (CLI) | payer MEDICARE, OTHER | END 2024-05-26 23:59 | disposition home or self-care (01) | LOC: PC 08:00 | PROVIDERS: ATTEND Nurse Practitioner Gerontology | DX: Z51.5 Encounter for palliative care (principal); E11.22 Type 2 diabetes mellitus with diabetic chronic kidney disease; I13.2 Hypertensive heart and chronic kidney disease with heart failure and with stage 5 chronic kidney disease, or end stage renal disease; I50.9 Heart failure, unspecified; N18.5 Chronic kidney disease, stage 5; Z99.2 Dependence on renal dialysis; E11.42 Type 2 diabetes mellitus with diabetic polyneuropathy; I48.91 Unspecified atrial fibrillation; R11.0 Nausea; M54.9 Dorsalgia, unspecified; G89.29 Other chronic pain; I49.5 Sick sinus syndrome; Z71.89 Other specified counseling; Z79.4 Long term (current) use of insulin; Z79.01 Long term (current) use of anticoagulants; Z79.899 Other long term (current) drug therapy; Z66 Do not resuscitate; Z74.1 Need for assistance with personal care | CPT/HCPCS: 99350 ==

== ENCOUNTER 2024-06-07 12:53 | Outpatient (CLI) | payer MEDICARE, OTHER | END 2024-06-07 12:54 | disposition home or self-care (01) | LOC: DI 12:53 | PROVIDERS: ATTEND Internal Medicine Cardiovascular Disease | DX: I50.9 Heart failure, unspecified (principal); I27.20 Pulmonary hypertension, unspecified; I08.0 Rheumatic disorders of both mitral and aortic valves | CPT/HCPCS: 93307 ==